=== PATIENT | male | born 1960 | race Caucasian/White ===

== ENCOUNTER 2020-09-22 14:27 | Inpatient (IN) | payer OTHER ==
--- NOTE | 2020-09-22 16:02 | Event Note ---
ED Screening Note ED Screening Note: Patient is a 59-year-old male presents emergency room with complaints of weakness that began 2 days ago He states that his left leg feels weak and he feels weak all over and has tremors and is unable to ambulate on his own Believes he may be dehydrated He denies any cough, fever, shortness of breath, chest pain, abdominal pain He denies any alcohol use or drug use No allergies to medications No past medical history Nonpitting bilateral lower extremity edema, right greater than left Tremors to the upper extremities This initial assessment/diagnostic orders/clinical plan/treatment(s) is/are subject to change based on patients health status, clinical progression and re- assessment by fellow clinical providers in the ED. Further treatment and workup at subsequent clinical providers discretion. Patient/guardian urged not to elope from the ED as their condition may be serious if not clinically assessed and managed. Initial orders include: Labs, CT head, EKG, chest x-ray, UA
[2020-09-22 16:29] LABS: Basophils # (Auto) 0.1 K/mm3 (0.0-0.1); Basophils % (Auto) 0.6 % (0.0-1.8); Eosinophils % (Auto) 0.3 % (0.0-4.3); Hematocrit 32.9 % (35.5-45.6); Hemoglobin 11.2 gm/dl (11.8-15.2); Lymphocytes # (Auto) 0.9 K/mm3 (1.2-5.4); Lymphocytes % (Auto) 8.6 % (13.4-35.0); Mean Corpuscular HGB Conc 34 % (32-34); Mean Corpuscular Volume 91 fl (84-94); Monocytes # (Auto) 1.2 K/mm3 (0.0-0.8); Monocytes % (Auto) 10.8 % (0.0-7.3); Platelet Count 633 K/mm3 (140-440); Red Blood Count 3.62 M/mm3 (3.65-5.03); Red Cell Distribution Width 13.8 % (13.2-15.2)
[2020-09-22] MEDS ORDERED: SODIUM CHLORIDE 0.9% 1000 ML 1,000 ML IV ONE ×3 (16:44→17:11)
[2020-09-22] MEDS ORDERED: CYCLOBENZAPRINE 10 MG TAB PO ONE (16:45)
[2020-09-22] MEDS ORDERED: KETOROLAC 30 MG/1 ML INJ IV ONE (16:45)
--- NOTE | 2020-09-22 16:49 | XRay Report ---
CHEST PA AND LATERAL VIEWS INDICATION: weakness. COMPARISON: None. FINDINGS: Support devices: None. Heart: Within normal limits. Lungs/Pleura: There is mild airspace disease in the lateral left mid to lower lung. Right lung is jamari ar. No pleural abnormality. IMPRESSION: 1. Focal airspace disease in the mid to lower lateral left lung is concerning for pneumonia. Radiogra phic follow-up is recommended after treatment to ensure resolution. Signer Name: Ronan Burgos MD Signed: 09/22/2020 4:45 PM Workstation Name: [id number]
--- NOTE | 2020-09-22 16:49 | Emergency Department Report ---
HPI - General Chief Complaint: Weakness PUI?: Yes Time Seen by Provider: 09/22/20 15:58 - HPI HPI: Room 44 The patient is a 59-year-old male present with a chief complaint of leg cramping. Patient states he believes he contracted COVID-19 approximate 2 weeks ago as his symptoms included fatigue and shortness of breath and he had contact with his boss who was Covid positive. Patient states the fatigue and shortness of breath have resolved however for the past 4 days he has had bilateral lower extremity aching with the left leg greater than the right. Patient denies fever nausea or vomiting. Patient denies chest pain shortness of breath. Patient denies of having any other symptoms besides cramping in his legs. Patient denies paresthesia. Patient currently gets his leg cramping score of 7/10 ED Past Medical Hx - Past Medical History Previous Medical History?: Yes Hx Hypertension: Yes - Surgical History Past Surgical History?: No - Family History Family history: no significant - Social History Smoking Status: Never Smoker Substance Use Type: None (Denies illicit drug) ED Review of Systems ROS: Stated complaint: WEAKNESS Other details as noted in HPI Constitutional: malaise. denies: fever Eyes: denies: eye pain ENT: denies: throat pain Respiratory: shortness of breath (Resolved) Cardiovascular: denies: chest pain Endocrine: no symptoms reported Gastrointestinal: diarrhea (History of diarrhea but it has resolved). denies: nausea, vomiting Genitourinary: denies: dysuria Musculoskeletal: myalgia Neurological: denies: headache Physical Exam - Physical Exam Vital Signs: Vital Signs 09/22/20 15:48 Temperature 99.0 F Pulse Rate 117 H Respiratory 18 Rate Blood Pressure 117/74 O2 Sat by Pulse 96 Oximetry Physical Exam: GENERAL: The patient is well-developed well-nourished male lying on stretcher not appearing to be in acute distress. [] HEENT: Normocephalic. Atraumatic. Extraocular motions are intact. Patient has moist mucous membranes. NECK: Supple. Trachea midline CHEST/LUNGS: Clear to auscultation. There is no respiratory distress noted. HEART/CARDIOVASCULAR: Regular. There is no tachycardia. There is no gallop rub or murmur. ABDOMEN: Abdomen is soft, nontender. Patient has normal bowel sounds. There is no abdominal distention. SKIN: There is no rash. There is no edema. There is no diaphoresis. NEURO: The patient is awake, alert, and oriented. The patient is cooperative. The patient has no focal neurologic deficits. The patient has normal speech MUSCULOSKELETAL: There is no tenderness to palpation of the calves bilaterally. There is no evidence of acute injury. ED Course Vital Signs 09/22/20 15:48 Temperature 99.0 F Pulse Rate 117 H Respiratory 18 Rate Blood Pressure 117/74 O2 Sat by Pulse 96 Oximetry ED Medical Decision Making - Lab Data Result diagrams: 09/22/20 16:10 09/22/20 16:10 Laboratory Tests 09/22/20 09/22/20 09/22/20 16:10 16:10 16:10 WBC 10.8 RBC 3.62 L Hgb 11.2 L Hct 32.9 L MCV 91 MCH 31 MCHC 34 RDW 13.8 Plt Count 633 H Lymph % (Auto) 8.6 L Ogle % (Auto) 10.8 H Eos % (Auto) 0.3 Baso % (Auto) 0.6 Lymph # (Auto) 0.9 L Ogle # (Auto) 1.2 H Eos # (Auto) 0.0 Baso # (Auto) 0.1 Seg Neutrophils % 79.7 H Seg Neutrophils # 8.6 H Sodium 141 Potassium 4.8 Chloride 103.2 Carbon Dioxide 24 Anion Gap 19 BUN 63 H Creatinine 0.9 Estimated GFR > 60 BUN/Creatinine Ratio 70 Glucose 114 H Calcium 9.2 Magnesium 2.80 H Total Bilirubin 1.10 AST 107 H ALT 165 H Alkaline Phosphatase 161 H Total Creatine Kinase 1354 H Troponin T 0.060 H NT-Pro-B Natriuret Pep 822.4 Total Protein 8.4 H Albumin 3.0 L Albumin/Globulin Ratio 0.6 Lipase 37 Free T4 Salicylates Acetaminophen 5.0 L 09/22/20 09/22/20 16:10 16:10 WBC RBC Hgb Hct MCV MCH MCHC RDW Plt Count Lymph % (Auto) Ogle % (Auto) Eos % (Auto) Baso % (Auto) Lymph # (Auto) Ogle # (Auto) Eos # (Auto) Baso # (Auto) Seg Neutrophils % Seg Neutrophils # Sodium Potassium Chloride Carbon Dioxide Anion Gap BUN Creatinine Estimated GFR BUN/Creatinine Ratio Glucose Calcium Magnesium Total Bilirubin AST ALT Alkaline Phosphatase Total Creatine Kinase Troponin T NT-Pro-B Natriuret Pep Total Protein Albumin Albumin/Globulin Ratio Lipase Free T4 1.09 Salicylates < 0.3 L Acetaminophen - EKG Data -: EKG Interpreted by Me EKG shows normal: sinus rhythm Rate: tachycardia (109 bpm) - EKG Data When compared to previous EKG there are: previous EKG unavailable Interpretation: nonspecific ST-T wave nathaly (T wave inversions anterolaterally. ST depressions laterally) - Radiology Data Radiology results: report reviewed (Chest x-ray, bilateral lower extremity Doppler, CT head), image reviewed (Chest x-ray, bilateral lower extremity Doppler, CT head) interpreted by me: Chest [id number] atelectasis. No pneumothorax. No foreign body seen [address] [address] XRay Report Signed Patient: DEVONTE NICOLE MR#: [id number] : 1960 Acct:[id number] Age/Sex: 59 / M ADM Date: 09/22/20 Loc: ED Attending Dr: Ordering Physician: SARAH KARIMI Date of Service: 09/22/20 Procedure(s): XR chest routine 2V Accession Number(s): [id number] cc: SARAH KARIMI Fluoro Time In Minutes: CHEST PA AND LATERAL VIEWS INDICATION: weakness. COMPARISON: None. FINDINGS: Support devices: None. Heart: Within normal limits. Lungs/Pleura: There is mild airspace disease in the lateral left mid to lower lung. Right lung is clear. No pleural abnormality. IMPRESSION: 1. Focal airspace disease in the mid to lower lateral left lung is concerning for pneumonia. Radiographic follow-up is recommended after treatment to ensure resolution. Signer Name: Ronan Burgos MD Signed: 09/22/2020 4:45 PM Workstation Name: [id number] Transcribed By: MATTEO Dictated By: Ronan Burgos MD Electronically Authenticated By: Ronan Burgos MD Signed Date/Time: 09/22/201644 DD/ 43 TD/TT: [address] [address] Vascular Lab Report Signed Patient: DEVONTE NICOLE MR#: [id number] : 1960 Acct:[id number] Age/Sex: 59 / M ADM Date: 09/22/20 Loc: ED Attending Dr: Ordering Physician: SARAH KARIMI Date of Service: 09/22/20 Procedure(s): VL venous duplex LE BILAT Accession Number(s): [id number] cc: SARAH KARIMI DUPLEX DOPPLER LOWER EXTREMITY VEINS, BILATERAL INDICATION / CLINICAL INFORMATION: BLE edema, right >left. TECHNIQUE: Duplex doppler imaging was performed through the veins of both lower extremities using venous compression and other maneuvers. COMPARISON: None available. FINDINGS: RIGHT COMMON FEMORAL VEIN: Negative. RIGHT FEMORAL VEIN: Negative. RIGHT POPLITEAL VEIN: Negative. RIGHT CALF VEINS: Negative. LEFT COMMON FEMORAL VEIN: Negative. LEFT FEMORAL VEIN: Negative. LEFT POPLITEAL VEIN: Negative. LEFT CALF VEINS: Negative. ADDITIONAL FINDINGS: Complex collection in the popliteal fossa with maximum diameter 4.5 cm is most likely a popliteal/Barahona's cyst. IMPRESSION: 1. No sonographic evidence for DVT in either lower extremity. 2. 4.5 cm complex left popliteal collection. This may be a complex popliteal/Barahona's cyst. Signer Name: Ronan Burgos MD Signed: 09/22/2020 5:27 PM Workstation Name: [id number] Transcribed By: SW Dictated By: Ronan Burgos MD Electronically Authenticated By: Ronan Burgos MD Signed Date/Time: 09/22/201726 DD/ 25 TD/TT: [facility] [address] [place] [address] Cat Scan Report Signed Patient: DEVONTE NICOLE MR#: [id number] : 1960 Acct:[id number] Age/Sex: 59 / M ADM Date: 09/22/20 Loc: ED Attending Dr: Ordering Physician: SARAH KARIMI Date of Service: 09/22/20 Procedure(s): CT head/brain wo con Accession Number(s): [id number] cc: SARAH KARIMI CT HEAD WITHOUT CONTRAST INDICATION / CLINICAL INFORMATION: weakness. TECHNIQUE: All CT scans at this location are performed using CT dose reduction for ALARA by means of automated exposure control. COMPARISON: None available. FINDINGS: HEMORRHAGE: No evidence of intracranial hemorrhage or extra-axial fluid collecti on. EXTRA-AXIAL SPACES: Cortical sulci and sylvian fissures are at the upper limit of normal for size for the patient's age of 59 years. Basilar cisterns have an unremarkable appearance. VENTRICULAR SYSTEM: The third and lateral ventricles are normal in size and configuration CEREBRAL PARENCHYMA: Several focal areas of decreased brain parenchymal attenuation are identified. These are present in a bilateral gangliocapsular distribution. These appear to represent small deep infarctions, age indeterminate. Correlation with magnetic resonance imaging be useful to more accurately evaluate the age of these suspected small deep infarctions. Incidental note is made of bilateral basal ganglia calcifi cations. MIDLINE SHIFT OR HERNIATION: There is no mass effect. CEREBELLUM / BRAINSTEM: Brainstem has an unremarkable appearance. Age related cerebellar atrophy is noted. MIDLINE STRUCTURES:Pituitary gland has an unremarkable appearance. No abnormalities are seen in the pineal region. INTRACRANIAL VE SSELS:Calcified atherosclerotic plaque is present along the course of the cavernous segments of both internal carotid arteries. Similar findings are seen at the distal vertebral arteries. ORBITS: visualized portions of the orbits have an unremarkable appearance. SOFT TISSUES of HEAD: No significant abnormality. CALVARIUM: Evaluation of bone windows reveals no abnormalities. PARANASAL SINUSES / MASTOID AIR CELLS: There is opacification of the right maxillary sinus where a retention cyst or mucocele or polyp may be present. Opacification of multiple anterior and mid ethmoid air cells is observed on the right. There is opacification of the frontal sinuses bilaterally. Maxillary sinus, left-sided ethmoid air cells and mastoid air cells are normally pneumatized. ADDITIONAL FINDINGS: None. IMPRESSION: 1. 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 Correlation with magnetic resonance imaging would be useful to more accurately date these susp ected infarctions. 2. No additional intracranial abnormality. 3. Extensive mucosal disease in the right maxillary sinus, anterior and mid ethmoid air cells on the right and in the right and left frontal sinuses. Signer Name: Selwyn Christiansen MD Signed: 09/22/2020 5:36 PM Workstation Name: [id number] Transcribed By: Dictated By: Selwyn Christiansen MD Electronically Authenticated By: Selwyn Christiansen MD Signed Date/Time: 09/22/201735 DD/ 31 TD/TT: - Differential Diagnosis Myalgia, symptomatic anemia, dehydration, hypokalemia, rhabdomyolysis Critical care attestation.: If time is entered above; I have spent that time in minutes in the direct care of this critically ill patient, excluding procedure time. ED Disposition Clinical Impression: Dehydration, Rhabdomyolysis, Pneumonia, Suspected COVID-19 virus infection, Elevated troponin, Transaminitis Disposition: OP ADMIT IP TO THIS HOSP Is pt being admited?: Yes Does the pt Need Aspirin: No Condition: Fair Instructions: Bacterial Pneumonia (ED) Time of Disposition: 17:43 (Hospitalist notified (Dr. Novak))
[2020-09-22 16:57] LABS: Alanine Aminotransferase 165 units/L (7-56); BUN/Creatinine Ratio 70; Blood Urea Nitrogen 63 mg/dL (9-20); Calcium 9.2 mg/dL (8.4-10.2); Hemolysis Index 0
[2020-09-22 17:05] LABS: Free T4 (Free Thyroxine) 1.09 ng/dL (0.76-1.46)
[2020-09-22] MEDS ORDERED: AZITHROMYCIN/NS 500 MG/250 ML 500 MG/250 ML BAG IV ONE (17:20)
[2020-09-22] MEDS ORDERED: cefTRIAXone/NS 1 GM/50 ML 1 GM/50 ML BAG IV ONE (17:20)
--- NOTE | 2020-09-22 17:31 | Vascular Lab Report ---
DUPLEX DOPPLER LOWER EXTREMITY VEINS, BILATERAL INDICATION / CLINICAL INFORMATION: BLE edema, right >left. TECHNIQUE: Duplex doppler imaging was performed through the veins of both lower extremities using venous denny eliana and other maneuvers. COMPARISON: None available. FINDINGS: RIGHT COMMON FEMORAL VEIN: Negative. RIGHT FEMORAL VEIN: Negative. RIGHT POPLITEAL VEIN: Negative. RIGHT CALF VEINS: Negative. LEFT COMMON FEMORAL VEIN: Negative. LEFT FEMORAL VEIN: Negative. LEFT POPLITEAL VEIN: Negative. LEFT CALF VEINS: Negative. ADDITIONAL FINDINGS: Complex collection in the popliteal fossa with maximum diameter 4.5 cm is most l ikely a popliteal/Barahona's cyst. IMPRESSION: 1. No sonographic evidence for DVT in either lower extremity. 2. 4.5 cm complex left popliteal collection. This may be a complex popliteal/Barahona's cyst. Signer Name: Ronan Burgos MD Signed: 09/22/2020 5:27 PM Workstation Name: [id number]
--- NOTE | 2020-09-22 17:41 | Cat Scan Report ---
CT HEAD WITHOUT CONTRAST INDICATION / CLINICAL INFORMATION: weakness. TECHNIQUE: All CT scans at this location are performed using CT dose reduction for ALARA by means of automated e xposure control. COMPARISON: None available. FINDINGS: HEMORRHAGE: No evidence of intracranial hemorrhage or extra-axial fluid collection. EXTRA-AXIAL SPACES: Cortical sulci and sylvian fissures are at the upper limit of normal for size for the patient's age of 59 years. Basilar cisterns have an unremarkable appearance. VENTRICULAR SYSTEM: The third and lateral ventricles are normal in size and configuration CEREBRAL PARENCHYMA: Several focal areas of decreased brain parenchymal attenuation are identified. T hese are present in a bilateral gangliocapsular distribution. These appear to represent small deep in farctions, age indeterminate. Correlation with magnetic resonance imaging be useful to more accuratel y evaluate the age of these suspected small deep infarctions. Incidental note is made of bilateral ba adonay ganglia calcifications. MIDLINE SHIFT OR HERNIATION: There is no mass effect. CEREBELLUM / BRAINSTEM: Brainstem has an unremarkable appearance. Age related cerebellar atrophy is n oted. MIDLINE STRUCTURES:Pituitary gland has an unremarkable appearance. No abnormalities are seen in the p ineal region. INTRACRANIAL VESSELS:Calcified atherosclerotic plaque is present along the course of the cavernous se gments of both internal carotid arteries. Similar findings are seen at the distal vertebral arteries. ORBITS: visualized portions of the orbits have an unremarkable appearance. SOFT TISSUES of HEAD: No significant abnormality. CALVARIUM: Evaluation of bone windows reveals no abnormalities. PARANASAL SINUSES / MASTOID AIR CELLS: There is opacification of the right maxillary sinus where a re tention cyst or mucocele or polyp may be present. Opacification of multiple anterior and mid ethmoid air cells is observed on the right. There is opacification of the frontal sinuses bilaterally. Maxill venecia sinus, left-sided ethmoid air cells and mastoid air cells are normally pneumatized. ADDITIONAL FINDINGS: None. IMPRESSION: 1. 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 Co rrelation with magnetic resonance imaging would be useful to more accurately date these suspected inf arctions. 2. No additional intracranial abnormality. 3. Extensive mucosal disease in the right maxillary sinus, anterior and mid ethmoid air cells on the right and in the right and left frontal sinuses. Signer Name: Selwyn Christiansen MD Signed: 09/22/2020 5:36 PM Workstation Name: [id number]
--- NOTE | 2020-09-22 18:23 | History and Physical Report ---
History of Present Illness Chief complaint: I do not feel well History of present illness: 59 YO Male with HTN, Obesity Hypoventilation Syndrome presents to ED for evaluation. Patient reports "I do not feel good". Patient states that he had experienced generalized weakness, fatigue, muscle aches, shortness of breath, dry cough over the past 2 weeks with worsening symptoms over the past 4 days. Patient acknowledges known coronavirus exposure. EMS was notified and upon arrival the patient was found to be in distress and subsequently transported to [facility] for further care and evaluation of the aforementioned symptoms. The patient was seen and evaluated in the emergency department. All lab and imaging studies reviewed. The patient was found to have pneumonia, suspected coronavirus infection, acute kidney injury, diabetes mellitus, as well as rhabdomyolysis. Patient initiated on pneumonia protocol as well as coronavirus protocol and admitted to medical floor due to increased risk of worsening symptoms. Patient denies fever, chills, chest pain, palpitation, skin rash, recent ill contacts. No medication listed at time of admission for reconciliation. No prior admission for review. Advanced care planning conducted in ED. Past History Past Medical History: hypertension, other (See HPI) Past Surgical History: No surgical history, Other (Reviewed) Social history: single Family history: hypertension Medications and Allergies Allergies Allergy/AdvReac Type Severity Reaction Status Date / Time No Known Allergies Allergy Verified 09/22/20 17:43 Home Medications Medication Instructions Recorded Confirmed Last Taken Type Colchicine [Colcrys] 0.6 mg PO DAILY 09/22/20 09/22/20 Unknown History Losartan/Hydrochlorothiazide 1 each PO DAILY 09/22/20 09/22/20 Unknown History [Losartan-Hctz 50-12.5 mg Tab] Active Meds: Active Medications Sodium Chloride (Nacl 0.9% 1000 Ml) 1,000 mls @ 250 mls/hr IV ONCE ONE Stop: 09/22/20 21:10 Azithromycin (Zithromax/Ns) 500 mg in 250 mls @ 250 mls/hr IV ONCE ONE; Protocol Stop: 09/22/20 18:19 Review of Systems Constitutional: fatigue, weakness, malaise, no weight loss, no weight gain Ears, nose, mouth and throat: no ear pain, no ear discharge, no tinnitis, no decreased hearing, no nasal discharge Cardiovascular: shortness of breath, no chest pain, no orthopnea, no palpitations, no rapid/irregular heart beat, no edema Respiratory: cough, shortness of breath, no cough with sputum, no excessive sp utum Gastrointestinal: no abdominal pain, no nausea, no vomiting, no diarrhea, no constipation Genitourinary Male: no hematuria, no flank pain, no discharge, no urinary frequency, no nocturia Rectal: no pain, no incontinence, no bleeding Musculoskeletal: no neck stiffness, no neck pain, no shooting arm pain, no arm numbness/tingling, no low back pain, no leg numbness/tingling Integumentary: no rash, no pruritis, no redness, no sores, no wounds, no jaundice Neurological: no head injury, no transient paralysis, no paralysis, no weakness, no numbness, no tingling, no seizures Psychiatric: no anxiety, no memory loss, no sleep disturbances, no insomnia, no change in appetite, no change in libido Endocrine: no cold intolerance, no heat intolerance, no excessive thirst, no polydipsia, no nocturia, no excessive sweating Hematologic/Lymphatic: no easy bruising, no easy bleeding Allergic/Immunologic: no urticaria, no wheezing Exam - Constitutional Vitals: Temp Pulse Resp BP Pulse Ox 99.0 F 109 H 18 146/71 94 09/22/20 15:48 09/22/20 18:01 09/22/20 17:44 09/22/20 17:43 09/22/20 17:43 General appearance: Present: mild distress, obese - EENT Eyes: Present: PERRL ENT: hearing intact, clear oral mucosa - Neck Neck: Present: supple, normal ROM - Respiratory Respiratory effort: labored Respiratory: bilateral: diminished - Cardiovascular Heart Sounds: Present: S1 & S2. Absent: rub, click - Extremities Extremities: pulses symmetrical, No edema Peripheral Pulses: within normal limits - Abdominal General gastrointestinal: Present: soft, non-tender, non-distended, normal bowel sounds Male genitourinary: Present: normal - Integumentary Integumentary: Present: clear, warm, dry - Musculoskeletal Musculoskeletal: gait normal, strength equal bilaterally - Psychiatric Psychiatric: appropriate mood/affect, intact judgment & insight - Neurologic Neurologic: CNII-XII intact, moves all extremities HEART Score - HEART Score Troponin: Troponin T 0.060 ng/mL (0.00-0.029) H 09/22/20 16:10 Results - Labs CBC & Chem 7: 09/22/20 16:10 09/22/20 16:10 Labs: Abnormal lab results 09/22/20 09/22/20 09/22/20 Range/Units 16:10 16:10 16:10 RBC 3.62 L (3.65-5.03) M/mm3 Hgb 11.2 L (11.8-15.2) gm/dl Hct 32.9 L (35.5-45.6) % Plt Count 633 H (140-440) K/mm3 Lymph % (Auto) 8.6 L (13.4-35.0) % Russell % (Auto) 10.8 H (0.0-7.3) % Lymph # (Auto) 0.9 L (1.2-5.4) K/mm3 Russell # (Auto) 1.2 H (0.0-0.8) K/mm3 Seg Neutrophils % 79.7 H (40.0-70.0) % Seg Neutrophils # 8.6 H (1.8-7.7) K/mm3 D-Dimer (0-234) ng/mlDDU BUN 63 H (9-20) mg/dL Glucose 114 H (75-100) mg/dL Magnesium 2.80 H (1.7-2.3) mg/dL AST 107 H (5-40) units/L ALT 165 H (7-56) units/L Alkaline Phosphatase 161 H (35-129) units/L Total Creatine Kinase 1354 H (55-170) units/L Troponin T 0.060 H (0.00-0.029) ng/mL Total Protein 8.4 H (6.3-8.2) g/dL Albumin 3.0 L (3.9-5) g/dL Salicylates (2.8-20.0) mg/dL Acetaminophen 5.0 L (10.0-30.0) ug/mL 09/22/20 09/22/20 Range/Units 16:10 17:30 RBC (3.65-5.03) M/mm3 Hgb (11.8-15.2) gm/dl Hct (35.5-45.6) % Plt Count (140-440) K/mm3 Lymph % (Auto) (13.4-35.0) % Russell % (Auto) (0.0-7.3) % Lymph # (Auto) (1.2-5.4) K/mm3 Russell # (Auto) (0.0-0.8) K/mm3 Seg Neutrophils % (40.0-70.0) % Seg Neutrophils # (1.8-7.7) K/mm3 D-Dimer 1568.94 H (0-234) ng/mlDDU BUN (9-20) mg/dL Glucose (75-100) mg/dL Magnesium (1.7-2.3) mg/dL AST (5-40) units/L ALT (7-56) units/L Alkaline Phosphatase (35-129) units/L Total Creatine Kinase (55-170) units/L Troponin T (0.00-0.029) ng/mL Total Protein (6.3-8.2) g/dL Albumin (3.9-5) g/dL Salicylates < 0.3 L (2.8-20.0) mg/dL Acetaminophen (10.0-30.0) ug/mL Assessment and Plan - Patient Problems (1) Pneumonia Current Visit: No Status: Acute Plan to address problem: Pneumonia protocol: Chest x-ray, CBC, CMP, supplemental oxygen, pulse oximetry, nebulizer therapy, prone positioning while in bed, blood culture. (2) JINA (acute kidney injury) Current Visit: Yes Status: Acute Plan to address problem: Monitor urine output every shift, BMP, repeat BMP in a.m., monitor fluid balance. (3) Rhabdomyolysis Current Visit: No Status: Acute Qualifiers: Encounter type: initial encounter Plan to address problem: Supportive care, CK level, repeat CK in a.m., oral free water intake. (4) Suspected COVID-19 virus infection Current Visit: No Status: Acute Plan to address problem: Coronavirus protocol: Contact precaution, isolation precautions, IV antibiotic therapy, IV steroid therapy, prone positioning while in bed, pulmonary toilet. (5) DVT prophylaxis Current Visit: Yes Status: Acute Plan to address problem: SCDs bilateral lower extremities while in bed, prophylactic anticoagulation (6) Advance care planning Current Visit: Yes Status: Acute Plan to address problem: Disease education conducted, patient is full code, care plan discussed, prognosis discussed, patient knowledges understanding and agreement with care plan, +30 minutes.
[2020-09-22] MEDS ORDERED: ONDANSETRON 4 MG/2 ML INJ IV PRN (18:24)
[2020-09-22 18:51] LABS: C-Reactive Protein 19.4 mg/dL (0.00-1.30)
[2020-09-22 19:54] LABS: HDL Cholesterol 26 mg/dL (40-59); LDL Cholesterol,Direct 110 mg/dL (50-130)
[2020-09-22] MEDS: ZINC SULFATE 220 MG CAP PO SCH (23:09)
[2020-09-22] MEDS: methylPREDNISolone Sod Succinate 40 MG/1 ML INJ IV SCH (23:10)
[2020-09-22] MEDS: HEPARIN 5,000 UNIT/1 ML VIAL SUB-Q SCH (23:10)
[2020-09-22] MEDS: ASCORBIC ACID 500 MG TAB PO SCH (23:10)
[2020-09-23 03:14] LABS: Bilirubin,Urine NEG (Negative); Blood,Urine NEG (Negative); Color,Urine Amber (Yellow); Mucus,Urine FEW /HPF; Protein,Urine <15 mg/dL mg/dL (Negative)
[2020-09-23] MEDS: cefTRIAXone/NS 2 GM/100 ML 2 GM/100 ML BAG IV SCH (05:16)
[2020-09-23] MEDS: methylPREDNISolone Sod Succinate 40 MG/1 ML INJ IV SCH (05:16)
[2020-09-23 06:06] LABS: Basophils % (Auto) 0.1 % (0.0-1.8); Hematocrit 28.6 % (35.5-45.6); Hemoglobin 9.6 gm/dl (11.8-15.2); Lymphocytes # (Auto) 0.6 K/mm3 (1.2-5.4); Lymphocytes % (Auto) 7.5 % (13.4-35.0); Mean Corpuscular HGB Conc 34 % (32-34); Mean Corpuscular Volume 93 fl (84-94); Monocytes # (Auto) 0.3 K/mm3 (0.0-0.8); Monocytes % (Auto) 3.8 % (0.0-7.3); Platelet Count 489 K/mm3 (140-440); Red Blood Count 3.08 M/mm3 (3.65-5.03); Red Cell Distribution Width 13.7 % (13.2-15.2)
[2020-09-23 06:34] LABS: BUN/Creatinine Ratio 63; Blood Urea Nitrogen 50 mg/dL (9-20); Calcium 8.1 mg/dL (8.4-10.2); Hemolysis Index 0
[2020-09-23] MEDS: LOSARTAN 50 MG TAB PO SCH (09:39)
[2020-09-23] MEDS: ZINC SULFATE 220 MG CAP PO SCH ×2 (09:45→22:09)
[2020-09-23] MEDS: CHOLECALCIFEROL (VIT D3) 1000 UNIT (25 mcg) TAB PO SCH (09:45)
[2020-09-23] MEDS: ASCORBIC ACID 500 MG TAB PO SCH ×2 (09:45→22:10)
[2020-09-23] MEDS: AZITHROMYCIN 250 MG TAB PO SCH (09:45)
[2020-09-23] MEDS ORDERED: NON-FORMULARY EACH (Losartan/Hydrochlorothiazide [Losartan-Hctz 50-12.5 Mg Tab] 1 EACH Tab PO SCH (10:00)
[2020-09-23] MEDS: COLCHICINE 0.6 MG TAB PO SCH (10:05)
[2020-09-23] MEDS: hydroCHLOROthiazide 12.5 MG CAP PO SCH (10:05)
[2020-09-23] MEDS: HEPARIN 5,000 UNIT/1 ML VIAL SUB-Q SCH (10:06)
[2020-09-23 11:36] LABS: Albumin 2.5 g/dL (3.9-5)
[2020-09-23 11:53] LABS: Bilirubin,Direct 0.4 mg/dL (0-0.2)
--- NOTE | 2020-09-23 14:11 | Progress Note ---
Assessment and Plan Assessment and plan: COVID-19 PUI -Patient has known exposure to COVID-19 prior to symptom onset -09/23 COVID-19 PCR pending -09/22 CXR shows focal airspace disease in the mid to lower lateral left lung which is concerning for pneumonia -Droplet/isolation precautions -Empiric antibiotic therapy -Infectious disease consulted, appreciate recommendations -Steroid therapy for 10 days -Prone to sleep -Pulmonary toilet -OOB 3 times daily -Supplemental oxygen as needed -Vitamin C, zinc, vitamin D -Anticoagulation per protocol -Trend inflammatory markers for risk stratification Pneumonia -Antibiotic therapy -Pulmonary hygiene -Supplement oxygen as needed -SPO2 monitoring Elevated D-dimer -Presented with a D-dimer of 1568 -09/22 bilateral lower extremity Doppler ultrasound shows no evidence of DVT/SVT Rhabdomyolysis -Presented with a creatinine kinase of 1354 -S/p 3 L normal saline in the emergency department -Trend creatinine -PT/OT consulted -Patient states that he has last moved in 4 days prior to presentation Transaminitis -LFTs of presentation: AST 107, ALT 167, alk phos 161 -Trend LFTs -GI consulted, appreciate recommendations -09/23 abdominal ultrasound pending Thrombocytopenia -Presented with a platelet count of 633 -Trend CBC Hypertension -Resume home antihypertensive regimen and titrate as needed -Blood pressure monitoring per protocol -As needed IV hydralazine for SBP greater than 160 DVT prophylaxis -SCDs to bilateral lower extremities while in bed -Heparin subcu History Interval history: This is a 59 YO Male with HTN and presented to the emergency department on 09/22 obesity hypoventilation syndrome with complaints of generalized weakness, fatigue, muscle aches, shortness of breath, dry cough over the past 2 weeks with worsening symptoms over the past 4 days with known COVID-19 exposure. The patient was found to have pneumonia, suspected coronavirus infection, transaminitis and rhabdomyolysis. Patient was admitted to the hospitalist service with consults to infectious disease and GI. 09/23: Today on examination patient is on room air and states that he has not moved in 4 days and complains of generalized weakness and fatigue. Today in fectious disease, GI and PT/OT were consulted. No acute events reported overnight. We will obtain an acute hepatitis panel and abdominal ultrasound to further investigate his transaminitis. COVID-19 PCR pending Hospitalist Physical - Constitutional Vitals: Temp Pulse Resp BP Pulse Ox 98.5 F 95 H 22 117/67 94 09/23/20 11:22 09/23/20 11:22 09/23/20 11:22 09/23/20 11:22 09/23/20 11:22 General appearance: Present: mild distress, obese - EENT Eyes: Present: PERRL, EOM intact ENT: hearing intact, clear oral mucosa, dentition normal - Neck Neck: Present: normal ROM - Respiratory Respiratory effort: normal - Cardiovascular Rhythm: regular - Extremities Extremities: no ischemia, pulses intact, pulses symmetrical, No edema, normal temperature, normal color, Full ROM Peripheral Pulses: within normal limits - Abdominal General gastrointestinal: soft, non-tender, non-distended, normal bowel sounds - Integumentary Integumentary: Present: clear, warm, dry - Psychiatric Psychiatric: cooperative - Neurologic Neurologic: CNII-XII intact, no focal deficits, moves all extremities - Allied Health Allied health notes reviewed: nursing HEART Score - HEART Score Troponin: Troponin T 0.060 ng/mL (0.00-0.029) H 09/22/20 16:10 Results - Labs CBC & Chem 7: 09/23/20 05:28 09/23/20 05:28 Labs: Laboratory Last Values WBC 8.3 K/mm3 (4.5-11.0) 09/23/20 05:28 RBC 3.08 M/mm3 (3.65-5.03) L 09/23/20 05:28 Hgb 9.6 gm/dl (11.8-15.2) L 09/23/20 05:28 Hct 28.6 % (35.5-45.6) L 09/23/20 05:28 MCV 93 fl (84-94) 09/23/20 05:28 MCH 31 pg (28-32) 09/23/20 05:28 MCHC 34 % (32-34) 09/23/20 05:28 RDW 13.7 % (13.2-15.2) 09/23/20 05:28 Plt Count 489 K/mm3 (140-440) H 09/23/20 05:28 Lymph % (Auto) 7.5 % (13.4-35.0) L 09/23/20 05:28 [place] % (Auto) 3.8 % (0.0-7.3) 09/23/20 05:28 Eos % (Auto) 0.0 % (0.0-4.3) 09/23/20 05:28 Baso % (Auto) 0.1 % (0.0-1.8) 09/23/20 05:28 Lymph # (Auto) 0.6 K/mm3 (1.2-5.4) L 09/23/20 05:28 [place] # (Auto) 0.3 K/mm3 (0.0-0.8) 09/23/20 05:28 Eos # (Auto) 0.0 K/mm3 (0.0-0.4) 09/23/20 05:28 Baso # (Auto) 0.0 K/mm3 (0.0-0.1) 09/23/20 05:28 Seg Neutrophils % 88.6 % (40.0-70.0) H 09/23/20 05:28 Seg Neutrophils # 7.4 K/mm3 (1.8-7.7) 09/23/20 05:28 D-Dimer 1568.94 ng/mlDDU (0-234) H 09/22/20 17:30 Sodium 142 mmol/L (137-145) 09/23/20 05:28 Potassium 4.6 mmol/L (3.6-5.0) 09/23/20 05:28 Chloride 109.0 mmol/L (98-107) H 09/23/20 05:28 Carbon Dioxide 22 mmol/L (22-30) 09/23/20 05:28 Anion Gap 16 mmol/L 09/23/20 05:28 BUN 50 mg/dL (9-20) H 09/23/20 05:28 Creatinine 0.8 mg/dL (0.8-1.3) 09/23/20 05:28 Estimated GFR > 60 ml/min 09/23/20 05:28 BUN/Creatinine Ratio 63 % 09/23/20 05:28 Glucose 117 mg/dL (75-100) H 09/23/20 05:28 Calcium 8.1 mg/dL (8.4-10.2) L 09/23/20 05:28 Magnesium 2.80 mg/dL (1.7-2.3) H 09/22/20 16:10 Ferritin > 949.0 ng/mL (30.0-300.0) H 09/22/20 16:10 Total Bilirubin 0.70 mg/dL (0.1-1.2) 09/23/20 10:37 Direct Bilirubin 0.4 mg/dL (0-0.2) H 09/23/20 10:37 Indirect Bilirubin 0.3 mg/dL 09/23/20 10:37 AST 105 units/L (5-40) H 09/23/20 10:37 ALT 140 units/L (7-56) H 09/23/20 10:37 Alkaline Phosphatase 148 units/L (35-129) H 09/23/20 10:37 Lactate Dehydrogenase 331 units/L (91-180) H 09/22/20 16:10 Total Creatine Kinase 685 units/L (55-170) H 09/23/20 10:37 Troponin T 0.060 ng/mL (0.00-0.029) H 09/22/20 16:10 C-Reactive Protein 19.40 mg/dL (0.00-1.30) H 09/22/20 16:10 NT-Pro-B Natriuret Pep 822.4 pg/mL (0-900) 09/22/20 16:10 Total Protein 6.9 g/dL (6.3-8.2) 09/23/20 10:37 Albumin 2.5 g/dL (3.9-5) L 09/23/20 10:37 Albumin/Globulin Ratio 0.6 % 09/23/20 10:37 Triglycerides 179 mg/dL (2-149) H 09/22/20 16:10 Cholesterol 182 mg/dL (50-199) 09/22/20 16:10 LDL Cholesterol Direct 110 mg/dL (50-130) 09/22/20 16:10 HDL Cholesterol 26 mg/dL (40-59) L 09/22/20 16:10 Cholesterol/HDL Ratio 7.00 % 09/22/20 16:10 Lipase 37 units/L (13-60) 09/22/20 16:10 Procalcitonin 0.76 ng/mL (<0.15) 09/22/20 16:10 TSH 1.620 mlU/mL (0.270-4.200) 09/22/20 16:10 Free T4 1.09 ng/dL (0.76-1.46) 09/22/20 16:10 Urine Color Poppy (Yellow) 09/22/20 Unknown Urine Turbidity Clear (Clear) 09/22/20 Unknown Urine pH 5.0 (5.0-7.0) 09/22/20 Unknown Ur Specific [place] 1.023 (1.003-1.030) 09/22/20 Unknown Urine Protein <15 mg/dl mg/dL (Negative) 09/22/20 Unknown Urine Glucose (UA) Neg mg/dL (Negative) 09/22/20 Unknown Urine Ketones Neg mg/dL (Negative) 09/22/20 Unknown Urine Blood Neg (Negative) 09/22/20 Unknown Urine Nitrite Neg (Negative) 09/22/20 Unknown Urine Bilirubin Neg (Negative) 09/22/20 Unknown Urine Urobilinogen 4.0 mg/dL (<2.0) 09/22/20 Unknown Ur Leukocyte Esterase Neg (Negative) 09/22/20 Unknown Urine WBC (Auto) 1.0 /HPF (0.0-6.0) 09/22/20 Unknown Urine RBC (Auto) 2.0 /HPF (0.0-6.0) 09/22/20 Unknown U Epithel Cells (Auto) < 1.0 /HPF (0-13.0) 09/22/20 Unknown Urine Mucus Few /HPF 09/22/20 Unknown Salicylates < 0.3 mg/dL (2.8-20.0) L 09/22/20 16:10 Acetaminophen 5.0 ug/mL (10.0-30.0) L 09/22/20 16:10 Microbiology: Microbiology 09/22/20 17:42 Peripheral/Venous Blood Culture - Preliminary Culture in Progress 09/22/20 17:42 Peripheral/Venous Blood Culture - Preliminary Culture in Progress [place]/IV: Voiding Method Toilet Active Medications - Current Medications Current Medications: Generic Name Dose Route Start Last Admin Trade Name Freq PRN Reason Stop Dose Admin Acetaminophen 650 mg 09/22/20 18:24 Acetaminophen 325 Mg Tab PO Q4H PRN Pain MILD(1-3)/Fever >100.5/PEREYRA Ascorbic Acid 500 mg 09/22/20 22:00 09/23/20 09:45 Ascorbic Acid 500 Mg Tab PO 500 mg BID MILTON Administration Azithromycin 500 mg 09/23/20 10:00 09/23/20 09:45 Azithromycin 250 Mg Tab PO 09/26/20 10:01 500 mg QDAY MILTON Administration Cholecalciferol 1,000 unit 09/23/20 10:00 09/23/20 09:45 Cholecalciferol (Vit D3) 1000 Unit (25 Mcg) Tab PO 1,000 unit QDAY MILTON Administration Colchicine 0.6 mg 09/23/20 10:00 09/23/20 10:05 Colchicine 0.6 Mg Tab PO 0.6 mg DAILY MILTON Administration Dexamethasone 6 mg 09/24/20 10:00 Dexamethasone 4 Mg Tab PO DAILY MILTON Heparin Sodium (Porcine) 5,000 unit 09/22/20 22:00 09/23/20 10:06 Heparin 5,000 Unit/1 Ml Vial SUB-Q 5,000 unit Q12HR MILTON Administration Hydrochlorothiazide 12.5 mg 09/23/20 10:00 09/23/20 10:05 Hydrochlorothiazide 12.5 Mg Cap PO 12.5 mg QDAY MILTON Administration Ceftriaxone Sodium 2 gm in 100 mls @ 200 mls/hr 09/23/20 06:00 09/23/20 05:16 Rocephin/Ns 2 Gm/100 Ml IV 200 mls/hr Q24H MILTON Administration Protocol Losartan Potassium 50 mg 09/23/20 10:00 09/23/20 09:39 Losartan 50 Mg Tab PO 50 mg QDAY MILTON Administration Ondansetron HCl 4 mg 09/22/20 18:24 Ondansetron 4 Mg/2 Ml Inj IV Q8H PRN Nausea And Vomiting Sodium Chloride 10 ml 09/22/20 22:00 09/23/20 10:07 Sodium Chloride 0.9% 10 Ml Flush Syringe IV 10 ml BID MILTON Administration Sodium Chloride 10 ml 09/22/20 18:24 Sodium Chloride 0.9% 10 Ml Flush Syringe IV PRN PRN LINE FLUSH Zinc Sulfate 220 mg 09/22/20 22:00 09/23/20 09:45 Zinc Sulfate 220 Mg Cap PO 220 mg BID MILTON Administration Nutrition/Malnutrition Assess - Dietary Evaluation Nutrition/Malnutrition Findings: Nutrition Notes Start: 09/23/20 11:00 Freq: Status: Active Protocol: Document 09/23/20 11:00 AT (Rec: 09/23/20 11:19 AT [id number]) Co-Sign 09/23/20 11:00 MK Nutrition Notes Need for Assessment generated from: ict business analyst Initial or Follow up Assessment Current Diagnosis Acute Kidney Injury,Diabetes, Hypertension Other Pertinent Diagnosis Obesity Hypoventilation Syndrome, PNA, COVID PUI, Rhabdomyolysis Current Diet Consistent CHO Labs/Tests BUN 50 BG 117 Pertinent Medications Solu-Medrol Vit C Zinc Sulfate Height 5 ft 3 in Weight 86.183 kg [place] Body Weight (kg) 56.36 BMI 33.6 Weight Status Obese Subjective/Other Information Screen for MST of 2 and Adarsh Score. Could not reach pt by phone x2. Per RN, pt has no wounds and consumed 100% of breakfast; the pt does have edema in LE. Will follow for intakes and nutrition hx. Burn Absent Trauma Absent GI Symptoms None Skin Integrity/Comment Adarsh Score: 17 Minimum of two criteria No Fluid Accumulation Mild (non-severe) #1 Nutrition Diagnosis No nutrition diagnosis at this time Is patient on ventilator? No Is Patient Ambulatory and/or Out of Bed No REE-([place]-confined to bed) 1885.068 Kcal/Kg value to use for calculation 18 Approximate Energy Requirements Using 1551 kcal/Kg Calculation Used for Recommendations Kcal/kg Additional Notes PRO needs: 69-103g (0.8-1.2 g/ kg for JINA) Fluid needs: 1 mL/kcal or per MD Nutrition Intervention Change Diet Order: Consistent CHO with Cardiac modifications Goal #1 Meet at least 75% of estimated energy and protein needs. Anticipated Discharge Needs: Cardiac/Consistent CHO Follow-Up By: 09/24/20 Additional Comments F/U for wt hx, intakes
[2020-09-23] MEDS ORDERED: hydrALAZINE 20 MG/1 ML INJ IV PRN (14:23)
--- NOTE | 2020-09-23 15:28 | Consultation ---
History of Present Illness - Reason for Consult Consult date: 09/23/20 - History of Present Illness 59-year-old man past medical history hypertension, obesity presented to hospital complaining of weakness, fatigue, myalgias, shortness of breath. This began approximate 2 weeks prior to admission, and has been progressively worse over the past 4 days. He knows that he was exposed to Covid. Afebrile, normal white count. Currently on ceftriaxone and azithromycin. Normal renal function, procalcitonin elevated at 0.76. Covid testing negative. Blood cultures remain negative so far. Currently on room air. Imaging personally reviewed: Chest x-ray: Left lung pneumonia. Review of Systems: Bold if positive, otherwise negative General: fevers, chills, rigors HEENT: visual disturbance, diplopia, eye pain Respiratory: cough, sputum, hemoptysis, shortness of breath Cardiovascular: chest pain, syncope Gastrointestinal: nausea, vomiting, diarrhea, abdominal pain Genitourinary: dysuria, hematuria, flank pain Musculoskeletal: neck pain, back pain, joint pain, edema Neurologic: headaches, seizures Hematologic: easy bruising or bleeding Endocrine: night sweats, acute weight loss Skin: rash, jaundice, redness Psychiatric: suicidal, homicidal ideation Past History Past Medical History: hypertension, other (See HPI) Past Surgical History: No surgical history, Other (Reviewed) Social history: single Family history: hypertension Medications and Allergies Allergies Allergy/AdvReac Type Severity Reaction Status Date / Time No Known Allergies Allergy Verified 09/22/20 17:43 Home Medications Medication Instructions Recorded Confirmed Last Taken Type Colchicine [Colcrys] 0.6 mg PO DAILY 09/22/20 09/22/20 Unknown History Losartan/Hydrochlorothiazide 1 each PO DAILY 09/22/20 09/22/20 Unknown History [Losartan-Hctz 50-12.5 mg Tab] Active Meds: Active Medications Acetaminophen (Acetaminophen 325 Mg Tab) 650 mg PO Q4H PRN PRN Reason: Pain MILD(1-3)/Fever >100.5/PEREYRA Ascorbic Acid (Ascorbic Acid 500 Mg Tab) 500 mg PO BID [facility] Last Admin: 09/23/20 09:45 Dose: 500 mg Documented by: Azithromycin (Azithromycin 250 Mg Tab) 500 mg PO QDAY MILTON Stop: 09/26/20 10:01 Last Admin: 09/23/20 09:45 Dose: 500 mg Documented by: Cholecalciferol (Cholecalciferol (Vit D3) 1000 Unit (25 Mcg) Tab) 1,000 unit PO QDAY [facility] Last Admin: 09/23/20 09:45 Dose: 1,000 unit Documented by: Colchicine (Colchicine 0.6 Mg Tab) 0.6 mg PO DAILY [facility] Last Admin: 09/23/20 10:05 Dose: 0.6 mg Documented by: Dexamethasone (Dexamethasone 4 Mg Tab) 6 mg PO DAILY [facility] Enoxaparin Sodium (Enoxaparin 40 Mg/0.4 Ml Inj) 40 mg SUB-Q QDAY@2200 [facility]; Protocol Hydralazine HCl (Hydralazine 20 Mg/1 Ml Inj) 10 mg IV Q4HR PRN PRN Reason: Hypertension Hydrochlorothiazide (Hydrochlorothiazide 12.5 Mg Cap) 12.5 mg PO QDAY [facility] Last Admin: 09/23/20 10:05 Dose: 12.5 mg Documented by: Ceftriaxone Sodium (Rocephin/Ns 2 Gm/100 Ml) 2 gm in 100 mls @ 200 mls/hr IV Q24H [facility]; Protocol Last Admin: 09/23/20 05:16 Dose: 200 mls/hr Documented by: Losartan Potassium (Losartan 50 Mg Tab) 50 mg PO QDAY [facility] Last Admin: 09/23/20 09:39 Dose: 50 mg Documented by: Ondansetron HCl (Ondansetron 4 Mg/2 Ml Inj) 4 mg IV Q8H PRN PRN Reason: Nausea And Vomiting Sodium Chloride (Sodium Chloride 0.9% 10 Ml Flush Syringe) 10 ml IV BID [facility] Last Admin: 09/23/20 10:07 Dose: 10 ml Documented by: Sodium Chloride (Sodium Chloride 0.9% 10 Ml Flush Syringe) 10 ml IV PRN PRN PRN Reason: LINE FLUSH Zinc Sulfate (Zinc Sulfate 220 Mg Cap) 220 mg PO BID [facility] Last Admin: 09/23/20 09:45 Dose: 220 mg Documented by: Physical Examination - Physical Exam Narrative exam: Physical exam deferred due to PPE conservation strategy. Please refer to primary team's note. - Constitutional Vitals: Vital Signs Temp Pulse Resp BP Pulse Ox 98.5 F 95 H 22 117/67 94 09/23/20 11:22 09/23/20 11:22 09/23/20 11:22 09/23/20 11:22 09/23/20 11:22 Temperature -Last 24 Hours Temperature 98.5 F Temperature 97.7 F Temperature 98.3 F Temperature 99.0 F Results - Labs CBC & Chem 7: 09/23/20 05:28 09/23/20 05:28 Labs: Abnormal lab results 09/22/20 09/22/20 09/22/20 Range/Units 16:10 16:10 16:10 RBC 3.62 L (3.65-5.03) M/mm3 Hgb 11.2 L (11.8-15.2) gm/dl Hct 32.9 L (35.5-45.6) % Plt Count 633 H (140-440) K/mm3 Lymph % (Auto) 8.6 L (13.4-35.0) % [place] % (Auto) 10.8 H (0.0-7.3) % Lymph # (Auto) 0.9 L (1.2-5.4) K/mm3 [place] # (Auto) 1.2 H (0.0-0.8) K/mm3 Seg Neutrophils % 79.7 H (40.0-70.0) % Seg Neutrophils # 8.6 H (1.8-7.7) K/mm3 D-Dimer (0-234) ng/mlDDU Chloride (98-107) mmol/L BUN 63 H (9-20) mg/dL Glucose 114 H (75-100) mg/dL Calcium (8.4-10.2) mg/dL Magnesium 2.80 H (1.7-2.3) mg/dL Ferritin (30.0-300.0) ng/mL Direct Bilirubin (0-0.2) mg/dL AST 107 H (5-40) units/L ALT 165 H (7-56) units/L Alkaline Phosphatase 161 H (35-129) units/L Lactate Dehydrogenase (91-180) units/L Total Creatine Kinase 1354 H (55-170) units/L Troponin T 0.060 H (0.00-0.029) ng/mL C-Reactive Protein (0.00-1.30) mg/dL Total Protein 8.4 H (6.3-8.2) g/dL Albumin 3.0 L (3.9-5) g/dL Triglycerides 179 H (2-149) mg/dL HDL Cholesterol 26 L (40-59) mg/dL Salicylates (2.8-20.0) mg/dL Acetaminophen 5.0 L (10.0-30.0) ug/mL 09/22/20 09/22/20 09/22/20 Range/Units 16:10 16:10 16:10 RBC (3.65-5.03) M/mm3 Hgb (11.8-15.2) gm/dl Hct (35.5-45.6) % Plt Count (140-440) K/mm3 Lymph % (Auto) (13.4-35.0) % [place] % (Auto) (0.0-7.3) % Lymph # (Auto) (1.2-5.4) K/mm3 [place] # (Auto) (0.0-0.8) K/mm3 Seg Neutrophils % (40.0-70.0) % Seg Neutrophils # (1.8-7.7) K/mm3 D-Dimer (0-234) ng/mlDDU Chloride (98-107) mmol/L BUN (9-20) mg/dL Glucose 114 H (75-100) mg/dL Calcium (8.4-10.2) mg/dL Magnesium (1.7-2.3) mg/dL Ferritin > 949.0 H (30.0-300.0) ng/mL Direct Bilirubin (0-0.2) mg/dL AST (5-40) units/L ALT (7-56) units/L Alkaline Phosphatase (35-129) units/L Lactate Dehydrogenase 331 H (91-180) units/L Total Creatine Kinase (55-170) units/L Troponin T (0.00-0.029) ng/mL C-Reactive Protein 19.40 H (0.00-1.30) mg/dL Total Protein (6.3-8.2) g/dL Albumin (3.9-5) g/dL Triglycerides (2-149) mg/dL HDL Cholesterol (40-59) mg/dL Salicylates < 0.3 L (2.8-20.0) mg/dL Acetaminophen (10.0-30.0) ug/mL 09/22/20 09/23/20 09/23/20 Range/Units 17:30 05:28 05:28 RBC 3.08 L (3.65-5.03) M/mm3 Hgb 9.6 L (11.8-15.2) gm/dl Hct 28.6 L (35.5-45.6) % Plt Count 489 H (140-440) K/mm3 Lymph % (Auto) 7.5 L (13.4-35.0) % [place] % (Auto) (0.0-7.3) % Lymph # (Auto) 0.6 L (1.2-5.4) K/mm3 [place] # (Auto) (0.0-0.8) K/mm3 Seg Neutrophils % 88.6 H (40.0-70.0) % Seg Neutrophils # (1.8-7.7) K/mm3 D-Dimer 1568.94 H (0-234) ng/mlDDU Chloride 109.0 H (98-107) mmol/L BUN 50 H (9-20) mg/dL Glucose 117 H (75-100) mg/dL Calcium 8.1 L (8.4-10.2) mg/dL Magnesium (1.7-2.3) mg/dL Ferritin (30.0-300.0) ng/mL Direct Bilirubin (0-0.2) mg/dL AST (5-40) units/L ALT (7-56) units/L Alkaline Phosphatase (35-129) units/L Lactate Dehydrogenase (91-180) units/L Total Creatine Kinase (55-170) units/L Troponin T (0.00-0.029) ng/mL C-Reactive Protein (0.00-1.30) mg/dL Total Protein (6.3-8.2) g/dL Albumin (3.9-5) g/dL Triglycerides (2-149) mg/dL HDL Cholesterol (40-59) mg/dL Salicylates (2.8-20.0) mg/dL Acetaminophen (10.0-30.0) ug/mL 09/23/20 Range/Units 10:37 RBC (3.65-5.03) M/mm3 Hgb (11.8-15.2) gm/dl Hct (35.5-45.6) % Plt Count (140-440) K/mm3 Lymph % (Auto) (13.4-35.0) % [place] % (Auto) (0.0-7.3) % Lymph # (Auto) (1.2-5.4) K/mm3 [place] # (Auto) (0.0-0.8) K/mm3 Seg Neutrophils % (40.0-70.0) % Seg Neutrophils # (1.8-7.7) K/mm3 D-Dimer (0-234) ng/mlDDU Chloride (98-107) mmol/L BUN (9-20) mg/dL Glucose (75-100) mg/dL Calcium (8.4-10.2) mg/dL Magnesium (1.7-2.3) mg/dL Ferritin (30.0-300.0) ng/mL Direct Bilirubin 0.4 H (0-0.2) mg/dL AST 105 H (5-40) units/L ALT 140 H (7-56) units/L Alkaline Phosphatase 148 H (35-129) units/L Lactate Dehydrogenase (91-180) units/L Total Creatine Kinase 685 H (55-170) units/L Troponin T (0.00-0.029) ng/mL C-Reactive Protein (0.00-1.30) mg/dL Total Protein (6.3-8.2) g/dL Albumin 2.5 L (3.9-5) g/dL Triglycerides (2-149) mg/dL HDL Cholesterol (40-59) mg/dL Salicylates (2.8-20.0) mg/dL Acetaminophen (10.0-30.0) ug/mL Assessment and Plan Cultures: Blood culture no growth so far A/P: 59-year-old man past medical history hypertension, obesity admitted with pneumonia. #Left-sided community-acquired pneumonia: Elevated procalcitonin, negative Covid testing. Continue antibiotics. #Hypertension #Obesity Recs: -Continue ceftriaxone and azithromycin to complete 5 and 3 days effectively -If discharging patient would discharge with cefdinir 300 mg every 12 hours to complete a 5 days. Thank you for the consult, we will continue to follow. Danyelle Martin MD [facility] ([facility] O: [phone] F: [phone]
[2020-09-23 15:37] LABS: Hepatitis B Surface Antigen Non-Reactive (Negative); Hepatitis C Virus Antibody Non-Reactive (NonReactive)
[2020-09-23] MEDS ORDERED: AZITHROMYCIN/NS 500 MG/250 ML 500 MG/250 ML BAG IV SCH (18:00)
--- NOTE | 2020-09-23 18:13 | Gastroenterology Consultation ---
History of Present Illness - Reason for Consult Consult date: 09/23/20 elevated LFTs Requesting physician: CHRISTOPHER JAIMES - History of Present Illness This is a 59 yo male with pmh of HTN admitted for weakness, fatigue, pneumonia, and rhabdo. GI consulted for elevated liver enzymes. Patient reports having 2 weeks of weakness, flu-like symptoms, chills, fatigue, and bodyache. He thought he had COVID and took tylenol every 4-6 hours. Satuday, he began having weakness in his legs and could not stand up. Was lying down for long periods of times. No abdominal pain, nausea/vomiting, or diarrhea. No prior h/o liver disease or family hx of liver disease. No alcohol use. medication list reviewed. Past History Past Medical History: hypertension, other (See HPI) Past Surgical History: No surgical history, Other (Reviewed) Social history: single Family history: hypertension Medications and Allergies Allergies Allergy/AdvReac Type Severity Reaction Status Date / Time No Known Allergies Allergy Verified 09/22/20 17:43 Home Medications Medication Instructions Recorded Confirmed Last Taken Type Colchicine [Colcrys] 0.6 mg PO DAILY 09/22/20 09/22/20 Unknown History Losartan/Hydrochlorothiazide 1 each PO DAILY 09/22/20 09/22/20 Unknown History [Losartan-Hctz 50-12.5 mg Tab] Active Meds: Active Medications Acetaminophen (Acetaminophen 325 Mg Tab) 650 mg PO Q4H PRN PRN Reason: Pain MILD(1-3)/Fever >100.5/PEREYRA Ascorbic Acid (Ascorbic Acid 500 Mg Tab) 500 mg PO BID [facility] Last Admin: 09/23/20 09:45 Dose: 500 mg Documented by: Azithromycin (Azithromycin 250 Mg Tab) 500 mg PO QDAY [facility] Stop: 09/25/20 10:01 Last Admin: 09/23/20 09:45 Dose: 500 mg Documented by: Cholecalciferol (Cholecalciferol (Vit D3) 1000 Unit (25 Mcg) Tab) 1,000 unit PO QDAY [facility] Last Admin: 09/23/20 09:45 Dose: 1,000 unit Documented by: Colchicine (Colchicine 0.6 Mg Tab) 0.6 mg PO DAILY [facility] Last Admin: 09/23/20 10:05 Dose: 0.6 mg Documented by: Dexamethasone (Dexamethasone 4 Mg Tab) 6 mg PO DAILY [facility] Enoxaparin Sodium (Enoxaparin 40 Mg/0.4 Ml Inj) 40 mg SUB-Q QDAY@2200 [facility]; Protocol Hydralazine HCl (Hydralazine 20 Mg/1 Ml Inj) 10 mg IV Q4HR PRN PRN Reason: Hypertension Hydrochlorothiazide (Hydrochlorothiazide 12.5 Mg Cap) 12.5 mg PO QDAY [facility] Last Admin: 09/23/20 10:05 Dose: 12.5 mg Documented by: Ceftriaxone Sodium (Rocephin/Ns 2 Gm/100 Ml) 2 gm in 100 mls @ 200 mls/hr IV Q24H [facility]; Protocol Stop: 09/27/20 06:29 Last Admin: 09/23/20 05:16 Dose: 200 mls/hr Documented by: Losartan Potassium (Losartan 50 Mg Tab) 50 mg PO QDAY [facility] Last Admin: 09/23/20 09:39 Dose: 50 mg Documented by: Ondansetron HCl (Ondansetron 4 Mg/2 Ml Inj) 4 mg IV Q8H PRN PRN Reason: Nausea And Vomiting Sodium Chloride (Sodium Chloride 0.9% 10 Ml Flush Syringe) 10 ml IV BID [facility] Last Admin: 09/23/20 10:07 Dose: 10 ml Documented by: Sodium Chloride (Sodium Chloride 0.9% 10 Ml Flush Syringe) 10 ml IV PRN PRN PRN Reason: LINE FLUSH Zinc Sulfate (Zinc Sulfate 220 Mg Cap) 220 mg PO BID [facility] Last Admin: 09/23/20 09:45 Dose: 220 mg Documented by: Review of Systems - Review of Systems All systems: negative Constitutional: fatigue, weakness Ears, Nose, Throat: no decreased hearing Cardiovascular: no chest pain, no edema Gastrointestinal: no abdominal pain, no nausea, no vomiting, no diarrhea, no coffee ground emesis, no melena, no hematochezia, no loss of appetite Musculoskeletal: muscle pain, muscle weakness Neurological: weakness Psychiatric: no anxiety Endocrine: no cold intolerance Allergic/Immunologic: no wheezing Exam - Constitutional Vital Signs: Temp Pulse Resp BP Pulse Ox 98.5 F 95 H 22 117/67 94 09/23/20 11:22 09/23/20 11:22 09/23/20 11:22 09/23/20 11:22 09/23/20 11:22 General appearance: no acute distress - EENT ENT: hearing intact - Neck Neck: supple - Respiratory Respiratory effort: normal - Cardiovascular Rhythm: regular Heart Sounds: Present: S1 & S2 - Gastrointestinal General gastrointestinal: Present: soft, non-tender, non-distended - Integumentary Integumentary: Present: clear, warm - Neurologic Neurological: alert and oriented x3 - Labs CBC & Chem 7: 09/23/20 05:28 09/23/20 05:28 Lab Results: Laboratory Results - last 24 hr 09/22/20 09/22/20 09/22/20 16:10 16:10 16:10 WBC RBC Hgb Hct MCV MCH MCHC RDW Plt Count Lymph % (Auto) [place] % (Auto) Eos % (Auto) Baso % (Auto) Lymph # (Auto) [place] # (Auto) Eos # (Auto) Baso # (Auto) Seg Neutrophils % Seg Neutrophils # Sodium Potassium Chloride Carbon Dioxide Anion Gap BUN Creatinine Estimated GFR BUN/Creatinine Ratio Glucose 114 H Calcium Ferritin Total Bilirubin Direct Bilirubin Indirect Bilirubin AST ALT Alkaline Phosphatase Lactate Dehydrogenase 331 H Total Creatine Kinase C-Reactive Protein 19.40 H Total Protein Albumin Albumin/Globulin Ratio Triglycerides 179 H Cholesterol 182 LDL Cholesterol Direct 110 HDL Cholesterol 26 L Cholesterol/HDL Ratio 7.00 Procalcitonin 0.76 Urine Color Urine Turbidity Urine pH Ur Specific [place] Urine Protein Urine Glucose (UA) Urine Ketones Urine Blood Urine Nitrite Urine Bilirubin Urine Urobilinogen Ur Leukocyte Esterase Urine WBC (Auto) Urine RBC (Auto) U Epithel Cells (Auto) Urine Mucus Coronavirus (PCR) Hepatitis A IgM Ab Hep Bs Antigen Hep B Core IgM Ab Hepatitis C Antibody 09/22/20 09/22/20 09/23/20 16:10 Unknown 05:28 WBC 8.3 RBC 3.08 L Hgb 9.6 L Hct 28.6 L MCV 93 MCH 31 MCHC 34 RDW 13.7 Plt Count 489 H Lymph % (Auto) 7.5 L [place] % (Auto) 3.8 Eos % (Auto) 0.0 Baso % (Auto) 0.1 Lymph # (Auto) 0.6 L [place] # (Auto) 0.3 Eos # (Auto) 0.0 Baso # (Auto) 0.0 Seg Neutrophils % 88.6 H Seg Neutrophils # 7.4 Sodium Potassium Chloride Carbon Dioxide Anion Gap BUN Creatinine Estimated GFR BUN/Creatinine Ratio Glucose Calcium Ferritin > 949.0 H Total Bilirubin Direct Bilirubin Indirect Bilirubin AST ALT Alkaline Phosphatase Lactate Dehydrogenase Total Creatine Kinase C-Reactive Protein Total Protein Albumin Albumin/Globulin Ratio Triglycerides Cholesterol LDL Cholesterol Direct HDL Cholesterol Cholesterol/HDL Ratio Procalcitonin Urine Color Poppy Urine Turbidity Clear Urine pH 5.0 Ur Specific [place] 1.023 Urine Protein <15 mg/dl Urine Glucose (UA) Neg Urine Ketones Neg Urine Blood Neg Urine Nitrite Neg Urine Bilirubin Neg Urine Urobilinogen 4.0 Ur Leukocyte Esterase Neg Urine WBC (Auto) 1.0 Urine RBC (Auto) 2.0 U Epithel Cells (Auto) < 1.0 Urine Mucus Few Coronavirus (PCR) Hepatitis A IgM Ab Hep Bs Antigen Hep B Core IgM Ab Hepatitis C Antibody 09/23/20 09/23/20 09/23/20 05:28 10:37 14:28 WBC RBC Hgb Hct MCV MCH MCHC RDW Plt Count Lymph % (Auto) [place] % (Auto) Eos % (Auto) Baso % (Auto) Lymph # (Auto) [place] # (Auto) Eos # (Auto) Baso # (Auto) Seg Neutrophils % Seg Neutrophils # Sodium 142 Potassium 4.6 Chloride 109.0 H Carbon Dioxide 22 Anion Gap 16 BUN 50 H Creatinine 0.8 Estimated GFR > 60 BUN/Creatinine Ratio 63 Glucose 117 H Calcium 8.1 L Ferritin Total Bilirubin 0.70 Direct Bilirubin 0.4 H Indirect Bilirubin 0.3 AST 105 H ALT 140 H Alkaline Phosphatase 148 H Lactate Dehydrogenase Total Creatine Kinase 685 H C-Reactive Protein Total Protein 6.9 Albumin 2.5 L Albumin/Globulin Ratio 0.6 Triglycerides Cholesterol LDL Cholesterol Direct HDL Cholesterol Cholesterol/HDL Ratio Procalcitonin Urine Color Urine Turbidity Urine pH Ur Specific [place] Urine Protein Urine Glucose (UA) Urine Ketones Urine Blood Urine Nitrite Urine Bilirubin Urine Urobilinogen Ur Leukocyte Esterase Urine WBC (Auto) Urine RBC (Auto) U Epithel Cells (Auto) Urine Mucus Coronavirus (PCR) Hepatitis A IgM Ab Non-reactive Hep Bs Antigen Non-reactive Hep B Core IgM Ab Non-reactive Hepatitis C Antibody Non-reactive 09/23/20 Unknown WBC RBC Hgb Hct MCV MCH MCHC RDW Plt Count Lymph % (Auto) [place] % (Auto) Eos % (Auto) Baso % (Auto) Lymph # (Auto) [place] # (Auto) Eos # (Auto) Baso # (Auto) Seg Neutrophils % Seg Neutrophils # Sodium Potassium Chloride Carbon Dioxide Anion Gap BUN Creatinine Estimated GFR BUN/Creatinine Ratio Glucose Calcium Ferritin Total Bilirubin Direct Bilirubin Indirect Bilirubin AST ALT Alkaline Phosphatase Lactate Dehydrogenase Total Creatine Kinase C-Reactive Protein Total Protein Albumin Albumin/Globulin Ratio Triglycerides Cholesterol LDL Cholesterol Direct HDL Cholesterol Cholesterol/HDL Ratio Procalcitonin Urine Color Urine Turbidity Urine pH Ur Specific [place] Urine Protein Urine Glucose (UA) Urine Ketones Urine Blood Urine Nitrite Urine Bilirubin Urine Urobilinogen Ur Leukocyte Esterase Urine WBC (Auto) Urine RBC (Auto) U Epithel Cells (Auto) Urine Mucus Coronavirus (PCR) Negative Hepatitis A IgM Ab Hep Bs Antigen Hep B Core IgM Ab Hepatitis C Antibody Assessment and Plan # Elevated liver enzymes - Mild elevation with AST and ALT in 100s. hepatocellular pattern. Trending down today. - ddx including drug induced liver injury, viral illness in the setting of pneumonia, elevated AST due to rhabdo. - acute viral hepatitis panel negative. Rec - RUQ US - monitor LFTs and INR - IVF hydration - supportive care. - avoid hepatotoxins. - will follow.
[2020-09-23] MEDS: ENOXAPARIN 40 MG/0.4 ML INJ SUB-Q SCH (22:10)
[2020-09-24] MEDS: traMADol 50 MG TAB PO PRN (05:36)
[2020-09-24] MEDS: cefTRIAXone/NS 2 GM/100 ML 2 GM/100 ML BAG IV SCH (05:37)
[2020-09-24 06:38] LABS: Hematocrit 30.8 % (35.5-45.6); Hemoglobin 10.3 gm/dl (11.8-15.2); Mean Corpuscular HGB Conc 33 % (32-34); Mean Corpuscular Volume 92 fl (84-94); Platelet Count 537 K/mm3 (140-440); Red Blood Count 3.34 M/mm3 (3.65-5.03); Red Cell Distribution Width 13.6 % (13.2-15.2)
[2020-09-24 06:59] LABS: Alanine Aminotransferase 119 units/L (7-56); Albumin 2.5 g/dL (3.9-5); BUN/Creatinine Ratio 37; Bilirubin,Direct < 0.2 mg/dL (0-0.2); Blood Urea Nitrogen 26 mg/dL (9-20); Calcium 8.3 mg/dL (8.4-10.2); Hemolysis Index 0
[2020-09-24] MEDS: COLCHICINE 0.6 MG TAB PO SCH (10:00)
[2020-09-24] MEDS ORDERED: DEXAMETHASONE 4 MG TAB PO SCH (10:00)
[2020-09-24] MEDS: ASCORBIC ACID 500 MG TAB PO SCH (10:14)
[2020-09-24] MEDS: LOSARTAN 50 MG TAB PO SCH (10:14)
[2020-09-24] MEDS: ZINC SULFATE 220 MG CAP PO SCH (10:14)
[2020-09-24] MEDS: hydroCHLOROthiazide 12.5 MG CAP PO SCH (10:14)
[2020-09-24] MEDS: AZITHROMYCIN 250 MG TAB PO SCH (10:14)
[2020-09-24] MEDS: CHOLECALCIFEROL (VIT D3) 1000 UNIT (25 mcg) TAB PO SCH (10:14)
--- NOTE | 2020-09-24 14:20 | Gastroenterology Progress Note ---
Assessment and Plan # Elevated liver enzymes - Mild elevation with AST and ALT in 100s. hepatocellular pattern. Continues to trend down. - ddx including drug induced liver injury, viral illness in the setting of pneumonia, elevated AST due to rhabdo. - acute viral hepatitis panel negative. - patient with subacute infarcts on MRI brain today. - US showing hepatomegaly with hepatic steatosis and gallbladder stones vs polyps Rec - monitor LFTs and INR - IVF hydration - supportive care. - avoid hepatotoxins. - will follow. Subjective Date of service: 09/24/20 Interval history: Patient reports persistent weakness in left leg. No nausea/vomiting or abdominal pain. Objective - Constitutional Vitals: Temp Pulse Resp BP Pulse Ox 98.6 F 102 H 20 151/86 95 09/24/20 12:47 09/24/20 12:47 09/24/20 12:47 09/24/20 12:47 09/24/20 12:47 General appearance: no acute distress - EENT Eyes: EOM intact ENT: hearing intact - Respiratory Respiratory effort: normal - Cardiovascular Rhythm: regular Heart Sounds: Present: S1 & S2 - Gastrointestinal General gastrointestinal: Present: soft, non-tender, non-distended, normal bowel sounds - Labs CBC & Chem 7: 09/24/20 06:07 09/24/20 06:07 Labs: Laboratory Results - last 24 hr 09/23/20 09/23/20 09/24/20 14:28 Unknown 06:07 WBC RBC Hgb Hct MCV MCH MCHC RDW Plt Count D-Dimer 1258.68 H Sodium Potassium Chloride Carbon Dioxide Anion Gap BUN Creatinine Estimated GFR BUN/Creatinine Ratio Glucose Calcium Ferritin Total Bilirubin Direct Bilirubin Indirect Bilirubin AST ALT Alkaline Phosphatase Lactate Dehydrogenase Total Creatine Kinase C-Reactive Protein Total Protein Albumin Albumin/Globulin Ratio Coronavirus (PCR) Negative Hepatitis A IgM Ab Non-reactive Hep Bs Antigen Non-reactive Hep B Core IgM Ab Non-reactive Hepatitis C Antibody Non-reactive 09/24/20 09/24/20 09/24/20 06:07 06:07 06:07 WBC 10.3 RBC 3.34 L Hgb 10.3 L Hct 30.8 L MCV 92 MCH 31 MCHC 33 RDW 13.6 Plt Count 537 H D-Dimer Sodium 139 Potassium 3.9 Chloride 106.2 Carbon Dioxide 24 Anion Gap 13 BUN 26 H Creatinine 0.7 L Estimated GFR > 60 BUN/Creatinine Ratio 37 Glucose 113 H Calcium 8.3 L Ferritin 1686.0 H Total Bilirubin 0.40 Direct Bilirubin < 0.2 Indirect Bilirubin 0.2 AST 63 H ALT 119 H Alkaline Phosphatase 162 H Lactate Dehydrogenase 303 H Total Creatine Kinase 365 H C-Reactive Protein 7.20 H Total Protein 7.0 Albumin 2.5 L Albumin/Globulin Ratio 0.6 Coronavirus (PCR) Hepatitis A IgM Ab Hep Bs Antigen Hep B Core IgM Ab Hepatitis C Antibody
--- NOTE | 2020-09-24 14:54 | Magnetic Resonance Report ---
MR brain wo con INDICATION / CLINICAL INFORMATION: RUE weakness. TECHNIQUE: Multiplanar, multisequence MR images of the brain were obtained. COMPARISON: September 22, 2020 FINDINGS: INTRACRANIAL: There is DWI hyperintensity in the right meyer radiata with pseudonormalization on the ADC imaging (for example image 12 of series 702 and image 22 of series 401). No hemorrhage. Ventricu lar caliber is normal. No extra-axial collection. No mass. No herniation. Major intracranial vascula r flow voids are preserved. Periventricular and centrum semiovale T2 white matter hyperintensities mo st consistent with sequela of chronic microvascular disease. Lacunar infarctions in the central to ev aluate. No occlusion or significant stenosis seen within the major intracranial arteries. There are a few foci of hemosiderin seen within the basal ganglia. Hemosiderin seen within the left caudate and external capsule likely related to remote hemorrhagic infarction. ORBITS: No significant abnormality of visualized orbits. SINUSES / MASTOIDS: The conus is thickening in the right maxillary sinus, right anterior frontal ethm oid air cells, and bilateral frontal sinuses. The right sinus disease could be seen in a ostiomeatal unit obstruction. ADDITIONAL FINDINGS: None. IMPRESSION: 1. 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 Signer Name: Juan C Carrero MD Signed: 09/24/2020 2:49 PM Workstation Name: [id number]
--- NOTE | 2020-09-24 14:55 | Ultrasound Report ---
Abdominal ultrasound INDICATION: Abdominal pain FINDINGS: Aorta and IVC visualized appear normal. Liver is enlarged measuring 18 cm with fatty infilt ration. Multiple hyperechoic areas are seen along the gallbladder wall without definite shadowing. No significant wall thickening or pericholecystic fluid. Common bile duct measures 5 mm. No hydronephro sis is seen. Anechoic structures are seen within the kidneys bilaterally suggesting renal cyst. Visua lized pancreas appears normal. Spleen is unremarkable. Bladder is not well seen. IMPRESSION: 1. Hepatomegaly with hepatic steatosis. 2. Multiple hyperechoic areas within the gallbladder could represent multiple polyps versus nonmobile gallstones. No pericholecystic fluid. 3. Bilateral renal cysts. Signer Name: Johnie Loja MD Signed: 09/24/2020 2:50 PM Workstation Name: [id number]
--- NOTE | 2020-09-24 15:23 | Progress Note ---
Assessment and Plan Assessment and plan: Subacute infarct -09/22 CT head shows at least 3 small deep infarctions in the greater gangliocapsular distribution, recommend MRI brain, extensive mucosal disease in the right sinus, anterior and mid ethmoid air cells on the right and in the right and left frontal sinuses. -09/23 MRI brain shows subacute infarctions involving the right meyer radiata -Neurology consulted, appreciate recommendations -Aspirin therapy -PT/OT consulted, patient recommendations -Maintain euthermia and euglycemia -Seizure/aspiration/fall precautions Pneumonia -Antibiotic therapy -Pulmonary hygiene -Supplement oxygen as needed -SPO2 monitoring Elevated D-dimer -Presented with a D-dimer of 1568 -09/22 bilateral lower extremity Doppler ultrasound shows no evidence of DVT/SVT Rhabdomyolysis, improving -Presented with a creatinine kinase of 1354 -S/p 3 L normal saline in the emergency department -Trend creatinine -PT/OT consulted -Patient states that he has last moved in 4 days prior to presentation Transaminitis, improving -LFTs of presentation: AST 107, ALT 167, alk phos 161 -Trend LFTs -GI consulted, appreciate recommendations -09/23 abdominal ultrasound shows hepatomegaly with hepatic steatosis, multiple hyper echoic areas within the gallbladder could represent multiple polyps versus nonmobile gallstones, bilateral renal cysts Thrombocytopenia -Presented with a platelet count of 633 -Trend CBC Hypertension -Resume home antihypertensive regimen and titrate as needed -Blood pressure monitoring per protocol -As needed IV hydralazine for SBP greater than 160 DVT prophylaxis -SCDs to bilateral lower extremities while in bed -Heparin subcu COVID-19 PUI, ruled out -Patient has known exposure to COVID-19 prior to symptom onset -09/23 COVID-19 PCR negative -09/22 CXR shows focal airspace disease in the mid to lower lateral left lung which is concerning for pneumonia History Interval history: This is a 59 YO Male with HTN and presented to the emergency department on 09/22 obesity hypoventilation syndrome with complaints of generalized weakness, fatigue, muscle aches, shortness of breath, dry cough over the past 2 weeks with worsening symptoms over the past 4 days with known COVID-19 exposure. The patient was found to have pneumonia, suspected coronavirus infection, transaminitis and rhabdomyolysis. Patient was admitted to the hospitalist service with consults to infectious disease and GI. Neurology and PT/OT consulted. 09/23: Today on examination patient is on room air and states that he has not moved in 4 days and complains of generalized weakness and fatigue. Today infectious disease, GI and PT/OT were consulted. No acute events reported o vernight. We will obtain an acute hepatitis panel and abdominal ultrasound to further investigate his transaminitis. COVID-19 PCR pending 09/24: Patient's COVID-19 PCR was negative and he was transferred to the fourth floor. Patient received abdominal ultrasound and MRI brain was obtained due to left facial droop, right upper extremity and left lower extremity weakness which showed a subacute infarct. Neurology was consulted. PT/OT evaluation pending. No acute events reported overnight. Hospitalist Physical - Constitutional Vitals: Temp Pulse Resp BP Pulse Ox 98.6 F 102 H 20 151/86 95 09/24/20 12:47 09/24/20 12:47 09/24/20 12:47 09/24/20 12:47 09/24/20 12:47 General appearance: Present: mild distress, obese - EENT Eyes: Present: PERRL, EOM intact ENT: clear oral mucosa, dentition normal - Neck Neck: Present: normal ROM - Respiratory Respiratory effort: normal Respiratory: bilateral: CTA - Cardiovascular Rhythm: regular Heart Sounds: Present: S1 & S2. Absent: systolic murmur, diastolic murmur - Extremities Extremities: no ischemia, pulses intact, pulses symmetrical, No edema, normal temperature, normal color, Full ROM Peripheral Pulses: within normal limits - Abdominal General gastrointestinal: soft, non-tender, non-distended, normal bowel sounds - Integumentary Integumentary: Present: clear, warm, dry - Psychiatric Psychiatric: cooperative - Neurologic Neurologic: CNII-XII intact, focal deficits, moves all extremities (Left facial droop, RUE and LLE weakness with LLE drift) - Allied Health Allied health notes reviewed: nursing, PT, ST, social work HEART Score - HEART Score Troponin: Troponin T 0.060 ng/mL (0.00-0.029) H 09/22/20 16:10 Results - Labs CBC & Chem 7: 09/24/20 06:07 09/24/20 06:07 Labs: Laboratory Last Values WBC 10.3 K/mm3 (4.5-11.0) 09/24/20 06:07 RBC 3.34 M/mm3 (3.65-5.03) L 09/24/20 06:07 Hgb 10.3 gm/dl (11.8-15.2) L 09/24/20 06:07 Hct 30.8 % (35.5-45.6) L 09/24/20 06:07 MCV 92 fl (84-94) 09/24/20 06:07 MCH 31 pg (28-32) 09/24/20 06:07 MCHC 33 % (32-34) 09/24/20 06:07 RDW 13.6 % (13.2-15.2) 09/24/20 06:07 Plt Count 537 K/mm3 (140-440) H 09/24/20 06:07 Lymph % (Auto) 7.5 % (13.4-35.0) L 09/23/20 05:28 [place] % (Auto) 3.8 % (0.0-7.3) 09/23/20 05:28 Eos % (Auto) 0.0 % (0.0-4.3) 09/23/20 05:28 Baso % (Auto) 0.1 % (0.0-1.8) 09/23/20 05:28 Lymph # (Auto) 0.6 K/mm3 (1.2-5.4) L 09/23/20 05:28 [place] # (Auto) 0.3 K/mm3 (0.0-0.8) 09/23/20 05:28 Eos # (Auto) 0.0 K/mm3 (0.0-0.4) 09/23/20 05:28 Baso # (Auto) 0.0 K/mm3 (0.0-0.1) 09/23/20 05:28 Seg Neutrophils % 88.6 % (40.0-70.0) H 09/23/20 05:28 Seg Neutrophils # 7.4 K/mm3 (1.8-7.7) 09/23/20 05:28 D-Dimer 1258.68 ng/mlDDU (0-234) H 09/24/20 06:07 Sodium 139 mmol/L (137-145) 09/24/20 06:07 Potassium 3.9 mmol/L (3.6-5.0) 09/24/20 06:07 Chloride 106.2 mmol/L (98-107) 09/24/20 06:07 Carbon Dioxide 24 mmol/L (22-30) 09/24/20 06:07 Anion Gap 13 mmol/L 09/24/20 06:07 BUN 26 mg/dL (9-20) H 09/24/20 06:07 Creatinine 0.7 mg/dL (0.8-1.3) L 09/24/20 06:07 Estimated GFR > 60 ml/min 09/24/20 06:07 BUN/Creatinine Ratio 37 % 09/24/20 06:07 Glucose 113 mg/dL (75-100) H 09/24/20 06:07 Calcium 8.3 mg/dL (8.4-10.2) L 09/24/20 06:07 Magnesium 2.80 mg/dL (1.7-2.3) H 09/22/20 16:10 Ferritin 1686.0 ng/mL (30.0-300.0) H 09/24/20 06:07 Total Bilirubin 0.40 mg/dL (0.1-1.2) 09/24/20 06:07 Direct Bilirubin < 0.2 mg/dL (0-0.2) 09/24/20 06:07 Indirect Bilirubin 0.2 mg/dL 09/24/20 06:07 AST 63 units/L (5-40) H 09/24/20 06:07 ALT 119 units/L (7-56) H 09/24/20 06:07 Alkaline Phosphatase 162 units/L (35-129) H 09/24/20 06:07 Lactate Dehydrogenase 303 units/L (91-180) H 09/24/20 06:07 Total Creatine Kinase 365 units/L (55-170) H 09/24/20 06:07 Troponin T 0.060 ng/mL (0.00-0.029) H 09/22/20 16:10 C-Reactive Protein 7.20 mg/dL (0.00-1.30) H 09/24/20 06:07 NT-Pro-B Natriuret Pep 822.4 pg/mL (0-900) 09/22/20 16:10 Total Protein 7.0 g/dL (6.3-8.2) 09/24/20 06:07 Albumin 2.5 g/dL (3.9-5) L 09/24/20 06:07 Albumin/Globulin Ratio 0.6 % 09/24/20 06:07 Triglycerides 179 mg/dL (2-149) H 09/22/20 16:10 Cholesterol 182 mg/dL (50-199) 09/22/20 16:10 LDL Cholesterol Direct 110 mg/dL (50-130) 09/22/20 16:10 HDL Cholesterol 26 mg/dL (40-59) L 09/22/20 16:10 Cholesterol/HDL Ratio 7.00 % 09/22/20 16:10 Lipase 37 units/L (13-60) 09/22/20 16:10 Procalcitonin 0.76 ng/mL (<0.15) 09/22/20 16:10 TSH 1.620 mlU/mL (0.270-4.200) 09/22/20 16:10 Free T4 1.09 ng/dL (0.76-1.46) 09/22/20 16:10 Urine Color Poppy (Yellow) 09/22/20 Unknown Urine Turbidity Clear (Clear) 09/22/20 Unknown Urine pH 5.0 (5.0-7.0) 09/22/20 Unknown Ur Specific [place] 1.023 (1.003-1.030) 09/22/20 Unknown Urine Protein <15 mg/dl mg/dL (Negative) 09/22/20 Unknown Urine Glucose (UA) Neg mg/dL (Negative) 09/22/20 Unknown Urine Ketones Neg mg/dL (Negative) 09/22/20 Unknown Urine Blood Neg (Negative) 09/22/20 Unknown Urine Nitrite Neg (Negative) 09/22/20 Unknown Urine Bilirubin Neg (Negative) 09/22/20 Unknown Urine Urobilinogen 4.0 mg/dL (<2.0) 09/22/20 Unknown Ur Leukocyte Esterase Neg (Negative) 09/22/20 Unknown Urine WBC (Auto) 1.0 /HPF (0.0-6.0) 09/22/20 Unknown Urine RBC (Auto) 2.0 /HPF (0.0-6.0) 09/22/20 Unknown U Epithel Cells (Auto) < 1.0 /HPF (0-13.0) 09/22/20 Unknown Urine Mucus Few /HPF 09/22/20 Unknown Salicylates < 0.3 mg/dL (2.8-20.0) L 09/22/20 16:10 Acetaminophen 5.0 ug/mL (10.0-30.0) L 09/22/20 16:10 Coronavirus (PCR) Negative (Negative) 09/23/20 Unknown Hepatitis A IgM Ab Non-reactive (NonReactive) 09/23/20 14:28 Hep Bs Antigen Non-reactive (Negative) 09/23/20 14:28 Hep B Core IgM Ab Non-reactive (NonReactive) 09/23/20 14:28 Hepatitis C Antibody Non-reactive (NonReactive) 09/23/20 14:28 Microbiology: Microbiology 09/22/20 17:42 Peripheral/Venous Blood Culture - Preliminary NO GROWTH AFTER 24 HOURS 09/22/20 17:42 Peripheral/Venous Blood Culture - Preliminary NO GROWTH AFTER 24 HOURS [place]/IV: Voiding Method Urinal Active Medications - Current Medications Current Medications: Generic Name Dose Route Start Last Admin Trade Name Freq PRN Reason Stop Dose Admin Acetaminophen 650 mg 09/22/20 18:24 Acetaminophen 325 Mg Tab PO Q4H PRN Pain MILD(1-3)/Fever >100.5/PEREYRA Ascorbic Acid 500 mg 09/22/20 22:00 09/24/20 10:14 Ascorbic Acid 500 Mg Tab PO 500 mg BID MILTON Administration Azithromycin 500 mg 09/23/20 10:00 09/24/20 10:14 Azithromycin 250 Mg Tab PO 09/25/20 10:01 500 mg QDAY MILTON Administration Cholecalciferol 1,000 unit 09/23/20 10:00 09/24/20 10:14 Cholecalciferol (Vit D3) 1000 Unit (25 Mcg) Tab PO 1,000 unit QDAY MILTON Administration Colchicine 0.6 mg 09/23/20 10:00 09/24/20 10:00 Colchicine 0.6 Mg Tab PO 0.6 mg DAILY MILTON Administration Enoxaparin Sodium 40 mg 09/23/20 22:00 09/23/20 22:10 Enoxaparin 40 Mg/0.4 Ml Inj SUB-Q 40 mg QDAY@2200 MILTON Administration Protocol Hydralazine HCl 10 mg 09/23/20 14:23 Hydralazine 20 Mg/1 Ml Inj IV Q4HR PRN Hypertension Hydrochlorothiazide 12.5 mg 09/23/20 10:00 09/24/20 10:14 Hydrochlorothiazide 12.5 Mg Cap PO 12.5 mg QDAY MILTON Administration Ceftriaxone Sodium 2 gm in 100 mls @ 200 mls/hr 09/23/20 06:00 09/24/20 05:37 Rocephin/Ns 2 Gm/100 Ml IV 09/27/20 06:29 200 mls/hr Q24H MILTON Administration Protocol Losartan Potassium 50 mg 09/23/20 10:00 09/24/20 10:14 Losartan 50 Mg Tab PO 50 mg QDAY MILTON Administration Ondansetron HCl 4 mg 09/22/20 18:24 Ondansetron 4 Mg/2 Ml Inj IV Q8H PRN Nausea And Vomiting Sodium Chloride 10 ml 09/22/20 22:00 09/24/20 10:15 Sodium Chloride 0.9% 10 Ml Flush Syringe IV 10 ml BID MILTON Administration Sodium Chloride 10 ml 09/22/20 18:24 Sodium Chloride 0.9% 10 Ml Flush Syringe IV PRN PRN LINE FLUSH Tramadol HCl 50 mg 09/24/20 05:19 09/24/20 05:36 Tramadol 50 Mg Tab PO 50 mg Q6H PRN Administration Pain, Moderate (4-6) Zinc Sulfate 220 mg 09/22/20 22:00 09/24/20 10:14 Zinc Sulfate 220 Mg Cap PO 220 mg BID MILTON Administration Nutrition/Malnutrition Assess - Dietary Evaluation Nutrition/Malnutrition Findings: Nutrition Notes Start: 09/23/20 11:00 Freq: Status: Active Protocol: Document 09/24/20 10:20 CW (Rec: 09/24/20 10:30 CW [id number]) Nutrition Notes Initial or Follow up Brief Note Current Diagnosis Acute Kidney Injury,Diabetes, Hypertension Other Pertinent Diagnosis Obesity Hypoventilation Syndrome, pneu, COVID, Rhabdomyolysis Current Diet Cardiac/Consistent CHO Labs/Tests BUN 26 Cr 0.7 Ca 8.3 Pertinent Medications Vitamin D3 Zinc Sulfate Height 5 ft 3 in Weight 86.183 kg [place] Body Weight (kg) 56.36 BMI 33.6 Weight Status Obese Subjective/Other Information F/U for weight and intakes. Intakes remain adeqaute 50 - 75% of meals which meets at least 75% of kcal and protein needs. Weight has remained stable. Renal related labs are improving. Adarsh score of 21 with intact skin. Pt did not answer phone x2. No reports of N/V/D/C. Diet being well tolerated Percent of energy/protein needs met: 78%/80% Skin Integrity/Comment Beaden Score 21 Minimum of two criteria No Fluid Accumulation Mild (non-severe) Is patient on ventilator? No Is Patient Ambulatory and/or Out of Bed Yes REE-([facility]/OOB) [ 2036.048 [id number]] Kcal/Kg value to use for calculation 18 Approximate Energy Requirements Using 1551 kcal/Kg Calculation Used for Recommendations Kcal/kg Additional Notes PRO needs: 69-103g (0.8-1.2 g/ kg for JINA) Fluid needs: 1 mL/kcal or per MD Nutrition Intervention Change Diet Order: Continue Cardiac Consistent CHO Goal #1 Meet at least 75% of estimated energy and protein needs. Anticipated Discharge Needs: Cardiac/Consistent CHO Revisit per MD consult or patient Sign Off request: Additional Comments S/O Adequate PO intakes, Adarsh Score of 21
[2020-09-24] MEDS ORDERED: DEXTROSE 50% IN WATER (25GM) 50 ML SYRINGE IV PRN (15:31)
--- NOTE | 2020-09-24 16:06 | Progress Note ---
Assessment and Plan Cultures: Blood culture no growth so far A/P: 59-year-old man past medical history hypertension, obesity admitted with pneumonia. #Left-sided community-acquired pneumonia: Elevated procalcitonin, negative Covid testing. Continue antibiotics. #Hypertension #Obesity Recs: -Continue ceftriaxone and azithromycin to complete 5 and 3 days respectively -If discharging patient would discharge with cefdinir 300 mg every 12 hours to complete a 5 days. Thank you for the consult, we will continue to follow. Danyelle Martin MD [facility] O: [phone] F: [phone] Subjective Date of service: 09/24/20 Interval history: Afebrile, normal white count. Imaging personally viewed: Brain MRI: Subacute infarctions Objective - Exam Narrative Exam: Physical exam deferred due to PPE conservation strategy. Please refer to primary team's note. - Constitutional Vitals: Vital Signs Temp Pulse Resp BP Pulse Ox 98.6 F 102 H 20 151/86 95 09/24/20 12:47 09/24/20 12:47 09/24/20 12:47 09/24/20 12:47 09/24/20 12:47 Temperature -Last 24 Hours Temperature 98.6 F Temperature 97.4 F Temperature 97.4 F Temperature 97.9 F Temperature 97.7 F Temperature 98.1 F - Labs CBC & Chem 7: 09/24/20 06:07 09/24/20 06:07 Labs: Abnormal lab results 09/24/20 09/24/20 09/24/20 Range/Units 06:07 06:07 06:07 RBC (3.65-5.03) M/mm3 Hgb (11.8-15.2) gm/dl Hct (35.5-45.6) % Plt Count (140-440) K/mm3 D-Dimer 1258.68 H (0-234) ng/mlDDU BUN 26 H (9-20) mg/dL Creatinine 0.7 L (0.8-1.3) mg/dL Glucose 113 H (75-100) mg/dL Calcium 8.3 L (8.4-10.2) mg/dL Ferritin 1686.0 H (30.0-300.0) ng/mL AST 63 H (5-40) units/L ALT 119 H (7-56) units/L Alkaline Phosphatase 162 H (35-129) units/L Lactate Dehydrogenase 303 H (91-180) units/L Total Creatine Kinase 365 H (55-170) units/L C-Reactive Protein 7.20 H (0.00-1.30) mg/dL Albumin 2.5 L (3.9-5) g/dL 09/24/20 Range/Units 06:07 RBC 3.34 L (3.65-5.03) M/mm3 Hgb 10.3 L (11.8-15.2) gm/dl Hct 30.8 L (35.5-45.6) % Plt Count 537 H (140-440) K/mm3 D-Dimer (0-234) ng/mlDDU BUN (9-20) mg/dL Creatinine (0.8-1.3) mg/dL Glucose (75-100) mg/dL Calcium (8.4-10.2) mg/dL Ferritin (30.0-300.0) ng/mL AST (5-40) units/L ALT (7-56) units/L Alkaline Phosphatase (35-129) units/L Lactate Dehydrogenase (91-180) units/L Total Creatine Kinase (55-170) units/L C-Reactive Protein (0.00-1.30) mg/dL Albumin (3.9-5) g/dL
[2020-09-24] MEDS: INSULIN LISPRO 100 UNIT/ML SUB-Q SCH ×2 (16:30→22:06)
--- NOTE | 2020-09-24 17:52 | Magnetic Resonance Report ---
MR MRA/MRV head wo con INDICATION / CLINICAL INFORMATION: 59 years Male; stroke. TECHNIQUE: 3-D time of flight. NASCET type criteria used to evaluate stenoses. COMPARISON: None available. FINDINGS: INTERNAL CAROTID ARTERIES: The motion significant degrades the image quality. However, there is no si gnificant focal stenosis involving distal internal carotid arteries by NASCET criteria. VERTEBROBASILAR SYSTEM: There is mild developmental hypoplasia the distal right vertebral artery. The re also appears be mild narrowing of the proximalmost basilar artery which is otherwise unremarkable. CEREBRAL ARTERIES: There is developmental fenestration of the A1 segment of the left REGLA. There is ir regularity of the middle and anterior cerebral arteries which appears to be related to the degree of motion artifact. However, the findings particularly involving the left MCA trifurcation of vessels in component of underlying narrowing cannot be a excluded at. It should be noted that on the accompanyi ng MRI, there was note of acute infarcts involving the right meyer radiata ANEURYSM: None identified. IMPRESSION: The study is limited by motion. However, there is some irregularity of the intracranial vessels, quic kly of the left MCA trifurcation as described. There is no significant stenosis involving distal internal carotid arteries. Signer Name: Abdiel Mejia MD Signed: 09/24/2020 5:47 PM Workstation Name: [id number]
--- NOTE | 2020-09-24 17:54 | XRay Report ---
XR femur 1V LT, XR foot 1V LT, XR tibia fibula 1V LT INDICATION / CLINICAL INFORMATION: pain. COMPARISON: None available. FINDINGS: No acute fracture. Normal alignment. Joint spaces are preserved. No destructive osseous lesion or s uspicious periosteal reaction. Prominent dorsal calcaneal spur. Impression: 1. No acute findings. Signer Name: Juan C Carrero MD Signed: 09/24/2020 5:49 PM Workstation Name: [id number]
[2020-09-24] MEDS: ENOXAPARIN 40 MG/0.4 ML INJ SUB-Q SCH (22:05)
[2020-09-25] MEDS: cefTRIAXone/NS 2 GM/100 ML 2 GM/100 ML BAG IV SCH (06:20)
[2020-09-25 06:30] LABS: INR 1.28 (0.87-1.13)
[2020-09-25 06:45] LABS: Albumin 2.5 g/dL (3.9-5); Bilirubin,Direct 0.2 mg/dL (0-0.2)
[2020-09-25] MEDS: INSULIN LISPRO 100 UNIT/ML SUB-Q SCH ×4 (07:30→21:50)
[2020-09-25] MEDS: COLCHICINE 0.6 MG TAB PO SCH (09:31)
[2020-09-25] MEDS: hydroCHLOROthiazide 12.5 MG CAP PO SCH (09:31)
[2020-09-25] MEDS: AZITHROMYCIN 250 MG TAB PO SCH (09:31)
[2020-09-25] MEDS: LOSARTAN 50 MG TAB PO SCH (09:31)
[2020-09-25] MEDS: ASPIRIN 325 MG TAB PO SCH (09:31)
--- NOTE | 2020-09-25 11:13 | Consultation ---
History of Present Illness Consult date: 09/25/20 Reason for Consult: CVA Chief complaint: Weakness History of present illness: 59 yo male with htn, hypoventilation syndrome, gout who presents with generalized weakness, myaglias, arthralgias, known covid-19 exposure and noted acute onset of weakness of bilateral lower extremities with inability to control them when he woke up, on the day of admission. Notes improvement but still notes weakness of his left leg, continued joint pain, and generalized weakness. Past History Past Medical History: hypertension, other (See HPI) Past Surgical History: No surgical history, Other (Reviewed) Social history: single Family history: hypertension Medications and Allergies Allergies Allergy/AdvReac Type Severity Reaction Status Date / Time No Known Allergies Allergy Verified 09/22/20 17:43 Home Medications Medication Instructions Recorded Confirmed Last Taken Type Colchicine [Colcrys] 0.6 mg PO DAILY 09/22/20 09/22/20 Unknown History Losartan/Hydrochlorothiazide 1 each PO DAILY 09/22/20 09/22/20 Unknown History [Losartan-Hctz 50-12.5 mg Tab] Active Meds: Active Medications Acetaminophen (Acetaminophen 325 Mg Tab) 650 mg PO Q4H PRN PRN Reason: Pain MILD(1-3)/Fever >100.5/PEREYRA Aspirin (Aspirin 325 Mg Tab) 325 mg PO QDAY [facility] Last Admin: 09/25/20 09:31 Dose: 325 mg Documented by: Colchicine (Colchicine 0.6 Mg Tab) 0.6 mg PO DAILY [facility] Last Admin: 09/25/20 09:31 Dose: 0.6 mg Documented by: Dextrose (Dextrose 50% In Water (25gm) 50 Ml Syringe) 50 ml IV Q30MIN PRN; Protocol PRN Reason: Hypoglycemia Enoxaparin Sodium (Enoxaparin 40 Mg/0.4 Ml Inj) 40 mg SUB-Q QDAY@2200 [facility]; Protocol Last Admin: 09/24/20 22:05 Dose: 40 mg Documented by: Hydralazine HCl (Hydralazine 20 Mg/1 Ml Inj) 10 mg IV Q4HR PRN PRN Reason: Hypertension Hydrochlorothiazide (Hydrochlorothiazide 12.5 Mg Cap) 12.5 mg PO QDAY [facility] Last Admin: 09/25/20 09:31 Dose: 12.5 mg Documented by: Ceftriaxone Sodium (Rocephin/Ns 2 Gm/100 Ml) 2 gm in 100 mls @ 200 mls/hr IV Q24H [facility]; Protocol Stop: 09/27/20 06:29 Last Admin: 09/25/20 06:20 Dose: 200 mls/hr Documented by: Insulin Human Lispro (Insulin Lispro 100 Unit/Ml) 0 unit SUB-Q ACHS [facility]; Protocol Last Admin: 09/25/20 07:30 Dose: Not Given Documented by: Losartan Potassium (Losartan 50 Mg Tab) 50 mg PO QDAY [facility] Last Admin: 09/25/20 09:31 Dose: 50 mg Documented by: Ondansetron HCl (Ondansetron 4 Mg/2 Ml Inj) 4 mg IV Q8H PRN PRN Reason: Nausea And Vomiting Sodium Chloride (Sodium Chloride 0.9% 10 Ml Flush Syringe) 10 ml IV BID [facility] Last Admin: 09/25/20 09:30 Dose: 10 ml Documented by: Sodium Chloride (Sodium Chloride 0.9% 10 Ml Flush Syringe) 10 ml IV PRN PRN PRN Reason: LINE FLUSH Tramadol HCl (Tramadol 50 Mg Tab) 50 mg PO Q6H PRN PRN Reason: Pain, Moderate (4-6) Last Admin: 09/24/20 05:36 Dose: 50 mg Documented by: Review of Systems All systems: negative (as per HPI;) Physical Examination - Vital Signs Vital Signs: Vital Signs Temp Pulse Resp BP Pulse Ox 99.0 F 117 H 18 117/74 96 09/22/20 15:48 09/22/20 15:48 09/22/20 15:48 09/22/20 15:48 09/22/20 15:48 - Physical Exam Narrative exam: Gen: nad, well-nourished; Head: normocephalic; Eyes: no gaze deviation; no ptosis; ENT: normal vocalization; CVS: warm and well-perfused; Pulm: no respiratory distress; GI: non-distended; Ext: no cyanosis at distal extremities; Skin: no acute rash at distal extremities; Heme: no pathologic ecchymosis at distal extremities; Neuro: alert, oriented to name, age, month, year, surroundings, slight dysarthria, no aphasia, CN 2 - PERRL, visual gamez intact, CN 3, 4, 6 - EOMI, CN 5 - facial sensation symmetric to light touch, CN 7 - facial movement decreased at left orolabial fold, CN 8 - hearing grossly intact, CN 9, 10 - uvu la midline, CN 11 - shrug symmetric except slight decreased at right shoulder, CN 12 - tongue midline; Motor - at least 4/5 at proximal BUEs w/ pain w/ movement of R shoulder and 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; at least 2/5 at proximal BLEs and at least 4/5 at distal BLEs w/ pain with attempt to lift legs off the bed; Sensory - light touch symmetric, Cerebellar - fnf intact but difficulty w/ hts secondary to weakness, Gait - deferred secondary to high fall risk; NIHSS (1a.) Level of Consciousness:0 (1b.) LOC Questions:0 (1c.) LOC Commands:0 (2.) Best Gaze:0 (3.) Visual:0 (4.) Facial Palsy:1 (5a.) Motor Arm, Left:0 (5b.) Motor Arm, Right:0 (6a.) Motor Leg, Left:3 (6b.) Motor Leg, Right:3 (7.) Limb Ataxia:0 (8.) Sensory:0 (9.) Best Language:0 (10.) Dysarthria:1 (11.) Extinction and Inattention:0 NIHSS Total Score: 8 Results - Laboratory Findings CBC and BMP: 09/24/20 06:07 09/24/20 06:07 Abnormal Lab Findings: Abnormal Labs 09/22/20 09/22/20 09/22/20 16:10 16:10 16:10 RBC 3.62 L Hgb 11.2 L Hct 32.9 L Plt Count 633 H Lymph % (Auto) 8.6 L Ector % (Auto) 10.8 H Lymph # (Auto) 0.9 L Ector # (Auto) 1.2 H Seg Neutrophils % 79.7 H Seg Neutrophils # 8.6 H PT INR D-Dimer Chloride BUN 63 H Creatinine Glucose 114 H POC Glucose Hemoglobin A1c Calcium Magnesium 2.80 H Ferritin Direct Bilirubin AST 107 H ALT 165 H Alkaline Phosphatase 161 H Lactate Dehydrogenase Total Creatine Kinase 1354 H Troponin T 0.060 H C-Reactive Protein Total Protein 8.4 H Albumin 3.0 L Triglycerides 179 H HDL Cholesterol 26 L Salicylates Acetaminophen 5.0 L 09/22/20 09/22/20 09/22/20 16:10 16:10 16:10 RBC Hgb Hct Plt Count Lymph % (Auto) Ector % (Auto) Lymph # (Auto) Ector # (Auto) Seg Neutrophils % Seg Neutrophils # PT INR D-Dimer Chloride BUN Creatinine Glucose 114 H POC Glucose Hemoglobin A1c Calcium Magnesium Ferritin > 949.0 H Direct Bilirubin AST ALT Alkaline Phosphatase Lactate Dehydrogenase 331 H Total Creatine Kinase Troponin T C-Reactive Protein 19.40 H Total Protein Albumin Triglycerides HDL Cholesterol Salicylates < 0.3 L Acetaminophen 09/22/20 09/23/20 09/23/20 17:30 05:28 05:28 RBC 3.08 L Hgb 9.6 L Hct 28.6 L Plt Count 489 H Lymph % (Auto) 7.5 L Ector % (Auto) Lymph # (Auto) 0.6 L Ector # (Auto) Seg Neutrophils % 88.6 H Seg Neutrophils # PT INR D-Dimer 1568.94 H Chloride 109.0 H BUN 50 H Creatinine Glucose 117 H POC Glucose Hemoglobin A1c Calcium 8.1 L Magnesium Ferritin Direct Bilirubin AST ALT Alkaline Phosphatase Lactate Dehydrogenase Total Creatine Kinase Troponin T C-Reactive Protein Total Protein Albumin Triglycerides HDL Cholesterol Salicylates Acetaminophen 09/23/20 09/24/20 09/24/20 10:37 06:07 06:07 RBC Hgb Hct Plt Count Lymph % (Auto) Ector % (Auto) Lymph # (Auto) Ector # (Auto) Seg Neutrophils % Seg Neutrophils # PT INR D-Dimer 1258.68 H Chloride BUN 26 H Creatinine 0.7 L Glucose 113 H POC Glucose Hemoglobin A1c Calcium 8.3 L Magnesium Ferritin Direct Bilirubin 0.4 H AST 105 H 63 H ALT 140 H 119 H Alkaline Phosphatase 148 H 162 H Lactate Dehydrogenase 303 H Total Creatine Kinase 685 H 365 H Troponin T C-Reactive Protein 7.20 H Total Protein Albumin 2.5 L 2.5 L Triglycerides HDL Cholesterol Salicylates Acetaminophen 09/24/20 09/24/20 09/24/20 06:07 06:07 16:42 RBC 3.34 L Hgb 10.3 L Hct 30.8 L Plt Count 537 H Lymph % (Auto) Ector % (Auto) Lymph # (Auto) Ector # (Auto) Seg Neutrophils % Seg Neutrophils # PT INR D-Dimer Chloride BUN Creatinine Glucose POC Glucose 155 H Hemoglobin A1c Calcium Magnesium Ferritin 1686.0 H Direct Bilirubin AST ALT Alkaline Phosphatase Lactate Dehydrogenase Total Creatine Kinase Troponin T C-Reactive Protein Total Protein Albumin Triglycerides HDL Cholesterol Salicylates Acetaminophen 09/24/20 09/24/20 09/25/20 16:47 19:46 04:58 RBC Hgb Hct Plt Count Lymph % (Auto) Ector % (Auto) Lymph # (Auto) Ector # (Auto) Seg Neutrophils % Seg Neutrophils # PT 15.8 H INR 1.28 H D-Dimer Chloride BUN Creatinine Glucose POC Glucose 126 H Hemoglobin A1c 6.6 H Calcium Magnesium Ferritin Direct Bilirubin AST ALT Alkaline Phosphatase Lactate Dehydrogenase Total Creatine Kinase Troponin T C-Reactive Protein Total Protein Albumin Triglycerides HDL Cholesterol Salicylates Acetaminophen 09/25/20 09/25/20 04:58 09:27 RBC Hgb Hct Plt Count Lymph % (Auto) Ector % (Auto) Lymph # (Auto) Ector # (Auto) Seg Neutrophils % Seg Neutrophils # PT INR D-Dimer Chloride BUN Creatinine Glucose POC Glucose 107 H Hemoglobin A1c Calcium Magnesium Ferritin Direct Bilirubin AST 48 H ALT 108 H Alkaline Phosphatase 147 H Lactate Dehydrogenase Total Creatine Kinase Troponin T C-Reactive Protein Total Protein Albumin 2.5 L Triglycerides HDL Cholesterol Salicylates Acetaminophen Assessment and Plan 59 yo male with htn who presented initially w/ generalized weakness, myalgias, fatigue, noted with possible pneumonia w/ transminitis, rhabdomyolysis, and acute kidney injury. 1. Acute/Subacute Ischemic Stroke (lacunar vs. embolic) - aspirin 81 mg po qday, statin therapy for a goal ldl of 70; tsh, telemetry, recommend VALDEZ & long- term cardiac monitoring; telemetry, ordered cta head/neck w/ wo contrast; pt/ot/st/swallow evaluation/monitoring; ?covid-19 related hypercoaguable state (per ID). 2. Paraparesis (w/ pain) - pain at bilateral knees w/ attempted movement w/ proximal muscle weakness - ?rhabdomyolysis w/ arthralgias; reconfirm w/ MR T/L Spine w/ wo contrast (ordered); pt/ot evaluation/monitoring. 3. HTN - sbp <180 mmHg until cta head/neck results reveals no evidence of cr itical stenosis or vasculitis. 4. Arthralgias - per primary team; pt notes possible hx of gout. Cesar Iniguez MD Neurology
--- NOTE | 2020-09-25 14:52 | Magnetic Resonance Report ---
MRI LUMBAR SPINE WITHOUT AND WITH CONTRAST INDICATION / CLINICAL INFORMATION: bilateral leg weakness w/ pain. TECHNIQUE: Multisequence, multiplanar images of the lumbar spine were obtained before and after 18 mL of Clarisc an; Motion related artifacts, despite multiple attempts, limiting this MRI scan COMPARISON: None available. FINDINGS: Lumbosacral junction L5-S1 ALIGNMENT: Normal lumbar lordosis without significant scoliosis. VERTEBRAE:Normal marrow signal and vertebral body height for age. VISUALIZED SPINAL CORD: No significant abnormality. Conus ends at L1 vertebral body level ENSAM-PN-MECHB ANALYSIS: T12-L1: Normal L1-2: No significant abnormality. L2-3: Shallow disc protrusion laterally bilaterally more towards the left side; left lateral recess a nd left neuroforamina narrowed; type II endplate degenerative changes L3-4: Bulging disc disc; neuroforamina are normal L4-5: Bulging disc; neuroforamina are normal; mild facet joint hypertrophic changes L5-S1: No significant abnormality. PARASPINAL SOFT TISSUES: No significant abnormality. ADDITIONAL FINDINGS: None. IMPRESSION: Limited MRI scan due to motion related artifacts Normal distal spinal cord; no enhancing intradural lesion Shallow disc protrusion at L2-L3 disc level laterally bilaterally more towards the left side; left ne ural foramina narrowed Signer Name: Viral Santos MD Signed: 09/25/2020 2:47 PM Workstation Name: [id number]
--- NOTE | 2020-09-25 14:55 | Magnetic Resonance Report ---
MRI THORACIC SPINE WITHOUT AND WITH CONTRAST INDICATION / CLINICAL INFORMATION: bilateral leg weakness w/ pain. TECHNIQUE: Multisequence, multiplanar images of the thoracic spine were obtained before and after 18 mL of Zeinab scan: Motion related artifacts obscuring the details COMPARISON: None available. FINDINGS: ALIGNMENT: Normal thoracic kyphosis without significant scoliosis. VERTEBRAE:Normal marrow signal and vertebral body height for age. VISUALIZED SPINAL CORD: No significant abnormality. No enhancing intradural lesion INTERVERTEBRAL DISCS: No significant abnormality. DEGENERATIVE FINDINGS: No significant degenerative findings. PARASPINAL SOFT TISSUES: No significant abnormality. ADDITIONAL FINDINGS: None. IMPRESSION: Motion related artifacts obscuring the details No focal disc herniation, spinal canal stenosis or nerve root compression. Normal thoracic spinal cord Signer Name: Viral Santos MD Signed: 09/25/2020 2:51 PM Workstation Name: [id number]
--- NOTE | 2020-09-25 15:08 | Gastroenterology Progress Note ---
Assessment and Plan # Elevated liver enzymes - Mild elevation with AST and ALT in 100s. hepatocellular pattern. Continues to trend down. - ddx including drug induced liver injury, viral illness in the setting of pneumonia, elevated AST due to rhabdo. - acute viral hepatitis panel negative. - patient with subacute infarcts on MRI brain - US showing hepatomegaly with hepatic steatosis and gallbladder stones vs polyps Rec - supportive care. - avoid hepatotoxins. - will sign off. patient to follow up with GI outpatient for hepatic steatosis. Subjective Date of service: 09/25/20 Interval history: Patient undergoing work up for subacute CVA. Denies abdominal pain or nausea/vomiting. Objective - Constitutional Vitals: Temp Pulse Resp BP Pulse Ox 98.7 F 101 H 18 135/72 97 09/25/20 09:28 09/25/20 09:28 09/25/20 09:28 09/25/20 09:28 09/25/20 09:28 General appearance: no acute distress - EENT Eyes: EOM intact ENT: hearing intact - Respiratory Respiratory effort: normal - Cardiovascular Rhythm: regular Heart Sounds: Present: S1 & S2 - Gastrointestinal General gastrointestinal: Present: soft, non-tender, non-distended - Labs CBC & Chem 7: 09/24/20 06:07 09/24/20 06:07 Labs: Laboratory Results - last 24 hr 09/24/20 09/24/20 09/24/20 16:42 16:47 19:46 PT INR POC Glucose 155 H 126 H Hemoglobin A1c 6.6 H Total Bilirubin Direct Bilirubin Indirect Bilirubin AST ALT Alkaline Phosphatase Total Protein Albumin Albumin/Globulin Ratio 09/25/20 09/25/20 09/25/20 04:58 04:58 09:27 PT 15.8 H INR 1.28 H POC Glucose 107 H Hemoglobin A1c Total Bilirubin 0.50 Direct Bilirubin 0.2 Indirect Bilirubin 0.3 AST 48 H ALT 108 H Alkaline Phosphatase 147 H Total Protein 7.0 Albumin 2.5 L Albumin/Globulin Ratio 0.6 09/25/20 11:38 PT INR POC Glucose 116 H Hemoglobin A1c Total Bilirubin Direct Bilirubin Indirect Bilirubin AST ALT Alkaline Phosphatase Total Protein Albumin Albumin/Globulin Ratio
--- NOTE | 2020-09-25 15:46 | Progress Note ---
Assessment and Plan Cultures: Blood culture no growth so far Covid negative A/P: 59-year-old man past medical history hypertension, obesity admitted with pneumonia. #Left-sided community-acquired pneumonia: Elevated procalcitonin, negative Covid testing. Continue antibiotics. #Hypertension #Obesity Recs: -Continue ceftriaxone and azithromycin to complete 5 and 3 days respectively -If discharging patient would discharge with cefdinir 300 mg every 12 hours to complete the 5 days. Thank you for the consult, we will sign off. Please call with any questions. Danyelle Martin MD [facility] ([facility]) O: [phone] F: [phone] Subjective Date of service: 09/25/20 Interval history: Afebrile, normal white count. Imaging personally reviewed: T/L spine MRI; no infectious etiologies Brain MRA: no infectious abnormality. Objective - Exam Narrative Exam: Physical Exam: Constitutional: Alert, cooperative. No acute distress Head, Ears, Nose: Normocephalic, atraumatic. External ears, nose normal Eyes: Conjunctivae/corneas clear. No icterus. No ptosis. Neck: Supple, no meningeal signs Oral: dentition fair, no thrush Cardiovascular: S1, S2 normal. Respiratory: Good air entry, clear to auscultation bilaterally GI: Soft, non-tender; bowel sounds normal. No peritoneal signs. Musculoskeletal: No pedal edema, no cyanosis. Skin: No rash or abscess Hem/Lymphatic: No palpable cervical or supraclavicular nodes. No lymphangitis Psych: Mood ok. Affect normal Neurological: Left leg weakness - Constitutional Vitals: Vital Signs Temp Pulse Resp BP Pulse Ox 98.7 F 101 H 18 135/72 97 09/25/20 09:28 09/25/20 09:28 09/25/20 09:28 09/25/20 09:28 09/25/20 09:28 Temperature -Last 24 Hours Temperature 98.7 F Temperature 98.9 F Temperature 99.2 F Temperature 98.5 F - Labs CBC & Chem 7: 09/24/20 06:07 09/24/20 06:07 Labs: Abnormal lab results 09/24/20 09/24/20 09/24/20 Range/Units 16:42 16:47 19:46 PT (12.2-14.9) Sec. INR (0.87-1.13) POC Glucose 155 H 126 H (70-105) mg/dL Hemoglobin A1c 6.6 H (4-6) % AST (5-40) units/L ALT (7-56) units/L Alkaline Phosphatase (35-129) units/L Albumin (3.9-5) g/dL 09/25/20 09/25/20 09/25/20 Range/Units 04:58 04:58 09:27 PT 15.8 H (12.2-14.9) Sec. INR 1.28 H (0.87-1.13) POC Glucose 107 H (70-105) mg/dL Hemoglobin A1c (4-6) % AST 48 H (5-40) units/L ALT 108 H (7-56) units/L Alkaline Phosphatase 147 H (35-129) units/L Albumin 2.5 L (3.9-5) g/dL 09/25/20 Range/Units 11:38 PT (12.2-14.9) Sec. INR (0.87-1.13) POC Glucose 116 H (70-105) mg/dL Hemoglobin A1c (4-6) % AST (5-40) units/L ALT (7-56) units/L Alkaline Phosphatase (35-129) units/L Albumin (3.9-5) g/dL
--- NOTE | 2020-09-25 16:02 | Progress Note ---
Assessment and Plan Assessment and plan: Acute/subacute infarct -09/22 CT head shows at least 3 small deep infarctions in the greater gangliocapsular distribution, recommend MRI brain, extensive mucosal disease in the right sinus, anterior and mid ethmoid air cells on the right and in the right and left frontal sinuses. -09/23 MRI brain shows subacute infarctions involving the right meyer radiata -09/24 MRA head without contrast shows irregularity of the intracranial vessels at the left MCA trifurcation with no significant stenosis involving the distal internal carotid arteries -09/25 CTA h/n w/wo contrast pending -09/24 TTE shows global left ventricular systolic function at the lower limits of normal, estimate ejection fraction 55%, mild concentric LVH, mild AR, mild MR, trace TR and no patent foramen ovale demonstrated by agitated saline contrast -Neurology consulted, appreciate recommendations -Aspirin an statin therapy -PT/OT consulted, appreciate recommendations -Maintain euthermia and euglycemia -Seizure/aspiration/fall precautions -Neurology recommends long-term cardiac monitoring -Per neurology SBP goal less than 180 goal SBP less than 180 until CTA head/neck results reveals no evidence of central stenosis or vasculitis Paraparesis with pain -Presented with rhabdomyolysis and a 3 to 4-day history of decreased movement p er patient due to pain -Patient has a history of gout -09/24 x-ray of left lower extremity reports no acute fracture process -09/25 MRI T-spine shows no focal disc herniation, spinal canal stenosis or nerve root compression with normal thoracic spinal cord -09/25 L spine shows normal distal spinal cord, no enhancing intradural lesion, shallow disc protrusion at L2/L3 disc level like bilaterally more towards the left side, left neural foramina narrowed -PT/OT consulted, patient recommendations Pneumonia -Antibiotic therapy -Pulmonary hygiene -Supplement oxygen as needed -SPO2 monitoring Extensive sinusitis -Noted on CT head -Antibiotic therapy Elevated D-dimer -Presented with a D-dimer of 1568 -09/22 bilateral lower extremity Doppler ultrasound shows no evidence of DVT/SVT Rhabdomyolysis, improving -Presented with a creatinine kinase of 1354 -S/p 3 L normal saline in the emergency department -Trend creatinine -PT/OT consulted -Patient states that he has last moved in 4 days prior to presentation Transaminitis, improving -LFTs of presentation: AST 107, ALT 167, alk phos 161 -Trend LFTs -GI consulted, appreciate recommendations -09/23 abdominal ultrasound shows hepatomegaly with hepatic steatosis, multiple hyper echoic areas within the gallbladder could represent multiple polyps versus nonmobile gallstones, bilateral renal cysts - Per GI: -supportive care. -avoid hepatotoxins. -will sign off. patient to follow up with GI outpatient for hepatic steatosis. Thrombocytosis -Presented with a platelet count of 633 -Trend CBC Hypertension -Resume home antihypertensive regimen and titrate as needed -Blood pressure monitoring per protocol -As needed IV hydralazine for SBP greater than 160 DVT prophylaxis -SCDs to bilateral lower extremities while in bed -Heparin subcu COVID-19 PUI, ruled out -Patient has known exposure to COVID-19 prior to symptom onset -09/23 COVID-19 PCR negative -09/22 CXR shows focal airspace disease in the mid to lower lateral left lung which is concerning for pneumonia History Interval history: This is a 59 YO Male with HTN and presented to the emergency department on 09/22 obesity hypoventilation syndrome with complaints of generalized weakness, fatigue, muscle aches, shortness of breath, dry cough over the past 2 weeks with worsening symptoms over the past 4 days with known COVID-19 exposure. The patient was found to have pneumonia, suspected coronavirus infection, transaminitis and rhabdomyolysis. Patient was admitted to the hospitalist service with consults to infectious disease and GI. Neurology and PT/OT consulted. 09/23: Today on examination patient is on room air and states that he has not moved in 4 days and complains of generalized weakness and fatigue. Today infectious disease, GI and PT/OT were consulted. No acute events reported overnight. We will obtain an acute hepatitis panel and abdominal ultrasound to further investigate his transaminitis. COVID-19 PCR pending 09/24: Patient's COVID-19 PCR was negative and he was transferred to the fourth floor. Patient received abdominal ultrasound and MRI brain was obtained due to left facial droop, right upper extremity and left lower extremity weakness which showed a subacute infarct. Neurology was consulted. PT/OT evaluation pending. No acute events reported overnight. 09/25: The time of my examination patient has drift to bilateral lower extremities with slight left-sided facial droop. No acute events reported overnight. Neurology has ordered for additional testing. Hospitalist Physical - Constitutional Vitals: Temp Pulse Resp BP Pulse Ox 98.7 F 101 H 18 135/72 97 09/25/20 09:28 09/25/20 09:28 09/25/20 09:28 09/25/20 09:28 09/25/20 09:28 General appearance: Present: no acute distress, obese - EENT Eyes: Present: PERRL, EOM intact ENT: hearing intact, clear oral mucosa, dentition normal - Neck Neck: Present: normal ROM - Respiratory Respiratory effort: normal Respiratory: bilateral: CTA - Cardiovascular Rhythm: regular Heart Sounds: Present: S1 & S2. Absent: systolic murmur, diastolic murmur - Extremities Extremities: no ischemia, pulses intact, pulses symmetrical, No edema, normal temperature, normal color Extremity abnormal: tenderness Peripheral Pulses: within normal limits - Abdominal General gastrointestinal: soft, non-tender, non-distended, normal bowel sounds - Integumentary Integumentary: Present: clear, warm, dry - Psychiatric Psychiatric: cooperative - Neurologic Neurologic: CNII-XII intact, focal deficits (BLE drift), other (weakness and pain with movment to BLE) HEART Score - HEART Score Troponin: Troponin T 0.060 ng/mL (0.00-0.029) H 09/22/20 16:10 Results - Labs CBC & Chem 7: 09/24/20 06:07 09/24/20 06:07 Labs: Laboratory Last Values WBC 10.3 K/mm3 (4.5-11.0) 09/24/20 06:07 RBC 3.34 M/mm3 (3.65-5.03) L 09/24/20 06:07 Hgb 10.3 gm/dl (11.8-15.2) L 09/24/20 06:07 Hct 30.8 % (35.5-45.6) L 09/24/20 06:07 MCV 92 fl (84-94) 09/24/20 06:07 MCH 31 pg (28-32) 09/24/20 06:07 MCHC 33 % (32-34) 09/24/20 06:07 RDW 13.6 % (13.2-15.2) 09/24/20 06:07 Plt Count 537 K/mm3 (140-440) H 09/24/20 06:07 Lymph % (Auto) 7.5 % (13.4-35.0) L 09/23/20 05:28 [place] % (Auto) 3.8 % (0.0-7.3) 09/23/20 05:28 Eos % (Auto) 0.0 % (0.0-4.3) 09/23/20 05:28 Baso % (Auto) 0.1 % (0.0-1.8) 09/23/20 05:28 Lymph # (Auto) 0.6 K/mm3 (1.2-5.4) L 09/23/20 05:28 [place] # (Auto) 0.3 K/mm3 (0.0-0.8) 09/23/20 05:28 Eos # (Auto) 0.0 K/mm3 (0.0-0.4) 09/23/20 05:28 Baso # (Auto) 0.0 K/mm3 (0.0-0.1) 09/23/20 05:28 Seg Neutrophils % 88.6 % (40.0-70.0) H 09/23/20 05:28 Seg Neutrophils # 7.4 K/mm3 (1.8-7.7) 09/23/20 05:28 PT 15.8 Sec. (12.2-14.9) H 09/25/20 04:58 INR 1.28 (0.87-1.13) H 09/25/20 04:58 D-Dimer 1258.68 ng/mlDDU (0-234) H 09/24/20 06:07 Sodium 139 mmol/L (137-145) 09/24/20 06:07 Potassium 3.9 mmol/L (3.6-5.0) 09/24/20 06:07 Chloride 106.2 mmol/L (98-107) 09/24/20 06:07 Carbon Dioxide 24 mmol/L (22-30) 09/24/20 06:07 Anion Gap 13 mmol/L 09/24/20 06:07 BUN 26 mg/dL (9-20) H 09/24/20 06:07 Creatinine 0.7 mg/dL (0.8-1.3) L 09/24/20 06:07 Estimated GFR > 60 ml/min 09/24/20 06:07 BUN/Creatinine Ratio 37 % 09/24/20 06:07 Glucose 113 mg/dL (75-100) H 09/24/20 06:07 POC Glucose 116 mg/dL (70-105) H 09/25/20 11:38 Hemoglobin A1c 6.6 % (4-6) H 09/24/20 16:47 Calcium 8.3 mg/dL (8.4-10.2) L 09/24/20 06:07 Magnesium 2.80 mg/dL (1.7-2.3) H 09/22/20 16:10 Ferritin 1686.0 ng/mL (30.0-300.0) H 09/24/20 06:07 Total Bilirubin 0.50 mg/dL (0.1-1.2) 09/25/20 04:58 Direct Bilirubin 0.2 mg/dL (0-0.2) 09/25/20 04:58 Indirect Bilirubin 0.3 mg/dL 09/25/20 04:58 AST 48 units/L (5-40) H 09/25/20 04:58 ALT 108 units/L (7-56) H 09/25/20 04:58 Alkaline Phosphatase 147 units/L (35-129) H 09/25/20 04:58 Lactate Dehydrogenase 303 units/L (91-180) H 09/24/20 06:07 Total Creatine Kinase 365 units/L (55-170) H 09/24/20 06:07 Troponin T 0.060 ng/mL (0.00-0.029) H 09/22/20 16:10 C-Reactive Protein 7.20 mg/dL (0.00-1.30) H 09/24/20 06:07 NT-Pro-B Natriuret Pep 822.4 pg/mL (0-900) 09/22/20 16:10 Total Protein 7.0 g/dL (6.3-8.2) 09/25/20 04:58 Albumin 2.5 g/dL (3.9-5) L 09/25/20 04:58 Albumin/Globulin Ratio 0.6 % 09/25/20 04:58 Triglycerides 179 mg/dL (2-149) H 09/22/20 16:10 Cholesterol 182 mg/dL (50-199) 09/22/20 16:10 LDL Cholesterol Direct 110 mg/dL (50-130) 09/22/20 16:10 HDL Cholesterol 26 mg/dL (40-59) L 09/22/20 16:10 Cholesterol/HDL Ratio 7.00 % 09/22/20 16:10 Lipase 37 units/L (13-60) 09/22/20 16:10 Procalcitonin 0.76 ng/mL (<0.15) 09/22/20 16:10 TSH 1.620 mlU/mL (0.270-4.200) 09/22/20 16:10 Free T4 1.09 ng/dL (0.76-1.46) 09/22/20 16:10 Urine Color Poppy (Yellow) 09/22/20 Unknown Urine Turbidity Clear (Clear) 09/22/20 Unknown Urine pH 5.0 (5.0-7.0) 09/22/20 Unknown Ur Specific [place] 1.023 (1.003-1.030) 09/22/20 Unknown Urine Protein <15 mg/dl mg/dL (Negative) 09/22/20 Unknown Urine Glucose (UA) Neg mg/dL (Negative) 09/22/20 Unknown Urine Ketones Neg mg/dL (Negative) 09/22/20 Unknown Urine Blood Neg (Negative) 09/22/20 Unknown Urine Nitrite Neg (Negative) 09/22/20 Unknown Urine Bilirubin Neg (Negative) 09/22/20 Unknown Urine Urobilinogen 4.0 mg/dL (<2.0) 09/22/20 Unknown Ur Leukocyte Esterase Neg (Negative) 09/22/20 Unknown Urine WBC (Auto) 1.0 /HPF (0.0-6.0) 09/22/20 Unknown Urine RBC (Auto) 2.0 /HPF (0.0-6.0) 09/22/20 Unknown U Epithel Cells (Auto) < 1.0 /HPF (0-13.0) 09/22/20 Unknown Urine Mucus Few /HPF 09/22/20 Unknown Salicylates < 0.3 mg/dL (2.8-20.0) L 09/22/20 16:10 Acetaminophen 5.0 ug/mL (10.0-30.0) L 09/22/20 16:10 Coronavirus (PCR) Negative (Negative) 09/23/20 Unknown Hepatitis A IgM Ab Non-reactive (NonReactive) 09/23/20 14:28 Hep Bs Antigen Non-reactive (Negative) 09/23/20 14:28 Hep B Core IgM Ab Non-reactive (NonReactive) 09/23/20 14:28 Hepatitis C Antibody Non-reactive (NonReactive) 09/23/20 14:28 Microbiology: Microbiology 09/22/20 17:42 Peripheral/Venous Blood Culture - Preliminary NO GROWTH AFTER 48 HOURS 09/22/20 17:42 Peripheral/Venous Blood Culture - Preliminary NO GROWTH AFTER 48 HOURS - Diagnostic Impressions Diagnostic Impressions: Echocardiogram 09/24/20 15:33 Transthoracic Echocardiogram Indication: Stroke BP: 132/77 HR: 106 Conclusions *Global left ventricular systolic function is at the lower limits of normal. *The estimated ejection fraction is 50-55%. *Mild concentric left ventricular hypertrophy is observed. *There is mild aortic regurgitation. *There is mild mitral regurgitation. *There is trace tricuspid regurgitation. *A patent foramen ovale is not demonstrated by agitated saline contrast. Findings Left Ventricle: The left ventricular chamber size is normal. Mild concentric left ventricular hypertrophy is observed. Global left ventricular systolic function is at the lower limits of normal. The estimated ejection fraction is 50-55%. Left Atrium: The left atrial chamber size is normal. Right Ventricle: The right ventricular cavity size is normal. The right ventricular global systolic function is normal. Right Atrium: The right atrial cavity size is normal. A patent foramen ovale is not demonstrated by agitated saline contrast. Aortic Valve: The aortic valve leaflets are moderately thickened. There is mild aortic regurgitation. There is no evidence of aortic stenosis. Mitral Valve: The mitral valve leaflets are mildly thickened. There is mild mitral regurgitation. There is no evidence of mitral stenosis. Tricuspid Valve: There is trace tricuspid regurgitation. The right ventricular systolic pressure is calculated at 24 mmHg. There is evidence of borderline pulmonary hypertension. Pulmonic Valve: There is trace pulmonic regurgitation. Pericardium: There is no pericardial effusion. Aorta: There is no dilatation of the aortic root. Venous: The inferior vena cava appears normal in size. Contrast: Intravenous agitated saline contrast was used to assess intracardiac shunting. Measurements Chambers 2D Name Value Normal Range IVSd (2D) 1.35 cm (0.6 - 1.1) LVPWd (2D) 1.33 cm (0.6 - 1.1) LVIDd (2D) 5.38 cm (3.7 - 5.6) LVIDs (2D) 4.08 cm (2 - 3.8) LV FS (2D) 24.19 % - EF Teichholz (2D) 47.68 % - Ao root diameter (2D) 2.81 cm (2 - 3.7) Volumes/Mass Name Value Normal Range LA ESV SP 4CH (A/L) 28.01 ml - LA ESV SP 2CH (A/L) 51.62 ml - LA ESV BP (A/L) 44.11 ml - LA ESV BP (A/L) index 23.34 ml/m2 - LA ESV SP 4CH (MOD) 25.44 ml - LA ESV SP 2CH (MOD) 47.4 ml - LA ESV BP (MOD) 40.15 ml - LA ESV BP (MOD) index 21.24 ml/m2 - Aortic Valve Name Value Normal Range AV Vmax 1.31 m/sec - AV VTI 19.39 cm - AV peak gradient 6.88 mmHg - AV mean gradient 3.76 mmHg - LVOT diameter 2.05 cm - LVOT Vmax 0.92 m/sec - LVOT VTI 13.64 cm - LVOT peak gradient 3.42 mmHg - LVOT mean gradient 1.67 mmHg - SV LVOT 44.85 ml - JAG (continuity Vmax) 2.32 cm2 - JAG (continuity VTI) 2.31 cm2 - AR PHT 525.35 msec - AR peak gradient 58.81 mmHg - Mitral Valve Name Value Normal Range MV PHT 32.23 msec - MVA (PHT) 6.83 cm2 - Tricuspid Valve Name Value Normal Range TR Vmax 2.27 m/sec - TR peak gradient 21 mmHg - RAP 3 mmHg - RVSP 24 mmHg - IVC diameter 1.67 cm (1.2 - 2.3) Pulmonic Valve/Qp:Qs Name Value Normal Range PV Vmax 0.89 m/sec - PV peak gradient 3.15 mmHg - AK end-diastolic Vmax 1.28 m/sec - PV acceleration time 72.31 msec - [place]/IV: Voiding Method Urinal Active Medications - Current Medications Current Medications: Generic Name Dose Route Start Last Admin Trade Name Freq PRN Reason Stop Dose Admin Acetaminophen 650 mg 09/22/20 18:24 Acetaminophen 325 Mg Tab PO Q4H PRN Pain MILD(1-3)/Fever >100.5/PEREYRA Aspirin 325 mg 09/25/20 10:00 09/25/20 09:31 Aspirin 325 Mg Tab PO 325 mg QDAY MILTON Administration Colchicine 0.6 mg 09/23/20 10:00 09/25/20 09:31 Colchicine 0.6 Mg Tab PO 0.6 mg DAILY MILTON Administration Dextrose 50 ml 09/24/20 15:31 Dextrose 50% In Water (25gm) 50 Ml Syringe IV Q30MIN PRN Hypoglycemia Protocol Enoxaparin Sodium 40 mg 09/23/20 22:00 09/24/20 22:05 Enoxaparin 40 Mg/0.4 Ml Inj SUB-Q 40 mg QDAY@2200 MILTON Administration Protocol Hydralazine HCl 10 mg 09/23/20 14:23 Hydralazine 20 Mg/1 Ml Inj IV Q4HR PRN Hypertension Hydrochlorothiazide 12.5 mg 09/23/20 10:00 09/25/20 09:31 Hydrochlorothiazide 12.5 Mg Cap PO 12.5 mg QDAY MILTON Administration Ceftriaxone Sodium 2 gm in 100 mls @ 200 mls/hr 09/23/20 06:00 09/25/20 06:20 Rocephin/Ns 2 Gm/100 Ml IV 09/27/20 06:29 200 mls/hr Q24H MILTON Administration Protocol Insulin Human Lispro 0 unit 09/24/20 16:30 09/25/20 11:43 Insulin Lispro 100 Unit/Ml SUB-Q Not Given ACHS [facility] Protocol Losartan Potassium 50 mg 09/23/20 10:00 09/25/20 09:31 Losartan 50 Mg Tab PO 50 mg QDAY MILTON Administration Ondansetron HCl 4 mg 09/22/20 18:24 Ondansetron 4 Mg/2 Ml Inj IV Q8H PRN Nausea And Vomiting Sodium Chloride 10 ml 09/22/20 22:00 09/25/20 09:30 Sodium Chloride 0.9% 10 Ml Flush Syringe IV 10 ml BID MILTON Administration Sodium Chloride 10 ml 09/22/20 18:24 Sodium Chloride 0.9% 10 Ml Flush Syringe IV PRN PRN LINE FLUSH Tramadol HCl 50 mg 09/24/20 05:19 09/24/20 05:36 Tramadol 50 Mg Tab PO 50 mg Q6H PRN Administration Pain, Moderate (4-6) Nutrition/Malnutrition Assess - Dietary Evaluation Nutrition/Malnutrition Findings: Nutrition Notes Start: 09/23/20 11:00 Freq: Status: Active Protocol: Document 09/24/20 10:20 CW (Rec: 09/24/20 10:30 CW [id number]) Nutrition Notes Initial or Follow up Brief Note Current Diagnosis Acute Kidney Injury,Diabetes, Hypertension Other Pertinent Diagnosis Obesity Hypoventilation Syndrome, pneu, COVID, Rhabdomyolysis Current Diet Cardiac/Consistent CHO Labs/Tests BUN 26 Cr 0.7 Ca 8.3 Pertinent Medications Vitamin D3 Zinc Sulfate Height 5 ft 3 in Weight 86.183 kg [place] Body Weight (kg) 56.36 BMI 33.6 Weight Status Obese Subjective/Other Information F/U for weight and intakes. Intakes remain adeqaute 50 - 75% of meals which meets at least 75% of kcal and protein needs. Weight has remained stable. Renal related labs are improving. Adarsh score of 21 with intact skin. Pt did not answer phone x2. No reports of N/V/D/C. Diet being well tolerated Percent of energy/protein needs met: 78%/80% Skin Integrity/Comment Beaden Score 21 Minimum of two criteria No Fluid Accumulation Mild (non-severe) Is patient on ventilator? No Is Patient Ambulatory and/or Out of Bed Yes REE-([place]-ambulatory/OOB) [ 7.048 NUTR.[id number]] Kcal/Kg value to use for calculation 18 Approximate Energy Requirements Using 1551 kcal/Kg Calculation Used for Recommendations Kcal/kg Additional Notes PRO needs: 69-103g (0.8-1.2 g/ kg for JINA) Fluid needs: 1 mL/kcal or per MD Nutrition Intervention Change Diet Order: Continue Cardiac Consistent CHO Goal #1 Meet at least 75% of estimated energy and protein needs. Anticipated Discharge Needs: Cardiac/Consistent CHO Revisit per MD consult or patient Sign Off request: Additional Comments S/O Adequate PO intakes, Adarsh Score of 21
--- NOTE | 2020-09-25 16:36 | Cat Scan Report ---
CT angio neck, CT angio head HISTORY: Infarctions in the right meyer radiata. COMPARISON: Brain MRI 09/24/2020. TECHNIQUE: CTA of the neck and head is performed after IV contrast. 3-D/MIP reformats were postproces sed. Percentage stenosis is determined by direct quantitative measurements of diseased internal [place] artery diameter compared with normal distal internal carotid artery reference segments or by crit eria similar to NASCET where applicable. All CT scans at this location are performed using CT dose re duction for ALARA by means of automated exposure control. FINDINGS: CTA NECK: Aortic arch: No significant abnormality. Cervical vertebral arteries: No occlusion or hemodynamically significant stenosis. Common Carotid arteries: Mild atherosclerosis of the carotid bulbs. No occlusion or hemodynamically s ignificant stenosis. Internal carotid arteries: Mild atherosclerosis of the internal carotid arteries. No occlusion or hem odynamically significant stenosis. Additional findings: Groundglass opacities with a peripheral subpleural predilection. CTA HEAD: Intracranial vertebral arteries: No occlusion or significant stenosis. Outpouching of the right inter nal carotid artery in area of the origin of the posterior communicating artery is likely an infundibu lum. Left P-comm infundibulum is present. Basilar artery: No occlusion or significant stenosis. Posterior cerebral arteries: No occlusion or significant stenosis. Intracranial internal carotid arteries: No occlusion or significant stenosis. Anterior cerebral arteries: No occlusion or significant stenosis. Middle cerebral arteries: No occlusion or significant stenosis. Additional findings: Unchanged paranasal sinus disease. Evolving right meyer radiata infarctions wit hout hemorrhagic conversion. IMPRESSION: 1. Airspace disease in the lung demonstrating classic imaging features of Covid pneumonia. 1. CTA NECK: No occlusion or significant stenosis of the carotid or vertebral arteries. 2. CTA HEAD: No occlusion or significant stenosis of the major intracranial vasculature. Commonly reported imaging features of Covid pneumonia are present. Reference: https://pubs.rsna.org/d oi/full/[email or web address]/[email or web address] Signer Name: Juan C Carrero MD Signed: 09/25/2020 4:32 PM Workstation Name: [id number]
[2020-09-25] MEDS: ENOXAPARIN 40 MG/0.4 ML INJ SUB-Q SCH (21:40)
[2020-09-25] MEDS: traMADol 50 MG TAB PO PRN (21:53)
[2020-09-26] MEDS: cefTRIAXone/NS 2 GM/100 ML 2 GM/100 ML BAG IV SCH (05:24)
[2020-09-26 07:08] LABS: Hematocrit 31.4 % (35.5-45.6); Hemoglobin 10.7 gm/dl (11.8-15.2); Mean Corpuscular HGB Conc 34 % (32-34); Mean Corpuscular Volume 91 fl (84-94); Platelet Count 609 K/mm3 (140-440); Red Blood Count 3.45 M/mm3 (3.65-5.03); Red Cell Distribution Width 13.8 % (13.2-15.2)
[2020-09-26 08:15] LABS: Blood Urea Nitrogen 18 mg/dL (9-20); Calcium 8.3 mg/dL (8.4-10.2); Hemolysis Index 0
[2020-09-26 08:21] LABS: BUN/Creatinine Ratio 26
--- NOTE | 2020-09-26 09:46 | Progress Note ---
Assessment and Plan Assessment and plan: This is a 59 YO Male with HTN and presented to the emergency department on 09/22 obesity hypoventilation syndrome with complaints of generalized weakness, fatigue, muscle aches, shortness of breath, dry cough over the past 2 weeks with worsening symptoms over the past 4 days with known COVID-19 exposure. The patient was found to have pneumonia, suspected coronavirus infection, transaminitis and rhabdomyolysis. Patient was admitted to the hospitalist service with consults to infectious disease and GI. Neurology and PT/OT consulted. Acute/subacute infarct -09/22 CT head shows at least 3 small deep infarctions in the greater gangliocapsular distribution, recommend MRI brain, extensive mucosal disease in the right sinus, anterior and mid ethmoid air cells on the right and in the right and left frontal sinuses. -09/23 MRI brain shows subacute infarctions involving the right meyer radiata -09/24 MRA head without contrast shows irregularity of the intracranial vessels at the left MCA trifurcation with no significant stenosis involving the distal internal carotid arteries -09/25 CTA h/n w/wo contrast pending -09/24 TTE shows global left ventricular systolic function at the lower limits of normal, estimate ejection fraction 55%, mild concentric LVH, mild AR, mild MR, trace TR and no patent foramen ovale demonstrated by agitated saline contrast -Neurology consulted, appreciate recommendations -Aspirin an statin therapy -PT/OT consulted, appreciate recommendations -Maintain euthermia and euglycemia -Seizure/aspiration/fall precautions -Neurology recommends long-term cardiac monitoring -Per neurology SBP goal less than 180 goal SBP less than 180 until CTA head/neck results reveals no evidence of central stenosis or vasculitis Paraparesis with pain -Presented with rhabdomyolysis and a 3 to 4-day history of decreased movement per patient due to pain -Patient has a history of gout -09/24 x-ray of left lower extremity reports no acute fracture process -09/25 MRI T-spine shows no focal disc herniation, spinal canal stenosis or nerve root compression with normal thoracic spinal cord -09/25 L spine shows normal distal spinal cord, no enhancing intradural lesion, shallow disc protrusion at L2/L3 disc level like bilaterally more towards the left side, left neural foramina narrowed -PT/OT consulted, patient recommendations Pneumonia -Antibiotic therapy -Pulmonary hygiene -Supplement oxygen as needed -SPO2 monitoring Extensive sinusitis -Noted on CT head -Antibiotic therapy Elevated D-dimer -Presented with a D-dimer of 1568 -09/22 bilateral lower extremity Doppler ultrasound shows no evidence of DVT/SVT Rhabdomyolysis, improving -Presented with a creatinine kinase of 1354 -S/p 3 L normal saline in the emergency department -Trend creatinine -PT/OT consulted -Patient states that he has last moved in 4 days prior to presentation Transaminitis, improving -LFTs of presentation: AST 107, ALT 167, alk phos 161 -Trend LFTs -GI consulted, appreciate recommendations -09/23 abdominal ultrasound shows hepatomegaly with hepatic steatosis, multiple hyper echoic areas within the gallbladder could represent multiple polyps versus nonmobile gallstones, bilateral renal cysts - Per GI: -supportive care. -avoid hepatotoxins. -will sign off. patient to follow up with GI outpatient for hepatic steatosis. Thrombocytosis -Presented with a platelet count of 633 -Trend CBC Hypertension -Resume home antihypertensive regimen and titrate as needed -Blood pressure monitoring per protocol -As needed IV hydralazine for SBP greater than 160 DVT prophylaxis -SCDs to bilateral lower extremities while in bed -Heparin subcu COVID-19 PUI, ruled out -Patient has known exposure to COVID-19 prior to symptom onset -09/23 COVID-19 PCR negative -09/22 CXR shows focal airspace disease in the mid to lower lateral left lung which is concerning for pneumonia Hospital course: 09/23: Today on examination patient is on room air and states that he has not moved in 4 days and complains of generalized weakness and fatigue. Today infectious disease, GI and PT/OT were consulted. No acute events reported overnight. We will obtain an acute hepatitis panel and abdominal ultrasound to further investigate his transaminitis. COVID-19 PCR pending 09/24: Patient's COVID-19 PCR was negative and he was transferred to the fourth floor. Patient received abdominal ultrasound and MRI brain was obtained due to left facial droop, right upper extremity and left lower extremity weakness which showed a subacute infarct. Neurology was consulted. PT/OT evaluation pending. No acute events reported overnight. 09/25: The time of my examination patient has drift to bilateral lower extremities with slight left-sided facial droop. No acute events reported overnight. Neurology has ordered for additional testing. 09/26: CTA of the head and neck showed no occlusion or significant stenosis. MRI of the spine revealed shallow disc protrusion at L2-L3 disc level laterally bilaterally but no other acute findings. Thoracic MRI negative. Continue PT/OT/ST. Neurology recommends VALDEZ. Cardiology consulted. ID recommends continuing ceftriaxone and azithromycin to complete 5 days. History Interval history: No new issues overnight Hospitalist Physical - Constitutional Vitals: Temp Pulse Resp BP Pulse Ox 98.6 F 104 H 28 H 115/68 95 09/26/20 07:51 09/26/20 07:51 09/26/20 07:51 09/26/20 07:51 09/26/20 07:51 General appearance: Present: no acute distress, obese - EENT Eyes: Present: PERRL, EOM intact ENT: hearing intact, clear oral mucosa, dentition normal - Neck Neck: Present: supple, normal ROM - Respiratory Respiratory effort: normal Respiratory: bilateral: CTA - Cardiovascular Rhythm: regular Heart Sounds: Present: S1 & S2. Absent: gallop, rub - Extremities Extremities: no ischemia, No edema, Full ROM - Abdominal General gastrointestinal: soft, non-tender, non-distended, normal bowel sounds - Integumentary Integumentary: Present: clear, warm, dry - Neurologic Neurologic: CNII-XII intact, moves all extremities HEART Score - HEART Score Troponin: Troponin T 0.060 ng/mL (0.00-0.029) H 09/22/20 16:10 Results - Labs CBC & Chem 7: 09/26/20 06:09 09/26/20 06:09 Labs: Laboratory Last Values WBC 10.7 K/mm3 (4.5-11.0) 09/26/20 06:09 RBC 3.45 M/mm3 (3.65-5.03) L 09/26/20 06:09 Hgb 10.7 gm/dl (11.8-15.2) L 09/26/20 06:09 Hct 31.4 % (35.5-45.6) L 09/26/20 06:09 MCV 91 fl (84-94) 09/26/20 06:09 MCH 31 pg (28-32) 09/26/20 06:09 MCHC 34 % (32-34) 09/26/20 06:09 RDW 13.8 % (13.2-15.2) 09/26/20 06:09 Plt Count 609 K/mm3 (140-440) H 09/26/20 06:09 Lymph % (Auto) 7.5 % (13.4-35.0) L 09/23/20 05:28 [place] % (Auto) 3.8 % (0.0-7.3) 09/23/20 05:28 Eos % (Auto) 0.0 % (0.0-4.3) 09/23/20 05:28 Baso % (Auto) 0.1 % (0.0-1.8) 09/23/20 05:28 Lymph # (Auto) 0.6 K/mm3 (1.2-5.4) L 09/23/20 05:28 [place] # (Auto) 0.3 K/mm3 (0.0-0.8) 09/23/20 05:28 Eos # (Auto) 0.0 K/mm3 (0.0-0.4) 09/23/20 05:28 Baso # (Auto) 0.0 K/mm3 (0.0-0.1) 09/23/20 05:28 Seg Neutrophils % 88.6 % (40.0-70.0) H 09/23/20 05:28 Seg Neutrophils # 7.4 K/mm3 (1.8-7.7) 09/23/20 05:28 PT 15.8 Sec. (12.2-14.9) H 09/25/20 04:58 INR 1.28 (0.87-1.13) H 09/25/20 04:58 D-Dimer 1258.68 ng/mlDDU (0-234) H 09/24/20 06:07 Sodium 136 mmol/L (137-145) L 09/26/20 06:09 Potassium 3.7 mmol/L (3.6-5.0) 09/26/20 06:09 Chloride 101.0 mmol/L (98-107) 09/26/20 06:09 Carbon Dioxide 25 mmol/L (22-30) 09/26/20 06:09 Anion Gap 14 mmol/L 09/26/20 06:09 BUN 18 mg/dL (9-20) 09/26/20 06:09 Creatinine 0.7 mg/dL (0.8-1.3) L 09/26/20 06:09 Estimated GFR > 60 ml/min 09/26/20 06:09 BUN/Creatinine Ratio 26 % 09/26/20 06:09 Glucose 127 mg/dL (75-100) H 09/26/20 06:09 POC Glucose 158 mg/dL (70-105) H 09/25/20 20:29 Hemoglobin A1c 6.6 % (4-6) H 09/24/20 16:47 Calcium 8.3 mg/dL (8.4-10.2) L 09/26/20 06:09 Magnesium 2.80 mg/dL (1.7-2.3) H 09/22/20 16:10 Ferritin 1686.0 ng/mL (30.0-300.0) H 09/24/20 06:07 Total Bilirubin 0.50 mg/dL (0.1-1.2) 09/25/20 04:58 Direct Bilirubin 0.2 mg/dL (0-0.2) 09/25/20 04:58 Indirect Bilirubin 0.3 mg/dL 09/25/20 04:58 AST 48 units/L (5-40) H 09/25/20 04:58 ALT 108 units/L (7-56) H 09/25/20 04:58 Alkaline Phosphatase 147 units/L (35-129) H 09/25/20 04:58 Lactate Dehydrogenase 303 units/L (91-180) H 09/24/20 06:07 Total Creatine Kinase 365 units/L (55-170) H 09/24/20 06:07 Troponin T 0.060 ng/mL (0.00-0.029) H 09/22/20 16:10 C-Reactive Protein 7.20 mg/dL (0.00-1.30) H 09/24/20 06:07 NT-Pro-B Natriuret Pep 822.4 pg/mL (0-900) 09/22/20 16:10 Total Protein 7.0 g/dL (6.3-8.2) 09/25/20 04:58 Albumin 2.5 g/dL (3.9-5) L 09/25/20 04:58 Albumin/Globulin Ratio 0.6 % 09/25/20 04:58 Triglycerides 179 mg/dL (2-149) H 09/22/20 16:10 Cholesterol 182 mg/dL (50-199) 09/22/20 16:10 LDL Cholesterol Direct 110 mg/dL (50-130) 09/22/20 16:10 HDL Cholesterol 26 mg/dL (40-59) L 09/22/20 16:10 Cholesterol/HDL Ratio 7.00 % 09/22/20 16:10 Lipase 37 units/L (13-60) 09/22/20 16:10 Procalcitonin 0.76 ng/mL (<0.15) 09/22/20 16:10 TSH 1.620 mlU/mL (0.270-4.200) 09/22/20 16:10 Free T4 1.09 ng/dL (0.76-1.46) 09/22/20 16:10 Urine Color Poppy (Yellow) 09/22/20 Unknown Urine Turbidity Clear (Clear) 09/22/20 Unknown Urine pH 5.0 (5.0-7.0) 09/22/20 Unknown Ur Specific Chambers 1.023 (1.003-1.030) 09/22/20 Unknown Urine Protein <15 mg/dl mg/dL (Negative) 09/22/20 Unknown Urine Glucose (UA) Neg mg/dL (Negative) 09/22/20 Unknown Urine Ketones Neg mg/dL (Negative) 09/22/20 Unknown Urine Blood Neg (Negative) 09/22/20 Unknown Urine Nitrite Neg (Negative) 09/22/20 Unknown Urine Bilirubin Neg (Negative) 09/22/20 Unknown Urine Urobilinogen 4.0 mg/dL (<2.0) 09/22/20 Unknown Ur Leukocyte Esterase Neg (Negative) 09/22/20 Unknown Urine WBC (Auto) 1.0 /HPF (0.0-6.0) 09/22/20 Unknown Urine RBC (Auto) 2.0 /HPF (0.0-6.0) 09/22/20 Unknown U Epithel Cells (Auto) < 1.0 /HPF (0-13.0) 09/22/20 Unknown Urine Mucus Few /HPF 09/22/20 Unknown Salicylates < 0.3 mg/dL (2.8-20.0) L 09/22/20 16:10 Acetaminophen 5.0 ug/mL (10.0-30.0) L 09/22/20 16:10 Coronavirus (PCR) Negative (Negative) 09/23/20 Unknown Hepatitis A IgM Ab Non-reactive (NonReactive) 09/23/20 14:28 Hep Bs Antigen Non-reactive (Negative) 09/23/20 14:28 Hep B Core IgM Ab Non-reactive (NonReactive) 09/23/20 14:28 Hepatitis C Antibody Non-reactive (NonReactive) 09/23/20 14:28 Microbiology: Microbiology 09/22/20 17:42 Peripheral/Venous Blood Culture - Preliminary NO GROWTH AFTER 72 HOURS 09/22/20 17:42 Peripheral/Venous Blood Culture - Preliminary NO GROWTH AFTER 72 HOURS - Diagnostic Impressions Diagnostic Impressions: Echocardiogram 09/24/20 15:33 Transthoracic Echocardiogram Indication: Stroke BP: 132/77 HR: 106 Conclusions *Global left ventricular systolic function is at the lower limits of normal. *The estimated ejection fraction is 50-55%. *Mild concentric left ventricular hypertrophy is observed. *There is mild aortic regurgitation. *There is mild mitral regurgitation. *There is trace tricuspid regurgitation. *A patent foramen ovale is not demonstrated by agitated saline contrast. Findings Left Ventricle: The left ventricular chamber size is normal. Mild concentric left ventricular hypertrophy is observed. Global left ventricular systolic function is at the lower limits of normal. The estimated ejection fraction is 50-55%. Left Atrium: The left atrial chamber size is normal. Right Ventricle: The right ventricular cavity size is normal. The right ventricular global systolic function is normal. Right Atrium: The right atrial cavity size is normal. A patent foramen ovale is not demonstrated by agitated saline contrast. Aortic Valve: The aortic valve leaflets are moderately thickened. There is mild aortic regurgitation. There is no evidence of aortic stenosis. Mitral Valve: The mitral valve leaflets are mildly thickened. There is mild mitral regurgitation. There is no evidence of mitral stenosis. Tricuspid Valve: There is trace tricuspid regurgitation. The right ventricular systolic pressure is calculated at 24 mmHg. There is evidence of borderline pulmonary hypertension. Pulmonic Valve: There is trace pulmonic regurgitation. Pericardium: There is no pericardial effusion. Aorta: There is no dilatation of the aortic root. Venous: The inferior vena cava appears normal in size. Contrast: Intravenous agitated saline contrast was used to assess intracardiac shunting. Measurements Chambers 2D Name Value Normal Range IVSd (2D) 1.35 cm (0.6 - 1.1) LVPWd (2D) 1.33 cm (0.6 - 1.1) LVIDd (2D) 5.38 cm (3.7 - 5.6) LVIDs (2D) 4.08 cm (2 - 3.8) LV FS (2D) 24.19 % - EF Teichholz (2D) 47.68 % - Ao root diameter (2D) 2.81 cm (2 - 3.7) Volumes/Mass Name Value Normal Range LA ESV SP 4CH (A/L) 28.01 ml - LA ESV SP 2CH (A/L) 51.62 ml - LA ESV BP (A/L) 44.11 ml - LA ESV BP (A/L) index 23.34 ml/m2 - LA ESV SP 4CH (MOD) 25.44 ml - LA ESV SP 2CH (MOD) 47.4 ml - LA ESV BP (MOD) 40.15 ml - LA ESV BP (MOD) index 21.24 ml/m2 - Aortic Valve Name Value Normal Range AV Vmax 1.31 m/sec - AV VTI 19.39 cm - AV peak gradient 6.88 mmHg - AV mean gradient 3.76 mmHg - LVOT diameter 2.05 cm - LVOT Vmax 0.92 m/sec - LVOT VTI 13.64 cm - LVOT peak gradient 3.42 mmHg - LVOT mean gradient 1.67 mmHg - SV LVOT 44.85 ml - JAG (continuity Vmax) 2.32 cm2 - JAG (continuity VTI) 2.31 cm2 - AR PHT 525.35 msec - AR peak gradient 58.81 mmHg - Mitral Valve Name Value Normal Range MV PHT 32.23 msec - MVA (PHT) 6.83 cm2 - Tricuspid Valve Name Value Normal Range TR Vmax 2.27 m/sec - TR peak gradient 21 mmHg - RAP 3 mmHg - RVSP 24 mmHg - IVC diameter 1.67 cm (1.2 - 2.3) Pulmonic Valve/Qp:Qs Name Value Normal Range PV Vmax 0.89 m/sec - PV peak gradient 3.15 mmHg - NM end-diastolic Vmax 1.28 m/sec - PV acceleration time 72.31 msec - Escalante/IV: Voiding Method Urinal Active Medications - Current Medications Current Medications: Generic Name Dose Route Start Last Admin Trade Name Freq PRN Reason Stop Dose Admin Acetaminophen 650 mg 09/22/20 18:24 Acetaminophen 325 Mg Tab PO Q4H PRN Pain MILD(1-3)/Fever >100.5/PEREYRA Aspirin 325 mg 09/25/20 10:00 09/25/20 09:31 Aspirin 325 Mg Tab PO 325 mg QDAY [facility] Administration Colchicine 0.6 mg 09/23/20 10:00 09/25/20 09:31 Colchicine 0.6 Mg Tab PO 0.6 mg DAILY [facility] Administration Dextrose 50 ml 09/24/20 15:31 Dextrose 50% In Water (25gm) 50 Ml Syringe IV Q30MIN PRN Hypoglycemia Protocol Enoxaparin Sodium 40 mg 09/23/20 22:00 09/25/20 21:40 Enoxaparin 40 Mg/0.4 Ml Inj SUB-Q 40 mg QDAY@2200 [facility] Administration Protocol Hydralazine HCl 10 mg 09/23/20 14:23 Hydralazine 20 Mg/1 Ml Inj IV Q4HR PRN Hypertension Hydrochlorothiazide 12.5 mg 09/23/20 10:00 09/25/20 09:31 Hydrochlorothiazide 12.5 Mg Cap PO 12.5 mg QDAY [facility] Administration Ceftriaxone Sodium 2 gm in 100 mls @ 200 mls/hr 09/23/20 06:00 09/26/20 05:24 Rocephin/Ns 2 Gm/100 Ml IV 09/27/20 06:29 200 mls/hr Q24H [facility] Administration Protocol Insulin Human Lispro 0 unit 09/24/20 16:30 09/25/20 21:50 Insulin Lispro 100 Unit/Ml SUB-Q 2 unit ACHS [facility] Administration Protocol Losartan Potassium 50 mg 09/23/20 10:00 09/25/20 09:31 Losartan 50 Mg Tab PO 50 mg QDAY [facility] Administration Ondansetron HCl 4 mg 09/22/20 18:24 Ondansetron 4 Mg/2 Ml Inj IV Q8H PRN Nausea And Vomiting Sodium Chloride 10 ml 09/22/20 22:00 09/25/20 21:40 Sodium Chloride 0.9% 10 Ml Flush Syringe IV 10 ml BID [facility] Administration Sodium Chloride 10 ml 09/22/20 18:24 Sodium Chloride 0.9% 10 Ml Flush Syringe IV PRN PRN LINE FLUSH Tramadol HCl 50 mg 09/24/20 05:19 09/25/20 21:53 Tramadol 50 Mg Tab PO 50 mg Q6H PRN Administration Pain, Moderate (4-6) Nutrition/Malnutrition Assess - Dietary Evaluation Nutrition/Malnutrition Findings: Nutrition Notes Start: 09/23/20 11:00 Freq: Status: Active Protocol: Document 09/24/20 10:20 CW (Rec: 09/24/20 10:30 CW [id number]) Nutrition Notes Initial or Follow up Brief Note Current Diagnosis Acute Kidney Injury,Diabetes, Hypertension Other Pertinent Diagnosis Obesity Hypoventilation Syndrome, pneu, COVID, Rhabdomyolysis Current Diet Cardiac/Consistent CHO Labs/Tests BUN 26 Cr 0.7 Ca 8.3 Pertinent Medications Vitamin D3 Zinc Sulfate Height 5 ft 3 in Weight 86.183 kg [place] Body Weight (kg) 56.36 BMI 33.6 Weight Status Obese Subjective/Other Information F/U for weight and intakes. Intakes remain adeqaute 50 - 75% of meals which meets at least 75% of kcal and protein needs. Weight has remained stable. Renal related labs are improving. Adarsh score of 21 with intact skin. Pt did not answer phone x2. No reports of N/V/D/C. Diet being well tolerated Percent of energy/protein needs met: 78%/80% Skin Integrity/Comment Beaden Score 21 Minimum of two criteria No Fluid Accumulation Mild (non-severe) Is patient on ventilator? No Is Patient Ambulatory and/or Out of Bed Yes REE-([facility]-ambulatory/OOB) [ 2037.048 [id number]] Kcal/Kg value to use for calculation 18 Approximate Energy Requirements Using 1551 kcal/Kg Calculation Used for Recommendations Kcal/kg Additional Notes PRO needs: 69-103g (0.8-1.2 g/ kg for JINA) Fluid needs: 1 mL/kcal or per MD Nutrition Intervention Change Diet Order: Continue Cardiac Consistent CHO Goal #1 Meet at least 75% of estimated energy and protein needs. Anticipated Discharge Needs: Cardiac/Consistent CHO Revisit per MD consult or patient Sign Off request: Additional Comments S/O Adequate PO intakes, Adarsh Score of 21
--- NOTE | 2020-09-26 10:37 | Consultation ---
History of Present Illness Consult date: 09/26/20 Requesting physician: ONELIA OLSON Consult reason: other History of present illness: 59-year-old Nigerian male with hypertension presents with bilateral leg weakness found to have acute and subacute CVA neuro is recommending transesophageal echocardiogram. Regular echo shows normal LV function with no PFO or ASD. Patient denies smoking denies any shortness of breath fever chills Past History Past Medical History: hypertension, other (See HPI) Past Surgical History: No surgical history, Other (Reviewed) Social history: single Family history: hypertension Medications and Allergies Allergies Allergy/AdvReac Type Severity Reaction Status Date / Time No Known Allergies Allergy Verified 09/22/20 17:43 Home Medications Medication Instructions Recorded Confirmed Last Taken Type Colchicine [Colcrys] 0.6 mg PO DAILY 09/22/20 09/22/20 Unknown History Losartan/Hydrochlorothiazide 1 each PO DAILY 09/22/20 09/22/20 Unknown History [Losartan-Hctz 50-12.5 mg Tab] Active Meds: Active Medications Acetaminophen (Acetaminophen 325 Mg Tab) 650 mg PO Q4H PRN PRN Reason: Pain MILD(1-3)/Fever >100.5/PEREYRA Aspirin (Aspirin 325 Mg Tab) 325 mg PO QDAY [facility] Last Admin: 09/25/20 09:31 Dose: 325 mg Documented by: Colchicine (Colchicine 0.6 Mg Tab) 0.6 mg PO DAILY [facility] Last Admin: 09/25/20 09:31 Dose: 0.6 mg Documented by: Dextrose (Dextrose 50% In Water (25gm) 50 Ml Syringe) 50 ml IV Q30MIN PRN; Protocol PRN Reason: Hypoglycemia Enoxaparin Sodium (Enoxaparin 40 Mg/0.4 Ml Inj) 40 mg SUB-Q QDAY@2200 [place]; Protocol Last Admin: 09/25/20 21:40 Dose: 40 mg Documented by: Hydralazine HCl (Hydralazine 20 Mg/1 Ml Inj) 10 mg IV Q4HR PRN PRN Reason: Hypertension Ceftriaxone Sodium (Rocephin/Ns 2 Gm/100 Ml) 2 gm in 100 mls @ 200 mls/hr IV Q24H [facility]; Protocol Stop: 09/27/20 06:29 Last Admin: 09/26/20 05:24 Dose: 200 mls/hr Documented by: Insulin Human Lispro (Insulin Lispro 100 Unit/Ml) 0 unit SUB-Q ACHS [facility]; Protocol Last Admin: 09/25/20 21:50 Dose: 2 unit Documented by: Losartan Potassium (Losartan 50 Mg Tab) 50 mg PO QDAY [facility] Last Admin: 09/25/20 09:31 Dose: 50 mg Documented by: Metoprolol Tartrate (Metoprolol Tartrate 25 Mg Tab) 25 mg PO BID [facility] Ondansetron HCl (Ondansetron 4 Mg/2 Ml Inj) 4 mg IV Q8H PRN PRN Reason: Nausea And Vomiting Sodium Chloride (Sodium Chloride 0.9% 10 Ml Flush Syringe) 10 ml IV BID [facility] Last Admin: 09/25/20 21:40 Dose: 10 ml Documented by: Sodium Chloride (Sodium Chloride 0.9% 10 Ml Flush Syringe) 10 ml IV PRN PRN PRN Reason: LINE FLUSH Tramadol HCl (Tramadol 50 Mg Tab) 50 mg PO Q6H PRN PRN Reason: Pain, Moderate (4-6) Last Admin: 09/25/20 21:53 Dose: 50 mg Documented by: Review of Systems All systems: negative (As per the HPI) Physical Examination Vital Signs Temp Pulse Resp BP Pulse Ox 99.0 F 117 H 18 117/74 96 09/22/20 15:48 09/22/20 15:48 09/22/20 15:48 09/22/20 15:48 09/22/20 15:48 General appearance: no acute distress, well-nourished HEENT: Positive: PERRL, Mucus Membranes Moist Neck: Positive: neck supple, trachea midline Cardiac: Positive: Reg Rate and Rhythm, S1/S2. Negative: Audible Murmur Lungs: Positive: clear to auscultation, Normal Breath Sounds Neuro: Positive: Cranial Nerve 2-12 Intact, Other (Bilateral leg weakness) Abdomen: Positive: Soft, Active Bowel Sounds. Negative: Tender, Distended Male genitourinary: Positive: normal Skin: Positive: Clear Incision: Cardiac Cath Site Musculoskeletal: No Pain, Normal Range of Motion Extremities: Present: normal. Absent: edema Results 09/26/20 06:09 09/26/20 06:09 CBC 09/26/20 Range/Units 06:09 WBC 10.7 (4.5-11.0) K/mm3 RBC 3.45 L (3.65-5.03) M/mm3 Hgb 10.7 L (11.8-15.2) gm/dl Hct 31.4 L (35.5-45.6) % Plt Count 609 H (140-440) K/mm3 Comprehensive Metabolic Panel 09/26/20 Range/Units 06:09 Sodium 136 L (137-145) mmol/L Potassium 3.7 (3.6-5.0) mmol/L Chloride 101.0 (98-107) mmol/L Carbon Dioxide 25 (22-30) mmol/L BUN 18 (9-20) mg/dL Creatinine 0.7 L (0.8-1.3) mg/dL Glucose 127 H (75-100) mg/dL Calcium 8.3 L (8.4-10.2) mg/dL - Imaging and Cardiology Echo: report reviewed (Normal LV function no significant regurgitation negative bubble study) EKG interpretations - Telemetry EKG Rhythm: Sinus Rhythm (Sinus rhythm LVH T wave inversion lateral leads) Assessment and Plan 59-year-old male hypertension with CVA normal LV function echocardiogram no atrial fibrillation noted explained risk and benefits of transesophageal echocardiogram to the patient understands will schedule for Monday for cardiac source of emboli - Patient Problems (1) CVA (cerebral vascular accident) Current Visit: Yes Status: Acute Qualifiers: CVA mechanism: embolism Laterality of affected vessel: bilateral (2) Hypertension Current Visit: Yes Status: Chronic Qualifiers: Hypertension type: essential hypertension Qualified Code(s): I10 - Essential (primary) hypertension (3) PNA (pneumonia) Current Visit: Yes Status: Acute (4) JINA (acute kidney injury) Current Visit: Yes Status: Acute
[2020-09-26] MEDS: LOSARTAN 50 MG TAB PO SCH (10:54)
[2020-09-26] MEDS: ASPIRIN 325 MG TAB PO SCH (10:54)
[2020-09-26] MEDS: COLCHICINE 0.6 MG TAB PO SCH (10:54)
[2020-09-26] MEDS: INSULIN LISPRO 100 UNIT/ML SUB-Q SCH ×4 (10:56→21:53)
[2020-09-26] MEDS: hydroCHLOROthiazide 12.5 MG CAP PO SCH (11:34)
[2020-09-26] MEDS: ENOXAPARIN 40 MG/0.4 ML INJ SUB-Q SCH (21:55)
[2020-09-26] MEDS: METOPROLOL TARTRATE 25 MG TAB PO SCH (21:56)
[2020-09-27] MEDS: cefTRIAXone/NS 2 GM/100 ML 2 GM/100 ML BAG IV SCH (06:02)
[2020-09-27] MEDS: INSULIN LISPRO 100 UNIT/ML SUB-Q SCH ×4 (08:30→21:51)
--- NOTE | 2020-09-27 08:52 | Progress Note ---
Assessment and Plan Assessment and plan: This is a 59 YO Male with HTN and presented to the emergency department on 09/22 obesity hypoventilation syndrome with complaints of generalized weakness, fatigue, muscle aches, shortness of breath, dry cough over the past 2 weeks with worsening symptoms over the past 4 days with known COVID-19 exposure. The patient was found to have pneumonia, suspected coronavirus infection, transaminitis and rhabdomyolysis. Patient was admitted to the hospitalist service with consults to infectious disease and GI. Neurology and PT/OT consulted. Acute/subacute infarct -09/22 CT head shows at least 3 small deep infarctions in the greater gangliocapsular distribution, recommend MRI brain, extensive mucosal disease in the right sinus, anterior and mid ethmoid air cells on the right and in the right and left frontal sinuses. -09/23 MRI brain shows subacute infarctions involving the right meyer radiata -09/24 MRA head without contrast shows irregularity of the intracranial vessels at the left MCA trifurcation with no significant stenosis involving the distal internal carotid arteries -09/25 CTA h/n w/wo contrast pending -09/24 TTE shows global left ventricular systolic function at the lower limits of normal, estimate ejection fraction 55%, mild concentric LVH, mild AR, mild MR, trace TR and no patent foramen ovale demonstrated by agitated saline contrast -Neurology consulted, appreciate recommendations -Aspirin an statin therapy -PT/OT consulted, appreciate recommendations -Maintain euthermia and euglycemia -Seizure/aspiration/fall precautions -Neurology recommends long-term cardiac monitoring -Per neurology SBP goal less than 180 goal SBP less than 180 until CTA head/neck results reveals no evidence of central stenosis or vasculitis Paraparesis with pain -Presented with rhabdomyolysis and a 3 to 4-day history of decreased movement per patient due to pain -Patient has a history of gout -09/24 x-ray of left lower extremity reports no acute fracture process -09/25 MRI T-spine shows no focal disc herniation, spinal canal stenosis or nerve root compression with normal thoracic spinal cord -09/25 L spine shows normal distal spinal cord, no enhancing intradural lesion, shallow disc protrusion at L2/L3 disc level like bilaterally more towards the left side, left neural foramina narrowed -PT/OT consulted, patient recommendations Pneumonia -Antibiotic therapy -Pulmonary hygiene -Supplement oxygen as needed -SPO2 monitoring Extensive sinusitis -Noted on CT head -Antibiotic therapy Elevated D-dimer -Presented with a D-dimer of 1568 -09/22 bilateral lower extremity Doppler ultrasound shows no evidence of DVT/SVT Rhabdomyolysis, improving -Presented with a creatinine kinase of 1354 -S/p 3 L normal saline in the emergency department -Trend creatinine -PT/OT consulted -Patient states that he has last moved in 4 days prior to presentation Transaminitis, improving -LFTs of presentation: AST 107, ALT 167, alk phos 161 -Trend LFTs -GI consulted, appreciate recommendations -09/23 abdominal ultrasound shows hepatomegaly with hepatic steatosis, multiple hyper echoic areas within the gallbladder could represent multiple polyps versus nonmobile gallstones, bilateral renal cysts - Per GI: -supportive care. -avoid hepatotoxins. -will sign off. patient to follow up with GI outpatient for hepatic steatosis. Thrombocytosis -Presented with a platelet count of 633 -Trend CBC Hypertension -Resume home antihypertensive regimen and titrate as needed -Blood pressure monitoring per protocol -As needed IV hydralazine for SBP greater than 160 DVT prophylaxis -SCDs to bilateral lower extremities while in bed -Heparin subcu COVID-19 PUI, ruled out -Patient has known exposure to COVID-19 prior to symptom onset -09/23 COVID-19 PCR negative -09/22 CXR shows focal airspace disease in the mid to lower lateral left lung which is concerning for pneumonia Hospital course: 09/23: Today on examination patient is on room air and states that he has not moved in 4 days and complains of generalized weakness and fatigue. Today infectious disease, GI and PT/OT were consulted. No acute events reported overnight. We will obtain an acute hepatitis panel and abdominal ultrasound to further investigate his transaminitis. COVID-19 PCR pending 09/24: Patient's COVID-19 PCR was negative and he was transferred to the fourth floor. Patient received abdominal ultrasound and MRI brain was obtained due to left facial droop, right upper extremity and left lower extremity weakness which showed a subacute infarct. Neurology was consulted. PT/OT evaluation pending. No acute events reported overnight. 09/25: The time of my examination patient has drift to bilateral lower extremities with slight left-sided facial droop. No acute events reported overnight. Neurology has ordered for additional testing. 09/26: CTA of the head and neck showed no occlusion or significant stenosis. MRI of the spine revealed shallow disc protrusion at L2-L3 disc level laterally bilaterally but no other acute findings. Thoracic MRI negative. Continue PT/OT/ST. Neurology recommends VALDEZ. Cardiology consulted. ID recommends continuing ceftriaxone and azithromycin to complete 5 days. 09/27: Await VALDEZ by cardiology Monday to assess for cardioembolic source. Continue PT/OT/ST. Neurology following. Complete antibiotics for sinusitis/pneumonia. Physical therapy recommends rolling walker. Await final PT assessment for discharge planning/placement. History Interval history: No new issues overnight Hospitalist Physical - Constitutional Vitals: Temp Pulse Resp BP Pulse Ox 98.6 F 91 H 16 128/73 98 09/27/20 08:20 09/27/20 07:47 09/27/20 07:47 09/27/20 07:47 09/27/20 07:47 General appearance: Present: no acute distress, well-nourished - EENT Eyes: Present: PERRL, EOM intact ENT: hearing intact, clear oral mucosa, dentition normal - Neck Neck: Present: supple, normal ROM - Respiratory Respiratory effort: normal Respiratory: bilateral: CTA - Cardiovascular Rhythm: regular Heart Sounds: Present: S1 & S2. Absent: gallop, rub - Extremities Extremities: no ischemia, No edema, Full ROM - Abdominal General gastrointestinal: soft, non-tender, non-distended, normal bowel sounds - Integumentary Integumentary: Present: clear, warm, dry - Neurologic Neurologic: CNII-XII intact, moves all extremities HEART Score - HEART Score Troponin: Troponin T 0.060 ng/mL (0.00-0.029) H 09/22/20 16:10 Results - Labs CBC & Chem 7: 09/26/20 06:09 09/26/20 06:09 Labs: Laboratory Last Values WBC 10.7 K/mm3 (4.5-11.0) 09/26/20 06:09 RBC 3.45 M/mm3 (3.65-5.03) L 09/26/20 06:09 Hgb 10.7 gm/dl (11.8-15.2) L 09/26/20 06:09 Hct 31.4 % (35.5-45.6) L 09/26/20 06:09 MCV 91 fl (84-94) 09/26/20 06:09 MCH 31 pg (28-32) 09/26/20 06:09 MCHC 34 % (32-34) 09/26/20 06:09 RDW 13.8 % (13.2-15.2) 09/26/20 06:09 Plt Count 609 K/mm3 (140-440) H 09/26/20 06:09 Lymph % (Auto) 7.5 % (13.4-35.0) L 09/23/20 05:28 [place] % (Auto) 3.8 % (0.0-7.3) 09/23/20 05:28 Eos % (Auto) 0.0 % (0.0-4.3) 09/23/20 05:28 Baso % (Auto) 0.1 % (0.0-1.8) 09/23/20 05:28 Lymph # (Auto) 0.6 K/mm3 (1.2-5.4) L 09/23/20 05:28 [place] # (Auto) 0.3 K/mm3 (0.0-0.8) 09/23/20 05:28 Eos # (Auto) 0.0 K/mm3 (0.0-0.4) 09/23/20 05:28 Baso # (Auto) 0.0 K/mm3 (0.0-0.1) 09/23/20 05:28 Seg Neutrophils % 88.6 % (40.0-70.0) H 09/23/20 05:28 Seg Neutrophils # 7.4 K/mm3 (1.8-7.7) 09/23/20 05:28 PT 15.8 Sec. (12.2-14.9) H 09/25/20 04:58 INR 1.28 (0.87-1.13) H 09/25/20 04:58 D-Dimer 1258.68 ng/mlDDU (0-234) H 09/24/20 06:07 Sodium 136 mmol/L (137-145) L 09/26/20 06:09 Potassium 3.7 mmol/L (3.6-5.0) 09/26/20 06:09 Chloride 101.0 mmol/L (98-107) 09/26/20 06:09 Carbon Dioxide 25 mmol/L (22-30) 09/26/20 06:09 Anion Gap 14 mmol/L 09/26/20 06:09 BUN 18 mg/dL (9-20) 09/26/20 06:09 Creatinine 0.7 mg/dL (0.8-1.3) L 09/26/20 06:09 Estimated GFR > 60 ml/min 09/26/20 06:09 BUN/Creatinine Ratio 26 % 09/26/20 06:09 Glucose 127 mg/dL (75-100) H 09/26/20 06:09 POC Glucose 159 mg/dL (70-105) H 09/26/20 19:57 Hemoglobin A1c 6.6 % (4-6) H 09/24/20 16:47 Calcium 8.3 mg/dL (8.4-10.2) L 09/26/20 06:09 Magnesium 2.80 mg/dL (1.7-2.3) H 09/22/20 16:10 Ferritin 1686.0 ng/mL (30.0-300.0) H 09/24/20 06:07 Total Bilirubin 0.50 mg/dL (0.1-1.2) 09/25/20 04:58 Direct Bilirubin 0.2 mg/dL (0-0.2) 09/25/20 04:58 Indirect Bilirubin 0.3 mg/dL 09/25/20 04:58 AST 48 units/L (5-40) H 09/25/20 04:58 ALT 108 units/L (7-56) H 09/25/20 04:58 Alkaline Phosphatase 147 units/L (35-129) H 09/25/20 04:58 Lactate Dehydrogenase 303 units/L (91-180) H 09/24/20 06:07 Total Creatine Kinase 365 units/L (55-170) H 09/24/20 06:07 Troponin T 0.060 ng/mL (0.00-0.029) H 09/22/20 16:10 C-Reactive Protein 7.20 mg/dL (0.00-1.30) H 09/24/20 06:07 NT-Pro-B Natriuret Pep 822.4 pg/mL (0-900) 09/22/20 16:10 Total Protein 7.0 g/dL (6.3-8.2) 09/25/20 04:58 Albumin 2.5 g/dL (3.9-5) L 09/25/20 04:58 Albumin/Globulin Ratio 0.6 % 09/25/20 04:58 Triglycerides 179 mg/dL (2-149) H 09/22/20 16:10 Cholesterol 182 mg/dL (50-199) 09/22/20 16:10 LDL Cholesterol Direct 110 mg/dL (50-130) 09/22/20 16:10 HDL Cholesterol 26 mg/dL (40-59) L 09/22/20 16:10 Cholesterol/HDL Ratio 7.00 % 09/22/20 16:10 Lipase 37 units/L (13-60) 09/22/20 16:10 Procalcitonin 0.76 ng/mL (<0.15) 09/22/20 16:10 TSH 1.620 mlU/mL (0.270-4.200) 09/22/20 16:10 Free T4 1.09 ng/dL (0.76-1.46) 09/22/20 16:10 Urine Color Poppy (Yellow) 09/22/20 Unknown Urine Turbidity Clear (Clear) 09/22/20 Unknown Urine pH 5.0 (5.0-7.0) 09/22/20 Unknown Ur Specific [place] 1.023 (1.003-1.030) 09/22/20 Unknown Urine Protein <15 mg/dl mg/dL (Negative) 09/22/20 Unknown Urine Glucose (UA) Neg mg/dL (Negative) 09/22/20 Unknown Urine Ketones Neg mg/dL (Negative) 09/22/20 Unknown Urine Blood Neg (Negative) 09/22/20 Unknown Urine Nitrite Neg (Negative) 09/22/20 Unknown Urine Bilirubin Neg (Negative) 09/22/20 Unknown Urine Urobilinogen 4.0 mg/dL (<2.0) 09/22/20 Unknown Ur Leukocyte Esterase Neg (Negative) 09/22/20 Unknown Urine WBC (Auto) 1.0 /HPF (0.0-6.0) 09/22/20 Unknown Urine RBC (Auto) 2.0 /HPF (0.0-6.0) 09/22/20 Unknown U Epithel Cells (Auto) < 1.0 /HPF (0-13.0) 09/22/20 Unknown Urine Mucus Few /HPF 09/22/20 Unknown Salicylates < 0.3 mg/dL (2.8-20.0) L 09/22/20 16:10 Acetaminophen 5.0 ug/mL (10.0-30.0) L 09/22/20 16:10 Coronavirus (PCR) Negative (Negative) 09/23/20 Unknown Hepatitis A IgM Ab Non-reactive (NonReactive) 09/23/20 14:28 Hep Bs Antigen Non-reactive (Negative) 09/23/20 14:28 Hep B Core IgM Ab Non-reactive (NonReactive) 09/23/20 14:28 Hepatitis C Antibody Non-reactive (NonReactive) 09/23/20 14:28 Microbiology: Microbiology 09/22/20 17:42 Peripheral/Venous Blood Culture - Preliminary NO GROWTH AFTER 4 DAYS 09/22/20 17:42 Peripheral/Venous Blood Culture - Preliminary NO GROWTH AFTER 4 DAYS - Diagnostic Impressions Diagnostic Impressions: Echocardiogram 09/24/20 15:33 Transthoracic Echocardiogram Indication: Stroke BP: 132/77 HR: 106 Conclusions *Global left ventricular systolic function is at the lower limits of normal. *The estimated ejection fraction is 50-55%. *Mild concentric left ventricular hypertrophy is observed. *There is mild aortic regurgitation. *There is mild mitral regurgitation. *There is trace tricuspid regurgitation. *A patent foramen ovale is not demonstrated by agitated saline contrast. Findings Left Ventricle: The left ventricular chamber size is normal. Mild concentric left ventricular hypertrophy is observed. Global left ventricular systolic function is at the lower limits of normal. The estimated ejection fraction is 50-55%. Left Atrium: The left atrial chamber size is normal. Right Ventricle: The right ventricular cavity size is normal. The right ventricular global systolic function is normal. Right Atrium: The right atrial cavity size is normal. A patent foramen ovale is not demonstrated by agitated saline contrast. Aortic Valve: The aortic valve leaflets are moderately thickened. There is mild aortic regurgitation. There is no evidence of aortic stenosis. Mitral Valve: The mitral valve leaflets are mildly thickened. There is mild mitral regurgitation. There is no evidence of mitral stenosis. Tricuspid Valve: There is trace tricuspid regurgitation. The right ventricular systolic pressure is calculated at 24 mmHg. There is evidence of borderline pulmonary hypertension. Pulmonic Valve: There is trace pulmonic regurgitation. Pericardium: There is no pericardial effusion. Aorta: There is no dilatation of the aortic root. Venous: The inferior vena cava appears normal in size. Contrast: Intravenous agitated saline contrast was used to assess intracardiac shunting. Measurements Chambers 2D Name Value Normal Range IVSd (2D) 1.35 cm (0.6 - 1.1) LVPWd (2D) 1.33 cm (0.6 - 1.1) LVIDd (2D) 5.38 cm (3.7 - 5.6) LVIDs (2D) 4.08 cm (2 - 3.8) LV FS (2D) 24.19 % - EF Teichholz (2D) 47.68 % - Ao root diameter (2D) 2.81 cm (2 - 3.7) Volumes/Mass Name Value Normal Range LA ESV SP 4CH (A/L) 28.01 ml - LA ESV SP 2CH (A/L) 51.62 ml - LA ESV BP (A/L) 44.11 ml - LA ESV BP (A/L) index 23.34 ml/m2 - LA ESV SP 4CH (MOD) 25.44 ml - LA ESV SP 2CH (MOD) 47.4 ml - LA ESV BP (MOD) 40.15 ml - LA ESV BP (MOD) index 21.24 ml/m2 - Aortic Valve Name Value Normal Range AV Vmax 1.31 m/sec - AV VTI 19.39 cm - AV peak gradient 6.88 mmHg - AV mean gradient 3.76 mmHg - LVOT diameter 2.05 cm - LVOT Vmax 0.92 m/sec - LVOT VTI 13.64 cm - LVOT peak gradient 3.42 mmHg - LVOT mean gradient 1.67 mmHg - SV LVOT 44.85 ml - JAG (continuity Vmax) 2.32 cm2 - JAG (continuity VTI) 2.31 cm2 - AR PHT 525.35 msec - AR peak gradient 58.81 mmHg - Mitral Valve Name Value Normal Range MV PHT 32.23 msec - MVA (PHT) 6.83 cm2 - Tricuspid Valve Name Value Normal Range TR Vmax 2.27 m/sec - TR peak gradient 21 mmHg - RAP 3 mmHg - RVSP 24 mmHg - IVC diameter 1.67 cm (1.2 - 2.3) Pulmonic Valve/Qp:Qs Name Value Normal Range PV Vmax 0.89 m/sec - PV peak gradient 3.15 mmHg - DE end-diastolic Vmax 1.28 m/sec - PV acceleration time 72.31 msec - Escalante/IV: Voiding Method Toilet Active Medications - Current Medications Current Medications: Generic Name Dose Route Start Last Admin Trade Name Freq PRN Reason Stop Dose Admin Acetaminophen 650 mg 09/22/20 18:24 Acetaminophen 325 Mg Tab PO Q4H PRN Pain MILD(1-3)/Fever >100.5/PEREYRA Aspirin 325 mg 09/25/20 10:00 09/26/20 10:54 Aspirin 325 Mg Tab PO 325 mg QDAY MILTON Administration Colchicine 0.6 mg 09/23/20 10:00 09/26/20 10:54 Colchicine 0.6 Mg Tab PO 0.6 mg DAILY MILTON Administration Dextrose 50 ml 09/24/20 15:31 Dextrose 50% In Water (25gm) 50 Ml Syringe IV Q30MIN PRN Hypoglycemia Protocol Enoxaparin Sodium 40 mg 09/23/20 22:00 09/26/20 21:55 Enoxaparin 40 Mg/0.4 Ml Inj SUB-Q 40 mg QDAY@2200 MILTON Administration Protocol Hydralazine HCl 10 mg 09/23/20 14:23 Hydralazine 20 Mg/1 Ml Inj IV Q4HR PRN Hypertension Insulin Human Lispro 0 unit 09/24/20 16:30 09/26/20 21:53 Insulin Lispro 100 Unit/Ml SUB-Q 2 unit ACHS MILTON Administration Protocol Losartan Potassium 50 mg 09/23/20 10:00 09/26/20 10:54 Losartan 50 Mg Tab PO 50 mg QDAY MILTON Administration Metoprolol Tartrate 25 mg 09/26/20 22:00 09/26/20 21:56 Metoprolol Tartrate 25 Mg Tab PO 25 mg BID MILTON Administration Ondansetron HCl 4 mg 09/22/20 18:24 Ondansetron 4 Mg/2 Ml Inj IV Q8H PRN Nausea And Vomiting Sodium Chloride 10 ml 09/22/20 22:00 09/26/20 21:56 Sodium Chloride 0.9% 10 Ml Flush Syringe IV 10 ml BID MILTON Administration Sodium Chloride 10 ml 09/22/20 18:24 Sodium Chloride 0.9% 10 Ml Flush Syringe IV PRN PRN LINE FLUSH Tramadol HCl 50 mg 09/24/20 05:19 09/25/20 21:53 Tramadol 50 Mg Tab PO 50 mg Q6H PRN Administration Pain, Moderate (4-6) Nutrition/Malnutrition Assess - Dietary Evaluation Nutrition/Malnutrition Findings: Nutrition Notes Start: 09/23/20 11:00 Freq: Status: Active Protocol: Document 09/24/20 10:20 CW (Rec: 09/24/20 10:30 CW [id number]) Nutrition Notes Initial or Follow up Brief Note Current Diagnosis Acute Kidney Injury,Diabetes, Hypertension Other Pertinent Diagnosis Obesity Hypoventilation Syndrome, pneu, COVID, Rhabdomyolysis Current Diet Cardiac/Consistent CHO Labs/Tests BUN 26 Cr 0.7 Ca 8.3 Pertinent Medications Vitamin D3 Zinc Sulfate Height 5 ft 3 in Weight 86.183 kg [place] Gap Body Weight (kg) 56.36 BMI 33.6 Weight Status Obese Subjective/Other Information F/U for weight and intakes. Intakes remain adeqaute 50 - 75% of meals which meets at least 75% of kcal and protein needs. Weight has remained stable. Renal related labs are improving. Adarsh score of 21 with intact skin. Pt did not answer phone x2. No reports of N/V/D/C. Diet being well tolerated Percent of energy/protein needs met: 78%/80% Skin Integrity/Comment Beaden Score 21 Minimum of two criteria No Fluid Accumulation Mild (non-severe) Is patient on ventilator? No Is Patient Ambulatory and/or Out of Bed Yes REE-([facility]-ambulatory/OOB) [ 7.048 [id number]] Kcal/Kg value to use for calculation 18 Approximate Energy Requirements Using 1551 kcal/Kg Calculation Used for Recommendations Kcal/kg Additional Notes PRO needs: 69-103g (0.8-1.2 g/ kg for JINA) Fluid needs: 1 mL/kcal or per MD Nutrition Intervention Change Diet Order: Continue Cardiac Consistent CHO Goal #1 Meet at least 75% of estimated energy and protein needs. Anticipated Discharge Needs: Cardiac/Consistent CHO Revisit per MD consult or patient Sign Off request: Additional Comments S/O Adequate PO intakes, Adarsh Score of 21
[2020-09-27] MEDS: METOPROLOL TARTRATE 25 MG TAB PO SCH ×2 (09:02→21:51)
[2020-09-27] MEDS: ASPIRIN 325 MG TAB PO SCH (09:02)
[2020-09-27] MEDS: LOSARTAN 50 MG TAB PO SCH (09:02)
[2020-09-27] MEDS: COLCHICINE 0.6 MG TAB PO SCH (09:03)
--- NOTE | 2020-09-27 09:50 | Progress Note ---
Assessment and Plan 59-year-old male hypertension with CVA normal LV function echocardiogram no atrial fibrillation noted explained risk and benefits of transesophageal echocardiogram to the patient understands will schedule for Monday for cardiac source of emboli - Patient Problems (1) CVA (cerebral vascular accident) Current Visit: Yes Status: Acute Qualifiers: CVA mechanism: embolism Laterality of affected vessel: bilateral (2) Hypertension Current Visit: Yes Status: Chronic Qualifiers: Hypertension type: essential hypertension Qualified Code(s): I10 - Essential (primary) hypertension (3) PNA (pneumonia) Current Visit: Yes Status: Acute (4) JINA (acute kidney injury) Current Visit: Yes Status: Acute Subjective Date of service: 09/27/20 Principal diagnosis: cva Interval history: pt difficulty in walking Objective Vital Signs Temp Pulse Resp BP Pulse Ox 09/27/20 09:20 98 09/27/20 08:20 98.6 F 09/27/20 07:47 91 H 16 128/73 98 09/27/20 05:41 98.2 F 94 H 18 136/74 96 09/26/20 23:23 98.6 F 89 18 118/68 96 09/26/20 21:56 108 H 149/85 09/26/20 19:32 98.1 F 108 H 18 149/85 98 09/26/20 16:11 107 H 16 143/79 97 09/26/20 10:47 126/72 09/26/20 10:00 96 - Physical Examination General: No Apparent Distress HEENT: Positive: PERRL, Mucus Membranes Moist Neck: Positive: neck supple, trachea midline Cardiac: Positive: Reg Rate and Rhythm Lungs: Positive: clear to auscultation Neuro: Positive: Cranial Nerve 2-12 Intact, Other (Bilateral leg weakness) Abdomen: Positive: Soft, Active Bowel Sounds. Negative: Tender, Distended Skin: Positive: Clear Incision: Cardiac Cath Site Musculoskeletal: No Pain, Normal Range of Motion Extremities: Present: normal. Absent: edema - Imaging and Cardiology Echo: report reviewed (Normal LV function no significant regurgitation negative bubble study) - Telemetry EKG Rhythm: Sinus Rhythm
[2020-09-27] MEDS: ENOXAPARIN 40 MG/0.4 ML INJ SUB-Q SCH (21:51)
[2020-09-27] MEDS: traMADol 50 MG TAB PO PRN (21:57)
[2020-09-28] MEDS: INSULIN LISPRO 100 UNIT/ML SUB-Q SCH ×4 (07:30→21:45)
[2020-09-28] MEDS ORDERED: SODIUM CHLORIDE 0.9% 500 ML 500 ML ONE (08:19)
[2020-09-28] MEDS ORDERED: propofoL 200 MG/20 ML VIAL IV ONE ×2 (08:36)
--- NOTE | 2020-09-28 08:37 | Anesthesia Day of Surgery ---
Anesthesia Day of Surgery - Day of Surgery Patient Examined: Yes Patient H&P Reviewed: Yes Patient is NPO: Yes
--- NOTE | 2020-09-28 08:40 | Anesthesia Consultation ---
Anesthesia Consult and Med Hx Date of service: 09/28/20 - Airway Anesthetic Teeth Evaluation: Poor, Chipped ROM Head & Neck: Adequate Mental/Hyoid Distance: Inadequate Mallampati Class: Class II Intubation Access Assessment: Probably Good - Pre-Operative Health Status ASA Pre-Surgery Classification: ASA4 Proposed Anesthetic Plan: MAC - Pulmonary Hx Asthma: No COPD: No Hx Pneumonia: Yes (And sinusitis) - Cardiovascular System Hx Hypertension: Yes Hx Cardia Arrhythmia: Yes (AFIB) - Central Nervous System CVA: Yes (Acute) - Gastrointestinal Hx Gastroesophageal Reflux Disease: No - Endocrine Hx Renal Disease: Yes (JINA) Hx End Stage Renal Disease: No Hx Liver Disease: Yes (Transaminitis) Hx Non-Insulin Dependent Diabetes: Yes - Other Systems Hx Alcohol Use: No Hx Substance Use: No Hx Obesity: Yes
[2020-09-28] MEDS ORDERED: BENZOCAINE 20% TOP SPRAY 0.5 ML UNIT DOSE MM NR (09:00)
--- NOTE | 2020-09-28 10:01 | Post Anesthesia Evaluation ---
- Post Anesthesia Evaluation Patient Participated: Yes Airway Patent: Yes Stable Respiratory Function: Yes Nausea/Vomiting: No Temp > 96.8F: Yes Pain Manageable: Yes Adequeate Hydration: Yes Anesthesia Complications: No Block Receding Appropriately: Not Applicable Patient on Ventilator: No
--- NOTE | 2020-09-28 10:31 | Progress Note ---
Assessment and Plan S/p VALDEZ today which showed normal LV size and function, no thrombus or vegetation, negative bubble study, mild MR. telemetry reviewed - pt remains in NSR. No apparent cardiac source of emboli noted. Currently stable cardiac status. Nothing further to add from cardiac perspective at this time. Will sign off. Recommend pt follow up in our office with Dr. Gramajo within 2-3 weeks of discharge ([phone]). The patient has been seen in conjunction with Dr. Gramajo who agrees with the assessment and plan of care. - Patient Problems (1) CVA (cerebral vascular accident) Current Visit: Yes Status: Acute Qualifiers: CVA mechanism: embolism Laterality of affected vessel: bilateral (2) Hypertension Current Visit: Yes Status: Chronic Qualifiers: Hypertension type: essential hypertension Qualified Code(s): I10 - Essential (primary) hypertension (3) PNA (pneumonia) Current Visit: Yes Status: Acute (4) JINA (acute kidney injury) Current Visit: Yes Status: Acute Subjective Date of service: 09/28/20 Principal diagnosis: cva Interval history: pt resting comfortably in bed, no current cardiac complaints. for VALDEZ today. tele reviewed - in SR HR 90s. Objective Last Vital Signs Temp 97.7 F 09/28/20 09:00 Pulse 87 09/28/20 09:32 Resp 25 H 09/28/20 09:32 BP 114/66 09/28/20 09:32 Pulse Ox 97 09/28/20 09:32 - Physical Examination General: No Apparent Distress HEENT: Positive: PERRL, Mucus Membranes Moist Neck: Positive: neck supple, trachea midline Cardiac: Positive: Reg Rate and Rhythm, S1/S2 Lungs: Positive: Decreased Breath Sounds Neuro: Positive: Cranial Nerve 2-12 Intact, Other (Bilateral leg weakness) Abdomen: Positive: Soft, Active Bowel Sounds. Negative: Tender, Distended Skin: Positive: Clear Incision: Cardiac Cath Site Musculoskeletal: No Pain, Normal Range of Motion Extremities: Present: normal. Absent: edema - Imaging and Cardiology Echo: report reviewed (Normal LV function no significant regurgitation negative bubble study) - Telemetry EKG Rhythm: Sinus Rhythm
[2020-09-28] MEDS: ASPIRIN 325 MG TAB PO SCH (13:23)
[2020-09-28] MEDS: COLCHICINE 0.6 MG TAB PO SCH (13:23)
[2020-09-28] MEDS: METOPROLOL TARTRATE 25 MG TAB PO SCH ×2 (13:24→21:46)
[2020-09-28] MEDS: LOSARTAN 50 MG TAB PO SCH (13:25)
--- NOTE | 2020-09-28 13:26 | Progress Note ---
Assessment and Plan Assessment and plan: Acute/subacute infarct -POA -09/22 CT head shows at least 3 small deep infarctions in the greater ganglioc apsular distribution, recommend MRI brain, extensive mucosal disease in the right sinus, anterior and mid ethmoid air cells on the right and in the right and left frontal sinuses. -09/23 MRI brain shows subacute infarctions involving the right meyer radiata -09/24 MRA head without contrast shows irregularity of the intracranial vessels at the left MCA trifurcation with no significant stenosis involving the distal internal carotid arteries -09/25 CTA h/n w/wo contrast shows groundglass opacities with peripheral subpleural predilection, no occlusion or significant stenosis of the carotid or vertebral arteries, no occlusion or significant stenosis of the major intracranial vasculature -09/24 TTE shows global left ventricular systolic function at the lower limits of normal, estimate ejection fraction 55%, mild concentric LVH, mild AR, mild MR, trace TR and no patent foramen ovale demonstrated by agitated saline contrast -09/28 VALDEZ shows normal LV size and function, no thrombus or vegetation, negative bubble study, mild MR. No apparent cardiac source of emboli noted. -Neurology consulted, appreciate recommendations -Aspirin and statin therapy -PT/OT consulted, appreciate recommendations -Maintain euthermia and euglycemia -Seizure/aspiration/fall precautions -Neurology recommends long-term cardiac monitoring -f/u with neurologist and acute care clinical nurse specialist (Dr. Gramajo within 2-3 weeks of dischar Pressi ([phone])) Paraparesis with pain -Presented with rhabdomyolysis and a 3 to 4-day history of decreased movement per patient due to pain -Patient has a history of gout -09/24 x-ray of left lower extremity reports no acute fracture process -09/25 MRI T-spine shows no focal disc herniation, spinal canal stenosis or nerve root compression with normal thoracic spinal cord -09/25 L spine shows normal distal spinal cord, no enhancing intradural lesion, shallow disc protrusion at L2/L3 disc level like bilaterally more towards the left side, left neural foramina narrowed -PT/OT consulted, appreciate recommendations Pneumonia -Antibiotic therapy -Pulmonary hygiene -Supplement oxygen as needed -SPO2 monitoring Extensive sinusitis -Noted on CT head -Antibiotic therapy Elevated D-dimer -Presented with a D-dimer of 1568 -09/22 bilateral lower extremity Doppler ultrasound shows no evidence of DVT/SVT Rhabdomyolysis, improving -Presented with a creatinine kinase of 1354 -S/p 3 L normal saline in the emergency department -Trend creatinine -PT/OT consulted -Patient states that he has last moved for 4 days prior to presentation Transaminitis, improving -LFTs of presentation: AST 107, ALT 167, alk phos 161 -Trend LFTs -GI consulted, appreciate recommendations -09/23 abdominal ultrasound shows hepatomegaly with hepatic steatosis, multiple hyper echoic areas within the gallbladder could represent multiple polyps versus nonmobile gallstones, bilateral renal cysts - Per GI: -supportive care. -avoid hepatotoxins. -will sign off. patient to follow up with GI outpatient for hepatic steat osis. Thrombocytosis -Presented with a platelet count of 633 -Trend CBC Hypertension -Resume home antihypertensive regimen and titrate as needed -Blood pressure monitoring per protocol -As needed IV hydralazine for SBP greater than 160 DVT prophylaxis -SCDs to bilateral lower extremities while in bed -Heparin subcu COVID-19 PUI, ruled out -Patient has known exposure to COVID-19 prior to symptom onset -09/23 COVID-19 PCR negative -09/22 CXR shows focal airspace disease in the mid to lower lateral left lung which is concerning for pneumonia History Interval history: This is a 59 YO Male with HTN and presented to the emergency department on 09/22 obesity hypoventilation syndrome with complaints of generalized weakness, fatigue, muscle aches, shortness of breath, dry cough over the past 2 weeks with worsening symptoms over the past 4 days with known COVID-19 exposure. The patient was found to have pneumonia, suspected coronavirus infection, tra nsaminitis and rhabdomyolysis. Patient was admitted to the hospitalist service with consults to infectious disease and GI. Neurology and PT/OT consulted. 09/23: Today on examination patient is on room air and states that he has not moved in 4 days and complains of generalized weakness and fatigue. Today infectious disease, GI and PT/OT were consulted. No acute events reported overnight. We will obtain an acute hepatitis panel and abdominal ultrasound to further investigate his transaminitis. COVID-19 PCR pending 09/24: Patient's COVID-19 PCR was negative and he was transferred to the fourth floor. Patient received abdominal ultrasound and MRI brain was obtained due to left facial droop, right upper extremity and left lower extremity weakness which showed a subacute infarct. Neurology was consulted. PT/OT evaluation pending. No acute events reported overnight. 09/25: The time of my examination patient has drift to bilateral lower extremities with slight left-sided facial droop. No acute events reported overnight. Neurology has ordered for additional testing. 09/26: CTA of the head and neck showed no occlusion or significant stenosis. MRI of the spine revealed shallow disc protrusion at L2-L3 disc level laterally bilaterally but no other acute findings. Thoracic MRI negative. Continue PT/OT/ST. Neurology recommends VALDEZ. Cardiology consulted. ID recommends continuing ceftriaxone and azithromycin to complete 5 days. 09/27: Await VALDEZ by cardiology Monday to assess for cardioembolic source. Continue PT/OT/ST. Neurology following. Complete antibiotics for sinusiti s/pneumonia. Physical therapy recommends rolling walker. Await final PT assessment for discharge planning/placement. 09/28: Awaiting PT/OT final recommendations, patient had his VALDEZ today which showed no cardioembolic source. Patient still has bilateral lower extremity weakness. Recommended DME ordered. Hospitalist Physical - Constitutional Vitals: Temp Pulse Resp BP Pulse Ox 98.2 F 91 H 18 103/63 98 09/28/20 09:58 09/28/20 09:58 09/28/20 11:00 09/28/20 09:58 09/28/20 11:00 General appearance: Present: no acute distress, well-nourished - EENT Eyes: Present: PERRL, EOM intact ENT: hearing intact, clear oral mucosa, poor dentition - Neck Neck: Present: normal ROM - Respiratory Respiratory effort: normal Respiratory: bilateral: CTA - Cardiovascular Rhythm: regular Heart Sounds: Present: S1 & S2. Absent: systolic murmur, diastolic murmur - Extremities Extremities: no ischemia, pulses intact, pulses symmetrical, No edema, normal temperature, normal color, Full ROM Peripheral Pulses: within normal limits - Abdominal General gastrointestinal: soft, non-tender, non-distended, normal bowel sounds - Integumentary Integumentary: Present: clear, warm, dry - Psychiatric Psychiatric: cooperative - Neurologic Neurologic: CNII-XII intact, moves all extremities (Moves bilateral lower extremities with pain) - Allied Health Allied health notes reviewed: nursing HEART Score - HEART Score Troponin: Troponin T 0.060 ng/mL (0.00-0.029) H 09/22/20 16:10 Results - Labs CBC & Chem 7: 09/26/20 06:09 09/26/20 06:09 Labs: Laboratory Last Values WBC 10.7 K/mm3 (4.5-11.0) 09/26/20 06:09 RBC 3.45 M/mm3 (3.65-5.03) L 09/26/20 06:09 Hgb 10.7 gm/dl (11.8-15.2) L 09/26/20 06:09 Hct 31.4 % (35.5-45.6) L 09/26/20 06:09 MCV 91 fl (84-94) 09/26/20 06:09 MCH 31 pg (28-32) 09/26/20 06:09 MCHC 34 % (32-34) 09/26/20 06:09 RDW 13.8 % (13.2-15.2) 09/26/20 06:09 Plt Count 609 K/mm3 (140-440) H 09/26/20 06:09 Lymph % (Auto) 7.5 % (13.4-35.0) L 09/23/20 05:28 [place] % (Auto) 3.8 % (0.0-7.3) 09/23/20 05:28 Eos % (Auto) 0.0 % (0.0-4.3) 09/23/20 05:28 Baso % (Auto) 0.1 % (0.0-1.8) 09/23/20 05:28 Lymph # (Auto) 0.6 K/mm3 (1.2-5.4) L 09/23/20 05:28 [place] # (Auto) 0.3 K/mm3 (0.0-0.8) 09/23/20 05:28 Eos # (Auto) 0.0 K/mm3 (0.0-0.4) 09/23/20 05:28 Baso # (Auto) 0.0 K/mm3 (0.0-0.1) 09/23/20 05:28 Seg Neutrophils % 88.6 % (40.0-70.0) H 09/23/20 05:28 Seg Neutrophils # 7.4 K/mm3 (1.8-7.7) 09/23/20 05:28 PT 15.8 Sec. (12.2-14.9) H 09/25/20 04:58 INR 1.28 (0.87-1.13) H 09/25/20 04:58 D-Dimer 1258.68 ng/mlDDU (0-234) H 09/24/20 06:07 Sodium 136 mmol/L (137-145) L 09/26/20 06:09 Potassium 3.7 mmol/L (3.6-5.0) 09/26/20 06:09 Chloride 101.0 mmol/L (98-107) 09/26/20 06:09 Carbon Dioxide 25 mmol/L (22-30) 09/26/20 06:09 Anion Gap 14 mmol/L 09/26/20 06:09 BUN 18 mg/dL (9-20) 09/26/20 06:09 Creatinine 0.7 mg/dL (0.8-1.3) L 09/26/20 06:09 Estimated GFR > 60 ml/min 09/26/20 06:09 BUN/Creatinine Ratio 26 % 09/26/20 06:09 Glucose 127 mg/dL (75-100) H 09/26/20 06:09 POC Glucose 127 mg/dL (70-105) H 09/28/20 12:37 Hemoglobin A1c 6.6 % (4-6) H 09/24/20 16:47 Calcium 8.3 mg/dL (8.4-10.2) L 09/26/20 06:09 Magnesium 2.80 mg/dL (1.7-2.3) H 09/22/20 16:10 Ferritin 1686.0 ng/mL (30.0-300.0) H 09/24/20 06:07 Total Bilirubin 0.50 mg/dL (0.1-1.2) 09/25/20 04:58 Direct Bilirubin 0.2 mg/dL (0-0.2) 09/25/20 04:58 Indirect Bilirubin 0.3 mg/dL 09/25/20 04:58 AST 48 units/L (5-40) H 09/25/20 04:58 ALT 108 units/L (7-56) H 09/25/20 04:58 Alkaline Phosphatase 147 units/L (35-129) H 09/25/20 04:58 Lactate Dehydrogenase 303 units/L (91-180) H 09/24/20 06:07 Total Creatine Kinase 365 units/L (55-170) H 09/24/20 06:07 Troponin T 0.060 ng/mL (0.00-0.029) H 09/22/20 16:10 C-Reactive Protein 7.20 mg/dL (0.00-1.30) H 09/24/20 06:07 NT-Pro-B Natriuret Pep 822.4 pg/mL (0-900) 09/22/20 16:10 Total Protein 7.0 g/dL (6.3-8.2) 09/25/20 04:58 Albumin 2.5 g/dL (3.9-5) L 09/25/20 04:58 Albumin/Globulin Ratio 0.6 % 09/25/20 04:58 Triglycerides 179 mg/dL (2-149) H 09/22/20 16:10 Cholesterol 182 mg/dL (50-199) 09/22/20 16:10 LDL Cholesterol Direct 110 mg/dL (50-130) 09/22/20 16:10 HDL Cholesterol 26 mg/dL (40-59) L 09/22/20 16:10 Cholesterol/HDL Ratio 7.00 % 09/22/20 16:10 Lipase 37 units/L (13-60) 09/22/20 16:10 Procalcitonin 0.76 ng/mL (<0.15) 09/22/20 16:10 TSH 1.620 mlU/mL (0.270-4.200) 09/22/20 16:10 Free T4 1.09 ng/dL (0.76-1.46) 09/22/20 16:10 Urine Color Poppy (Yellow) 09/22/20 Unknown Urine Turbidity Clear (Clear) 09/22/20 Unknown Urine pH 5.0 (5.0-7.0) 09/22/20 Unknown Ur Specific [place] 1.023 (1.003-1.030) 09/22/20 Unknown Urine Protein <15 mg/dl mg/dL (Negative) 09/22/20 Unknown Urine Glucose (UA) Neg mg/dL (Negative) 09/22/20 Unknown Urine Ketones Neg mg/dL (Negative) 09/22/20 Unknown Urine Blood Neg (Negative) 09/22/20 Unknown Urine Nitrite Neg (Negative) 09/22/20 Unknown Urine Bilirubin Neg (Negative) 09/22/20 Unknown Urine Urobilinogen 4.0 mg/dL (<2.0) 09/22/20 Unknown Ur Leukocyte Esterase Neg (Negative) 09/22/20 Unknown Urine WBC (Auto) 1.0 /HPF (0.0-6.0) 09/22/20 Unknown Urine RBC (Auto) 2.0 /HPF (0.0-6.0) 09/22/20 Unknown U Epithel Cells (Auto) < 1.0 /HPF (0-13.0) 09/22/20 Unknown Urine Mucus Few /HPF 09/22/20 Unknown Salicylates < 0.3 mg/dL (2.8-20.0) L 09/22/20 16:10 Acetaminophen 5.0 ug/mL (10.0-30.0) L 09/22/20 16:10 Coronavirus (PCR) Negative (Negative) 09/23/20 Unknown Hepatitis A IgM Ab Non-reactive (NonReactive) 09/23/20 14:28 Hep Bs Antigen Non-reactive (Negative) 09/23/20 14:28 Hep B Core IgM Ab Non-reactive (NonReactive) 09/23/20 14:28 Hepatitis C Antibody Non-reactive (NonReactive) 09/23/20 14:28 Microbiology: Microbiology 09/22/20 17:42 Peripheral/Venous Blood Culture - Final NO GROWTH AFTER 5 DAYS 09/22/20 17:42 Peripheral/Venous Blood Culture - Final NO GROWTH AFTER 5 DAYS [place]/IV: Voiding Method Urinal Active Medications - Current Medications Current Medications: Generic Name Dose Route Start Last Admin Trade Name Freq PRN Reason Stop Dose Admin Acetaminophen 650 mg 09/22/20 18:24 Acetaminophen 325 Mg Tab PO Q4H PRN Pain MILD(1-3)/Fever >100.5/PEREYRA Aspirin 325 mg 09/25/20 10:00 09/27/20 09:02 Aspirin 325 Mg Tab PO 325 mg QDAY MILTON Administration Benzocaine 3 spray 09/28/20 09:00 09/28/20 08:45 Benzocaine 20% [place] 0.5 Ml Unit Dose MM 09/28/20 16:00 3 spray PREOP NR Administration Colchicine 0.6 mg 09/23/20 10:00 09/27/20 09:03 Colchicine 0.6 Mg Tab PO 0.6 mg DAILY MILTON Administration Dextrose 50 ml 09/24/20 15:31 Dextrose 50% In Water (25gm) 50 Ml Syringe IV Q30MIN PRN Hypoglycemia Protocol Enoxaparin Sodium 40 mg 09/23/20 22:00 09/27/20 21:51 Enoxaparin 40 Mg/0.4 Ml Inj SUB-Q 40 mg QDAY@2200 MILTON Administration Protocol Hydralazine HCl 10 mg 09/23/20 14:23 Hydralazine 20 Mg/1 Ml Inj IV Q4HR PRN Hypertension Insulin Human Lispro 0 unit 09/24/20 16:30 09/28/20 13:10 Insulin Lispro 100 Unit/Ml SUB-Q Not Given ACHS MILTON Protocol Losartan Potassium 50 mg 09/23/20 10:00 09/27/20 09:02 Losartan 50 Mg Tab PO 50 mg QDAY MILTON Administration Metoprolol Tartrate 25 mg 09/26/20 22:00 09/27/20 21:51 Metoprolol Tartrate 25 Mg Tab PO 25 mg BID MILTON Administration Ondansetron HCl 4 mg 09/22/20 18:24 Ondansetron 4 Mg/2 Ml Inj IV Q8H PRN Nausea And Vomiting Sodium Chloride 10 ml 09/22/20 22:00 09/27/20 21:52 Sodium Chloride 0.9% 10 Ml Flush Syringe IV 10 ml BID MILTON Administration Sodium Chloride 10 ml 09/22/20 18:24 Sodium Chloride 0.9% 10 Ml Flush Syringe IV PRN PRN LINE FLUSH Tramadol HCl 50 mg 09/24/20 05:19 09/27/20 21:57 Tramadol 50 Mg Tab PO 50 mg Q6H PRN Administration Pain, Moderate (4-6) Nutrition/Malnutrition Assess - Dietary Evaluation Nutrition/Malnutrition Findings: Nutrition Notes Start: 09/23/20 11:00 Freq: Status: Active Protocol: Document 09/24/20 10:20 CW (Rec: 09/24/20 10:30 CW [id number]) Nutrition Notes Initial or Follow up Brief Note Current Diagnosis Acute Kidney Injury,Diabetes, Hypertension Other Pertinent Diagnosis Obesity Hypoventilation Syndrome, pneu, COVID, Rhabdomyolysis Current Diet Cardiac/Consistent CHO Labs/Tests BUN 26 Cr 0.7 Ca 8.3 Pertinent Medications Vitamin D3 Zinc Sulfate Height 5 ft 3 in Weight 86.183 kg [place] Body Weight (kg) 56.36 BMI 33.6 Weight Status Obese Subjective/Other Information F/U for weight and intakes. Intakes remain adeqaute 50 - 75% of meals which meets at least 75% of kcal and protein needs. Weight has remained stable. Renal related labs are improving. Adarsh score of 21 with intact skin. Pt did not answer phone x2. No reports of N/V/D/C. Diet being well tolerated Percent of energy/protein needs met: 78%/80% Skin Integrity/Comment [place] Score 21 Minimum of two criteria No Fluid Accumulation Mild (non-severe) Is patient on ventilator? No Is Patient Ambulatory and/or Out of Bed Yes REE-(White-St. Jeor-ambulatory/OOB) [ 2036.048 [id number]] Kcal/Kg value to use for calculation 18 Approximate Energy Requirements Using 1551 kcal/Kg Calculation Used for Recommendations Kcal/kg Additional Notes PRO needs: 69-103g (0.8-1.2 g/ kg for JINA) Fluid needs: 1 mL/kcal or per MD Nutrition Intervention Change Diet Order: Continue Cardiac Consistent CHO Goal #1 Meet at least 75% of estimated energy and protein needs. Anticipated Discharge Needs: Cardiac/Consistent CHO Revisit per MD consult or patient Sign Off request: Additional Comments S/O Adequate PO intakes, Adarsh Score of 21
[2020-09-28] MEDS ORDERED: LOSARTAN 50 MG TAB PO SCH (13:40)
[2020-09-28] MEDS: LOSARTAN 25 MG TAB PO SCH (16:53)
[2020-09-28] MEDS: traMADol 50 MG TAB PO PRN (21:45)
[2020-09-28] MEDS: ENOXAPARIN 40 MG/0.4 ML INJ SUB-Q SCH (21:46)
[2020-09-29] MEDS: traMADol 50 MG TAB PO PRN ×3 (04:17→21:22)
[2020-09-29] MEDS: INSULIN LISPRO 100 UNIT/ML SUB-Q SCH ×4 (08:15→21:32)
[2020-09-29] MEDS: METOPROLOL TARTRATE 25 MG TAB PO SCH ×2 (09:10→21:22)
[2020-09-29] MEDS: COLCHICINE 0.6 MG TAB PO SCH (09:10)
[2020-09-29] MEDS: LOSARTAN 25 MG TAB PO SCH (09:10)
[2020-09-29] MEDS: ASPIRIN 325 MG TAB PO SCH (09:10)
--- NOTE | 2020-09-29 15:43 | Progress Note ---
<MARYPRICILA SusanKevin - Last Filed: 09/29/20 15:44> Assessment and Plan Assessment and plan: Acute/subacute infarct -POA -09/22 CT head shows at least 3 small deep infarctions in the greater gangliocapsular distribution, recommend MRI brain, extensive mucosal disease in the right sinus, anterior and mid ethmoid air cells on the right and in the right and left frontal sinuses. -09/23 MRI brain shows subacute infarctions involving the right meyer radiata -09/24 MRA head without contrast shows irregularity of the intracranial vessels at the left MCA trifurcation with no significant stenosis involving the distal internal carotid arteries -09/25 CTA h/n w/wo contrast shows groundglass opacities with peripheral subpleural predilection, no occlusion or significant stenosis of the carotid or vertebral arteries, no occlusion or significant stenosis of the major intracranial vasculature -09/24 TTE shows global left ventricular systolic function at the lower limits of normal, estimate ejection fraction 55%, mild concentric LVH, mild AR, mild MR, trace TR and no patent foramen ovale demonstrated by agitated saline contrast -09/28 VALDEZ shows normal LV size and function, no thrombus or vegetation, negative bubble study, mild MR. No apparent cardiac source of emboli noted. -Neurology consulted, appreciate recommendations -Aspirin and statin therapy -PT/OT consulted, appreciate recommendations -Maintain euthermia and euglycemia -Seizure/aspiration/fall precautions -Neurology recommends long-term cardiac monitoring -f/u with neurologist and yarn worker (Dr. Gramajo within 2-3 weeks of discharge ([phone])) Paraparesis with pain -Presented with rhabdomyolysis and a 3 to 4-day history of decreased movement per patient due to pain -Patient has a history of gout -09/24 x-ray of left lower extremity reports no acute fracture process -09/25 MRI T-spine shows no focal disc herniation, spinal canal stenosis or nerve root compression with normal thoracic spinal cord -09/25 L spine shows normal distal spinal cord, no enhancing intradural lesion, shallow disc protrusion at L2/L3 disc level like bilaterally more towards the left side, left neural foramina narrowed -PT/OT consulted, appreciate recommendations Pneumonia -Antibiotic therapy -Pulmonary hygiene -Supplement oxygen as needed -SPO2 monitoring Extensive sinusitis -Noted on CT head -Antibiotic therapy Elevated D-dimer -Presented with a D-dimer of 1568 -09/22 bilateral lower extremity Doppler ultrasound shows no evidence of DVT/SVT Rhabdomyolysis, improving -Presented with a creatinine kinase of 1354 -S/p 3 L normal saline in the emergency department -Trend creatinine -PT/OT consulted -Patient states that he has last moved for 4 days prior to presentation Transaminitis, improving -LFTs of presentation: AST 107, ALT 167, alk phos 161 -Trend LFTs -GI consulted, appreciate recommendations -09/23 abdominal ultrasound shows hepatomegaly with hepatic steatosis, multiple hyper echoic areas within the gallbladder could represent multiple polyps versus nonmobile gallstones, bilateral renal cysts - Per GI: -supportive care. -avoid hepatotoxins. -will sign off. patient to follow up with GI outpatient for hepatic steatosis. Thrombocytosis -Presented with a platelet count of 633 -Trend CBC Hypertension -Resume home antihypertensive regimen and titrate as needed -Blood pressure monitoring per protocol -As needed IV hydralazine for SBP greater than 160 DVT prophylaxis -SCDs to bilateral lower extremities while in bed -Heparin subcu Discharge planning issues -Case management is attempting SNF placement History Interval history: This is a 59 YO Male with HTN and presented to the emergency department on 09/22 obesity hypoventilation syndrome with complaints of generalized weakness, fatigue, muscle aches, shortness of breath, dry cough over the past 2 weeks with worsening symptoms over the past 4 days with known COVID-19 exposure. The patient was found to have pneumonia, suspected coronavirus infection, transaminitis and rhabdomyolysis. Patient was admitted to the hospitalist service with consults to infectious disease and GI. Neurology and PT/OT consulted. 09/23: Today on examination patient is on room air and states that he has not moved in 4 days and complains of generalized weakness and fatigue. Today infectious disease, GI and PT/OT were consulted. No acute events reported overnight. We will obtain an acute hepatitis panel and abdominal ultrasound to further investigate his transaminitis. COVID-19 PCR pending 09/24: Patient's COVID-19 PCR was negative and he was transferred to the fourth floor. Patient received abdominal ultrasound and MRI brain was obtained due to left facial droop, right upper extremity and left lower extremity weakness which showed a subacute infarct. Neurology was consulted. PT/OT evaluation pending. No acute events reported overnight. 09/25: The time of my examination patient has drift to bilateral lower extremities with slight left-sided facial droop. No acute events reported overnight. Neurology has ordered for additional testing. 09/26: CTA of the head and neck showed no occlusion or significant stenosis. MRI of the spine revealed shallow disc protrusion at L2-L3 disc level laterally bilaterally but no other acute findings. Thoracic MRI negative. Continue PT/OT/ST. Neurology recommends VALDEZ. Cardiology consulted. ID recommends continuing ceftriaxone and azithromycin to complete 5 days. 09/27: Await VALDEZ by cardiology Monday to assess for cardioembolic source. Continue PT/OT/ST. Neurology following. Complete antibiotics for sinusitis/pneumonia. Physical therapy recommends rolling walker. Await final PT assessment for discharge planning/placement. 09/28: Awaiting PT/OT final recommendations, patient had his VALDEZ today which showed no cardioembolic source. Patient still has right upper extremity and left lower extremity weakness and pain with movement. Recommended DME ordered. 09/29: Patient still has right upper extremity and left lower extremity weakness and pain with movement. CM notes noted for awaiting SNF placement. No acute events reported overnight. Hospitalist Physical - Physical exam Narrative exam: General appearance: Present: no acute distress, well-nourished - EENT Eyes: Present: PERRL, EOM intact ENT: hearing intact, clear oral mucosa - Neck Neck: Present: normal ROM - Respiratory Respiratory effort: normal Respiratory: bilateral: CTA - Cardiovascular Rhythm: regular Heart Sounds: Present: S1 & S2. Absent: systolic murmur, diastolic murmur - Extremities Extremities: no ischemia, pulses intact, pulses symmetrical, No edema, normal temperature, normal color, Full ROM Peripheral Pulses: within normal limits - Abdominal General gastrointestinal: soft, non-tender, non-distended, normal bowel sounds - Integumentary Integumentary: Present: clear, warm, dry - Psychiatric Psychiatric: cooperative - Neurologic Neurologic: CNII-XII intact, moves all extremities (moves left lower extremity with pain and has weakness to left lower extremity and right upper extremity) - Allied Health Allied health notes reviewed: nursing - Constitutional Vitals: Temp Pulse Resp BP Pulse Ox 97.8 F 90 20 117/60 98 09/29/20 07:30 09/29/20 09:10 09/29/20 09:13 09/29/20 09:10 09/29/20 07:30 HEART Score - HEART Score Troponin: Troponin T 0.060 ng/mL (0.00-0.029) H 09/22/20 16:10 Results - Labs CBC & Chem 7: 09/26/20 06:09 09/26/20 06:09 Labs: Laboratory Last Values WBC 10.7 K/mm3 (4.5-11.0) 09/26/20 06:09 RBC 3.45 M/mm3 (3.65-5.03) L 09/26/20 06:09 Hgb 10.7 gm/dl (11.8-15.2) L 09/26/20 06:09 Hct 31.4 % (35.5-45.6) L 09/26/20 06:09 MCV 91 fl (84-94) 09/26/20 06:09 MCH 31 pg (28-32) 09/26/20 06:09 MCHC 34 % (32-34) 09/26/20 06:09 RDW 13.8 % (13.2-15.2) 09/26/20 06:09 Plt Count 609 K/mm3 (140-440) H 09/26/20 06:09 Lymph % (Auto) 7.5 % (13.4-35.0) L 09/23/20 05:28 [place] % (Auto) 3.8 % (0.0-7.3) 09/23/20 05:28 Eos % (Auto) 0.0 % (0.0-4.3) 09/23/20 05:28 Baso % (Auto) 0.1 % (0.0-1.8) 09/23/20 05:28 Lymph # (Auto) 0.6 K/mm3 (1.2-5.4) L 09/23/20 05:28 [place] # (Auto) 0.3 K/mm3 (0.0-0.8) 09/23/20 05:28 Eos # (Auto) 0.0 K/mm3 (0.0-0.4) 09/23/20 05:28 Baso # (Auto) 0.0 K/mm3 (0.0-0.1) 09/23/20 05:28 Seg Neutrophils % 88.6 % (40.0-70.0) H 09/23/20 05:28 Seg Neutrophils # 7.4 K/mm3 (1.8-7.7) 09/23/20 05:28 PT 15.8 Sec. (12.2-14.9) H 09/25/20 04:58 INR 1.28 (0.87-1.13) H 09/25/20 04:58 D-Dimer 1258.68 ng/mlDDU (0-234) H 09/24/20 06:07 Sodium 136 mmol/L (137-145) L 09/26/20 06:09 Potassium 3.7 mmol/L (3.6-5.0) 09/26/20 06:09 Chloride 101.0 mmol/L (98-107) 09/26/20 06:09 Carbon Dioxide 25 mmol/L (22-30) 09/26/20 06:09 Anion Gap 14 mmol/L 09/26/20 06:09 BUN 18 mg/dL (9-20) 09/26/20 06:09 Creatinine 0.7 mg/dL (0.8-1.3) L 09/26/20 06:09 Estimated GFR > 60 ml/min 09/26/20 06:09 BUN/Creatinine Ratio 26 % 09/26/20 06:09 Glucose 127 mg/dL (75-100) H 09/26/20 06:09 POC Glucose 93 mg/dL (70-105) 09/29/20 12:01 Hemoglobin A1c 6.6 % (4-6) H 09/24/20 16:47 Calcium 8.3 mg/dL (8.4-10.2) L 09/26/20 06:09 Magnesium 2.80 mg/dL (1.7-2.3) H 09/22/20 16:10 Ferritin 1686.0 ng/mL (30.0-300.0) H 09/24/20 06:07 Total Bilirubin 0.50 mg/dL (0.1-1.2) 09/25/20 04:58 Direct Bilirubin 0.2 mg/dL (0-0.2) 09/25/20 04:58 Indirect Bilirubin 0.3 mg/dL 09/25/20 04:58 AST 48 units/L (5-40) H 09/25/20 04:58 ALT 108 units/L (7-56) H 09/25/20 04:58 Alkaline Phosphatase 147 units/L (35-129) H 09/25/20 04:58 Lactate Dehydrogenase 303 units/L (91-180) H 09/24/20 06:07 Total Creatine Kinase 365 units/L (55-170) H 09/24/20 06:07 Troponin T 0.060 ng/mL (0.00-0.029) H 09/22/20 16:10 C-Reactive Protein 7.20 mg/dL (0.00-1.30) H 09/24/20 06:07 NT-Pro-B Natriuret Pep 822.4 pg/mL (0-900) 09/22/20 16:10 Total Protein 7.0 g/dL (6.3-8.2) 09/25/20 04:58 Albumin 2.5 g/dL (3.9-5) L 09/25/20 04:58 Albumin/Globulin Ratio 0.6 % 09/25/20 04:58 Triglycerides 179 mg/dL (2-149) H 09/22/20 16:10 Cholesterol 182 mg/dL (50-199) 09/22/20 16:10 LDL Cholesterol Direct 110 mg/dL (50-130) 09/22/20 16:10 HDL Cholesterol 26 mg/dL (40-59) L 09/22/20 16:10 Cholesterol/HDL Ratio 7.00 % 09/22/20 16:10 Lipase 37 units/L (13-60) 09/22/20 16:10 Procalcitonin 0.76 ng/mL (<0.15) 09/22/20 16:10 TSH 1.620 mlU/mL (0.270-4.200) 09/22/20 16:10 Free T4 1.09 ng/dL (0.76-1.46) 09/22/20 16:10 Urine Color Poppy (Yellow) 09/22/20 Unknown Urine Turbidity Clear (Clear) 09/22/20 Unknown Urine pH 5.0 (5.0-7.0) 09/22/20 Unknown Ur Specific [place] 1.023 (1.003-1.030) 09/22/20 Unknown Urine Protein <15 mg/dl mg/dL (Negative) 09/22/20 Unknown Urine Glucose (UA) Neg mg/dL (Negative) 09/22/20 Unknown Urine Ketones Neg mg/dL (Negative) 09/22/20 Unknown Urine Blood Neg (Negative) 09/22/20 Unknown Urine Nitrite Neg (Negative) 09/22/20 Unknown Urine Bilirubin Neg (Negative) 09/22/20 Unknown Urine Urobilinogen 4.0 mg/dL (<2.0) 09/22/20 Unknown Ur Leukocyte Esterase Neg (Negative) 09/22/20 Unknown Urine WBC (Auto) 1.0 /HPF (0.0-6.0) 09/22/20 Unknown Urine RBC (Auto) 2.0 /HPF (0.0-6.0) 09/22/20 Unknown U Epithel Cells (Auto) < 1.0 /HPF (0-13.0) 09/22/20 Unknown Urine Mucus Few /HPF 09/22/20 Unknown Salicylates < 0.3 mg/dL (2.8-20.0) L 09/22/20 16:10 Acetaminophen 5.0 ug/mL (10.0-30.0) L 09/22/20 16:10 Coronavirus (PCR) Negative (Negative) 09/23/20 Unknown Hepatitis A IgM Ab Non-reactive (NonReactive) 09/23/20 14:28 Hep Bs Antigen Non-reactive (Negative) 09/23/20 14:28 Hep B Core IgM Ab Non-reactive (NonReactive) 09/23/20 14:28 Hepatitis C Antibody Non-reactive (NonReactive) 09/23/20 14:28 [place]/IV: Voiding Method Urinal Active Medications - Current Medications Current Medications: Generic Name Dose Route Start Last Admin Trade Name Freq PRN Reason Stop Dose Admin Acetaminophen 650 mg 09/22/20 18:24 Acetaminophen 325 Mg Tab PO Q4H PRN Pain MILD(1-3)/Fever >100.5/PEREYRA Aspirin 325 mg 09/25/20 10:00 09/29/20 09:10 Aspirin 325 Mg Tab PO 325 mg QDAY MILTON Administration Colchicine 0.6 mg 09/23/20 10:00 09/29/20 09:10 Colchicine 0.6 Mg Tab PO 0.6 mg DAILY MILTON Administration Dextrose 50 ml 09/24/20 15:31 Dextrose 50% In Water (25gm) 50 Ml Syringe IV Q30MIN PRN Hypoglycemia Protocol Enoxaparin Sodium 40 mg 09/23/20 22:00 09/28/20 21:46 Enoxaparin 40 Mg/0.4 Ml Inj SUB-Q 40 mg QDAY@2200 MILTON Administration Protocol Hydralazine HCl 10 mg 09/23/20 14:23 Hydralazine 20 Mg/1 Ml Inj IV Q4HR PRN Hypertension Insulin Human Lispro 0 unit 09/24/20 16:30 09/29/20 08:15 Insulin Lispro 100 Unit/Ml SUB-Q Not Given ACHS MILTON Protocol Losartan Potassium 25 mg 09/28/20 14:00 09/29/20 09:10 Losartan 25 Mg Tab PO 25 mg QDAY MILTON Administration Metoprolol Tartrate 25 mg 09/26/20 22:00 09/29/20 09:10 Metoprolol Tartrate 25 Mg Tab PO 25 mg BID MILTON Administration Ondansetron HCl 4 mg 09/22/20 18:24 Ondansetron 4 Mg/2 Ml Inj IV Q8H PRN Nausea And Vomiting Sodium Chloride 10 ml 09/22/20 22:00 09/28/20 21:47 Sodium Chloride 0.9% 10 Ml Flush Syringe IV 10 ml BID MILTON Administration Sodium Chloride 10 ml 09/22/20 18:24 Sodium Chloride 0.9% 10 Ml Flush Syringe IV PRN PRN LINE FLUSH Tramadol HCl 50 mg 09/24/20 05:19 09/29/20 09:13 Tramadol 50 Mg Tab PO 50 mg Q6H PRN Administration Pain, Moderate (4-6) Nutrition/Malnutrition Assess - Dietary Evaluation Nutrition/Malnutrition Findings: Nutrition Notes Start: 09/23/20 11:00 Freq: Status: Active Protocol: Document 09/24/20 10:20 CW (Rec: 09/24/20 10:30 [id number]) Nutrition Notes Initial or Follow up Brief Note Current Diagnosis Acute Kidney Injury,Diabetes, Hypertension Other Pertinent Diagnosis Obesity Hypoventilation Syndrome, pneu, COVID, Rhabdomyolysis Current Diet Cardiac/Consistent CHO Labs/Tests BUN 26 Cr 0.7 Ca 8.3 Pertinent Medications Vitamin D3 Zinc Sulfate Height 5 ft 3 in Weight 86.183 kg [place] Body Weight (kg) 56.36 BMI 33.6 Weight Status Obese Subjective/Other Information F/U for weight and intakes. Intakes remain adeqaute 50 - 75% of meals which meets at least 75% of kcal and protein needs. Weight has remained stable. Renal related labs are improving. Adarsh score of 21 with intact skin. Pt did not answer phone x2. No reports of N/V/D/C. Diet being well tolerated Percent of energy/protein needs met: 78%/80% Skin Integrity/Comment Beaden Score 21 Minimum of two criteria No Fluid Accumulation Mild (non-severe) Is patient on ventilator? No Is Patient Ambulatory and/or Out of Bed Yes REE-([place]-St. Jeor-ambulatory/OOB) [ 2036.048 NUTR.MSJOOB] Kcal/Kg value to use for calculation 18 Approximate Energy Requirements Using 1551 kcal/Kg Calculation Used for Recommendations Kcal/kg Additional Notes PRO needs: 69-103g (0.8-1.2 g/ kg for JINA) Fluid needs: 1 mL/kcal or per MD Nutrition Intervention Change Diet Order: Continue Cardiac Consistent CHO Goal #1 Meet at least 75% of estimated energy and protein needs. Anticipated Discharge Needs: Cardiac/Consistent CHO Revisit per MD consult or patient Sign Off request: Additional Comments S/O Adequate PO intakes, Adarsh Score of 21 <PRABHAKAR SELBY - Last Filed: 09/29/20 17:05> Assessment and Plan Assessment and plan: I agree with history, examination and assessment and plan as written by Pricila Isidro NP. Hospitalist Physical - Constitutional Vitals: Temp Pulse Resp BP Pulse Ox 97.8 F 90 20 117/60 98 09/29/20 07:30 09/29/20 09:10 09/29/20 09:13 09/29/20 09:10 09/29/20 07:30 HEART Score - HEART Score Troponin: Troponin T 0.060 ng/mL (0.00-0.029) H 09/22/20 16:10 Results - Labs CBC & Chem 7: 09/26/20 06:09 09/26/20 06:09 Labs: Laboratory Last Values WBC 10.7 K/mm3 (4.5-11.0) 09/26/20 06:09 RBC 3.45 M/mm3 (3.65-5.03) L 09/26/20 06:09 Hgb 10.7 gm/dl (11.8-15.2) L 09/26/20 06:09 Hct 31.4 % (35.5-45.6) L 09/26/20 06:09 MCV 91 fl (84-94) 09/26/20 06:09 MCH 31 pg (28-32) 09/26/20 06:09 MCHC 34 % (32-34) 09/26/20 06:09 RDW 13.8 % (13.2-15.2) 09/26/20 06:09 Plt Count 609 K/mm3 (140-440) H 09/26/20 06:09 Lymph % (Auto) 7.5 % (13.4-35.0) L 09/23/20 05:28 [place] % (Auto) 3.8 % (0.0-7.3) 09/23/20 05:28 Eos % (Auto) 0.0 % (0.0-4.3) 09/23/20 05:28 Baso % (Auto) 0.1 % (0.0-1.8) 09/23/20 05:28 Lymph # (Auto) 0.6 K/mm3 (1.2-5.4) L 09/23/20 05:28 [place] # (Auto) 0.3 K/mm3 (0.0-0.8) 09/23/20 05:28 Eos # (Auto) 0.0 K/mm3 (0.0-0.4) 09/23/20 05:28 Baso # (Auto) 0.0 K/mm3 (0.0-0.1) 09/23/20 05:28 Seg Neutrophils % 88.6 % (40.0-70.0) H 09/23/20 05:28 Seg Neutrophils # 7.4 K/mm3 (1.8-7.7) 09/23/20 05:28 PT 15.8 Sec. (12.2-14.9) H 09/25/20 04:58 INR 1.28 (0.87-1.13) H 09/25/20 04:58 D-Dimer 1258.68 ng/mlDDU (0-234) H 09/24/20 06:07 Sodium 136 mmol/L (137-145) L 09/26/20 06:09 Potassium 3.7 mmol/L (3.6-5.0) 09/26/20 06:09 Chloride 101.0 mmol/L (98-107) 09/26/20 06:09 Carbon Dioxide 25 mmol/L (22-30) 09/26/20 06:09 Anion Gap 14 mmol/L 09/26/20 06:09 BUN 18 mg/dL (9-20) 09/26/20 06:09 Creatinine 0.7 mg/dL (0.8-1.3) L 09/26/20 06:09 Estimated GFR > 60 ml/min 09/26/20 06:09 BUN/Creatinine Ratio 26 % 09/26/20 06:09 Glucose 127 mg/dL (75-100) H 09/26/20 06:09 POC Glucose 93 mg/dL (70-105) 09/29/20 12:01 Hemoglobin A1c 6.6 % (4-6) H 09/24/20 16:47 Calcium 8.3 mg/dL (8.4-10.2) L 09/26/20 06:09 Magnesium 2.80 mg/dL (1.7-2.3) H 09/22/20 16:10 Ferritin 1686.0 ng/mL (30.0-300.0) H 09/24/20 06:07 Total Bilirubin 0.50 mg/dL (0.1-1.2) 09/25/20 04:58 Direct Bilirubin 0.2 mg/dL (0-0.2) 09/25/20 04:58 Indirect Bilirubin 0.3 mg/dL 09/25/20 04:58 AST 48 units/L (5-40) H 09/25/20 04:58 ALT 108 units/L (7-56) H 09/25/20 04:58 Alkaline Phosphatase 147 units/L (35-129) H 09/25/20 04:58 Lactate Dehydrogenase 303 units/L (91-180) H 09/24/20 06:07 Total Creatine Kinase 365 units/L (55-170) H 09/24/20 06:07 Troponin T 0.060 ng/mL (0.00-0.029) H 09/22/20 16:10 C-Reactive Protein 7.20 mg/dL (0.00-1.30) H 09/24/20 06:07 NT-Pro-B Natriuret Pep 822.4 pg/mL (0-900) 09/22/20 16:10 Total Protein 7.0 g/dL (6.3-8.2) 09/25/20 04:58 Albumin 2.5 g/dL (3.9-5) L 09/25/20 04:58 Albumin/Globulin Ratio 0.6 % 09/25/20 04:58 Triglycerides 179 mg/dL (2-149) H 09/22/20 16:10 Cholesterol 182 mg/dL (50-199) 09/22/20 16:10 LDL Cholesterol Direct 110 mg/dL (50-130) 09/22/20 16:10 HDL Cholesterol 26 mg/dL (40-59) L 09/22/20 16:10 Cholesterol/HDL Ratio 7.00 % 09/22/20 16:10 Lipase 37 units/L (13-60) 09/22/20 16:10 Procalcitonin 0.76 ng/mL (<0.15) 09/22/20 16:10 TSH 1.620 mlU/mL (0.270-4.200) 09/22/20 16:10 Free T4 1.09 ng/dL (0.76-1.46) 09/22/20 16:10 Urine Color [place] (Yellow) 09/22/20 Unknown Urine Turbidity Clear (Clear) 09/22/20 Unknown Urine pH 5.0 (5.0-7.0) 09/22/20 Unknown Ur Specific [place] 1.023 (1.003-1.030) 09/22/20 Unknown Urine Protein <15 mg/dl mg/dL (Negative) 09/22/20 Unknown Urine Glucose (UA) Neg mg/dL (Negative) 09/22/20 Unknown Urine Ketones Neg mg/dL (Negative) 09/22/20 Unknown Urine Blood Neg (Negative) 09/22/20 Unknown Urine Nitrite Neg (Negative) 09/22/20 Unknown Urine Bilirubin Neg (Negative) 09/22/20 Unknown Urine Urobilinogen 4.0 mg/dL (<2.0) 09/22/20 Unknown Ur Leukocyte Esterase Neg (Negative) 09/22/20 Unknown Urine WBC (Auto) 1.0 /HPF (0.0-6.0) 09/22/20 Unknown Urine RBC (Auto) 2.0 /HPF (0.0-6.0) 09/22/20 Unknown U Epithel Cells (Auto) < 1.0 /HPF (0-13.0) 09/22/20 Unknown Urine Mucus Few /HPF 09/22/20 Unknown Salicylates < 0.3 mg/dL (2.8-20.0) L 09/22/20 16:10 Acetaminophen 5.0 ug/mL (10.0-30.0) L 09/22/20 16:10 Coronavirus (PCR) Negative (Negative) 09/23/20 Unknown Hepatitis A IgM Ab Non-reactive (NonReactive) 09/23/20 14:28 Hep Bs Antigen Non-reactive (Negative) 09/23/20 14:28 Hep B Core IgM Ab Non-reactive (NonReactive) 09/23/20 14:28 Hepatitis C Antibody Non-reactive (NonReactive) 09/23/20 14:28 [place]/IV: Voiding Method Urinal Active Medications - Current Medications Current Medications: Generic Name Dose Route Start Last Admin Trade Name Freq PRN Reason Stop Dose Admin Acetaminophen 650 mg 09/22/20 18:24 Acetaminophen 325 Mg Tab PO Q4H PRN Pain MILD(1-3)/Fever >100.5/PEREYRA Aspirin 325 mg 09/25/20 10:00 09/29/20 09:10 Aspirin 325 Mg Tab PO 325 mg QDAY MILTON Administration Colchicine 0.6 mg 09/23/20 10:00 09/29/20 09:10 Colchicine 0.6 Mg Tab PO 0.6 mg DAILY MILTON Administration Dextrose 50 ml 09/24/20 15:31 Dextrose 50% In Water (25gm) 50 Ml Syringe IV Q30MIN PRN Hypoglycemia Protocol Enoxaparin Sodium 40 mg 09/23/20 22:00 09/28/20 21:46 Enoxaparin 40 Mg/0.4 Ml Inj SUB-Q 40 mg QDAY@2200 MILTON Administration Protocol Hydralazine HCl 10 mg 09/23/20 14:23 Hydralazine 20 Mg/1 Ml Inj IV Q4HR PRN Hypertension Insulin Human Lispro 0 unit 09/24/20 16:30 09/29/20 08:15 Insulin Lispro 100 Unit/Ml SUB-Q Not Given ACHS MILTON Protocol Losartan Potassium 25 mg 09/28/20 14:00 09/29/20 09:10 Losartan 25 Mg Tab PO 25 mg QDAY MILTON Administration Metoprolol Tartrate 25 mg 09/26/20 22:00 09/29/20 09:10 Metoprolol Tartrate 25 Mg Tab PO 25 mg BID MILTON Administration Ondansetron HCl 4 mg 09/22/20 18:24 Ondansetron 4 Mg/2 Ml Inj IV Q8H PRN Nausea And Vomiting Sodium Chloride 10 ml 09/22/20 22:00 09/28/20 21:47 Sodium Chloride 0.9% 10 Ml Flush Syringe IV 10 ml BID MILTON Administration Sodium Chloride 10 ml 09/22/20 18:24 Sodium Chloride 0.9% 10 Ml Flush Syringe IV PRN PRN LINE FLUSH Tramadol HCl 50 mg 09/24/20 05:19 09/29/20 09:13 Tramadol 50 Mg Tab PO 50 mg Q6H PRN Administration Pain, Moderate (4-6) Nutrition/Malnutrition Assess - Dietary Evaluation Nutrition/Malnutrition Findings: Nutrition Notes Start: 09/23/20 11:00 Freq: Status: Active Protocol: Document 09/24/20 10:20 CW (Rec: 09/24/20 10:30 CW [id number]) Nutrition Notes Initial or Follow up Brief Note Current Diagnosis Acute Kidney Injury,Diabetes, Hypertension Other Pertinent Diagnosis Obesity Hypoventilation Syndrome, pneu, COVID, Rhabdomyolysis Current Diet Cardiac/Consistent CHO Labs/Tests BUN 26 Cr 0.7 Ca 8.3 Pertinent Medications Vitamin D3 Zinc Sulfate Height 5 ft 3 in Weight 86.183 kg [place] Body Weight (kg) 56.36 BMI 33.6 Weight Status Obese Subjective/Other Information F/U for weight and intakes. Intakes remain adeqaute 50 - 75% of meals which meets at least 75% of kcal and protein needs. Weight has remained stable. Renal related labs are improving. Adarsh score of 21 with intact skin. Pt did not answer phone x2. No reports of N/V/D/C. Diet being well tolerated Percent of energy/protein needs met: 78%/80% Skin Integrity/Comment Beaden Score 21 Minimum of two criteria No Fluid Accumulation Mild (non-severe) Is patient on ventilator? No Is Patient Ambulatory and/or Out of Bed Yes REE-([place]-St. Jeor-ambulatory/OOB) [ 2036. NUTR.MSJOOB] Kcal/Kg value to use for calculation 18 Approximate Energy Requirements Using 1551 kcal/Kg Calculation Used for Recommendations Kcal/kg Additional Notes PRO needs: 69-103g (0.8-1.2 g/ kg for JINA) Fluid needs: 1 mL/kcal or per MD Nutrition Intervention Change Diet Order: Continue Cardiac Consistent CHO Goal #1 Meet at least 75% of estimated energy and protein needs. Anticipated Discharge Needs: Cardiac/Consistent CHO Revisit per MD consult or patient Sign Off request: Additional Comments S/O Adequate PO intakes, Adarsh Score of 21
[2020-09-29] MEDS: ENOXAPARIN 40 MG/0.4 ML INJ SUB-Q SCH (21:22)
[2020-09-30] MEDS: traMADol 50 MG TAB PO PRN (06:04)
[2020-09-30 06:37] LABS: Hematocrit 32.9 % (35.5-45.6); Hemoglobin 11.1 gm/dl (11.8-15.2); Mean Corpuscular HGB Conc 34 % (32-34); Mean Corpuscular Volume 91 fl (84-94); Platelet Count 627 K/mm3 (140-440); Red Cell Distribution Width 13.5 % (13.2-15.2)
[2020-09-30 07:00] LABS: Blood Urea Nitrogen 15 mg/dL (9-20); Calcium 8.5 mg/dL (8.4-10.2); Hemolysis Index 1
[2020-09-30 07:02] LABS: BUN/Creatinine Ratio 21
[2020-09-30] MEDS: INSULIN LISPRO 100 UNIT/ML SUB-Q SCH ×4 (08:42→21:32)
[2020-09-30] MEDS: LOSARTAN 25 MG TAB PO SCH ×2 (09:12→10:39)
[2020-09-30] MEDS: ASPIRIN 325 MG TAB PO SCH (09:12)
[2020-09-30] MEDS: COLCHICINE 0.6 MG TAB PO SCH (09:12)
[2020-09-30] MEDS: METOPROLOL TARTRATE 25 MG TAB PO SCH ×2 (09:12→21:32)
--- NOTE | 2020-09-30 12:26 | XRay Report ---
XR knee 1-2V LT INDICATION / CLINICAL INFORMATION: knee pain. COMPARISON: None available. FINDINGS: No acute fracture. Normal alignment. Mild osteoarthritis . No destructive osseous lesion or suspici ous periosteal reaction. Impression: 1.No significant osseous abnormality. Signer Name: Juan C Carrero MD Signed: 09/30/2020 12:18 PM Workstation Name: [id number]
--- NOTE | 2020-09-30 13:40 | Progress Note ---
<MARYPRICILA SusanKevin - Last Filed: 09/30/20 13:36> Assessment and Plan Assessment and plan: Acute/subacute infarct -POA -09/22 CT head shows at least 3 small deep infarctions in the greater gangliocapsular distribution, recommend MRI brain, extensive mucosal disease in the right sinus, anterior and mid ethmoid air cells on the right and in the right and left frontal sinuses. -09/23 MRI brain shows subacute infarctions involving the right meyer radiata -09/24 MRA head without contrast shows irregularity of the intracranial vessels at the left MCA trifurcation with no significant stenosis involving the distal internal carotid arteries -09/25 CTA h/n w/wo contrast shows groundglass opacities with peripheral subpleural predilection, no occlusion or significant stenosis of the carotid or vertebral arteries, no occlusion or significant stenosis of the major intracranial vasculature -09/24 TTE shows global left ventricular systolic function at the lower limits of normal, estimate ejection fraction 55%, mild concentric LVH, mild AR, mild MR, trace TR and no patent foramen ovale demonstrated by agitated saline contrast -09/28 VALDEZ shows normal LV size and function, no thrombus or vegetation, negative bubble study, mild MR. No apparent cardiac source of emboli noted. -Neurology consulted, appreciate recommendations -Aspirin and statin therapy -PT/OT consulted, appreciate recommendations -Maintain euthermia and euglycemia -Seizure/aspiration/fall precautions -Neurology recommends long-term cardiac monitoring -f/u with neurologist and personnel manager (Dr. Gramajo within 2-3 weeks of discharge ([phone])) Paraparesis with pain -Presented with rhabdomyolysis and a 3 to 4-day history of decreased movement per patient due to pain -Patient has a history of gout -09/24 x-ray of left lower extremity reports no acute fracture process -09/25 MRI T-spine shows no focal disc herniation, spinal canal stenosis or nerve root compression with normal thoracic spinal cord -09/25 L spine shows normal distal spinal cord, no enhancing intradural lesion, shallow disc protrusion at L2/L3 disc level like bilaterally more towards the left side, left neural foramina narrowed -09/30 L knee xray shows no acute process, osteoarthritis -PT/OT consulted, appreciate recommendations Pneumonia -Antibiotic therapy -Pulmonary hygiene -Supplement oxygen as needed -SPO2 monitoring Extensive sinusitis -Noted on CT head -Antibiotic therapy Elevated D-dimer -Presented with a D-dimer of 1568 -09/22 bilateral lower extremity Doppler ultrasound shows no evidence of DVT/SVT Rhabdomyolysis, improving -Presented with a creatinine kinase of 1354 -S/p 3 L normal saline in the emergency department -Trend creatinine -PT/OT consulted -Patient states that he has last moved for 4 days prior to presentation Transaminitis, improving -LFTs of presentation: AST 107, ALT 167, alk phos 161 -Trend LFTs -GI consulted, appreciate recommendations -09/23 abdominal ultrasound shows hepatomegaly with hepatic steatosis, multiple hyper echoic areas within the gallbladder could represent multiple polyps versus nonmobile gallstones, bilateral renal cysts - Per GI: -supportive care. -avoid hepatotoxins. -will sign off. patient to follow up with GI outpatient for hepatic steatosis. Thrombocytosis -Presented with a platelet count of 633 -Trend CBC Hypertension -Resume home antihypertensive regimen and titrate as needed -Blood pressure monitoring per protocol -As needed IV hydralazine for SBP greater than 160 DVT prophylaxis -SCDs to bilateral lower extremities while in bed -Heparin subcu Discharge planning issues -Case management is attempting SNF placement -09/30 COVID 19 PCR pending History Interval history: This is a 59 YO Male with HTN and presented to the emergency department on 09/22 obesity hypoventilation syndrome with complaints of generalized weakness, fatigue, muscle aches, shortness of breath, dry cough over the past 2 weeks with worsening symptoms over the past 4 days with known COVID-19 exposure. The patient was found to have pneumonia, suspected coronavirus infection, t ransaminitis and rhabdomyolysis. Patient was admitted to the hospitalist service with consults to infectious disease and GI. Neurology and PT/OT consulted. 09/23: Today on examination patient is on room air and states that he has not moved in 4 days and complains of generalized weakness and fatigue. Today infectious disease, GI and PT/OT were consulted. No acute events reported overnight. We will obtain an acute hepatitis panel and abdominal ultrasound to further investigate his transaminitis. COVID-19 PCR pending 09/24: Patient's COVID-19 PCR was negative and he was transferred to the fourth floor. Patient received abdominal ultrasound and MRI brain was obtained due to left facial droop, right upper extremity and left lower extremity weakness which showed a subacute infarct. Neurology was consulted. PT/OT evaluation pending. No acute events reported overnight. 09/25: The time of my examination patient has drift to bilateral lower extremities with slight left-sided facial droop. No acute events reported overnight. Neurology has ordered for additional testing. 09/26: CTA of the head and neck showed no occlusion or significant stenosis. MRI of the spine revealed shallow disc protrusion at L2-L3 disc level laterally bilaterally but no other acute findings. Thoracic MRI negative. Continue PT/OT/ST. Neurology recommends VALDEZ. Cardiology consulted. ID recommends continuing ceftriaxone and azithromycin to complete 5 days. 09/27: Await VALDEZ by cardiology Monday to assess for cardioembolic source. Continue PT/OT/ST. Neurology following. Complete antibiotics for sinusi tis/pneumonia. Physical therapy recommends rolling walker. Await final PT assessment for discharge planning/placement. 09/28: Awaiting PT/OT final recommendations, patient had his VALDEZ today which joanne wed no cardioembolic source. Patient still has right upper extremity and left lower extremity weakness and pain with movement. Recommended DME ordered. 09/29: Patient still has right upper extremity and left lower extremity weakness and pain with movement. CM notes noted for awaiting SNF placement. No acute events reported overnight. 09/30: Patient complained of left knee pain and a CXR was obtained which showed no acute abnormality. Repeat COVID-19 test was ordered this morning for possible placement. No acute events reported overnight. Patient has increased strength 3/5 to affected upper and lower extremity. Hospitalist Physical - Constitutional Vitals: Temp Pulse Resp BP Pulse Ox 99.0 F 69 18 119/63 77 L 09/30/20 08:07 09/30/20 11:01 09/30/20 11:00 09/30/20 11:01 09/30/20 11:01 General appearance: Present: no acute distress, well-nourished - EENT Eyes: Present: PERRL, EOM intact ENT: hearing intact, clear oral mucosa, dentition normal - Neck Neck: Present: normal ROM - Respiratory Respiratory effort: normal Respiratory: bilateral: CTA - Cardiovascular Rhythm: regular Heart Sounds: Present: S1 & S2. Absent: systolic murmur, diastolic murmur - Extremities Extremities: no ischemia, pulses intact, pulses symmetrical, No edema, normal temperature, normal color, Full ROM Peripheral Pulses: within normal limits - Abdominal General gastrointestinal: soft, non-tender, non-distended, normal bowel sounds - Integumentary Integumentary: Present: warm, dry - Psychiatric Psychiatric: appropriate mood/affect, cooperative - Neurologic Neurologic: CNII-XII intact, no focal deficits, other (RUE/LLE 4/5 strengh) - Allied Health Allied health notes reviewed: nursing, social work, case management HEART Score - HEART Score Troponin: Troponin T 0.060 ng/mL (0.00-0.029) H 09/22/20 16:10 Results - Labs CBC & Chem 7: 09/30/20 05:02 09/30/20 05:02 Labs: Laboratory Last Values WBC 9.3 K/mm3 (4.5-11.0) 09/30/20 05:02 RBC 3.60 M/mm3 (3.65-5.03) L 09/30/20 05:02 Hgb 11.1 gm/dl (11.8-15.2) L 09/30/20 05:02 Hct 32.9 % (35.5-45.6) L 09/30/20 05:02 MCV 91 fl (84-94) 09/30/20 05:02 MCH 31 pg (28-32) 09/30/20 05:02 MCHC 34 % (32-34) 09/30/20 05:02 RDW 13.5 % (13.2-15.2) 09/30/20 05:02 Plt Count 627 K/mm3 (140-440) H 09/30/20 05:02 Lymph % (Auto) 7.5 % (13.4-35.0) L 09/23/20 05:28 Tucker % (Auto) 3.8 % (0.0-7.3) 09/23/20 05:28 Eos % (Auto) 0.0 % (0.0-4.3) 09/23/20 05:28 Baso % (Auto) 0.1 % (0.0-1.8) 09/23/20 05:28 Lymph # (Auto) 0.6 K/mm3 (1.2-5.4) L 09/23/20 05:28 Tucker # (Auto) 0.3 K/mm3 (0.0-0.8) 09/23/20 05:28 Eos # (Auto) 0.0 K/mm3 (0.0-0.4) 09/23/20 05:28 Baso # (Auto) 0.0 K/mm3 (0.0-0.1) 09/23/20 05:28 Seg Neutrophils % 88.6 % (40.0-70.0) H 09/23/20 05:28 Seg Neutrophils # 7.4 K/mm3 (1.8-7.7) 09/23/20 05:28 PT 15.8 Sec. (12.2-14.9) H 09/25/20 04:58 INR 1.28 (0.87-1.13) H 09/25/20 04:58 D-Dimer 1258.68 ng/mlDDU (0-234) H 09/24/20 06:07 Sodium 138 mmol/L (137-145) 09/30/20 05:02 Potassium 3.7 mmol/L (3.6-5.0) 09/30/20 05:02 Chloride 103.6 mmol/L (98-107) 09/30/20 05:02 Carbon Dioxide 25 mmol/L (22-30) 09/30/20 05:02 Anion Gap 13 mmol/L 09/30/20 05:02 BUN 15 mg/dL (9-20) 09/30/20 05:02 Creatinine 0.7 mg/dL (0.8-1.3) L 09/30/20 05:02 Estimated GFR > 60 ml/min 09/30/20 05:02 BUN/Creatinine Ratio 21 % 09/30/20 05:02 Glucose 97 mg/dL (75-100) 09/30/20 05:02 POC Glucose 93 mg/dL (70-105) 09/30/20 08:36 Hemoglobin A1c 6.6 % (4-6) H 09/24/20 16:47 Calcium 8.5 mg/dL (8.4-10.2) 09/30/20 05:02 Magnesium 2.80 mg/dL (1.7-2.3) H 09/22/20 16:10 Ferritin 1686.0 ng/mL (30.0-300.0) H 09/24/20 06:07 Total Bilirubin 0.50 mg/dL (0.1-1.2) 09/25/20 04:58 Direct Bilirubin 0.2 mg/dL (0-0.2) 09/25/20 04:58 Indirect Bilirubin 0.3 mg/dL 09/25/20 04:58 AST 48 units/L (5-40) H 09/25/20 04:58 ALT 108 units/L (7-56) H 09/25/20 04:58 Alkaline Phosphatase 147 units/L (35-129) H 09/25/20 04:58 Lactate Dehydrogenase 303 units/L (91-180) H 09/24/20 06:07 Total Creatine Kinase 365 units/L (55-170) H 09/24/20 06:07 Troponin T 0.060 ng/mL (0.00-0.029) H 09/22/20 16:10 C-Reactive Protein 7.20 mg/dL (0.00-1.30) H 09/24/20 06:07 NT-Pro-B Natriuret Pep 822.4 pg/mL (0-900) 09/22/20 16:10 Total Protein 7.0 g/dL (6.3-8.2) 09/25/20 04:58 Albumin 2.5 g/dL (3.9-5) L 09/25/20 04:58 Albumin/Globulin Ratio 0.6 % 09/25/20 04:58 Triglycerides 179 mg/dL (2-149) H 09/22/20 16:10 Cholesterol 182 mg/dL (50-199) 09/22/20 16:10 LDL Cholesterol Direct 110 mg/dL (50-130) 09/22/20 16:10 HDL Cholesterol 26 mg/dL (40-59) L 09/22/20 16:10 Cholesterol/HDL Ratio 7.00 % 09/22/20 16:10 Lipase 37 units/L (13-60) 09/22/20 16:10 Procalcitonin 0.76 ng/mL (<0.15) 09/22/20 16:10 TSH 1.620 mlU/mL (0.270-4.200) 09/22/20 16:10 Free T4 1.09 ng/dL (0.76-1.46) 09/22/20 16:10 Urine Color Poppy (Yellow) 09/22/20 Unknown Urine Turbidity Clear (Clear) 09/22/20 Unknown Urine pH 5.0 (5.0-7.0) 09/22/20 Unknown Ur Specific [place] 1.023 (1.003-1.030) 09/22/20 Unknown Urine Protein <15 mg/dl mg/dL (Negative) 09/22/20 Unknown Urine Glucose (UA) Neg mg/dL (Negative) 09/22/20 Unknown Urine Ketones Neg mg/dL (Negative) 09/22/20 Unknown Urine Blood Neg (Negative) 09/22/20 Unknown Urine Nitrite Neg (Negative) 09/22/20 Unknown Urine Bilirubin Neg (Negative) 09/22/20 Unknown Urine Urobilinogen 4.0 mg/dL (<2.0) 09/22/20 Unknown Ur Leukocyte Esterase Neg (Negative) 09/22/20 Unknown Urine WBC (Auto) 1.0 /HPF (0.0-6.0) 09/22/20 Unknown Urine RBC (Auto) 2.0 /HPF (0.0-6.0) 09/22/20 Unknown U Epithel Cells (Auto) < 1.0 /HPF (0-13.0) 09/22/20 Unknown Urine Mucus Few /HPF 09/22/20 Unknown Salicylates < 0.3 mg/dL (2.8-20.0) L 09/22/20 16:10 Acetaminophen 5.0 ug/mL (10.0-30.0) L 09/22/20 16:10 Coronavirus (PCR) Negative (Negative) 09/23/20 Unknown Hepatitis A IgM Ab Non-reactive (NonReactive) 09/23/20 14:28 Hep Bs Antigen Non-reactive (Negative) 09/23/20 14:28 Hep B Core IgM Ab Non-reactive (NonReactive) 09/23/20 14:28 Hepatitis C Antibody Non-reactive (NonReactive) 09/23/20 14:28 [place]alante/IV: Voiding Method Urinal Active Medications - Current Medications Current Medications: Generic Name Dose Route Start Last Admin Trade Name Freq PRN Reason Stop Dose Admin Acetaminophen 650 mg 09/22/20 18:24 Acetaminophen 325 Mg Tab PO Q4H PRN Pain MILD(1-3)/Fever >100.5/PEREYRA Aspirin 325 mg 09/25/20 10:00 09/30/20 09:12 Aspirin 325 Mg Tab PO 325 mg QDAY MILTON Administration Colchicine 0.6 mg 09/23/20 10:00 09/30/20 09:12 Colchicine 0.6 Mg Tab PO 0.6 mg DAILY MILTON Administration Dextrose 50 ml 09/24/20 15:31 Dextrose 50% In Water (25gm) 50 Ml Syringe IV Q30MIN PRN Hypoglycemia Protocol Enoxaparin Sodium 40 mg 09/23/20 22:00 09/29/20 21:22 Enoxaparin 40 Mg/0.4 Ml Inj SUB-Q 40 mg QDAY@2200 MILTON Administration Protocol Hydralazine HCl 10 mg 09/23/20 14:23 Hydralazine 20 Mg/1 Ml Inj IV Q4HR PRN Hypertension Insulin Human Lispro 0 unit 09/24/20 16:30 09/30/20 13:28 Insulin Lispro 100 Unit/Ml SUB-Q Not Given ACHS [facility] [place] Protocol Losartan Potassium 25 mg 09/28/20 14:00 09/30/20 09:12 Losartan 25 Mg Tab PO 25 mg QDAY MILTON Administration Metoprolol Tartrate 25 mg 09/26/20 22:00 09/30/20 09:12 Metoprolol Tartrate 25 Mg Tab PO 25 mg BID MILTON Administration Ondansetron HCl 4 mg 09/22/20 18:24 Ondansetron 4 Mg/2 Ml Inj IV Q8H PRN Nausea And Vomiting Oxycodone HCl 5 mg 09/30/20 12:00 Oxycodone 5 Mg Tab PO Q8H PRN Pain, Moderate (4-6) Sodium Chloride 10 ml 09/22/20 22:00 09/29/20 21:28 Sodium Chloride 0.9% 10 Ml Flush Syringe IV 10 ml BID MILTON Administration Sodium Chloride 10 ml 09/22/20 18:24 Sodium Chloride 0.9% 10 Ml Flush Syringe IV PRN PRN LINE FLUSH Tramadol HCl 50 mg 09/24/20 05:19 09/30/20 06:04 Tramadol 50 Mg Tab PO 50 mg Q6H PRN Administration Pain, Moderate (4-6) Nutrition/Malnutrition Assess - Dietary Evaluation Nutrition/Malnutrition Findings: Nutrition Notes Start: 09/23/20 11:00 Freq: Status: Active Protocol: Document 09/24/20 10:20 CW (Rec: 09/24/20 10:30 CW [email or web address]) Nutrition Notes Initial or Follow up Brief Note Current Diagnosis Acute Kidney Injury,Diabetes, Hypertension Other Pertinent Diagnosis Obesity Hypoventilation Syndrome, pneu, COVID, Rhabdomyolysis Current Diet Cardiac/Consistent CHO Labs/Tests BUN 26 Cr 0.7 Ca 8.3 Pertinent Medications Vitamin D3 Zinc Sulfate Height 5 ft 3 in Weight 86.183 kg [place] Body Weight (kg) 56.36 BMI 33.6 Weight Status Obese Subjective/Other Information F/U for weight and intakes. Intakes remain adeqaute 50 - 75% of meals which meets at least 75% of kcal and protein needs. Weight has remained stable. Renal related labs are improving. Adarsh score of 21 with intact skin. Pt did not answer phone x2. No reports of N/V/D/C. Diet being well tolerated Percent of energy/protein needs met: 78%/80% Skin Integrity/Comment Beaden Score 21 Minimum of two criteria No Fluid Accumulation Mild (non-severe) Is patient on ventilator? No Is Patient Ambulatory and/or Out of Bed Yes REE-(Bruni-[facility]-ambulatory/OOB) [ 2036.048 NUTR.MSJOOB] Kcal/Kg value to use for calculation 18 Approximate Energy Requirements Using 1551 kcal/Kg Calculation Used for Recommendations Kcal/kg Additional Notes PRO needs: 69-103g (0.8-1.2 g/ kg for JINA) Fluid needs: 1 mL/kcal or per MD Nutrition Intervention Change Diet Order: Continue Cardiac Consistent CHO Goal #1 Meet at least 75% of estimated energy and protein needs. Anticipated Discharge Needs: Cardiac/Consistent CHO Revisit per MD consult or patient Sign Off request: Additional Comments S/O Adequate PO intakes, Adarsh Score of 21 <PRABHAKAR SELBY - Last Filed: 09/30/20 17:14> Assessment and Plan Assessment and plan: I agree with history, examination and assessment and plan as written by Pricila Isidro NP. Awaiting placement associate brand manager on board Hospitalist Physical - Constitutional Vitals: Temp Pulse Resp BP Pulse Ox 99.7 F H 97 H 18 115/62 100 09/30/20 15:32 09/30/20 15:32 09/30/20 11:00 09/30/20 15:32 09/30/20 15:32 HEART Score - HEART Score Troponin: Troponin T 0.060 ng/mL (0.00-0.029) H 09/22/20 16:10 Results - Labs CBC & Chem 7: 09/30/20 05:02 09/30/20 05:02 Labs: Laboratory Last Values WBC 9.3 K/mm3 (4.5-11.0) 09/30/20 05:02 RBC 3.60 M/mm3 (3.65-5.03) L 09/30/20 05:02 Hgb 11.1 gm/dl (11.8-15.2) L 09/30/20 05:02 Hct 32.9 % (35.5-45.6) L 09/30/20 05:02 MCV 91 fl (84-94) 09/30/20 05:02 MCH 31 pg (28-32) 09/30/20 05:02 MCHC 34 % (32-34) 09/30/20 05:02 RDW 13.5 % (13.2-15.2) 09/30/20 05:02 Plt Count 627 K/mm3 (140-440) H 09/30/20 05:02 Lymph % (Auto) 7.5 % (13.4-35.0) L 09/23/20 05:28 Tucker % (Auto) 3.8 % (0.0-7.3) 09/23/20 05:28 Eos % (Auto) 0.0 % (0.0-4.3) 09/23/20 05:28 Baso % (Auto) 0.1 % (0.0-1.8) 09/23/20 05:28 Lymph # (Auto) 0.6 K/mm3 (1.2-5.4) L 09/23/20 05:28 Tucker # (Auto) 0.3 K/mm3 (0.0-0.8) 09/23/20 05:28 Eos # (Auto) 0.0 K/mm3 (0.0-0.4) 09/23/20 05:28 Baso # (Auto) 0.0 K/mm3 (0.0-0.1) 09/23/20 05:28 Seg Neutrophils % 88.6 % (40.0-70.0) H 09/23/20 05:28 Seg Neutrophils # 7.4 K/mm3 (1.8-7.7) 09/23/20 05:28 PT 15.8 Sec. (12.2-14.9) H 09/25/20 04:58 INR 1.28 (0.87-1.13) H 09/25/20 04:58 D-Dimer 1258.68 ng/mlDDU (0-234) H 09/24/20 06:07 Sodium 138 mmol/L (137-145) 09/30/20 05:02 Potassium 3.7 mmol/L (3.6-5.0) 09/30/20 05:02 Chloride 103.6 mmol/L (98-107) 09/30/20 05:02 Carbon Dioxide 25 mmol/L (22-30) 09/30/20 05:02 Anion Gap 13 mmol/L 09/30/20 05:02 BUN 15 mg/dL (9-20) 09/30/20 05:02 Creatinine 0.7 mg/dL (0.8-1.3) L 09/30/20 05:02 Estimated GFR > 60 ml/min 09/30/20 05:02 BUN/Creatinine Ratio 21 % 09/30/20 05:02 Glucose 97 mg/dL (75-100) 09/30/20 05:02 POC Glucose 116 mg/dL (70-105) H 09/30/20 16:59 Hemoglobin A1c 6.6 % (4-6) H 09/24/20 16:47 Calcium 8.5 mg/dL (8.4-10.2) 09/30/20 05:02 Magnesium 2.80 mg/dL (1.7-2.3) H 09/22/20 16:10 Ferritin 1686.0 ng/mL (30.0-300.0) H 09/24/20 06:07 Total Bilirubin 0.50 mg/dL (0.1-1.2) 09/25/20 04:58 Direct Bilirubin 0.2 mg/dL (0-0.2) 09/25/20 04:58 Indirect Bilirubin 0.3 mg/dL 09/25/20 04:58 AST 48 units/L (5-40) H 09/25/20 04:58 ALT 108 units/L (7-56) H 09/25/20 04:58 Alkaline Phosphatase 147 units/L (35-129) H 09/25/20 04:58 Lactate Dehydrogenase 303 units/L (91-180) H 09/24/20 06:07 Total Creatine Kinase 365 units/L (55-170) H 09/24/20 06:07 Troponin T 0.060 ng/mL (0.00-0.029) H 09/22/20 16:10 C-Reactive Protein 7.20 mg/dL (0.00-1.30) H 09/24/20 06:07 NT-Pro-B Natriuret Pep 822.4 pg/mL (0-900) 09/22/20 16:10 Total Protein 7.0 g/dL (6.3-8.2) 09/25/20 04:58 Albumin 2.5 g/dL (3.9-5) L 09/25/20 04:58 Albumin/Globulin Ratio 0.6 % 09/25/20 04:58 Triglycerides 179 mg/dL (2-149) H 09/22/20 16:10 Cholesterol 182 mg/dL (50-199) 09/22/20 16:10 LDL Cholesterol Direct 110 mg/dL (50-130) 09/22/20 16:10 HDL Cholesterol 26 mg/dL (40-59) L 09/22/20 16:10 Cholesterol/HDL Ratio 7.00 % 09/22/20 16:10 Lipase 37 units/L (13-60) 09/22/20 16:10 Procalcitonin 0.76 ng/mL (<0.15) 09/22/20 16:10 TSH 1.620 mlU/mL (0.270-4.200) 09/22/20 16:10 Free T4 1.09 ng/dL (0.76-1.46) 09/22/20 16:10 Urine Color Poppy (Yellow) 09/22/20 Unknown Urine Turbidity Clear (Clear) 09/22/20 Unknown Urine pH 5.0 (5.0-7.0) 09/22/20 Unknown Ur Specific [place] 1.023 (1.003-1.030) 09/22/20 Unknown Urine Protein <15 mg/dl mg/dL (Negative) 09/22/20 Unknown Urine Glucose (UA) Neg mg/dL (Negative) 09/22/20 Unknown Urine Ketones Neg mg/dL (Negative) 09/22/20 Unknown Urine Blood Neg (Negative) 09/22/20 Unknown Urine Nitrite Neg (Negative) 09/22/20 Unknown Urine Bilirubin Neg (Negative) 09/22/20 Unknown Urine Urobilinogen 4.0 mg/dL (<2.0) 09/22/20 Unknown Ur Leukocyte Esterase Neg (Negative) 09/22/20 Unknown Urine WBC (Auto) 1.0 /HPF (0.0-6.0) 09/22/20 Unknown Urine RBC (Auto) 2.0 /HPF (0.0-6.0) 09/22/20 Unknown U Epithel Cells (Auto) < 1.0 /HPF (0-13.0) 09/22/20 Unknown Urine Mucus Few /HPF 09/22/20 Unknown Salicylates < 0.3 mg/dL (2.8-20.0) L 09/22/20 16:10 Acetaminophen 5.0 ug/mL (10.0-30.0) L 09/22/20 16:10 Coronavirus (PCR) Negative (Negative) 09/23/20 Unknown Hepatitis A IgM Ab Non-reactive (NonReactive) 09/23/20 14:28 Hep Bs Antigen Non-reactive (Negative) 09/23/20 14:28 Hep B Core IgM Ab Non-reactive (NonReactive) 09/23/20 14:28 Hepatitis C Antibody Non-reactive (NonReactive) 09/23/20 14:28 [place]al[place]/IV: Voiding Method Urinal Active Medications - Current Medications Current Medications: Generic Name Dose Route Start Last Admin Trade Name Freq PRN Reason Stop Dose Admin Acetaminophen 650 mg 09/22/20 18:24 Acetaminophen 325 Mg Tab PO Q4H PRN Pain MILD(1-3)/Fever >100.5/PEREYRA Aspirin 325 mg 09/25/20 10:00 09/30/20 09:12 Aspirin 325 Mg Tab PO 325 mg QDAY MILTON Administration Colchicine 0.6 mg 09/23/20 10:00 09/30/20 09:12 Colchicine 0.6 Mg Tab PO 0.6 mg DAILY MILTON Administration Dextrose 50 ml 09/24/20 15:31 Dextrose 50% In Water (25gm) 50 Ml Syringe IV Q30MIN PRN Hypoglycemia Protocol Enoxaparin Sodium 40 mg 09/23/20 22:00 09/29/20 21:22 Enoxaparin 40 Mg/0.4 Ml Inj SUB-Q 40 mg QDAY@2200 MILTON Administration Protocol Hydralazine HCl 10 mg 09/23/20 14:23 Hydralazine 20 Mg/1 Ml Inj IV Q4HR PRN Hypertension Insulin Human Lispro 0 unit 09/24/20 16:30 09/30/20 13:28 Insulin Lispro 100 Unit/Ml SUB-Q Not Given ACHS [facility] Protocol Losartan Potassium 25 mg 09/28/20 14:00 09/30/20 09:12 Losartan 25 Mg Tab PO 25 mg QDAY MILTON Administration Metoprolol Tartrate 25 mg 09/26/20 22:00 09/30/20 09:12 Metoprolol Tartrate 25 Mg Tab PO 25 mg BID MILTON Administration Ondansetron HCl 4 mg 09/22/20 18:24 Ondansetron 4 Mg/2 Ml Inj IV Q8H PRN Nausea And Vomiting Oxycodone HCl 5 mg 09/30/20 12:00 09/30/20 14:46 Oxycodone 5 Mg Tab PO 5 mg Q8H PRN Administration Pain, Moderate (4-6) Sodium Chloride 10 ml 09/22/20 22:00 09/30/20 16:10 Sodium Chloride 0.9% 10 Ml Flush Syringe IV 10 ml BID MILTON Administration Sodium Chloride 10 ml 09/22/20 18:24 Sodium Chloride 0.9% 10 Ml Flush Syringe IV PRN PRN LINE FLUSH Tramadol HCl 50 mg 09/24/20 05:19 09/30/20 06:04 Tramadol 50 Mg Tab PO 50 mg Q6H PRN Administration Pain, Moderate (4-6) Nutrition/Malnutrition Assess - Dietary Evaluation Nutrition/Malnutrition Findings: Nutrition Notes Start: 09/23/20 11:00 Freq: Status: Active Protocol: Document 09/24/20 10:20 CW (Rec: 09/24/20 10:30 CW [email or web address]) Nutrition Notes Initial or Follow up Brief Note Current Diagnosis Acute Kidney Injury,Diabetes, Hypertension Other Pertinent Diagnosis Obesity Hypoventilation Syndrome, pneu, COVID, Rhabdomyolysis Current Diet Cardiac/Consistent CHO Labs/Tests BUN 26 Cr 0.7 Ca 8.3 Pertinent Medications Vitamin D3 Zinc Sulfate Height 5 ft 3 in Weight 86.183 kg [place] Body Weight (kg) 56.36 BMI 33.6 Weight Status Obese Subjective/Other Information F/U for weight and intakes. Intakes remain adeqaute 50 - 75% of meals which meets at least 75% of kcal and protein needs. Weight has remained stable. Renal related labs are improving. Adarsh score of 21 with intact skin. Pt did not answer phone x2. No reports of N/V/D/C. Diet being well tolerated Percent of energy/protein needs met: 78%/80% Skin Integrity/Comment Beaden Score 21 Minimum of two criteria No Fluid Accumulation Mild (non-severe) Is patient on ventilator? No Is Patient Ambulatory and/or Out of Bed Yes REE-(Bruni-[facility]-ambulatory/OOB) [ 2036.048 NUTR.MSJOOB] Kcal/Kg value to use for calculation 18 Approximate Energy Requirements Using 1551 kcal/Kg Calculation Used for Recommendations Kcal/kg Additional Notes PRO needs: 69-103g (0.8-1.2 g/ kg for JINA) Fluid needs: 1 mL/kcal or per MD Nutrition Intervention Change Diet Order: Continue Cardiac Consistent CHO Goal #1 Meet at least 75% of estimated energy and protein needs. Anticipated Discharge Needs: Cardiac/Consistent CHO Revisit per MD consult or patient Sign Off request: Additional Comments S/O Adequate PO intakes, Adarsh Score of 21
[2020-09-30] MEDS: oxyCODONE 5 MG TAB PO PRN ×2 (14:46→21:31)
[2020-09-30] MEDS: ENOXAPARIN 40 MG/0.4 ML INJ SUB-Q SCH (21:30)
[2020-10-01] MEDS: INSULIN LISPRO 100 UNIT/ML SUB-Q SCH ×4 (08:59→22:18)
[2020-10-01] MEDS: METOPROLOL TARTRATE 25 MG TAB PO SCH ×2 (09:39→21:11)
[2020-10-01] MEDS: LOSARTAN 25 MG TAB PO SCH (09:39)
[2020-10-01] MEDS: ASPIRIN 325 MG TAB PO SCH (09:39)
[2020-10-01] MEDS: COLCHICINE 0.6 MG TAB PO SCH (09:40)
--- NOTE | 2020-10-01 13:41 | Progress Note ---
Assessment and Plan Assessment and plan: Acute/subacute infarct -POA -09/22 CT head shows at least 3 small deep infarctions in the greater ganglioc apsular distribution, recommend MRI brain, extensive mucosal disease in the right sinus, anterior and mid ethmoid air cells on the right and in the right and left frontal sinuses. -09/23 MRI brain shows subacute infarctions involving the right meyer radiata -09/24 MRA head without contrast shows irregularity of the intracranial vessels at the left MCA trifurcation with no significant stenosis involving the distal internal carotid arteries -09/25 CTA h/n w/wo contrast shows groundglass opacities with peripheral subpleural predilection, no occlusion or significant stenosis of the carotid or vertebral arteries, no occlusion or significant stenosis of the major intracranial vasculature -09/24 TTE shows global left ventricular systolic function at the lower limits of normal, estimate ejection fraction 55%, mild concentric LVH, mild AR, mild MR, trace TR and no patent foramen ovale demonstrated by agitated saline contrast -09/28 VALDEZ shows normal LV size and function, no thrombus or vegetation, negative bubble study, mild MR. No apparent cardiac source of emboli noted. -Neurology consulted, appreciate recommendations -Aspirin and statin therapy -PT/OT consulted, appreciate recommendations -Maintain euthermia and euglycemia -Seizure/aspiration/fall precautions -Neurology recommends long-term cardiac monitoring -f/u with neurologist and dentist private practice (Dr. Gramajo within 2-3 weeks of [email or web address] ([phone])) Paraparesis with pain -Presented with rhabdomyolysis and a 3 to 4-day history of decreased movement per patient due to pain -Patient has a history of gout -09/24 x-ray of left lower extremity reports no acute fracture process -09/25 MRI T-spine shows no focal disc herniation, spinal canal stenosis or nerve root compression with normal thoracic spinal cord -09/25 L spine shows normal distal spinal cord, no enhancing intradural lesion, shallow disc protrusion at L2/L3 disc level like bilaterally more towards the left side, left neural foramina narrowed -09/30 L knee xray shows no acute process, osteoarthritis -PT/OT consulted, appreciate recommendations Elevated D-dimer -Presented with a D-dimer of 1568 -09/22 bilateral lower extremity Doppler ultrasound shows no evidence of DVT/SVT Rhabdomyolysis, improving -Presented with a creatinine kinase of 1354 -S/p 3 L normal saline in the emergency department -Trend creatinine -PT/OT consulted -Patient states that he has last moved for 4 days prior to presentation Transaminitis, improving -LFTs of presentation: AST 107, ALT 167, alk phos 161 -Trend LFTs -GI consulted, appreciate recommendations -09/23 abdominal ultrasound shows hepatomegaly with hepatic steatosis, multiple hyper echoic areas within the gallbladder could represent multiple polyps versus nonmobile gallstones, bilateral renal cysts - Per GI: -supportive care. -avoid hepatotoxins. -will sign off. patient to follow up with GI outpatient for hepatic st eatosis. Thrombocytosis -Presented with a platelet count of 633 -Trend CBC Hypertension -Resume home antihypertensive regimen and titrate as needed -Blood pressure monitoring per protocol -As needed IV hydralazine for SBP greater than 160 DVT prophylaxis -SCDs to bilateral lower extremities while in bed -Heparin subcu Discharge planning issues -Case management is attempting SNF placement -09/30 COVID 19 PCR pending -PT/OT recommend acute rehab and CM is looking for acute rehab placement Pneumonia -s/p Antibiotic therapy -Pulmonary hygiene -Supplement oxygen as needed -SPO2 monitoring Extensive sinusitis -Noted on CT head -s/p Antibiotic therapy History Interval history: This is a 59 YO Male with HTN and presented to the emergency department on 09/22 obesity hypoventilation syndrome with complaints of generalized weakness, fatigue, muscle aches, shortness of breath, dry cough over the past 2 weeks with worsening symptoms over the past 4 days with known COVID-19 exposure. The patient was found to have pneumonia, suspected coronavirus infection, transaminitis and rhabdomyolysis. Patient was admitted to the hospitalist service with consults to infectious disease and GI. Neurology and PT/OT consulted. 09/23: Today on examination patient is on room air and states that he has not moved in 4 days and complains of generalized weakness and fatigue. Today infectious disease, GI and PT/OT were consulted. No acute events reported overnight. We will obtain an acute hepatitis panel and abdominal ultrasound to further investigate his transaminitis. COVID-19 PCR pending 09/24: Patient's COVID-19 PCR was negative and he was transferred to the fourth floor. Patient received abdominal ultrasound and MRI brain was obtained due to left facial droop, right upper extremity and left lower extremity weakness which showed a subacute infarct. Neurology was consulted. PT/OT evaluation pending. No acute events reported overnight. 09/25: The time of my examination patient has drift to bilateral lower extremities with slight left-sided facial droop. No acute events reported overnight. Neurology has ordered for additional testing. 09/26: CTA of the head and neck showed no occlusion or significant stenosis. MRI of the spine revealed shallow disc protrusion at L2-L3 disc level laterally bilaterally but no other acute findings. Thoracic MRI negative. Continue PT/OT/ST. Neurology recommends VALDEZ. Cardiology consulted. ID recommends continuing ceftriaxone and azithromycin to complete 5 days. 09/27: Await VLADEZ by cardiology Monday to assess for cardioembolic source. Continue PT/OT/ST. Neurology following. Complete antibiotics for sinusitis/pneumonia. Physical therapy recommends rolling walker. Await final PT assessment for discharge planning/placement. 09/28: Awaiting PT/OT final recommendations, patient had his VALDEZ today which showed no cardioembolic source. Patient still has right upper extremity and left lower extremity weakness and pain with movement. Recommended DME ordered. 09/29: Patient still has right upper extremity and left lower extremity weakness and pain with movement. CM notes noted for awaiting SNF placement. No acute events reported overnight. 09/30: Patient complained of left knee pain and a CXR was obtained which showed no acute abnormality. Repeat COVID-19 test was ordered this morning for p ossible placement. No acute events reported overnight. Patient has increased strength 3/5 to affected upper and lower extremity. 10/01: His weakness is improving and per PT/OT recommendations CM is looking for acute rehab placement. Patient is medically clear for discharge. Hospitalist Physical - Physical exam Narrative exam: General appearance: Present: no acute distress, well-nourished - EENT Eyes: Present: PERRL, EOM intact ENT: hearing intact, clear oral mucosa - Neck Neck: Present: normal ROM - Respiratory Respiratory effort: normal Respiratory: bilateral: CTA - Cardiovascular Rhythm: regular Heart Sounds: Present: S1 & S2. Absent: systolic murmur, diastolic murmur - Extremities Extremities: no ischemia, pulses intact, pulses symmetrical, No edema, normal temperature, normal color, Full ROM Peripheral Pulses: within normal limits - Abdominal General gastrointestinal: soft, non-tender, non-distended, normal bowel sounds - Integumentary Integumentary: Present: clear, warm, dry - Psychiatric Psychiatric: cooperative - Neurologic Neurologic: CNII-XII intact, moves all extremities (moves left lower extremity with pain and has weakness to left lower extremity and right upper extremity 3- 4/5) - Allied Health Allied health notes reviewed: nursing - Constitutional Vitals: Temp Pulse Resp BP Pulse Ox 98.6 F 84 16 118/61 98 10/01/20 12:36 10/01/20 12:36 10/01/20 12:36 10/01/20 12:36 10/01/20 12:36 General appearance: Present: no acute distress, well-nourished HEART Score - HEART Score Troponin: Troponin T 0.060 ng/mL (0.00-0.029) H 09/22/20 16:10 Results - Labs CBC & Chem 7: 09/30/20 05:02 09/30/20 05:02 Labs: Laboratory Last Values WBC 9.3 K/mm3 (4.5-11.0) 09/30/20 05:02 RBC 3.60 M/mm3 (3.65-5.03) L 09/30/20 05:02 Hgb 11.1 gm/dl (11.8-15.2) L 09/30/20 05:02 Hct 32.9 % (35.5-45.6) L 09/30/20 05:02 MCV 91 fl (84-94) 09/30/20 05:02 MCH 31 pg (28-32) 09/30/20 05:02 MCHC 34 % (32-34) 09/30/20 05:02 RDW 13.5 % (13.2-15.2) 09/30/20 05:02 Plt Count 627 K/mm3 (140-440) H 09/30/20 05:02 Lymph % (Auto) 7.5 % (13.4-35.0) L 09/23/20 05:28 Dolores % (Auto) 3.8 % (0.0-7.3) 09/23/20 05:28 Eos % (Auto) 0.0 % (0.0-4.3) 09/23/20 05:28 Baso % (Auto) 0.1 % (0.0-1.8) 09/23/20 05:28 Lymph # (Auto) 0.6 K/mm3 (1.2-5.4) L 09/23/20 05:28 Dolores # (Auto) 0.3 K/mm3 (0.0-0.8) 09/23/20 05:28 Eos # (Auto) 0.0 K/mm3 (0.0-0.4) 09/23/20 05:28 Baso # (Auto) 0.0 K/mm3 (0.0-0.1) 09/23/20 05:28 Seg Neutrophils % 88.6 % (40.0-70.0) H 09/23/20 05:28 Seg Neutrophils # 7.4 K/mm3 (1.8-7.7) 09/23/20 05:28 PT 15.8 Sec. (12.2-14.9) H 09/25/20 04:58 INR 1.28 (0.87-1.13) H 09/25/20 04:58 D-Dimer 1258.68 ng/mlDDU (0-234) H 09/24/20 06:07 Sodium 138 mmol/L (137-145) 09/30/20 05:02 Potassium 3.7 mmol/L (3.6-5.0) 09/30/20 05:02 Chloride 103.6 mmol/L (98-107) 09/30/20 05:02 Carbon Dioxide 25 mmol/L (22-30) 09/30/20 05:02 Anion Gap 13 mmol/L 09/30/20 05:02 BUN 15 mg/dL (9-20) 09/30/20 05:02 Creatinine 0.7 mg/dL (0.8-1.3) L 09/30/20 05:02 Estimated GFR > 60 ml/min 09/30/20 05:02 BUN/Creatinine Ratio 21 % 09/30/20 05:02 Glucose 97 mg/dL (75-100) 09/30/20 05:02 POC Glucose 130 mg/dL (70-105) H 09/30/20 21:13 Hemoglobin A1c 6.6 % (4-6) H 09/24/20 16:47 Calcium 8.5 mg/dL (8.4-10.2) 09/30/20 05:02 Magnesium 2.80 mg/dL (1.7-2.3) H 09/22/20 16:10 Ferritin 1686.0 ng/mL (30.0-300.0) H 09/24/20 06:07 Total Bilirubin 0.50 mg/dL (0.1-1.2) 09/25/20 04:58 Direct Bilirubin 0.2 mg/dL (0-0.2) 09/25/20 04:58 Indirect Bilirubin 0.3 mg/dL 09/25/20 04:58 AST 48 units/L (5-40) H 09/25/20 04:58 ALT 108 units/L (7-56) H 09/25/20 04:58 Alkaline Phosphatase 147 units/L (35-129) H 09/25/20 04:58 Lactate Dehydrogenase 303 units/L (91-180) H 09/24/20 06:07 Total Creatine Kinase 365 units/L (55-170) H 09/24/20 06:07 Troponin T 0.060 ng/mL (0.00-0.029) H 09/22/20 16:10 C-Reactive Protein 7.20 mg/dL (0.00-1.30) H 09/24/20 06:07 NT-Pro-B Natriuret Pep 822.4 pg/mL (0-900) 09/22/20 16:10 Total Protein 7.0 g/dL (6.3-8.2) 09/25/20 04:58 Albumin 2.5 g/dL (3.9-5) L 09/25/20 04:58 Albumin/Globulin Ratio 0.6 % 09/25/20 04:58 Triglycerides 179 mg/dL (2-149) H 09/22/20 16:10 Cholesterol 182 mg/dL (50-199) 09/22/20 16:10 LDL Cholesterol Direct 110 mg/dL (50-130) 09/22/20 16:10 HDL Cholesterol 26 mg/dL (40-59) L 09/22/20 16:10 Cholesterol/HDL Ratio 7.00 % 09/22/20 16:10 Lipase 37 units/L (13-60) 09/22/20 16:10 Procalcitonin 0.76 ng/mL (<0.15) 09/22/20 16:10 TSH 1.620 mlU/mL (0.270-4.200) 09/22/20 16:10 Free T4 1.09 ng/dL (0.76-1.46) 09/22/20 16:10 Urine Color Poppy (Yellow) 09/22/20 Unknown Urine Turbidity Clear (Clear) 09/22/20 Unknown Urine pH 5.0 (5.0-7.0) 09/22/20 Unknown Ur Specific Strawn 1.023 (1.003-1.030) 09/22/20 Unknown Urine Protein <15 mg/dl mg/dL (Negative) 09/22/20 Unknown Urine Glucose (UA) Neg mg/dL (Negative) 09/22/20 Unknown Urine Ketones Neg mg/dL (Negative) 09/22/20 Unknown Urine Blood Neg (Negative) 09/22/20 Unknown Urine Nitrite Neg (Negative) 09/22/20 Unknown Urine Bilirubin Neg (Negative) 09/22/20 Unknown Urine Urobilinogen 4.0 mg/dL (<2.0) 09/22/20 Unknown Ur Leukocyte Esterase Neg (Negative) 09/22/20 Unknown Urine WBC (Auto) 1.0 /HPF (0.0-6.0) 09/22/20 Unknown Urine RBC (Auto) 2.0 /HPF (0.0-6.0) 09/22/20 Unknown U Epithel Cells (Auto) < 1.0 /HPF (0-13.0) 09/22/20 Unknown Urine Mucus Few /HPF 09/22/20 Unknown Salicylates < 0.3 mg/dL (2.8-20.0) L 09/22/20 16:10 Acetaminophen 5.0 ug/mL (10.0-30.0) L 09/22/20 16:10 Coronavirus (PCR) Negative (Negative) 09/23/20 Unknown Hepatitis A IgM Ab Non-reactive (NonReactive) 09/23/20 14:28 Hep Bs Antigen Non-reactive (Negative) 09/23/20 14:28 Hep B Core IgM Ab Non-reactive (NonReactive) 09/23/20 14:28 Hepatitis C Antibody Non-reactive (NonReactive) 09/23/20 14:28 [place]alante/IV: Voiding Method Urinal Active Medications - Current Medications Current Medications: Generic Name Dose Route Start Last Admin Trade Name Freq PRN Reason Stop Dose Admin Acetaminophen 650 mg 09/22/20 18:24 Acetaminophen 325 Mg Tab PO Q4H PRN Pain MILD(1-3)/Fever >100.5/PEREYRA Aspirin 325 mg 09/25/20 10:00 10/01/20 09:39 Aspirin 325 Mg Tab PO 325 mg QDAY MILTON Administration Colchicine 0.6 mg 09/23/20 10:00 10/01/20 09:40 Colchicine 0.6 Mg Tab PO 0.6 mg DAILY MILTON Administration Dextrose 50 ml 09/24/20 15:31 Dextrose 50% In Water (25gm) 50 Ml Syringe IV Q30MIN PRN Hypoglycemia Protocol Enoxaparin Sodium 40 mg 09/23/20 22:00 09/30/20 21:30 Enoxaparin 40 Mg/0.4 Ml Inj SUB-Q 40 mg QDAY@2200 MILTON Administration Protocol Hydralazine HCl 10 mg 09/23/20 14:23 Hydralazine 20 Mg/1 Ml Inj IV Q4HR PRN Hypertension Insulin Human Lispro 0 unit 09/24/20 16:30 10/01/20 12:40 Insulin Lispro 100 Unit/Ml SUB-Q Not Given ACHS [facility] Protocol Losartan Potassium 25 mg 09/28/20 14:00 10/01/20 09:39 Losartan 25 Mg Tab PO 25 mg QDAY MILTON Administration Metoprolol Tartrate 25 mg 09/26/20 22:00 10/01/20 09:39 Metoprolol Tartrate 25 Mg Tab PO 25 mg BID MILTON Administration Ondansetron HCl 4 mg 09/22/20 18:24 Ondansetron 4 Mg/2 Ml Inj IV Q8H PRN Nausea And Vomiting Oxycodone HCl 5 mg 09/30/20 12:00 09/30/20 21:31 Oxycodone 5 Mg Tab PO 5 mg Q8H PRN Administration Pain, Moderate (4-6) Sodium Chloride 10 ml 09/22/20 22:00 10/01/20 09:41 Sodium Chloride 0.9% 10 Ml Flush Syringe IV 10 ml BID MILTON Administration Sodium Chloride 10 ml 09/22/20 18:24 Sodium Chloride 0.9% 10 Ml Flush Syringe IV PRN PRN LINE FLUSH Tramadol HCl 50 mg 09/24/20 05:19 09/30/20 06:04 Tramadol 50 Mg Tab PO 50 mg Q6H PRN Administration Pain, Moderate (4-6) Nutrition/Malnutrition Assess - Dietary Evaluation Nutrition/Malnutrition Findings: Nutrition Notes Start: 09/23/20 11:00 Freq: Status: Active Protocol: Document 09/24/20 10:20 CW (Rec: 09/24/20 10:30 CW [id number]) Nutrition Notes Initial or Follow up Brief Note Current Diagnosis Acute Kidney Injury,Diabetes, Hypertension Other Pertinent Diagnosis Obesity Hypoventilation Syndrome, pneu, COVID, Rhabdomyolysis Current Diet Cardiac/Consistent CHO Labs/Tests BUN 26 Cr 0.7 Ca 8.3 Pertinent Medications Vitamin D3 Zinc Sulfate Height 5 ft 3 in Weight 86.183 kg [place] Body Weight (kg) 56.36 BMI 33.6 Weight Status Obese Subjective/Other Information F/U for weight and intakes. Intakes remain adeqaute 50 - 75% of meals which meets at least 75% of kcal and protein needs. Weight has remained stable. Renal related labs are improving. Adarsh score of 21 with intact skin. Pt did not answer phone x2. No reports of N/V/D/C. Diet being well tolerated Percent of energy/protein needs met: 78%/80% Skin Integrity/Comment Beaden Score 21 Minimum of two criteria No Fluid Accumulation Mild (non-severe) Is patient on ventilator? No Is Patient Ambulatory and/or Out of Bed Yes REE-([facility]-ambulatory/OOB) [ 7.048 [id number]] Kcal/Kg value to use for calculation 18 Approximate Energy Requirements Using 1551 kcal/Kg Calculation Used for Recommendations Kcal/kg Additional Notes PRO needs: 69-103g (0.8-1.2 g/ kg for JINA) Fluid needs: 1 mL/kcal or per MD Nutrition Intervention Change Diet Order: Continue Cardiac Consistent CHO Goal #1 Meet at least 75% of estimated energy and protein needs. Anticipated Discharge Needs: Cardiac/Consistent CHO Revisit per MD consult or patient Sign Off request: Additional Comments S/O Adequate PO intakes, Adarsh Score of 21
[2020-10-01] MEDS: oxyCODONE 5 MG TAB PO PRN (21:11)
[2020-10-01] MEDS: ENOXAPARIN 40 MG/0.4 ML INJ SUB-Q SCH (21:12)
[2020-10-02] MEDS: traMADol 50 MG TAB PO PRN (02:08)
[2020-10-02] MEDS: INSULIN LISPRO 100 UNIT/ML SUB-Q SCH ×4 (08:14→22:33)
[2020-10-02] MEDS: COLCHICINE 0.6 MG TAB PO SCH (09:20)
[2020-10-02] MEDS: METOPROLOL TARTRATE 25 MG TAB PO SCH ×2 (09:21→22:33)
[2020-10-02] MEDS: LOSARTAN 25 MG TAB PO SCH (09:21)
[2020-10-02] MEDS: ASPIRIN 325 MG TAB PO SCH (09:24)
[2020-10-02] MEDS: CYCLOBENZAPRINE 10 MG TAB PO PRN ×2 (12:29→22:33)
--- NOTE | 2020-10-02 15:10 | Progress Note ---
Assessment and Plan Assessment and plan: Acute/subacute infarct -POA -09/22 CT head shows at least 3 small deep infarctions in the greater ganglioc apsular distribution, recommend MRI brain, extensive mucosal disease in the right sinus, anterior and mid ethmoid air cells on the right and in the right and left frontal sinuses. -09/23 MRI brain shows subacute infarctions involving the right meyer radiata -09/24 MRA head without contrast shows irregularity of the intracranial vessels at the left MCA trifurcation with no significant stenosis involving the distal internal carotid arteries -09/25 CTA h/n w/wo contrast shows groundglass opacities with peripheral subpleural predilection, no occlusion or significant stenosis of the carotid or vertebral arteries, no occlusion or significant stenosis of the major intracranial vasculature -09/24 TTE shows global left ventricular systolic function at the lower limits of normal, estimate ejection fraction 55%, mild concentric LVH, mild AR, mild MR, trace TR and no patent foramen ovale demonstrated by agitated saline contrast -09/28 VALDEZ shows normal LV size and function, no thrombus or vegetation, negative bubble study, mild MR. No apparent cardiac source of emboli noted. -Neurology consulted, appreciate recommendations -Aspirin and statin therapy -PT/OT consulted, appreciate recommendations -Maintain euthermia and euglycemia -Seizure/aspiration/fall precautions -Neurology recommends long-term cardiac monitoring -f/u with neurologist and pecan picker (Dr. Gramajo within 2-3 weeks of dischar [employer] [facility] ([phone])) Paraparesis with pain -Presented with rhabdomyolysis and a 3 to 4-day history of decreased movement per patient due to pain -Patient has a history of gout -09/24 x-ray of left lower extremity reports no acute fracture process -09/25 MRI T-spine shows no focal disc herniation, spinal canal stenosis or nerve root compression with normal thoracic spinal cord -09/25 L spine shows normal distal spinal cord, no enhancing intradural lesion, shallow disc protrusion at L2/L3 disc level like bilaterally more towards the left side, left neural foramina narrowed -09/30 L knee xray shows no acute process, osteoarthritis -PT/OT consulted, appreciate recommendations Elevated D-dimer -Presented with a D-dimer of 1568 -09/22 bilateral lower extremity Doppler ultrasound shows no evidence of DVT/SVT Rhabdomyolysis, improving -Presented with a creatinine kinase of 1354 -S/p 3 L normal saline in the emergency department -Trend creatinine -PT/OT consulted -Patient states that he has not moved for 4 days prior to presentation Transaminitis, improving -LFTs of presentation: AST 107, ALT 167, alk phos 161 -Trend LFTs -GI consulted, appreciate recommendations -09/23 abdominal ultrasound shows hepatomegaly with hepatic steatosis, multiple hyper echoic areas within the gallbladder could represent multiple polyps versus nonmobile gallstones, bilateral renal cysts - Per GI: -supportive care. -avoid hepatotoxins. -will sign off. patient to follow up with GI outpatient for hepatic kimberly atosis. Thrombocytosis -Presented with a platelet count of 633 -Trend CBC Hypertension -Resume home antihypertensive regimen and titrate as needed -Blood pressure monitoring per protocol -As needed IV hydralazine for SBP greater than 160 DVT prophylaxis -SCDs to bilateral lower extremities while in bed -Heparin subcu Discharge planning issues -Case management is attempting SNF placement -09/30 COVID 19 PCR pending -PT/OT recommend acute rehab and CM is looking for acute rehab placement Pneumonia -s/p Antibiotic therapy -Pulmonary hygiene -Supplement oxygen as needed -SPO2 monitoring Extensive sinusitis -Noted on CT head -s/p Antibiotic therapy History Interval history: This is a 59 YO Male with HTN and presented to the emergency department on 09/22 obesity hypoventilation syndrome with complaints of generalized weakness, fatigue, muscle aches, shortness of breath, dry cough over the past 2 weeks with worsening symptoms over the past 4 days with known COVID-19 exposure. The patient was found to have pneumonia, suspected coronavirus infection, transaminitis and rhabdomyolysis. Patient was admitted to the hospitalist service with consults to infectious disease and GI. Neurology and PT/OT consulted. 09/23: Today on examination patient is on room air and states that he has not moved in 4 days and complains of generalized weakness and fatigue. Today infectious disease, GI and PT/OT were consulted. No acute events reported overnight. We will obtain an acute hepatitis panel and abdominal ultrasound to further investigate his transaminitis. COVID-19 PCR pending 09/24: Patient's COVID-19 PCR was negative and he was transferred to the fourth floor. Patient received abdominal ultrasound and MRI brain was obtained due to left facial droop, right upper extremity and left lower extremity weakness which showed a subacute infarct. Neurology was consulted. PT/OT evaluation pending. No acute events reported overnight. 09/25: The time of my examination patient has drift to bilateral lower extremities with slight left-sided facial droop. No acute events reported overnight. Neurology has ordered for additional testing. 09/26: CTA of the head and neck showed no occlusion or significant stenosis. MRI of the spine revealed shallow disc protrusion at L2-L3 disc level laterally bilaterally but no other acute findings. Thoracic MRI negative. Continue PT/OT/ST. Neurology recommends VALDEZ. Cardiology consulted. ID recommends continuing ceftriaxone and azithromycin to complete 5 days. 09/27: Await VALDEZ by cardiology Monday to assess for cardioembolic source. Continue PT/OT/ST. Neurology following. Complete antibiotics for sinusitis/pneumonia. Physical therapy recommends rolling walker. Await final PT assessment for discharge planning/placement. 09/28: Awaiting PT/OT final recommendations, patient had his VALDEZ today which showed no cardioembolic source. Patient still has right upper extremity and left lower extremity weakness and pain with movement. Recommended DME ordered. 09/29: Patient still has right upper extremity and left lower extremity weakness and pain with movement. CM notes noted for awaiting SNF placement. No acute events reported overnight. 09/30: Patient complained of left knee pain and a CXR was obtained which showed no acute abnormality. Repeat COVID-19 test was ordered this morning for po ssible placement. No acute events reported overnight. Patient has increased strength 3/5 to affected upper and lower extremity. 10/01: His weakness is improving and per PT/OT recommendations CM is looking for acute rehab placement. Patient is medically clear for discharge. 10/02: Seen in conjunction with physical therapy this morning. Patient has remarkably improved in terms of weakness. Patient states that his muscles are cramping and is requesting for muscle relaxant. No acute events reported overnight. Hospitalist Physical - Physical exam Narrative exam: General appearance: Present: no acute distress, well-nourished - EENT Eyes: Present: PERRL, EOM intact ENT: hearing intact, clear oral mucosa - Neck Neck: Present: normal ROM - Respiratory Respiratory effort: normal Respiratory: bilateral: CTA - Cardiovascular Rhythm: regular Heart Sounds: Present: S1 & S2. Absent: systolic murmur, diastolic murmur - Extremities Extremities: no ischemia, pulses intact, pulses symmetrical, No edema, normal temperature, normal color, Full ROM Peripheral Pulses: within normal limits - Abdominal General gastrointestinal: soft, non-tender, non-distended, normal bowel sounds - Integumentary Integumentary: Present: clear, warm, dry - Psychiatric Psychiatric: cooperative - Neurologic Neurologic: CNII-XII intact, moves all extremities (weakness to left lower extremity and right upper extremity 3-4/5) - Allied Health Allied health notes reviewed: nursing - Constitutional Vitals: Temp Pulse Resp BP Pulse Ox 98.3 F 99 H 20 117/70 98 10/02/20 07:41 10/02/20 09:21 10/02/20 07:58 10/02/20 09:21 10/02/20 07:58 General appearance: Present: no acute distress, well-nourished HEART Score - HEART Score Troponin: Troponin T 0.060 ng/mL (0.00-0.029) H 09/22/20 16:10 Results - Labs CBC & Chem 7: 09/30/20 05:02 09/30/20 05:02 Labs: Laboratory Last Values WBC 9.3 K/mm3 (4.5-11.0) 09/30/20 05:02 RBC 3.60 M/mm3 (3.65-5.03) L 09/30/20 05:02 Hgb 11.1 gm/dl (11.8-15.2) L 09/30/20 05:02 Hct 32.9 % (35.5-45.6) L 09/30/20 05:02 MCV 91 fl (84-94) 09/30/20 05:02 MCH 31 pg (28-32) 09/30/20 05:02 MCHC 34 % (32-34) 09/30/20 05:02 RDW 13.5 % (13.2-15.2) 09/30/20 05:02 Plt Count 627 K/mm3 (140-440) H 09/30/20 05:02 Lymph % (Auto) 7.5 % (13.4-35.0) L 09/23/20 05:28 Brantley % (Auto) 3.8 % (0.0-7.3) 09/23/20 05:28 Eos % (Auto) 0.0 % (0.0-4.3) 09/23/20 05:28 Baso % (Auto) 0.1 % (0.0-1.8) 09/23/20 05:28 Lymph # (Auto) 0.6 K/mm3 (1.2-5.4) L 09/23/20 05:28 Brantley # (Auto) 0.3 K/mm3 (0.0-0.8) 09/23/20 05:28 Eos # (Auto) 0.0 K/mm3 (0.0-0.4) 09/23/20 05:28 Baso # (Auto) 0.0 K/mm3 (0.0-0.1) 09/23/20 05:28 Seg Neutrophils % 88.6 % (40.0-70.0) H 09/23/20 05:28 Seg Neutrophils # 7.4 K/mm3 (1.8-7.7) 09/23/20 05:28 PT 15.8 Sec. (12.2-14.9) H 09/25/20 04:58 INR 1.28 (0.87-1.13) H 09/25/20 04:58 D-Dimer 1258.68 ng/mlDDU (0-234) H 09/24/20 06:07 Sodium 138 mmol/L (137-145) 09/30/20 05:02 Potassium 3.7 mmol/L (3.6-5.0) 09/30/20 05:02 Chloride 103.6 mmol/L (98-107) 09/30/20 05:02 Carbon Dioxide 25 mmol/L (22-30) 09/30/20 05:02 Anion Gap 13 mmol/L 09/30/20 05:02 BUN 15 mg/dL (9-20) 09/30/20 05:02 Creatinine 0.7 mg/dL (0.8-1.3) L 09/30/20 05:02 Estimated GFR > 60 ml/min 09/30/20 05:02 BUN/Creatinine Ratio 21 % 09/30/20 05:02 Glucose 97 mg/dL (75-100) 09/30/20 05:02 POC Glucose 89 mg/dL (70-105) 10/02/20 07:40 Hemoglobin A1c 6.6 % (4-6) H 09/24/20 16:47 Calcium 8.5 mg/dL (8.4-10.2) 09/30/20 05:02 Magnesium 2.80 mg/dL (1.7-2.3) H 09/22/20 16:10 Ferritin 1686.0 ng/mL (30.0-300.0) H 09/24/20 06:07 Total Bilirubin 0.50 mg/dL (0.1-1.2) 09/25/20 04:58 Direct Bilirubin 0.2 mg/dL (0-0.2) 09/25/20 04:58 Indirect Bilirubin 0.3 mg/dL 09/25/20 04:58 AST 48 units/L (5-40) H 09/25/20 04:58 ALT 108 units/L (7-56) H 09/25/20 04:58 Alkaline Phosphatase 147 units/L (35-129) H 09/25/20 04:58 Lactate Dehydrogenase 303 units/L (91-180) H 09/24/20 06:07 Total Creatine Kinase 365 units/L (55-170) H 09/24/20 06:07 Troponin T 0.060 ng/mL (0.00-0.029) H 09/22/20 16:10 C-Reactive Protein 7.20 mg/dL (0.00-1.30) H 09/24/20 06:07 NT-Pro-B Natriuret Pep 822.4 pg/mL (0-900) 09/22/20 16:10 Total Protein 7.0 g/dL (6.3-8.2) 09/25/20 04:58 Albumin 2.5 g/dL (3.9-5) L 09/25/20 04:58 Albumin/Globulin Ratio 0.6 % 09/25/20 04:58 Triglycerides 179 mg/dL (2-149) H 09/22/20 16:10 Cholesterol 182 mg/dL (50-199) 09/22/20 16:10 LDL Cholesterol Direct 110 mg/dL (50-130) 09/22/20 16:10 HDL Cholesterol 26 mg/dL (40-59) L 09/22/20 16:10 Cholesterol/HDL Ratio 7.00 % 09/22/20 16:10 Lipase 37 units/L (13-60) 09/22/20 16:10 Procalcitonin 0.76 ng/mL (<0.15) 09/22/20 16:10 TSH 1.620 mlU/mL (0.270-4.200) 09/22/20 16:10 Free T4 1.09 ng/dL (0.76-1.46) 09/22/20 16:10 Urine Color Poppy (Yellow) 09/22/20 Unknown Urine Turbidity Clear (Clear) 09/22/20 Unknown Urine pH 5.0 (5.0-7.0) 09/22/20 Unknown Ur Specific Orange 1.023 (1.003-1.030) 09/22/20 Unknown Urine Protein <15 mg/dl mg/dL (Negative) 09/22/20 Unknown Urine Glucose (UA) Neg mg/dL (Negative) 09/22/20 Unknown Urine Ketones Neg mg/dL (Negative) 09/22/20 Unknown Urine Blood Neg (Negative) 09/22/20 Unknown Urine Nitrite Neg (Negative) 09/22/20 Unknown Urine Bilirubin Neg (Negative) 09/22/20 Unknown Urine Urobilinogen 4.0 mg/dL (<2.0) 09/22/20 Unknown Ur Leukocyte Esterase Neg (Negative) 09/22/20 Unknown Urine WBC (Auto) 1.0 /HPF (0.0-6.0) 09/22/20 Unknown Urine RBC (Auto) 2.0 /HPF (0.0-6.0) 09/22/20 Unknown U Epithel Cells (Auto) < 1.0 /HPF (0-13.0) 09/22/20 Unknown Urine Mucus Few /HPF 09/22/20 Unknown Salicylates < 0.3 mg/dL (2.8-20.0) L 09/22/20 16:10 Acetaminophen 5.0 ug/mL (10.0-30.0) L 09/22/20 16:10 Coronavirus (PCR) Negative (Negative) 10/01/20 07:21 Hepatitis A IgM Ab Non-reactive (NonReactive) 09/23/20 14:28 Hep Bs Antigen Non-reactive (Negative) 09/23/20 14:28 Hep B Core IgM Ab Non-reactive (NonReactive) 09/23/20 14:28 Hepatitis C Antibody Non-reactive (NonReactive) 09/23/20 14:28 [place]/IV: Voiding Method Bedside Commode Active Medications - Current Medications Current Medications: Generic Name Dose Route Start Last Admin Trade Name Freq PRN Reason Stop Dose Admin Acetaminophen 650 mg 09/22/20 18:24 Acetaminophen 325 Mg Tab PO Q4H PRN Pain MILD(1-3)/Fever >100.5/PEREYRA Aspirin 325 mg 09/25/20 10:00 10/02/20 09:24 Aspirin 325 Mg Tab PO 325 mg QDAY MILTON Administration Colchicine 0.6 mg 09/23/20 10:00 10/02/20 09:20 Colchicine 0.6 Mg Tab PO 0.6 mg DAILY MILTON Administration Cyclobenzaprine HCl 5 mg 10/02/20 12:30 10/02/20 12:29 Cyclobenzaprine 10 Mg Tab PO 5 mg Q8H PRN Administration Muscle Spasm Dextrose 50 ml 09/24/20 15:31 Dextrose 50% In Water (25gm) 50 Ml Syringe IV Q30MIN PRN Hypoglycemia Protocol Enoxaparin Sodium 40 mg 09/23/20 22:00 10/01/20 21:12 Enoxaparin 40 Mg/0.4 Ml Inj SUB-Q 40 mg QDAY@2200 MILTON Administration Protocol Hydralazine HCl 10 mg 09/23/20 14:23 Hydralazine 20 Mg/1 Ml Inj IV Q4HR PRN Hypertension Insulin Human Lispro 0 unit 09/24/20 16:30 10/02/20 12:26 Insulin Lispro 100 Unit/Ml SUB-Q Not Given ACHS [facility] Protocol Losartan Potassium 25 mg 09/28/20 14:00 10/02/20 09:21 Losartan 25 Mg Tab PO 25 mg QDAY MILTON Administration Metoprolol Tartrate 25 mg 09/26/20 22:00 10/02/20 09:21 Metoprolol Tartrate 25 Mg Tab PO 25 mg BID MILTON Administration Ondansetron HCl 4 mg 09/22/20 18:24 Ondansetron 4 Mg/2 Ml Inj IV Q8H PRN Nausea And Vomiting Oxycodone HCl 5 mg 09/30/20 12:00 10/01/20 21:11 Oxycodone 5 Mg Tab PO 5 mg Q8H PRN Administration Pain, Moderate (4-6) Sodium Chloride 10 ml 09/22/20 22:00 10/02/20 09:22 Sodium Chloride 0.9% 10 Ml Flush Syringe IV 10 ml BID MILTON Administration Sodium Chloride 10 ml 09/22/20 18:24 Sodium Chloride 0.9% 10 Ml Flush Syringe IV PRN PRN LINE FLUSH Tramadol HCl 50 mg 09/24/20 05:19 10/02/20 02:08 Tramadol 50 Mg Tab PO 50 mg Q6H PRN Administration Pain, Moderate (4-6) Nutrition/Malnutrition Assess - Dietary Evaluation Nutrition/Malnutrition Findings: Nutrition Notes Start: 09/23/20 11:00 Freq: Status: Active Protocol: Document 09/24/20 10:20 CW (Rec: 09/24/20 10:30 CW [id number]) Nutrition Notes Initial or Follow up Brief Note Current Diagnosis Acute Kidney Injury,Diabetes, Hypertension Other Pertinent Diagnosis Obesity Hypoventilation Syndrome, pneu, COVID, Rhabdomyolysis Current Diet Cardiac/Consistent CHO Labs/Tests BUN 26 Cr 0.7 Ca 8.3 Pertinent Medications Vitamin D3 Zinc Sulfate Height 5 ft 3 in Weight 86.183 kg [place] Body Weight (kg) 56.36 BMI 33.6 Weight Status Obese Subjective/Other Information F/U for weight and intakes. Intakes remain adeqaute 50 - 75% of meals which meets at least 75% of kcal and protein needs. Weight has remained stable. Renal related labs are improving. Adarsh score of 21 with intact skin. Pt did not answer phone x2. No reports of N/V/D/C. Diet being well tolerated Percent of energy/protein needs met: 78%/80% Skin Integrity/Comment Beaden Score 21 Minimum of two criteria No Fluid Accumulation Mild (non-severe) Is patient on ventilator? No Is Patient Ambulatory and/or Out of Bed Yes REE-([facility]-ambulatory/OOB) [ 2036.048 [id number]] Kcal/Kg value to use for calculation 18 Approximate Energy Requirements Using 1551 kcal/Kg Calculation Used for Recommendations Kcal/kg Additional Notes PRO needs: 69-103g (0.8-1.2 g/ kg for JINA) Fluid needs: 1 mL/kcal or per MD Nutrition Intervention Change Diet Order: Continue Cardiac Consistent CHO Goal #1 Meet at least 75% of estimated energy and protein needs. Anticipated Discharge Needs: Cardiac/Consistent CHO Revisit per MD consult or patient Sign Off request: Additional Comments S/O Adequate PO intakes, Adarsh Score of 21
[2020-10-02] MEDS: ENOXAPARIN 40 MG/0.4 ML INJ SUB-Q SCH (22:34)
[2020-10-03] MEDS: ACETAMINOPHEN 325 MG TAB PO PRN (00:01)
[2020-10-03] MEDS: CYCLOBENZAPRINE 10 MG TAB PO PRN ×2 (05:33→22:21)
[2020-10-03] MEDS: INSULIN LISPRO 100 UNIT/ML SUB-Q SCH ×4 (09:09→22:23)
[2020-10-03] MEDS: COLCHICINE 0.6 MG TAB PO SCH (09:12)
[2020-10-03] MEDS: METOPROLOL TARTRATE 25 MG TAB PO SCH ×2 (09:13→22:22)
[2020-10-03] MEDS: ASPIRIN 325 MG TAB PO SCH (09:13)
[2020-10-03] MEDS: LOSARTAN 25 MG TAB PO SCH (09:13)
[2020-10-03 09:33] LABS: Basophils # (Auto) 0.1 K/mm3 (0.0-0.1); Basophils % (Auto) 1.2 % (0.0-1.8); Eosinophils # (Auto) 0.1 K/mm3 (0.0-0.4); Eosinophils % (Auto) 0.6 % (0.0-4.3); Hematocrit 33.5 % (35.5-45.6); Lymphocytes # (Auto) 1.8 K/mm3 (1.2-5.4); Lymphocytes % (Auto) 14.5 % (13.4-35.0); Mean Corpuscular HGB Conc 33 % (32-34); Mean Corpuscular Volume 91 fl (84-94); Monocytes # (Auto) 0.9 K/mm3 (0.0-0.8); Monocytes % (Auto) 7.7 % (0.0-7.3); Platelet Count 498 K/mm3 (140-440); Red Blood Count 3.69 M/mm3 (3.65-5.03); Red Cell Distribution Width 13.8 % (13.2-15.2)
--- NOTE | 2020-10-03 09:35 | XRay Report ---
CHEST 1 VIEW INDICATION: Pneumonia. COMPARISON: None. FINDINGS: Support devices: None. Heart: Normal. Lungs/Pleura: Streaky bibasilar opacities are likely atelectatic. No pleural abnormality. IMPRESSION: 1. No acute findings. Signer Name: Ronan Burgos MD Signed: 10/03/2020 9:31 AM Workstation Name: [id number]
[2020-10-03 09:39] LABS: Alanine Aminotransferase 65 units/L (7-56); Albumin 2.4 g/dL (3.9-5); BUN/Creatinine Ratio 22; Blood Urea Nitrogen 13 mg/dL (9-20); Calcium 8.3 mg/dL (8.4-10.2); Hemolysis Index 26
--- NOTE | 2020-10-03 10:44 | Progress Note ---
Assessment and Plan Assessment and plan: Acute/subacute infarct -POA -09/22 CT head shows at least 3 small deep infarctions in the greater ganglioc apsular distribution, recommend MRI brain, extensive mucosal disease in the right sinus, anterior and mid ethmoid air cells on the right and in the right and left frontal sinuses. -09/23 MRI brain shows subacute infarctions involving the right meyer radiata -09/24 MRA head without contrast shows irregularity of the intracranial vessels at the left MCA trifurcation with no significant stenosis involving the distal internal carotid arteries -09/25 CTA h/n w/wo contrast shows groundglass opacities with peripheral subpleural predilection, no occlusion or significant stenosis of the carotid or vertebral arteries, no occlusion or significant stenosis of the major intracranial vasculature -09/24 TTE shows global left ventricular systolic function at the lower limits of normal, estimate ejection fraction 55%, mild concentric LVH, mild AR, mild MR, trace TR and no patent foramen ovale demonstrated by agitated saline contrast -09/28 VALDEZ shows normal LV size and function, no thrombus or vegetation, negative bubble study, mild MR. No apparent cardiac source of emboli noted. -Neurology consulted, appreciate recommendations -Aspirin and statin therapy -PT/OT consulted, appreciate recommendations -Maintain euthermia and euglycemia -Seizure/aspiration/fall precautions -Neurology recommends long-term cardiac monitoring -f/u with neurologist and milk vendor (Dr. Gramajo within 2-3 weeks of dischar [employer] ([phone])) Paraparesis with pain -Presented with rhabdomyolysis and a 3 to 4-day history of decreased movement per patient due to pain -Patient has a history of gout -09/24 x-ray of left lower extremity reports no acute fracture process -09/25 MRI T-spine shows no focal disc herniation, spinal canal stenosis or nerve root compression with normal thoracic spinal cord -09/25 L spine shows normal distal spinal cord, no enhancing intradural lesion, shallow disc protrusion at L2/L3 disc level like bilaterally more towards the left side, left neural foramina narrowed -09/30 L knee xray shows no acute process, osteoarthritis -PT/OT consulted, appreciate recommendations Elevated D-dimer -Presented with a D-dimer of 1568 -09/22 bilateral lower extremity Doppler ultrasound shows no evidence of DVT/SVT Rhabdomyolysis, improving -Presented with a creatinine kinase of 1354 -S/p 3 L normal saline in the emergency department -Trend creatinine -PT/OT consulted -Patient states that he has not moved for 4 days prior to presentation Transaminitis, improving -LFTs of presentation: AST 107, ALT 167, alk phos 161 -Trend LFTs -GI consulted, appreciate recommendations -09/23 abdominal ultrasound shows hepatomegaly with hepatic steatosis, multiple hyper echoic areas within the gallbladder could represent multiple polyps versus nonmobile gallstones, bilateral renal cysts - Per GI: -supportive care. -avoid hepatotoxins. -will sign off. patient to follow up with GI outpatient for hepatic kimberly atosis. Thrombocytosis -Presented with a platelet count of 633 -Trend CBC Hypertension -Resume home antihypertensive regimen and titrate as needed -Blood pressure monitoring per protocol -As needed IV hydralazine for SBP greater than 160 DVT prophylaxis -SCDs to bilateral lower extremities while in bed -Heparin subcu Discharge planning issues -Case management is attempting SNF placement -09/30 COVID 19 PCR pending -PT/OT recommend acute rehab and CM is looking for acute rehab placement Pneumonia -s/p Antibiotic therapy -Pulmonary hygiene -Supplement oxygen as needed -SPO2 monitoring Extensive sinusitis -Noted on CT head -s/p Antibiotic therapy DVT ppx - heparin History Interval history: This is a 59 YO Male with HTN and presented to the emergency department on 09/22 obesity hypoventilation syndrome with complaints of generalized weakness, f atigue, muscle aches, shortness of breath, dry cough over the past 2 weeks with worsening symptoms over the past 4 days with known COVID-19 exposure. The patient was found to have pneumonia, suspected coronavirus infection, transaminitis and rhabdomyolysis. Patient was admitted to the hospitalist service with consults to infectious disease and GI. Neurology and PT/OT consulted. 09/23: Today on examination patient is on room air and states that he has not moved in 4 days and complains of generalized weakness and fatigue. Today infectious disease, GI and PT/OT were consulted. No acute events reported overnight. We will obtain an acute hepatitis panel and abdominal ultrasound to further investigate his transaminitis. COVID-19 PCR pending 09/24: Patient's COVID-19 PCR was negative and he was transferred to the fourth floor. Patient received abdominal ultrasound and MRI brain was obtained due to left facial droop, right upper extremity and left lower extremity weakness which showed a subacute infarct. Neurology was consulted. PT/OT evaluation pending. No acute events reported overnight. 09/25: The time of my examination patient has drift to bilateral lower extremities with slight left-sided facial droop. No acute events reported overnight. Neurology has ordered for additional testing. 09/26: CTA of the head and neck showed no occlusion or significant stenosis. MRI of the spine revealed shallow disc protrusion at L2-L3 disc level laterally bilaterally but no other acute findings. Thoracic MRI negative. Continue PT/OT/ST. Neurology recommends VALDEZ. Cardiology consulted. ID recommends continuing ceftriaxone and azithromycin to complete 5 days. 09/27: Await VALDEZ by cardiology Monday to assess for cardioembolic source. Continue PT/OT/ST. Neurology following. Complete antibiotics for sinusitis/pneumonia. Physical therapy recommends rolling walker. Await final P T assessment for discharge planning/placement. 09/28: Awaiting PT/OT final recommendations, patient had his VALDEZ today which showed no cardioembolic source. Patient still has right upper extremity and left lower extremity weakness and pain with movement. Recommended DME ordered. 09/29: Patient still has right upper extremity and left lower extremity weakness and pain with movement. CM notes noted for awaiting SNF placement. No acute events reported overnight. 09/30: Patient complained of left knee pain and a CXR was obtained which showed no acute abnormality. Repeat COVID-19 test was ordered this morning for possible placement. No acute events reported overnight. Patient has increased strength 3/5 to affected upper and lower extremity. 10/01: His weakness is improving and per PT/OT recommendations CM is looking for acute rehab placement. Patient is medically clear for discharge. 10/02: Seen in conjunction with physical therapy this morning. Patient has remarkably improved in terms of weakness. Patient states that his muscles are cramping and is requesting for muscle relaxant. No acute events reported overnight. 10/03: Had Temp >101F. Ordered blood cultures, UA, chest xray. Monitor vital signs. Labs ordered. Hospitalist Physical - Physical exam Narrative exam: VITAL SIGNS: Reviewed. GENERAL: Awake HEAD: No signs of head trauma. EYES: Pupils are equal. Extraocular motions intact. MOUTH: Oropharynx is normal. NECK: No adenopathy, no JVD. CHEST: Chest with diminished breath sounds bilaterally. No wheezes, rales, or rhonchi. CARDIAC: normal S1 and S2, without murmurs, gallops, or rubs. ABDOMEN: Soft, non tender and non distended. No rebound or guarding, and no masses palpated. Bowel Sounds normal. MUSCULOSKELETAL: No edema NEUROLOGIC EXAM: Alert and oriented x3. No focal neurologic deficits SKIN: No obvious lesions - Constitutional Vitals: Temp Pulse Resp BP Pulse Ox 97.9 F 102 H 20 110/70 98 10/03/20 08:33 10/03/20 08:33 10/03/20 05:02 10/03/20 09:13 10/03/20 08:33 General appearance: Present: well-nourished HEART Score - HEART Score Troponin: Troponin T 0.060 ng/mL (0.00-0.029) H 09/22/20 16:10 Results - Labs CBC & Chem 7: 10/03/20 08:16 10/03/20 08:16 Labs: Laboratory Last Values WBC 12.2 K/mm3 (4.5-11.0) H 10/03/20 08:16 RBC 3.69 M/mm3 (3.65-5.03) 10/03/20 08:16 Hgb 11.0 gm/dl (11.8-15.2) L 10/03/20 08:16 Hct 33.5 % (35.5-45.6) L 10/03/20 08:16 MCV 91 fl (84-94) 10/03/20 08:16 MCH 30 pg (28-32) 10/03/20 08:16 MCHC 33 % (32-34) 10/03/20 08:16 RDW 13.8 % (13.2-15.2) 10/03/20 08:16 Plt Count 498 K/mm3 (140-440) H 10/03/20 08:16 Lymph % (Auto) 14.5 % (13.4-35.0) 10/03/20 08:16 Hood % (Auto) 7.7 % (0.0-7.3) H 10/03/20 08:16 Eos % (Auto) 0.6 % (0.0-4.3) 10/03/20 08:16 Baso % (Auto) 1.2 % (0.0-1.8) 10/03/20 08:16 Lymph # (Auto) 1.8 K/mm3 (1.2-5.4) 10/03/20 08:16 Hood # (Auto) 0.9 K/mm3 (0.0-0.8) H 10/03/20 08:16 Eos # (Auto) 0.1 K/mm3 (0.0-0.4) 10/03/20 08:16 Baso # (Auto) 0.1 K/mm3 (0.0-0.1) 10/03/20 08:16 Seg Neutrophils % 76.0 % (40.0-70.0) H 10/03/20 08:16 Seg Neutrophils # 9.2 K/mm3 (1.8-7.7) H 10/03/20 08:16 PT 15.8 Sec. (12.2-14.9) H 09/25/20 04:58 INR 1.28 (0.87-1.13) H 09/25/20 04:58 D-Dimer 1258.68 ng/mlDDU (0-234) H 09/24/20 06:07 Sodium 136 mmol/L (137-145) L 10/03/20 08:16 Potassium 4.0 mmol/L (3.6-5.0) 10/03/20 08:16 Chloride 102.7 mmol/L (98-107) 10/03/20 08:16 Carbon Dioxide 26 mmol/L (22-30) 10/03/20 08:16 Anion Gap 11 mmol/L 10/03/20 08:16 BUN 13 mg/dL (9-20) 10/03/20 08:16 Creatinine 0.6 mg/dL (0.8-1.3) L 10/03/20 08:16 Estimated GFR > 60 ml/min 10/03/20 08:16 BUN/Creatinine Ratio 22 % 10/03/20 08:16 Glucose 95 mg/dL (75-100) 10/03/20 08:16 POC Glucose 97 mg/dL (70-105) 10/03/20 08:30 Hemoglobin A1c 6.6 % (4-6) H 09/24/20 16:47 Calcium 8.3 mg/dL (8.4-10.2) L 10/03/20 08:16 Magnesium 2.80 mg/dL (1.7-2.3) H 09/22/20 16:10 Ferritin 1686.0 ng/mL (30.0-300.0) H 09/24/20 06:07 Total Bilirubin 0.40 mg/dL (0.1-1.2) 10/03/20 08:16 Direct Bilirubin 0.2 mg/dL (0-0.2) 09/25/20 04:58 Indirect Bilirubin 0.3 mg/dL 09/25/20 04:58 AST 26 units/L (5-40) 10/03/20 08:16 ALT 65 units/L (7-56) H 10/03/20 08:16 Alkaline Phosphatase 118 units/L (35-129) 10/03/20 08:16 Lactate Dehydrogenase 303 units/L (91-180) H 09/24/20 06:07 Total Creatine Kinase 365 units/L (55-170) H 09/24/20 06:07 Troponin T 0.060 ng/mL (0.00-0.029) H 09/22/20 16:10 C-Reactive Protein 7.20 mg/dL (0.00-1.30) H 09/24/20 06:07 NT-Pro-B Natriuret Pep 822.4 pg/mL (0-900) 09/22/20 16:10 Total Protein 7.0 g/dL (6.3-8.2) 10/03/20 08:16 Albumin 2.4 g/dL (3.9-5) L 10/03/20 08:16 Albumin/Globulin Ratio 0.5 % 10/03/20 08:16 Triglycerides 179 mg/dL (2-149) H 09/22/20 16:10 Cholesterol 182 mg/dL (50-199) 09/22/20 16:10 LDL Cholesterol Direct 110 mg/dL (50-130) 09/22/20 16:10 HDL Cholesterol 26 mg/dL (40-59) L 09/22/20 16:10 Cholesterol/HDL Ratio 7.00 % 09/22/20 16:10 Lipase 37 units/L (13-60) 09/22/20 16:10 Procalcitonin 0.76 ng/mL (<0.15) 09/22/20 16:10 TSH 1.620 mlU/mL (0.270-4.200) 09/22/20 16:10 Free T4 1.09 ng/dL (0.76-1.46) 09/22/20 16:10 Urine Color Poppy (Yellow) 09/22/20 Unknown Urine Turbidity Clear (Clear) 09/22/20 Unknown Urine pH 5.0 (5.0-7.0) 09/22/20 Unknown Ur Specific [place] 1.023 (1.003-1.030) 09/22/20 Unknown Urine Protein <15 mg/dl mg/dL (Negative) 09/22/20 Unknown Urine Glucose (UA) Neg mg/dL (Negative) 09/22/20 Unknown Urine Ketones Neg mg/dL (Negative) 09/22/20 Unknown Urine Blood Neg (Negative) 09/22/20 Unknown Urine Nitrite Neg (Negative) 09/22/20 Unknown Urine Bilirubin Neg (Negative) 09/22/20 Unknown Urine Urobilinogen 4.0 mg/dL (<2.0) 09/22/20 Unknown Ur Leukocyte Esterase Neg (Negative) 09/22/20 Unknown Urine WBC (Auto) 1.0 /HPF (0.0-6.0) 09/22/20 Unknown Urine RBC (Auto) 2.0 /HPF (0.0-6.0) 09/22/20 Unknown U Epithel Cells (Auto) < 1.0 /HPF (0-13.0) 09/22/20 Unknown Urine Mucus Few /HPF 09/22/20 Unknown Salicylates < 0.3 mg/dL (2.8-20.0) L 09/22/20 16:10 Acetaminophen 5.0 ug/mL (10.0-30.0) L 09/22/20 16:10 Coronavirus (PCR) Negative (Negative) 10/01/20 07:21 Hepatitis A IgM Ab Non-reactive (NonReactive) 09/23/20 14:28 Hep Bs Antigen Non-reactive (Negative) 09/23/20 14:28 Hep B Core IgM Ab Non-reactive (NonReactive) 09/23/20 14:28 Hepatitis C Antibody Non-reactive (NonReactive) 09/23/20 14:28 [place]/IV: Voiding Method Bedside Commode Active Medications - Current Medications Current Medications: Generic Name Dose Route Start Last Admin Trade Name Freq PRN Reason Stop Dose Admin Acetaminophen 650 mg 09/22/20 18:24 10/03/20 00:01 Acetaminophen 325 Mg Tab PO 650 mg Q4H PRN Administration Pain MILD(1-3)/Fever >100.5/PEREYRA Aspirin 325 mg 09/25/20 10:00 10/03/20 09:13 Aspirin 325 Mg Tab PO 325 mg QDAY MILTON Administration Colchicine 0.6 mg 09/23/20 10:00 10/03/20 09:12 Colchicine 0.6 Mg Tab PO 0.6 mg DAILY MILTON Administration Cyclobenzaprine HCl 5 mg 10/02/20 12:30 10/03/20 05:33 Cyclobenzaprine 10 Mg Tab PO 5 mg Q8H PRN Administration Muscle Spasm Dextrose 50 ml 09/24/20 15:31 Dextrose 50% In Water (25gm) 50 Ml Syringe IV Q30MIN PRN Hypoglycemia Protocol Enoxaparin Sodium 40 mg 09/23/20 22:00 10/02/20 22:34 Enoxaparin 40 Mg/0.4 Ml Inj SUB-Q 40 mg QDAY@2200 [facility] Administration Protocol Hydralazine HCl 10 mg 09/23/20 14:23 Hydralazine 20 Mg/1 Ml Inj IV Q4HR PRN Hypertension Insulin Human Lispro 0 unit 09/24/20 16:30 10/03/20 09:09 Insulin Lispro 100 Unit/Ml SUB-Q Not Given ACHS [facility] Protocol Losartan Potassium 25 mg 09/28/20 14:00 10/03/20 09:13 Losartan 25 Mg Tab PO 25 mg QDAY MILTON Administration Metoprolol Tartrate 25 mg 09/26/20 22:00 10/03/20 09:13 Metoprolol Tartrate 25 Mg Tab PO 25 mg BID MILTON Administration Ondansetron HCl 4 mg 09/22/20 18:24 Ondansetron 4 Mg/2 Ml Inj IV Q8H PRN Nausea And Vomiting Oxycodone HCl 5 mg 09/30/20 12:00 10/01/20 21:11 Oxycodone 5 Mg Tab PO 5 mg Q8H PRN Administration Pain, Moderate (4-6) Sodium Chloride 10 ml 09/22/20 22:00 10/03/20 09:13 Sodium Chloride 0.9% 10 Ml Flush Syringe IV 10 ml BID MILTON Administration Sodium Chloride 10 ml 09/22/20 18:24 Sodium Chloride 0.9% 10 Ml Flush Syringe IV PRN PRN LINE FLUSH Tramadol HCl 50 mg 09/24/20 05:19 10/02/20 02:08 Tramadol 50 Mg Tab PO 50 mg Q6H PRN Administration Pain, Moderate (4-6) Nutrition/Malnutrition Assess - Dietary Evaluation Nutrition/Malnutrition Findings: Nutrition Notes Start: 09/23/20 11:00 Freq: Status: Active Protocol: Document 09/24/20 10:20 CW (Rec: 09/24/20 10:30 CW [id number]) Nutrition Notes Initial or Follow up Brief Note Current Diagnosis Acute Kidney Injury,Diabetes, Hypertension Other Pertinent Diagnosis Obesity Hypoventilation Syndrome, pneu, COVID, Rhabdomyolysis Current Diet Cardiac/Consistent CHO Labs/Tests BUN 26 Cr 0.7 Ca 8.3 Pertinent Medications Vitamin D3 Zinc Sulfate Height 5 ft 3 in Weight 86.183 kg [place] Body Weight (kg) 56.36 BMI 33.6 Weight Status Obese Subjective/Other Information F/U for weight and intakes. Intakes remain adeqaute 50 - 75% of meals which meets at least 75% of kcal and protein needs. Weight has remained stable. Renal related labs are improving. Adarsh score of 21 with intact skin. Pt did not answer phone x2. No reports of N/V/D/C. Diet being well tolerated Percent of energy/protein needs met: 78%/80% Skin Integrity/Comment Beaden Score 21 Minimum of two criteria No Fluid Accumulation Mild (non-severe) Is patient on ventilator? No Is Patient Ambulatory and/or Out of Bed Yes REE-([facility]-ambulatory/OOB) [ 2036.048 [id number]] Kcal/Kg value to use for calculation 18 Approximate Energy Requirements Using 1551 kcal/Kg Calculation Used for Recommendations Kcal/kg Additional Notes PRO needs: 69-103g (0.8-1.2 g/ kg for JINA) Fluid needs: 1 mL/kcal or per MD Nutrition Intervention Change Diet Order: Continue Cardiac Consistent CHO Goal #1 Meet at least 75% of estimated energy and protein needs. Anticipated Discharge Needs: Cardiac/Consistent CHO Revisit per MD consult or patient Sign Off request: Additional Comments S/O Adequate PO intakes, Adarsh Score of 21
[2020-10-03 12:20] LABS: Bilirubin,Urine NEG (Negative); Blood,Urine SM (Negative); Color,Urine Yellow (Yellow); Mucus,Urine FEW /HPF; Protein,Urine <15 mg/dL mg/dL (Negative); Urobilinogen,Urine < 2.0 mg/dL (<2.0); WBC,Urine < 1.0 /HPF (0.0-6.0)
[2020-10-03] MEDS: ENOXAPARIN 40 MG/0.4 ML INJ SUB-Q SCH (22:21)
[2020-10-03] MEDS: traMADol 50 MG TAB PO PRN (22:22)
[2020-10-04] MEDS ORDERED: METOPROLOL TARTRATE 25 MG TAB PO SCH (07:33)
[2020-10-04] MEDS: INSULIN LISPRO 100 UNIT/ML SUB-Q SCH ×4 (09:05→21:47)
[2020-10-04] MEDS: ASPIRIN 325 MG TAB PO SCH (09:06)
[2020-10-04] MEDS: COLCHICINE 0.6 MG TAB PO SCH (09:06)
[2020-10-04] MEDS: METOPROLOL TARTRATE 50 MG TAB PO SCH ×2 (09:06→21:46)
[2020-10-04] MEDS: ACETAMINOPHEN 325 MG TAB PO PRN ×2 (09:59→21:46)
--- NOTE | 2020-10-04 11:01 | Progress Note ---
Assessment and Plan Assessment and plan: Acute/subacute infarct -POA -09/22 CT head shows at least 3 small deep infarctions in the greater ganglioc apsular distribution, recommend MRI brain, extensive mucosal disease in the right sinus, anterior and mid ethmoid air cells on the right and in the right and left frontal sinuses. -09/23 MRI brain shows subacute infarctions involving the right meyer radiata -09/24 MRA head without contrast shows irregularity of the intracranial vessels at the left MCA trifurcation with no significant stenosis involving the distal internal carotid arteries -09/25 CTA h/n w/wo contrast shows groundglass opacities with peripheral subpleural predilection, no occlusion or significant stenosis of the carotid or vertebral arteries, no occlusion or significant stenosis of the major intracranial vasculature -09/24 TTE shows global left ventricular systolic function at the lower limits of normal, estimate ejection fraction 55%, mild concentric LVH, mild AR, mild MR, trace TR and no patent foramen ovale demonstrated by agitated saline contrast -09/28 VALDEZ shows normal LV size and function, no thrombus or vegetation, negative bubble study, mild MR. No apparent cardiac source of emboli noted. -Neurology consulted, appreciate recommendations -Aspirin and statin therapy -PT/OT consulted, appreciate recommendations -Maintain euthermia and euglycemia -Seizure/aspiration/fall precautions -Neurology recommends long-term cardiac monitoring -f/u with neurologist and automotive metalsmith (Dr. Gramajo within 2-3 weeks of dischar [facility] ([phone])) Paraparesis with pain -Presented with rhabdomyolysis and a 3 to 4-day history of decreased movement per patient due to pain -Patient has a history of gout -09/24 x-ray of left lower extremity reports no acute fracture process -09/25 MRI T-spine shows no focal disc herniation, spinal canal stenosis or nerve root compression with normal thoracic spinal cord -09/25 L spine shows normal distal spinal cord, no enhancing intradural lesion, shallow disc protrusion at L2/L3 disc level like bilaterally more towards the left side, left neural foramina narrowed -09/30 L knee xray shows no acute process, osteoarthritis -PT/OT consulted, appreciate recommendations Elevated D-dimer -Presented with a D-dimer of 1568 -09/22 bilateral lower extremity Doppler ultrasound shows no evidence of DVT/SVT Rhabdomyolysis, improving -Presented with a creatinine kinase of 1354 -S/p 3 L normal saline in the emergency department -Trend creatinine -PT/OT consulted -Patient states that he has not moved for 4 days prior to presentation Transaminitis, improving -LFTs of presentation: AST 107, ALT 167, alk phos 161 -Trend LFTs -GI consulted, appreciate recommendations -09/23 abdominal ultrasound shows hepatomegaly with hepatic steatosis, multiple hyper echoic areas within the gallbladder could represent multiple polyps versus nonmobile gallstones, bilateral renal cysts - Per GI: -supportive care. -avoid hepatotoxins. -will sign off. patient to follow up with GI outpatient for hepatic kimberly atosis. Thrombocytosis -Presented with a platelet count of 633 -Trend CBC Hypertension -Resume home antihypertensive regimen and titrate as needed -Blood pressure monitoring per protocol -As needed IV hydralazine for SBP greater than 160 DVT prophylaxis -SCDs to bilateral lower extremities while in bed -Heparin subcu Discharge planning issues -Case management is attempting SNF placement -09/30 COVID 19 PCR pending -PT/OT recommend acute rehab and CM is looking for acute rehab placement Pneumonia -s/p Antibiotic therapy -Pulmonary hygiene -Supplement oxygen as needed -SPO2 monitoring Extensive sinusitis -Noted on CT head -s/p Antibiotic therapy DVT ppx - heparin History Interval history: This is a 59 YO Male with HTN and presented to the emergency department on 09/22 obesity hypoventilation syndrome with complaints of generalized weakness, f atigue, muscle aches, shortness of breath, dry cough over the past 2 weeks with worsening symptoms over the past 4 days with known COVID-19 exposure. The patient was found to have pneumonia, suspected coronavirus infection, transaminitis and rhabdomyolysis. Patient was admitted to the hospitalist service with consults to infectious disease and GI. Neurology and PT/OT consulted. 09/23: Today on examination patient is on room air and states that he has not moved in 4 days and complains of generalized weakness and fatigue. Today infectious disease, GI and PT/OT were consulted. No acute events reported overnight. We will obtain an acute hepatitis panel and abdominal ultrasound to further investigate his transaminitis. COVID-19 PCR pending 09/24: Patient's COVID-19 PCR was negative and he was transferred to the fourth floor. Patient received abdominal ultrasound and MRI brain was obtained due to left facial droop, right upper extremity and left lower extremity weakness which showed a subacute infarct. Neurology was consulted. PT/OT evaluation pending. No acute events reported overnight. 09/25: The time of my examination patient has drift to bilateral lower extremities with slight left-sided facial droop. No acute events reported overnight. Neurology has ordered for additional testing. 09/26: CTA of the head and neck showed no occlusion or significant stenosis. MRI of the spine revealed shallow disc protrusion at L2-L3 disc level laterally bilaterally but no other acute findings. Thoracic MRI negative. Continue PT/OT/ST. Neurology recommends VALDEZ. Cardiology consulted. ID recommends continuing ceftriaxone and azithromycin to complete 5 days. 09/27: Await VALDEZ by cardiology Monday to assess for cardioembolic source. Continue PT/OT/ST. Neurology following. Complete antibiotics for sinusitis/pneumonia. Physical therapy recommends rolling walker. Await final P T assessment for discharge planning/placement. 09/28: Awaiting PT/OT final recommendations, patient had his VALDEZ today which showed no cardioembolic source. Patient still has right upper extremity and left lower extremity weakness and pain with movement. Recommended DME ordered. 09/29: Patient still has right upper extremity and left lower extremity weakness and pain with movement. CM notes noted for awaiting SNF placement. No acute events reported overnight. 09/30: Patient complained of left knee pain and a CXR was obtained which showed no acute abnormality. Repeat COVID-19 test was ordered this morning for possible placement. No acute events reported overnight. Patient has increased strength 3/5 to affected upper and lower extremity. 10/01: His weakness is improving and per PT/OT recommendations CM is looking for acute rehab placement. Patient is medically clear for discharge. 10/02: Seen in conjunction with physical therapy this morning. Patient has remarkably improved in terms of weakness. Patient states that his muscles are cramping and is requesting for muscle relaxant. No acute events reported overnight. 10/03: Had Temp >101F. Ordered blood cultures, UA, chest xray. Monitor vital signs. Labs ordered. 10/04. Studies [UA, chest x-ray, blood cultures] negative so far. Continue to monitor. AM labs pending. Awaiting insurance authorization prior to placement Hospitalist Physical - Physical exam Narrative exam: VITAL SIGNS: Reviewed. GENERAL: Awake HEAD: No signs of head trauma. EYES: Pupils are equal. Extraocular motions intact. MOUTH: Oropharynx is normal. NECK: No adenopathy, no JVD. CHEST: Chest with diminished breath sounds bilaterally. No wheezes, rales, or rhonchi. CARDIAC: normal S1 and S2, without murmurs, gallops, or rubs. ABDOMEN: Soft, non tender and non distended. No rebound or guarding, and no masses palpated. Bowel Sounds normal. MUSCULOSKELETAL: No edema NEUROLOGIC EXAM: Alert and oriented x3. No focal neurologic deficits SKIN: No obvious lesions - Constitutional Vitals: Temp Pulse Resp BP Pulse Ox 99.8 F H 101 H 18 130/76 98 10/04/20 09:04 10/04/20 09:04 10/04/20 09:04 10/04/20 09:06 10/04/20 09:04 HEART Score - HEART Score Troponin: Troponin T 0.060 ng/mL (0.00-0.029) H 09/22/20 16:10 Results - Labs CBC & Chem 7: 10/03/20 08:16 10/03/20 08:16 Labs: Laboratory Last Values WBC 12.2 K/mm3 (4.5-11.0) H 10/03/20 08:16 RBC 3.69 M/mm3 (3.65-5.03) 10/03/20 08:16 Hgb 11.0 gm/dl (11.8-15.2) L 10/03/20 08:16 Hct 33.5 % (35.5-45.6) L 10/03/20 08:16 MCV 91 fl (84-94) 10/03/20 08:16 MCH 30 pg (28-32) 10/03/20 08:16 MCHC 33 % (32-34) 10/03/20 08:16 RDW 13.8 % (13.2-15.2) 10/03/20 08:16 Plt Count 498 K/mm3 (140-440) H 10/03/20 08:16 Lymph % (Auto) 14.5 % (13.4-35.0) 10/03/20 08:16 [place] % (Auto) 7.7 % (0.0-7.3) H 10/03/20 08:16 Eos % (Auto) 0.6 % (0.0-4.3) 10/03/20 08:16 Baso % (Auto) 1.2 % (0.0-1.8) 10/03/20 08:16 Lymph # (Auto) 1.8 K/mm3 (1.2-5.4) 10/03/20 08:16 [place] # (Auto) 0.9 K/mm3 (0.0-0.8) H 10/03/20 08:16 Eos # (Auto) 0.1 K/mm3 (0.0-0.4) 10/03/20 08:16 Baso # (Auto) 0.1 K/mm3 (0.0-0.1) 10/03/20 08:16 Seg Neutrophils % 76.0 % (40.0-70.0) H 10/03/20 08:16 Seg Neutrophils # 9.2 K/mm3 (1.8-7.7) H 10/03/20 08:16 PT 15.8 Sec. (12.2-14.9) H 09/25/20 04:58 INR 1.28 (0.87-1.13) H 09/25/20 04:58 D-Dimer 1258.68 ng/mlDDU (0-234) H 09/24/20 06:07 Sodium 136 mmol/L (137-145) L 10/03/20 08:16 Potassium 4.0 mmol/L (3.6-5.0) 10/03/20 08:16 Chloride 102.7 mmol/L (98-107) 10/03/20 08:16 Carbon Dioxide 26 mmol/L (22-30) 10/03/20 08:16 Anion Gap 11 mmol/L 10/03/20 08:16 BUN 13 mg/dL (9-20) 10/03/20 08:16 Creatinine 0.6 mg/dL (0.8-1.3) L 10/03/20 08:16 Estimated GFR > 60 ml/min 10/03/20 08:16 BUN/Creatinine Ratio 22 % 10/03/20 08:16 Glucose 95 mg/dL (75-100) 10/03/20 08:16 POC Glucose 79 mg/dL (70-105) 10/04/20 07:57 Hemoglobin A1c 6.6 % (4-6) H 09/24/20 16:47 Calcium 8.3 mg/dL (8.4-10.2) L 10/03/20 08:16 Magnesium 2.80 mg/dL (1.7-2.3) H 09/22/20 16:10 Ferritin 1686.0 ng/mL (30.0-300.0) H 09/24/20 06:07 Total Bilirubin 0.40 mg/dL (0.1-1.2) 10/03/20 08:16 Direct Bilirubin 0.2 mg/dL (0-0.2) 09/25/20 04:58 Indirect Bilirubin 0.3 mg/dL 09/25/20 04:58 AST 26 units/L (5-40) 10/03/20 08:16 ALT 65 units/L (7-56) H 10/03/20 08:16 Alkaline Phosphatase 118 units/L (35-129) 10/03/20 08:16 Lactate Dehydrogenase 303 units/L (91-180) H 09/24/20 06:07 Total Creatine Kinase 365 units/L (55-170) H 09/24/20 06:07 Troponin T 0.060 ng/mL (0.00-0.029) H 09/22/20 16:10 C-Reactive Protein 7.20 mg/dL (0.00-1.30) H 09/24/20 06:07 NT-Pro-B Natriuret Pep 822.4 pg/mL (0-900) 09/22/20 16:10 Total Protein 7.0 g/dL (6.3-8.2) 10/03/20 08:16 Albumin 2.4 g/dL (3.9-5) L 10/03/20 08:16 Albumin/Globulin Ratio 0.5 % 10/03/20 08:16 Triglycerides 179 mg/dL (2-149) H 09/22/20 16:10 Cholesterol 182 mg/dL (50-199) 09/22/20 16:10 LDL Cholesterol Direct 110 mg/dL (50-130) 09/22/20 16:10 HDL Cholesterol 26 mg/dL (40-59) L 09/22/20 16:10 Cholesterol/HDL Ratio 7.00 % 09/22/20 16:10 Lipase 37 units/L (13-60) 09/22/20 16:10 Procalcitonin < 0.05 ng/mL (<0.15) 10/03/20 08:16 TSH 1.620 mlU/mL (0.270-4.200) 09/22/20 16:10 Free T4 1.09 ng/dL (0.76-1.46) 09/22/20 16:10 Urine Color Yellow (Yellow) 10/03/20 11:45 Urine Turbidity Clear (Clear) 10/03/20 11:45 Urine pH 6.0 (5.0-7.0) 10/03/20 11:45 Ur Specific [place] 1.017 (1.003-1.030) 10/03/20 11:45 Urine Protein <15 mg/dl mg/dL (Negative) 10/03/20 11:45 Urine Glucose (UA) Neg mg/dL (Negative) 10/03/20 11:45 Urine Ketones Neg mg/dL (Negative) 10/03/20 11:45 Urine Blood Sm (Negative) 10/03/20 11:45 Urine Nitrite Neg (Negative) 10/03/20 11:45 Urine Bilirubin Neg (Negative) 10/03/20 11:45 Urine Urobilinogen < 2.0 mg/dL (<2.0) 10/03/20 11:45 Ur Leukocyte Esterase Neg (Negative) 10/03/20 11:45 Urine WBC (Auto) < 1.0 /HPF (0.0-6.0) 10/03/20 11:45 Urine RBC (Auto) 7.0 /HPF (0.0-6.0) 10/03/20 11:45 U Epithel Cells (Auto) < 1.0 /HPF (0-13.0) 09/22/20 Unknown Urine Mucus Few /HPF 10/03/20 11:45 Salicylates < 0.3 mg/dL (2.8-20.0) L 09/22/20 16:10 Acetaminophen 5.0 ug/mL (10.0-30.0) L 09/22/20 16:10 Coronavirus (PCR) Negative (Negative) 10/01/20 07:21 Hepatitis A IgM Ab Non-reactive (NonReactive) 09/23/20 14:28 Hep Bs Antigen Non-reactive (Negative) 09/23/20 14:28 Hep B Core IgM Ab Non-reactive (NonReactive) 09/23/20 14:28 Hepatitis C Antibody Non-reactive (NonReactive) 09/23/20 14:28 Microbiology: Microbiology 10/03/20 08:16 Peripheral/Venous Blood Culture - Preliminary Culture in Progress 10/03/20 08:16 Peripheral/Venous Blood Culture - Preliminary Culture in Progress [place]/IV: Voiding Method Urinal Active Medications - Current Medications Current Medications: Generic Name Dose Route Start Last Admin Trade Name Freq PRN Reason Stop Dose Admin Acetaminophen 650 mg 09/22/20 18:24 10/04/20 09:59 Acetaminophen 325 Mg Tab PO 650 mg Q4H PRN Administration Pain MILD(1-3)/Fever >100.5/PEREYRA Aspirin 325 mg 09/25/20 10:00 10/04/20 09:06 Aspirin 325 Mg Tab PO 325 mg QDAY MILTON Administration Colchicine 0.6 mg 09/23/20 10:00 10/04/20 09:06 Colchicine 0.6 Mg Tab PO 0.6 mg DAILY MILTON Administration Cyclobenzaprine HCl 5 mg 10/02/20 12:30 10/03/20 22:21 Cyclobenzaprine 10 Mg Tab PO 5 mg Q8H PRN Administration Muscle Spasm Dextrose 50 ml 09/24/20 15:31 Dextrose 50% In Water (25gm) 50 Ml Syringe IV Q30MIN PRN Hypoglycemia Protocol Enoxaparin Sodium 40 mg 09/23/20 22:00 10/03/20 22:21 Enoxaparin 40 Mg/0.4 Ml Inj SUB-Q 40 mg QDAY@2200 MILTON Administration Protocol Hydralazine HCl 10 mg 09/23/20 14:23 Hydralazine 20 Mg/1 Ml Inj IV Q4HR PRN Hypertension Insulin Human Lispro 0 unit 09/24/20 16:30 10/04/20 09:05 Insulin Lispro 100 Unit/Ml SUB-Q Not Given ACHS [facility] Protocol Metoprolol Tartrate 50 mg 10/04/20 10:00 10/04/20 09:06 Metoprolol Tartrate 50 Mg Tab PO 50 mg BID MILTON Administration Ondansetron HCl 4 mg 09/22/20 18:24 Ondansetron 4 Mg/2 Ml Inj IV Q8H PRN Nausea And Vomiting Oxycodone HCl 5 mg 09/30/20 12:00 10/01/20 21:11 Oxycodone 5 Mg Tab PO 5 mg Q8H PRN Administration Pain, Moderate (4-6) Sodium Chloride 10 ml 09/22/20 22:00 10/04/20 09:07 Sodium Chloride 0.9% 10 Ml Flush Syringe IV 10 ml BID MILTON Administration Sodium Chloride 10 ml 09/22/20 18:24 Sodium Chloride 0.9% 10 Ml Flush Syringe IV PRN PRN LINE FLUSH Tramadol HCl 50 mg 09/24/20 05:19 10/03/20 22:22 Tramadol 50 Mg Tab PO 50 mg Q6H PRN Administration Pain, Moderate (4-6) Nutrition/Malnutrition Assess - Dietary Evaluation Nutrition/Malnutrition Findings: Nutrition Notes Start: 09/23/20 11:00 Freq: Status: Active Protocol: Document 09/24/20 10:20 CW (Rec: 09/24/20 10:30 CW [email or web address]) Nutrition Notes Initial or Follow up Brief Note Current Diagnosis Acute Kidney Injury,Diabetes, Hypertension Other Pertinent Diagnosis Obesity Hypoventilation Syndrome, pneu, COVID, Rhabdomyolysis Current Diet Cardiac/Consistent CHO Labs/Tests BUN 26 Cr 0.7 Ca 8.3 Pertinent Medications Vitamin D3 Zinc Sulfate Height 5 ft 3 in Weight 86.183 kg [place] Body Weight (kg) 56.36 BMI 33.6 Weight Status Obese Subjective/Other Information F/U for weight and intakes. Intakes remain adeqaute 50 - 75% of meals which meets at least 75% of kcal and protein needs. Weight has remained stable. Renal related labs are improving. Adarsh score of 21 with intact skin. Pt did not answer phone x2. No reports of N/V/D/C. Diet being well tolerated Percent of energy/protein needs met: 78%/80% Skin Integrity/Comment Beaden Score 21 Minimum of two criteria No Fluid Accumulation Mild (non-severe) Is patient on ventilator? No Is Patient Ambulatory and/or Out of Bed Yes REE-([place]-St. Jeor-ambulatory/OOB) [ 2036.048 [id number]] Kcal/Kg value to use for calculation 18 Approximate Energy Requirements Using 1551 kcal/Kg Calculation Used for Recommendations Kcal/kg Additional Notes PRO needs: 69-103g (0.8-1.2 g/ kg for JINA) Fluid needs: 1 mL/kcal or per MD Nutrition Intervention Change Diet Order: Continue Cardiac Consistent CHO Goal #1 Meet at least 75% of estimated energy and protein needs. Anticipated Discharge Needs: Cardiac/Consistent CHO Revisit per MD consult or patient Sign Off request: Additional Comments S/O Adequate PO intakes, Adarsh Score of 21
[2020-10-04 11:36] LABS: Basophils # (Auto) 0.1 K/mm3 (0.0-0.1); Basophils % (Auto) 0.7 % (0.0-1.8); Eosinophils # (Auto) 0.1 K/mm3 (0.0-0.4); Eosinophils % (Auto) 0.8 % (0.0-4.3); Hematocrit 28.4 % (35.5-45.6); Lymphocytes # (Auto) 1.2 K/mm3 (1.2-5.4); Lymphocytes % (Auto) 9.7 % (13.4-35.0); Mean Corpuscular HGB Conc 35 % (32-34); Mean Corpuscular Volume 89 fl (84-94); Monocytes # (Auto) 1.4 K/mm3 (0.0-0.8); Platelet Count 493 K/mm3 (140-440); Red Blood Count 3.19 M/mm3 (3.65-5.03); Red Cell Distribution Width 13.9 % (13.2-15.2)
[2020-10-04 12:02] LABS: Alanine Aminotransferase 86 units/L (7-56); Albumin 2.7 g/dL (3.9-5); Blood Urea Nitrogen 14 mg/dL (9-20); Calcium 8.3 mg/dL (8.4-10.2); Hemolysis Index 0
[2020-10-04 12:04] LABS: BUN/Creatinine Ratio 20
[2020-10-04] MEDS: CYCLOBENZAPRINE 10 MG TAB PO PRN (21:45)
[2020-10-04] MEDS: ENOXAPARIN 40 MG/0.4 ML INJ SUB-Q SCH (21:45)
[2020-10-05] MEDS: INSULIN LISPRO 100 UNIT/ML SUB-Q SCH ×4 (09:20→21:53)
[2020-10-05] MEDS: ASPIRIN 325 MG TAB PO SCH (10:04)
[2020-10-05] MEDS: COLCHICINE 0.6 MG TAB PO SCH (10:04)
[2020-10-05] MEDS: METOPROLOL TARTRATE 50 MG TAB PO SCH ×2 (10:04→21:53)
[2020-10-05] MEDS: traMADol 50 MG TAB PO PRN ×2 (10:10→20:40)
--- NOTE | 2020-10-05 10:51 | Discharge Summary ---
Providers - Providers Date of Admission: 09/22/20 18:24 Date of discharge: 10/05/20 Attending physician: PRABHAKAR SELBY 09/23/20 10:38 Consult to Physician [CONS] Routine Comment: Consulting Provider: NESTOR FLOWERS Physician Instructions: Reason For Exam: covid pui 09/23/20 11:13 Physical Therapy Evaluation and Treat [CONS] Stat Comment: Reason For Exam: Eval and treat 09/23/20 12:17 Occupational Therapy Evaluate and Treat [CONS] Routine Comment: Reason For Exam: generalized weakness 09/23/20 13:05 Consult to Physician [CONS] Routine Comment: Consulting Provider: CHELSEY SHAH Physician Instructions: Reason For Exam: elevated LFTs 09/24/20 15:10 Consult to Physician [CONS] Routine Comment: Consulting Provider: LYNN HALL Physician Instructions: Reason For Exam: subacute infarct 09/29/20 07:54 Physical Therapy Evaluation and Treat [CONS] Routine Comment: Reason For Exam: Re-eval and treat Primary care physician: PUBLIC RELATIONS ANALYST Hospitalization Condition: Fair Hospital course: cute/subacute infarct -POA -09/22 CT head shows at least 3 small deep infarctions in the greater gang liocapsular distribution, recommend MRI brain, extensive mucosal disease in the right sinus, anterior and mid ethmoid air cells on the right and in the right and left frontal sinuses. -09/23 MRI brain shows subacute infarctions involving the right meyer radiata -09/24 MRA head without contrast shows irregularity of the intracranial vessels at the left MCA trifurcation with no significant stenosis involving the distal internal carotid arteries -09/25 CTA h/n w/wo contrast shows groundglass opacities with peripheral subpleural predilection, no occlusion or significant stenosis of the carotid or vertebral arteries, no occlusion or significant stenosis of the major intracranial vasculature -09/24 TTE shows global left ventricular systolic function at the lower limits of normal, estimate ejection fraction 55%, mild concentric LVH, mild AR, mild MR, trace TR and no patent foramen ovale demonstrated by agitated saline contrast -09/28 VALDEZ shows normal LV size and function, no thrombus or vegetation, negative bubble study, mild MR. No apparent cardiac source of emboli noted. -Neurology consulted, appreciate recommendations -Aspirin and statin therapy -PT/OT consulted, appreciate recommendations -Maintain euthermia and euglycemia -Seizure/aspiration/fall precautions -Neurology recommends long-term cardiac monitoring -f/u with neurologist and mine analyst (Dr. Gramajo within 2-3 weeks of dis charge ([phone])) Paraparesis with pain -Presented with rhabdomyolysis and a 3 to 4-day history of decreased movement per patient due to pain -Patient has a history of gout -09/24 x-ray of left lower extremity reports no acute fracture process -09/25 MRI T-spine shows no focal disc herniation, spinal canal stenosis or nerve root compression with normal thoracic spinal cord -09/25 L spine shows normal distal spinal cord, no enhancing intradural lesion, shallow disc protrusion at L2/L3 disc level like bilaterally more towards the left side, left neural foramina narrowed -09/30 L knee xray shows no acute process, osteoarthritis -PT/OT consulted, appreciate recommendations Elevated D-dimer -Presented with a D-dimer of 1568 -09/22 bilateral lower extremity Doppler ultrasound shows no evidence of DVT/SVT Rhabdomyolysis, improving -Presented with a creatinine kinase of 1354 -S/p 3 L normal saline in the emergency department -Trend creatinine -PT/OT consulted -Patient states that he has not moved for 4 days prior to presentation Transaminitis, improving -LFTs of presentation: AST 107, ALT 167, alk phos 161 -Trend LFTs -GI consulted, appreciate recommendations -09/23 abdominal ultrasound shows hepatomegaly with hepatic steatosis, multiple hyper echoic areas within the gallbladder could represent multiple polyps versus nonmobile gallstones, bilateral renal cysts - Per GI: -supportive care. -avoid hepatotoxins. -will sign off. patient to follow up with GI outpatient for hepatic steatosis. Thrombocytosis -Presented with a platelet count of 633 -Trend CBC Hypertension -Resume home antihypertensive regimen and titrate as needed -Blood pressure monitoring per protocol -As needed IV hydralazine for SBP greater than 160 DVT prophylaxis -SCDs to bilateral lower extremities while in bed -Heparin subcu Discharge planning issues -Case management is attempting SNF placement -09/30 COVID 19 PCR pending -PT/OT recommend acute rehab and CM is looking for acute rehab placement Pneumonia -s/p Antibiotic therapy -Pulmonary hygiene -Supplement oxygen as needed -SPO2 monitoring Extensive sinusitis -Noted on CT head -s/p Antibiotic therapy DVT ppx - heparin This is a 59 YO Male with HTN and presented to the emergency department on 09/22 obesity hypoventilation syndrome with complaints of generalized weakness, fatigue, muscle aches, shortness of breath, dry cough over the past 2 weeks with worsening symptoms over the past 4 days with known COVID-19 exposure. The patient was found to have pneumonia, suspected coronavirus infection, transaminitis and rhabdomyolysis. Patient was admitted to the hospitalist service with consults to infectious disease and GI. Neurology and PT/OT consulted. 09/23: Today on examination patient is on room air and states that he has not moved in 4 days and complains of generalized weakness and fatigue. Today infectious disease, GI and PT/OT were consulted. No acute events reported overnight. We will obtain an acute hepatitis panel and abdominal ultrasound to further investigate his transaminitis. COVID-19 PCR pending 09/24: Patient's COVID-19 PCR was negative and he was transferred to the fourth floor. Patient received abdominal ultrasound and MRI brain was obtained due to left facial droop, right upper extremity and left lower extremity weakness which showed a subacute infarct. Neurology was consulted. PT/OT evaluation pending. No acute events reported overnight. 09/25: The time of my examination patient has drift to bilateral lower extremities with slight left-sided facial droop. No acute events reported overnight. Neurology has ordered for additional testing. 09/26: CTA of the head and neck showed no occlusion or significant stenosis. MRI of the spine revealed shallow disc protrusion at L2-L3 disc level laterally bilaterally but no other acute findings. Thoracic MRI negative. Continue PT/OT/ST. Neurology recommends VALDEZ. Cardiology consulted. ID recommends continuing ceftriaxone and azithromycin to complete 5 days. 09/27: Await VALDEZ by cardiology Monday to assess for cardioembolic source. Continue PT/OT/ST. Neurology following. Complete antibiotics for sinusitis/pneumonia. Physical therapy recommends rolling walker. Await final PT assessment for discharge planning/placement. 09/28: Awaiting PT/OT final recommendations, patient had his VALDEZ today which showed no cardioembolic source. Patient still has right upper extremity and left lower extremity weakness and pain with movement. Recommended DME ordered. 09/29: Patient still has right upper extremity and left lower extremity weakness and pain with movement. CM notes noted for awaiting SNF placement. No acute events reported overnight. 09/30: Patient complained of left knee pain and a CXR was obtained which showed no acute abnormality. Repeat COVID-19 test was ordered this morning for possible placement. No acute events reported overnight. Patient has increased strength 3/5 to affected upper and lower extremity. 10/01: His weakness is improving and per PT/OT recommendations CM is looking for acute rehab placement. Patient is medically clear for discharge. 10/02: Seen in conjunction with physical therapy this morning. Patient has remarkably improved in terms of weakness. Patient states that his muscles are cramping and is requesting for muscle relaxant. No acute events reported overnight. 10/03: Had Temp >101F. Ordered blood cultures, UA, chest xray. Monitor vital signs. Labs ordered. 10/04. Studies [UA, chest x-ray, blood cultures] negative so far. Continue to monitor. AM labs pending. Awaiting insurance authorization prior to placement. 10/05. Still waiting placement-insurance authorization. Has no complaints today. Vitals remained stable. Started on prednisone for gout of the left knee. Needs a follow-up with PCP for management. 10/06. Still awaiting insurance authorization. Had a burst of SVT even on metoprolol 50 mg twice daily. Medication switched to metoprolol XL 50 mg. Added Cardizem. Patient to follow-up with mine analyst in the office in 1 to 2 weeks. 10/07. Heart rate currently controlled with above medications. Telemetry-sinus rhythm in the 70s. Patient will follow up with mine analyst in the office. Discharge to rehab today Disposition: [id number] Time spent for discharge: 40 mins - Discharge Diagnoses (1) CVA (cerebral vascular accident) Status: Acute Qualifiers: CVA mechanism: embolism Laterality of affected vessel: bilateral (2) Hypertension Status: Chronic Qualifiers: Hypertension type: essential hypertension Qualified Code(s): I10 - Essential (primary) hypertension (3) Rhabdomyolysis Status: Acute Core Measure Documentation - Palliative Care Palliative Care/ Comfort Measures: Not Applicable - Core Measures Any of the following diagnoses?: stroke - Stroke Discharge Requirements Statin for LDL = or >70 mg/dl on DC: Yes Anticoag for atrial fib/atrial flutter: Not Applicable Antithrombotic for ischemic stroke: No Reason for no antithrombotic on DC: Not Indicated Exam - Physical Exam Narrative exam: VITAL SIGNS: Reviewed. GENERAL: Awake HEAD: No signs of head trauma. EYES: Pupils are equal. Extraocular motions intact. MOUTH: Oropharynx is normal. NECK: No adenopathy, no JVD. CHEST: Chest with diminished breath sounds bilaterally. No wheezes, rales, or rhonchi. CARDIAC: normal S1 and S2, without murmurs, gallops, or rubs. ABDOMEN: Soft, non tender and non distended. No rebound or guarding, and no masses palpated. Bowel Sounds normal. MUSCULOSKELETAL: No edema NEUROLOGIC EXAM: Alert and oriented x3. No focal neurologic deficits SKIN: No obvious lesions - Constitutional Vitals: Temp Pulse Resp BP Pulse Ox 98.6 F 104 H 18 110/62 98 10/05/20 07:38 10/05/20 07:38 10/05/20 07:38 10/05/20 07:38 10/05/20 07:38 Plan Activity: no restrictions, advance as tolerated Diet: low cholesterol, low salt, diabetic Additional Instructions: Continue aspirin as ordered. Follow up with neurology team in 1-2 weeks. Follow up with mine analyst (Dr Gramajo) in 2-3 weeks of discharge ([phone]). Follow up with: PRIMARY CAREMD [Primary Care Provider] - 7 Days SUZAN GRAMAJO MD [Staff Physician] - 7 Days ALESSIA ALBERT MD [Referring] - 7 Days Prescriptions: AtorvaSTATin [Lipitor] 80 mg PO QHS #30 tab dilTIAZem [Cardizem] 30 mg PO Q6HR #120 tablet predniSONE [Deltasone] 20 mg PO QDAY #4 tablet Aspirin EC [Halfprin EC] 81 mg PO QDAY #30 tablet. Metoprolol Xl [Metoprolol SUCCINATE ER TAB] 50 mg PO QDAY #30 tablet traMADoL [Ultram 50 MG tab] 50 mg PO Q6H PRN 2 Days #8 tablet PRN Reason: Pain, Moderate (4-6)
[2020-10-05] MEDS: ENOXAPARIN 40 MG/0.4 ML INJ SUB-Q SCH (21:53)
[2020-10-05] MEDS: CYCLOBENZAPRINE 10 MG TAB PO PRN (21:54)
[2020-10-06] MEDS: INSULIN LISPRO 100 UNIT/ML SUB-Q SCH ×4 (08:13→23:22)
--- NOTE | 2020-10-06 09:16 | Progress Note ---
Assessment and Plan Assessment and plan: Acute/subacute infarct -POA -09/22 CT head shows at least 3 small deep infarctions in the greater ganglioc apsular distribution, recommend MRI brain, extensive mucosal disease in the right sinus, anterior and mid ethmoid air cells on the right and in the right and left frontal sinuses. -09/23 MRI brain shows subacute infarctions involving the right meyer radiata -09/24 MRA head without contrast shows irregularity of the intracranial vessels at the left MCA trifurcation with no significant stenosis involving the distal internal carotid arteries -09/25 CTA h/n w/wo contrast shows groundglass opacities with peripheral subpleural predilection, no occlusion or significant stenosis of the carotid or vertebral arteries, no occlusion or significant stenosis of the major intracranial vasculature -09/24 TTE shows global left ventricular systolic function at the lower limits of normal, estimate ejection fraction 55%, mild concentric LVH, mild AR, mild MR, trace TR and no patent foramen ovale demonstrated by agitated saline contrast -09/28 VALDEZ shows normal LV size and function, no thrombus or vegetation, negative bubble study, mild MR. No apparent cardiac source of emboli noted. -Neurology consulted, appreciate recommendations -Aspirin and statin therapy -PT/OT consulted, appreciate recommendations -Maintain euthermia and euglycemia -Seizure/aspiration/fall precautions -Neurology recommends long-term cardiac monitoring -f/u with neurologist and asp developer (Dr. Gramajo within 2-3 weeks of dischar [place] ([phone])) Paraparesis with pain -Presented with rhabdomyolysis and a 3 to 4-day history of decreased movement per patient due to pain -Patient has a history of gout -09/24 x-ray of left lower extremity reports no acute fracture process -09/25 MRI T-spine shows no focal disc herniation, spinal canal stenosis or nerve root compression with normal thoracic spinal cord -09/25 L spine shows normal distal spinal cord, no enhancing intradural lesion, shallow disc protrusion at L2/L3 disc level like bilaterally more towards the left side, left neural foramina narrowed -09/30 L knee xray shows no acute process, osteoarthritis -PT/OT consulted, appreciate recommendations Elevated D-dimer -Presented with a D-dimer of 1568 -09/22 bilateral lower extremity Doppler ultrasound shows no evidence of DVT/SVT Rhabdomyolysis, improving -Presented with a creatinine kinase of 1354 -S/p 3 L normal saline in the emergency department -Trend creatinine -PT/OT consulted -Patient states that he has not moved for 4 days prior to presentation Transaminitis, improving -LFTs of presentation: AST 107, ALT 167, alk phos 161 -Trend LFTs -GI consulted, appreciate recommendations -09/23 abdominal ultrasound shows hepatomegaly with hepatic steatosis, multiple hyper echoic areas within the gallbladder could represent multiple polyps versus nonmobile gallstones, bilateral renal cysts - Per GI: -supportive care. -avoid hepatotoxins. -will sign off. patient to follow up with GI outpatient for hepatic kimberly atosis. Thrombocytosis -Presented with a platelet count of 633 -Trend CBC Hypertension -Resume home antihypertensive regimen and titrate as needed -Blood pressure monitoring per protocol -As needed IV hydralazine for SBP greater than 160 DVT prophylaxis -SCDs to bilateral lower extremities while in bed -Heparin subcu Discharge planning issues -Case management is attempting SNF placement -09/30 COVID 19 PCR pending -PT/OT recommend acute rehab and CM is looking for acute rehab placement Pneumonia -s/p Antibiotic therapy -Pulmonary hygiene -Supplement oxygen as needed -SPO2 monitoring Extensive sinusitis -Noted on CT head -s/p Antibiotic therapy DVT ppx - heparin - Patient Problems (1) CVA (cerebral vascular accident) Current Visit: Yes Status: Acute Qualifiers: CVA mechanism: embolism Laterality of affected vessel: bilateral (2) Hypertension Current Visit: Yes Status: Chronic Qualifiers: Hypertension type: essential hypertension Qualified Code(s): I10 - Essential (primary) hypertension (3) Rhabdomyolysis Current Visit: Yes Status: Acute History Interval history: This is a 59 YO Male with HTN and presented to the emergency department on 09/22 obesity hypoventilation syndrome with complaints of generalized weakness, fatigue, muscle aches, shortness of breath, dry cough over the past 2 weeks with worsening symptoms over the past 4 days with known COVID-19 exposure. The patient was found to have pneumonia, suspected coronavirus infection, transaminitis and rhabdomyolysis. Patient was admitted to the hospitalist service with consults to infectious disease and GI. Neurology and PT/OT consulted. 09/23: Today on examination patient is on room air and states that he has not moved in 4 days and complains of generalized weakness and fatigue. Today infectious disease, GI and PT/OT were consulted. No acute events reported overnight. We will obtain an acute hepatitis panel and abdominal ultrasound to further investigate his transaminitis. COVID-19 PCR pending 09/24: Patient's COVID-19 PCR was negative and he was transferred to the fourth floor. Patient received abdominal ultrasound and MRI brain was obtained due to left facial droop, right upper extremity and left lower extremity weakness which showed a subacute infarct. Neurology was consulted. PT/OT evaluation pending. No acute events reported overnight. 09/25: The time of my examination patient has drift to bilateral lower ext remities with slight left-sided facial droop. No acute events reported overnight. Neurology has ordered for additional testing. 09/26: CTA of the head and neck showed no occlusion or significant stenosis. MRI of the spine revealed shallow disc protrusion at L2-L3 disc level laterally bilaterally but no other acute findings. Thoracic MRI negative. Continue PT/OT/ST. Neurology recommends VALDEZ. Cardiology consulted. ID recommends continuing ceftriaxone and azithromycin to complete 5 days. 09/27: Await VALDEZ by cardiology Monday to assess for cardioembolic source. Continue PT/OT/ST. Neurology following. Complete antibiotics for sinusitis/pneumonia. Physical therapy recommends rolling walker. Await final PT assessment for discharge planning/placement. 09/28: Awaiting PT/OT final recommendations, patient had his VALDEZ today which showed no cardioembolic source. Patient still has right upper extremity and left lower extremity weakness and pain with movement. Recommended DME ordered. 09/29: Patient still has right upper extremity and left lower extremity weakness and pain with movement. CM notes noted for awaiting SNF placement. No acute events reported overnight. 09/30: Patient complained of left knee pain and a CXR was obtained which showed no acute abnormality. Repeat COVID-19 test was ordered this morning for possible placement. No acute events reported overnight. Patient has increased strength 3/5 to affected upper and lower extremity. 10/01: His weakness is improving and per PT/OT recommendations CM is looking for acute rehab placement. Patient is medically clear for discharge. 10/02: Seen in conjunction with physical therapy this morning. Patient has remarkably improved in terms of weakness. Patient states that his muscles are cramping and is requesting for muscle relaxant. No acute events reported overnight. 10/03: Had Temp >101F. Ordered blood cultures, UA, chest xray. Monitor vital signs. Labs ordered. 10/04. No further febrile episodes. Awaiting placement. Has no complaints Hospitalist Physical - Physical exam Narrative exam: VITAL SIGNS: Reviewed. GENERAL: Awake HEAD: No signs of head trauma. EYES: Pupils are equal. Extraocular motions intact. MOUTH: Oropharynx is normal. NECK: No adenopathy, no JVD. CHEST: Chest with diminished breath sounds bilaterally. No wheezes, rales, or rhonchi. CARDIAC: normal S1 and S2, without murmurs, gallops, or rubs. ABDOMEN: Soft, non tender and non distended. No rebound or guarding, and no masses palpated. Bowel Sounds normal. MUSCULOSKELETAL: No edema NEUROLOGIC EXAM: Alert and oriented x3. No focal neurologic deficits SKIN: No obvious lesions - Constitutional Vitals: Temp Pulse Resp BP Pulse Ox 97.7 F 90 17 114/65 96 10/06/20 04:33 10/06/20 04:33 10/06/20 04:33 10/06/20 04:33 10/06/20 04:33 HEART Score - HEART Score Troponin: Troponin T 0.060 ng/mL (0.00-0.029) H 09/22/20 16:10 Results - Labs CBC & Chem 7: 10/04/20 11:16 10/04/20 11:16 Labs: Laboratory Last Values WBC 12.4 K/mm3 (4.5-11.0) H 10/04/20 11:16 RBC 3.19 M/mm3 (3.65-5.03) L 10/04/20 11:16 Hgb 10.0 gm/dl (11.8-15.2) L 10/04/20 11:16 Hct 28.4 % (35.5-45.6) L 10/04/20 11:16 MCV 89 fl (84-94) 10/04/20 11:16 MCH 31 pg (28-32) 10/04/20 11:16 MCHC 35 % (32-34) H 10/04/20 11:16 RDW 13.9 % (13.2-15.2) 10/04/20 11:16 Plt Count 493 K/mm3 (140-440) H 10/04/20 11:16 Lymph % (Auto) 9.7 % (13.4-35.0) L 10/04/20 11:16 [place] % (Auto) 11.0 % (0.0-7.3) H 10/04/20 11:16 Eos % (Auto) 0.8 % (0.0-4.3) 10/04/20 11:16 Baso % (Auto) 0.7 % (0.0-1.8) 10/04/20 11:16 Lymph # (Auto) 1.2 K/mm3 (1.2-5.4) 10/04/20 11:16 [place] # (Auto) 1.4 K/mm3 (0.0-0.8) H 10/04/20 11:16 Eos # (Auto) 0.1 K/mm3 (0.0-0.4) 10/04/20 11:16 Baso # (Auto) 0.1 K/mm3 (0.0-0.1) 10/04/20 11:16 Seg Neutrophils % 77.8 % (40.0-70.0) H 10/04/20 11:16 Seg Neutrophils # 9.6 K/mm3 (1.8-7.7) H 10/04/20 11:16 PT 15.8 Sec. (12.2-14.9) H 09/25/20 04:58 INR 1.28 (0.87-1.13) H 09/25/20 04:58 D-Dimer 1258.68 ng/mlDDU (0-234) H 09/24/20 06:07 Sodium 136 mmol/L (137-145) L 10/04/20 11:16 Potassium 3.8 mmol/L (3.6-5.0) 10/04/20 11:16 Chloride 100.0 mmol/L (98-107) 10/04/20 11:16 Carbon Dioxide 27 mmol/L (22-30) 10/04/20 11:16 Anion Gap 13 mmol/L 10/04/20 11:16 BUN 14 mg/dL (9-20) 10/04/20 11:16 Creatinine 0.7 mg/dL (0.8-1.3) L 10/04/20 11:16 Estimated GFR > 60 ml/min 10/04/20 11:16 BUN/Creatinine Ratio 20 % 10/04/20 11:16 Glucose 128 mg/dL (75-100) H 10/04/20 11:16 POC Glucose 80 mg/dL (70-105) 10/06/20 08:15 Hemoglobin A1c 6.6 % (4-6) H 09/24/20 16:47 Calcium 8.3 mg/dL (8.4-10.2) L 10/04/20 11:16 Magnesium 2.80 mg/dL (1.7-2.3) H 09/22/20 16:10 Ferritin 1686.0 ng/mL (30.0-300.0) H 09/24/20 06:07 Total Bilirubin 0.50 mg/dL (0.1-1.2) 10/04/20 11:16 Direct Bilirubin 0.2 mg/dL (0-0.2) 09/25/20 04:58 Indirect Bilirubin 0.3 mg/dL 09/25/20 04:58 AST 40 units/L (5-40) 10/04/20 11:16 ALT 86 units/L (7-56) H 10/04/20 11:16 Alkaline Phosphatase 146 units/L (35-129) H 10/04/20 11:16 Lactate Dehydrogenase 303 units/L (91-180) H 09/24/20 06:07 Total Creatine Kinase 365 units/L (55-170) H 09/24/20 06:07 Troponin T 0.060 ng/mL (0.00-0.029) H 09/22/20 16:10 C-Reactive Protein 7.20 mg/dL (0.00-1.30) H 09/24/20 06:07 NT-Pro-B Natriuret Pep 822.4 pg/mL (0-900) 09/22/20 16:10 Total Protein 6.6 g/dL (6.3-8.2) 10/04/20 11:16 Albumin 2.7 g/dL (3.9-5) L 10/04/20 11:16 Albumin/Globulin Ratio 0.7 % 10/04/20 11:16 Triglycerides 179 mg/dL (2-149) H 09/22/20 16:10 Cholesterol 182 mg/dL (50-199) 09/22/20 16:10 LDL Cholesterol Direct 110 mg/dL (50-130) 09/22/20 16:10 HDL Cholesterol 26 mg/dL (40-59) L 09/22/20 16:10 Cholesterol/HDL Ratio 7.00 % 09/22/20 16:10 Lipase 37 units/L (13-60) 09/22/20 16:10 Procalcitonin < 0.05 ng/mL (<0.15) 10/03/20 08:16 TSH 1.620 mlU/mL (0.270-4.200) 09/22/20 16:10 Free T4 1.09 ng/dL (0.76-1.46) 09/22/20 16:10 Urine Color Yellow (Yellow) 10/03/20 11:45 Urine Turbidity Clear (Clear) 10/03/20 11:45 Urine pH 6.0 (5.0-7.0) 10/03/20 11:45 Ur Specific [place] 1.017 (1.003-1.030) 10/03/20 11:45 Urine Protein <15 mg/dl mg/dL (Negative) 10/03/20 11:45 Urine Glucose (UA) Neg mg/dL (Negative) 10/03/20 11:45 Urine Ketones Neg mg/dL (Negative) 10/03/20 11:45 Urine Blood Sm (Negative) 10/03/20 11:45 Urine Nitrite Neg (Negative) 10/03/20 11:45 Urine Bilirubin Neg (Negative) 10/03/20 11:45 Urine Urobilinogen < 2.0 mg/dL (<2.0) 10/03/20 11:45 Ur Leukocyte Esterase Neg (Negative) 10/03/20 11:45 Urine WBC (Auto) < 1.0 /HPF (0.0-6.0) 10/03/20 11:45 Urine RBC (Auto) 7.0 /HPF (0.0-6.0) 10/03/20 11:45 U Epithel Cells (Auto) < 1.0 /HPF (0-13.0) 09/22/20 Unknown Urine Mucus Few /HPF 10/03/20 11:45 Salicylates < 0.3 mg/dL (2.8-20.0) L 09/22/20 16:10 Acetaminophen 5.0 ug/mL (10.0-30.0) L 09/22/20 16:10 Coronavirus (PCR) Negative (Negative) 10/01/20 07:21 Hepatitis A IgM Ab Non-reactive (NonReactive) 09/23/20 14:28 Hep Bs Antigen Non-reactive (Negative) 09/23/20 14:28 Hep B Core IgM Ab Non-reactive (NonReactive) 09/23/20 14:28 Hepatitis C Antibody Non-reactive (NonReactive) 09/23/20 14:28 Microbiology: Microbiology 10/03/20 08:16 Peripheral/Venous Blood Culture - Preliminary NO GROWTH AFTER 48 HOURS 10/03/20 08:16 Peripheral/Venous Blood Culture - Preliminary NO GROWTH AFTER 48 HOURS [place]/IV: Voiding Method Urinal Active Medications - Current Medications Current Medications: Generic Name Dose Route Start Last Admin Trade Name Freq PRN Reason Stop Dose Admin Acetaminophen 650 mg 09/22/20 18:24 10/04/20 21:46 Acetaminophen 325 Mg Tab PO 650 mg Q4H PRN Administration Pain MILD(1-3)/Fever >100.5/PEREYRA Aspirin 325 mg 09/25/20 10:00 10/05/20 10:04 Aspirin 325 Mg Tab PO 325 mg QDAY MILTON Administration Colchicine 0.6 mg 09/23/20 10:00 10/05/20 10:04 Colchicine 0.6 Mg Tab PO 0.6 mg DAILY MILTON Administration Cyclobenzaprine HCl 5 mg 10/02/20 12:30 10/05/20 21:54 Cyclobenzaprine 10 Mg Tab PO 5 mg Q8H PRN Administration Muscle Spasm Dextrose 50 ml 09/24/20 15:31 Dextrose 50% In Water (25gm) 50 Ml Syringe IV Q30MIN PRN Hypoglycemia Protocol Enoxaparin Sodium 40 mg 09/23/20 22:00 10/05/20 21:53 Enoxaparin 40 Mg/0.4 Ml Inj SUB-Q 40 mg QDAY@2200 MILTON Administration Protocol Hydralazine HCl 10 mg 09/23/20 14:23 Hydralazine 20 Mg/1 Ml Inj IV Q4HR PRN Hypertension Insulin Human Lispro 0 unit 09/24/20 16:30 10/06/20 08:13 Insulin Lispro 100 Unit/Ml SUB-Q Not Given ACHS MILTON Protocol Metoprolol Tartrate 50 mg 10/04/20 10:00 10/05/20 21:53 Metoprolol Tartrate 50 Mg Tab PO 50 mg BID MILTON Administration Ondansetron HCl 4 mg 09/22/20 18:24 Ondansetron 4 Mg/2 Ml Inj IV Q8H PRN Nausea And Vomiting Oxycodone HCl 5 mg 09/30/20 12:00 10/01/20 21:11 Oxycodone 5 Mg Tab PO 5 mg Q8H PRN Administration Pain, Moderate (4-6) Sodium Chloride 10 ml 09/22/20 22:00 10/05/20 21:55 Sodium Chloride 0.9% 10 Ml Flush Syringe IV 10 ml BID MILTON Administration Sodium Chloride 10 ml 09/22/20 18:24 Sodium Chloride 0.9% 10 Ml Flush Syringe IV PRN PRN LINE FLUSH Tramadol HCl 50 mg 09/24/20 05:19 10/05/20 20:40 Tramadol 50 Mg Tab PO 50 mg Q6H PRN Administration Pain, Moderate (4-6) Nutrition/Malnutrition Assess - Dietary Evaluation Nutrition/Malnutrition Findings: Nutrition Notes Start: 09/23/20 11:00 Freq: Status: Active Protocol: Document 09/24/20 10:20 CW (Rec: 09/24/20 10:30 CW [id number]) Nutrition Notes Initial or Follow up Brief Note Current Diagnosis Acute Kidney Injury,Diabetes, Hypertension Other Pertinent Diagnosis Obesity Hypoventilation Syndrome, pneu, COVID, Rhabdomyolysis Current Diet Cardiac/Consistent CHO Labs/Tests BUN 26 Cr 0.7 Ca 8.3 Pertinent Medications Vitamin D3 Zinc Sulfate Height 5 ft 3 in Weight 86.183 kg [place] Body Weight (kg) 56.36 BMI 33.6 Weight Status Obese Subjective/Other Information F/U for weight and intakes. Intakes remain adeqaute 50 - 75% of meals which meets at least 75% of kcal and protein needs. Weight has remained stable. Renal related labs are improving. Adarsh score of 21 with intact skin. Pt did not answer phone x2. No reports of N/V/D/C. Diet being well tolerated Percent of energy/protein needs met: 78%/80% Skin Integrity/Comment [place] Score 21 Minimum of two criteria No Fluid Accumulation Mild (non-severe) Is patient on ventilator? No Is Patient Ambulatory and/or Out of Bed Yes REE-([place]-St. Jeor-ambulatory/OOB) [ 2036.048 [id number]] Kcal/Kg value to use for calculation 18 Approximate Energy Requirements Using 1551 kcal/Kg Calculation Used for Recommendations Kcal/kg Additional Notes PRO needs: 69-103g (0.8-1.2 g/ kg for JINA) Fluid needs: 1 mL/kcal or per MD Nutrition Intervention Change Diet Order: Continue Cardiac Consistent CHO Goal #1 Meet at least 75% of estimated energy and protein needs. Anticipated Discharge Needs: Cardiac/Consistent CHO Revisit per MD consult or patient Sign Off request: Additional Comments S/O Adequate PO intakes, Adarsh Score of 21
--- NOTE | 2020-10-06 09:21 | Progress Note ---
Assessment and Plan Assessment and plan: Acute/subacute infarct -POA -09/22 CT head shows at least 3 small deep infarctions in the greater ganglioc apsular distribution, recommend MRI brain, extensive mucosal disease in the right sinus, anterior and mid ethmoid air cells on the right and in the right and left frontal sinuses. -09/23 MRI brain shows subacute infarctions involving the right meyer radiata -09/24 MRA head without contrast shows irregularity of the intracranial vessels at the left MCA trifurcation with no significant stenosis involving the distal internal carotid arteries -09/25 CTA h/n w/wo contrast shows groundglass opacities with peripheral subpleural predilection, no occlusion or significant stenosis of the carotid or vertebral arteries, no occlusion or significant stenosis of the major intracranial vasculature -09/24 TTE shows global left ventricular systolic function at the lower limits of normal, estimate ejection fraction 55%, mild concentric LVH, mild AR, mild MR, trace TR and no patent foramen ovale demonstrated by agitated saline contrast -09/28 VALDEZ shows normal LV size and function, no thrombus or vegetation, negative bubble study, mild MR. No apparent cardiac source of emboli noted. -Neurology consulted, appreciate recommendations -Aspirin and statin therapy -PT/OT consulted, appreciate recommendations -Maintain euthermia and euglycemia -Seizure/aspiration/fall precautions -Neurology recommends long-term cardiac monitoring -f/u with neurologist and sheet pile driver operator (Dr. Gramajo within 2-3 weeks of dischar [place] ([phone])) Paraparesis with pain -Presented with rhabdomyolysis and a 3 to 4-day history of decreased movement per patient due to pain -Patient has a history of gout -09/24 x-ray of left lower extremity reports no acute fracture process -09/25 MRI T-spine shows no focal disc herniation, spinal canal stenosis or nerve root compression with normal thoracic spinal cord -09/25 L spine shows normal distal spinal cord, no enhancing intradural lesion, shallow disc protrusion at L2/L3 disc level like bilaterally more towards the left side, left neural foramina narrowed -09/30 L knee xray shows no acute process, osteoarthritis -PT/OT consulted, appreciate recommendations Elevated D-dimer -Presented with a D-dimer of 1568 -09/22 bilateral lower extremity Doppler ultrasound shows no evidence of DVT/SVT Rhabdomyolysis, improving -Presented with a creatinine kinase of 1354 -S/p 3 L normal saline in the emergency department -Trend creatinine -PT/OT consulted -Patient states that he has not moved for 4 days prior to presentation Transaminitis, improving -LFTs of presentation: AST 107, ALT 167, alk phos 161 -Trend LFTs -GI consulted, appreciate recommendations -09/23 abdominal ultrasound shows hepatomegaly with hepatic steatosis, multiple hyper echoic areas within the gallbladder could represent multiple polyps versus nonmobile gallstones, bilateral renal cysts - Per GI: -supportive care. -avoid hepatotoxins. -will sign off. patient to follow up with GI outpatient for hepatic kimberly atosis. Thrombocytosis -Presented with a platelet count of 633 -Trend CBC Hypertension -Resume home antihypertensive regimen and titrate as needed -Blood pressure monitoring per protocol -As needed IV hydralazine for SBP greater than 160 DVT prophylaxis -SCDs to bilateral lower extremities while in bed -Heparin subcu Discharge planning issues -Case management is attempting SNF placement -09/30 COVID 19 PCR pending -PT/OT recommend acute rehab and CM is looking for acute rehab placement. Aw aiting insurance authorization Pneumonia -s/p Antibiotic therapy -Pulmonary hygiene -Supplement oxygen as needed -SPO2 monitoring Extensive sinusitis -Noted on CT head -s/p Antibiotic therapy Supraventricular tachycardia Now rate controlled-sinus rhythm in the 70s. Continue metoprolol and Cardizem Follow-up with cardiology in the office in 1 to 2 weeks. DVT ppx - heparin - Patient Problems (1) CVA (cerebral vascular accident) Current Visit: Yes Status: Acute Qualifiers: CVA mechanism: embolism Laterality of affected vessel: bilateral (2) Hypertension Current Visit: Yes Status: Chronic Qualifiers: Hypertension type: essential hypertension Qualified Code(s): I10 - Essential (primary) hypertension (3) Rhabdomyolysis Current Visit: Yes Status: Acute History Interval history: This is a 59 YO Male with HTN and presented to the emergency department on 09/22 obesity hypoventilation syndrome with complaints of generalized weakness, fatigue, muscle aches, shortness of breath, dry cough over the past 2 weeks with worsening symptoms over the past 4 days with known COVID-19 exposure. The patient was found to have pneumonia, suspected coronavirus infection, transaminitis and rhabdomyolysis. Patient was admitted to the hospitalist service with consults to infectious disease and GI. Neurology and PT/OT consulted. 2/17: Today on examination patient is on room air and states that he has not moved in 4 days and complains of generalized weakness and fatigue. Today infectious disease, GI and PT/OT were consulted. No acute events reported overnight. We will obtain an acute hepatitis panel and abdominal ultrasound to further investigate his transaminitis. COVID-19 PCR pending 09/24: Patient's COVID-19 PCR was negative and he was transferred to the fourth floor. Patient received abdominal ultrasound and MRI brain was obtained due to left facial droop, right upper extremity and left lower extremity weakness which showed a subacute infarct. Neurology was consulted. PT/OT evaluation pending. No acute events reported overnight. 09/25: The time of my examination patient has drift to bilateral lower ext remities with slight left-sided facial droop. No acute events reported overnight. Neurology has ordered for additional testing. 09/26: CTA of the head and neck showed no occlusion or significant stenosis. MRI of the spine revealed shallow disc protrusion at L2-L3 disc level laterally bilaterally but no other acute findings. Thoracic MRI negative. Continue PT/OT/ST. Neurology recommends VALDEZ. Cardiology consulted. ID recommends continuing ceftriaxone and azithromycin to complete 5 days. 09/27: Await VALDEZ by cardiology Monday to assess for cardioembolic source. Continue PT/OT/ST. Neurology following. Complete antibiotics for sinusitis/pneumonia. Physical therapy recommends rolling walker. Await final PT assessment for discharge planning/placement. 09/28: Awaiting PT/OT final recommendations, patient had his VALDEZ today which showed no cardioembolic source. Patient still has right upper extremity and left lower extremity weakness and pain with movement. Recommended DME ordered. 09/29: Patient still has right upper extremity and left lower extremity weakness and pain with movement. CM notes noted for awaiting SNF placement. No acute events reported overnight. 09/30: Patient complained of left knee pain and a CXR was obtained which showed no acute abnormality. Repeat COVID-19 test was ordered this morning for possible placement. No acute events reported overnight. Patient has increased strength 3/5 to affected upper and lower extremity. 10/01: His weakness is improving and per PT/OT recommendations CM is looking for acute rehab placement. Patient is medically clear for discharge. 10/02: Seen in conjunction with physical therapy this morning. Patient has remarkably improved in terms of weakness. Patient states that his muscles are cramping and is requesting for muscle relaxant. No acute events reported overnight. 10/03: Had Temp >101F. Ordered blood cultures, UA, chest xray. Monitor vital signs. Labs ordered. 10/04. No further febrile episodes. Awaiting placement. Has no complaints 10/05. Still waiting placement-insurance authorization. Has no complaints today. Vitals remained stable 10/06. Still awaiting insurance authorization. Had a burst of SVT even on metoprolol 50 mg twice daily. Medication switched to metoprolol XL 50 mg. Added Cardizem. Patient to follow-up with sheet pile driver operator in the office in 1 to 2 weeks. Hospitalist Physical - Physical exam Narrative exam: VITAL SIGNS: Reviewed. GENERAL: Awake HEAD: No signs of head trauma. EYES: Pupils are equal. Extraocular motions intact. MOUTH: Oropharynx is normal. NECK: No adenopathy, no JVD. CHEST: Chest with diminished breath sounds bilaterally. No wheezes, rales, or rhonchi. CARDIAC: normal S1 and S2, without murmurs, gallops, or rubs. ABDOMEN: Soft, non tender and non distended. No rebound or guarding, and no masses palpated. Bowel Sounds normal. MUSCULOSKELETAL: No edema NEUROLOGIC EXAM: Alert and oriented x3. No focal neurologic deficits SKIN: No obvious lesions - Constitutional Vitals: Temp Pulse Resp BP Pulse Ox 97.7 F 90 17 114/65 96 10/06/20 04:33 10/06/20 04:33 10/06/20 04:33 10/06/20 04:33 10/06/20 04:33 HEART Score - HEART Score Troponin: Troponin T 0.060 ng/mL (0.00-0.029) H 09/22/20 16:10 Results - Labs CBC & Chem 7: 10/04/20 11:16 10/04/20 11:16 Labs: Laboratory Last Values WBC 12.4 K/mm3 (4.5-11.0) H 10/04/20 11:16 RBC 3.19 M/mm3 (3.65-5.03) L 10/04/20 11:16 Hgb 10.0 gm/dl (11.8-15.2) L 10/04/20 11:16 Hct 28.4 % (35.5-45.6) L 10/04/20 11:16 MCV 89 fl (84-94) 10/04/20 11:16 MCH 31 pg (28-32) 10/04/20 11:16 MCHC 35 % (32-34) H 10/04/20 11:16 RDW 13.9 % (13.2-15.2) 10/04/20 11:16 Plt Count 493 K/mm3 (140-440) H 10/04/20 11:16 Lymph % (Auto) 9.7 % (13.4-35.0) L 10/04/20 11:16 [place] % (Auto) 11.0 % (0.0-7.3) H 10/04/20 11:16 Eos % (Auto) 0.8 % (0.0-4.3) 10/04/20 11:16 Baso % (Auto) 0.7 % (0.0-1.8) 10/04/20 11:16 Lymph # (Auto) 1.2 K/mm3 (1.2-5.4) 10/04/20 11:16 [place] # (Auto) 1.4 K/mm3 (0.0-0.8) H 10/04/20 11:16 Eos # (Auto) 0.1 K/mm3 (0.0-0.4) 10/04/20 11:16 Baso # (Auto) 0.1 K/mm3 (0.0-0.1) 10/04/20 11:16 Seg Neutrophils % 77.8 % (40.0-70.0) H 10/04/20 11:16 Seg Neutrophils # 9.6 K/mm3 (1.8-7.7) H 10/04/20 11:16 PT 15.8 Sec. (12.2-14.9) H 09/25/20 04:58 INR 1.28 (0.87-1.13) H 09/25/20 04:58 D-Dimer 1258.68 ng/mlDDU (0-234) H 09/24/20 06:07 Sodium 136 mmol/L (137-145) L 10/04/20 11:16 Potassium 3.8 mmol/L (3.6-5.0) 10/04/20 11:16 Chloride 100.0 mmol/L (98-107) 10/04/20 11:16 Carbon Dioxide 27 mmol/L (22-30) 10/04/20 11:16 Anion Gap 13 mmol/L 10/04/20 11:16 BUN 14 mg/dL (9-20) 10/04/20 11:16 Creatinine 0.7 mg/dL (0.8-1.3) L 10/04/20 11:16 Estimated GFR > 60 ml/min 10/04/20 11:16 BUN/Creatinine Ratio 20 % 10/04/20 11:16 Glucose 128 mg/dL (75-100) H 10/04/20 11:16 POC Glucose 80 mg/dL (70-105) 10/06/20 08:15 Hemoglobin A1c 6.6 % (4-6) H 09/24/20 16:47 Calcium 8.3 mg/dL (8.4-10.2) L 10/04/20 11:16 Magnesium 2.80 mg/dL (1.7-2.3) H 09/22/20 16:10 Ferritin 1686.0 ng/mL (30.0-300.0) H 09/24/20 06:07 Total Bilirubin 0.50 mg/dL (0.1-1.2) 10/04/20 11:16 Direct Bilirubin 0.2 mg/dL (0-0.2) 09/25/20 04:58 Indirect Bilirubin 0.3 mg/dL 09/25/20 04:58 AST 40 units/L (5-40) 10/04/20 11:16 ALT 86 units/L (7-56) H 10/04/20 11:16 Alkaline Phosphatase 146 units/L (35-129) H 10/04/20 11:16 Lactate Dehydrogenase 303 units/L (91-180) H 09/24/20 06:07 Total Creatine Kinase 365 units/L (55-170) H 09/24/20 06:07 Troponin T 0.060 ng/mL (0.00-0.029) H 09/22/20 16:10 C-Reactive Protein 7.20 mg/dL (0.00-1.30) H 09/24/20 06:07 NT-Pro-B Natriuret Pep 822.4 pg/mL (0-900) 09/22/20 16:10 Total Protein 6.6 g/dL (6.3-8.2) 10/04/20 11:16 Albumin 2.7 g/dL (3.9-5) L 10/04/20 11:16 Albumin/Globulin Ratio 0.7 % 10/04/20 11:16 Triglycerides 179 mg/dL (2-149) H 09/22/20 16:10 Cholesterol 182 mg/dL (50-199) 09/22/20 16:10 LDL Cholesterol Direct 110 mg/dL (50-130) 09/22/20 16:10 HDL Cholesterol 26 mg/dL (40-59) L 09/22/20 16:10 Cholesterol/HDL Ratio 7.00 % 09/22/20 16:10 Lipase 37 units/L (13-60) 09/22/20 16:10 Procalcitonin < 0.05 ng/mL (<0.15) 10/03/20 08:16 TSH 1.620 mlU/mL (0.270-4.200) 09/22/20 16:10 Free T4 1.09 ng/dL (0.76-1.46) 09/22/20 16:10 Urine Color Yellow (Yellow) 10/03/20 11:45 Urine Turbidity Clear (Clear) 10/03/20 11:45 Urine pH 6.0 (5.0-7.0) 10/03/20 11:45 Ur Specific [place] 1.017 (1.003-1.030) 10/03/20 11:45 Urine Protein <15 mg/dl mg/dL (Negative) 10/03/20 11:45 Urine Glucose (UA) Neg mg/dL (Negative) 10/03/20 11:45 Urine Ketones Neg mg/dL (Negative) 10/03/20 11:45 Urine Blood Sm (Negative) 10/03/20 11:45 Urine Nitrite Neg (Negative) 10/03/20 11:45 Urine Bilirubin Neg (Negative) 10/03/20 11:45 Urine Urobilinogen < 2.0 mg/dL (<2.0) 10/03/20 11:45 Ur Leukocyte Esterase Neg (Negative) 10/03/20 11:45 Urine WBC (Auto) < 1.0 /HPF (0.0-6.0) 10/03/20 11:45 Urine RBC (Auto) 7.0 /HPF (0.0-6.0) 10/03/20 11:45 U Epithel Cells (Auto) < 1.0 /HPF (0-13.0) 09/22/20 Unknown Urine Mucus Few /HPF 10/03/20 11:45 Salicylates < 0.3 mg/dL (2.8-20.0) L 09/22/20 16:10 Acetaminophen 5.0 ug/mL (10.0-30.0) L 09/22/20 16:10 Coronavirus (PCR) Negative (Negative) 10/01/20 07:21 Hepatitis A IgM Ab Non-reactive (NonReactive) 09/23/20 14:28 Hep Bs Antigen Non-reactive (Negative) 09/23/20 14:28 Hep B Core IgM Ab Non-reactive (NonReactive) 09/23/20 14:28 Hepatitis C Antibody Non-reactive (NonReactive) 09/23/20 14:28 Microbiology: Microbiology 10/03/20 08:16 Peripheral/Venous Blood Culture - Preliminary NO GROWTH AFTER 48 HOURS 10/03/20 08:16 Peripheral/Venous Blood Culture - Preliminary NO GROWTH AFTER 48 HOURS [place]/IV: Voiding Method Urinal Active Medications - Current Medications Current Medications: Generic Name Dose Route Start Last Admin Trade Name Freq PRN Reason Stop Dose Admin Acetaminophen 650 mg 09/22/20 18:24 10/04/20 21:46 Acetaminophen 325 Mg Tab PO 650 mg Q4H PRN Administration Pain MILD(1-3)/Fever >100.5/PEREYRA Aspirin 325 mg 09/25/20 10:00 10/05/20 10:04 Aspirin 325 Mg Tab PO 325 mg QDAY MILTON Administration Colchicine 0.6 mg 09/23/20 10:00 10/05/20 10:04 Colchicine 0.6 Mg Tab PO 0.6 mg DAILY MILTON Administration Cyclobenzaprine HCl 5 mg 10/02/20 12:30 10/05/20 21:54 Cyclobenzaprine 10 Mg Tab PO 5 mg Q8H PRN Administration Muscle Spasm Dextrose 50 ml 09/24/20 15:31 Dextrose 50% In Water (25gm) 50 Ml Syringe IV Q30MIN PRN Hypoglycemia Protocol Enoxaparin Sodium 40 mg 09/23/20 22:00 10/05/20 21:53 Enoxaparin 40 Mg/0.4 Ml Inj SUB-Q 40 mg QDAY@2200 MILTON Administration Protocol Hydralazine HCl 10 mg 09/23/20 14:23 Hydralazine 20 Mg/1 Ml Inj IV Q4HR PRN Hypertension Insulin Human Lispro 0 unit 09/24/20 16:30 10/06/20 08:13 Insulin Lispro 100 Unit/Ml SUB-Q Not Given ACHS [facility] Protocol Metoprolol Tartrate 50 mg 10/04/20 10:00 10/05/20 21:53 Metoprolol Tartrate 50 Mg Tab PO 50 mg BID MILTON Administration Ondansetron HCl 4 mg 09/22/20 18:24 Ondansetron 4 Mg/2 Ml Inj IV Q8H PRN Nausea And Vomiting Oxycodone HCl 5 mg 09/30/20 12:00 10/01/20 21:11 Oxycodone 5 Mg Tab PO 5 mg Q8H PRN Administration Pain, Moderate (4-6) Sodium Chloride 10 ml 09/22/20 22:00 10/05/20 21:55 Sodium Chloride 0.9% 10 Ml Flush Syringe IV 10 ml BID MILTON Administration Sodium Chloride 10 ml 09/22/20 18:24 Sodium Chloride 0.9% 10 Ml Flush Syringe IV PRN PRN LINE FLUSH Tramadol HCl 50 mg 09/24/20 05:19 10/05/20 20:40 Tramadol 50 Mg Tab PO 50 mg Q6H PRN Administration Pain, Moderate (4-6) Nutrition/Malnutrition Assess - Dietary Evaluation Nutrition/Malnutrition Findings: Nutrition Notes Start: 09/23/20 11:00 Freq: Status: Active Protocol: Document 09/24/20 10:20 CW (Rec: 09/24/20 10:30 CW [id number]) Nutrition Notes Initial or Follow up Brief Note Current Diagnosis Acute Kidney Injury,Diabetes, Hypertension Other Pertinent Diagnosis Obesity Hypoventilation Syndrome, pneu, COVID, Rhabdomyolysis Current Diet Cardiac/Consistent CHO Labs/Tests BUN 26 Cr 0.7 Ca 8.3 Pertinent Medications Vitamin D3 Zinc Sulfate Height 5 ft 3 in Weight 86.183 kg [place] Body Weight (kg) 56.36 BMI 33.6 Weight Status Obese Subjective/Other Information F/U for weight and intakes. Intakes remain adeqaute 50 - 75% of meals which meets at least 75% of kcal and protein needs. Weight has remained stable. Renal related labs are improving. Adarsh score of 21 with intact skin. Pt did not answer phone x2. No reports of N/V/D/C. Diet being well tolerated Percent of energy/protein needs met: 78%/80% Skin Integrity/Comment Beaden Score 21 Minimum of two criteria No Fluid Accumulation Mild (non-severe) Is patient on ventilator? No Is Patient Ambulatory and/or Out of Bed Yes REE-([place]-St. Jeor-ambulatory/OOB) [ 2036.048 [id number]] Kcal/Kg value to use for calculation 18 Approximate Energy Requirements Using 1551 kcal/Kg Calculation Used for Recommendations Kcal/kg Additional Notes PRO needs: 69-103g (0.8-1.2 g/ kg for JINA) Fluid needs: 1 mL/kcal or per MD Nutrition Intervention Change Diet Order: Continue Cardiac Consistent CHO Goal #1 Meet at least 75% of estimated energy and protein needs. Anticipated Discharge Needs: Cardiac/Consistent CHO Revisit per MD consult or patient Sign Off request: Additional Comments S/O Adequate PO intakes, Adarsh Score of 21
[2020-10-06] MEDS: ASPIRIN 325 MG TAB PO SCH (10:33)
[2020-10-06] MEDS: COLCHICINE 0.6 MG TAB PO SCH (10:33)
[2020-10-06] MEDS: METOPROLOL TARTRATE 50 MG TAB PO SCH (10:33)
[2020-10-06] MEDS: oxyCODONE 5 MG TAB PO PRN (23:20)
[2020-10-06] MEDS: METOPROLOL SUCCINATE XL 50 MG TAB PO SCH (23:21)
[2020-10-06] MEDS: predniSONE 20 MG TAB PO SCH (23:21)
[2020-10-06] MEDS: ENOXAPARIN 40 MG/0.4 ML INJ SUB-Q SCH (23:22)
[2020-10-07] MEDS: dilTIAZem 30 MG TAB PO SCH ×2 (00:15→07:07)
[2020-10-07] MEDS: INSULIN LISPRO 100 UNIT/ML SUB-Q SCH (08:30)
[2020-10-07] MEDS: METOPROLOL SUCCINATE XL 50 MG TAB PO SCH (09:30)
[2020-10-07] MEDS: ASPIRIN 325 MG TAB PO SCH (09:31)
[2020-10-07] MEDS: COLCHICINE 0.6 MG TAB PO SCH (09:31)
[2020-10-07] MEDS: predniSONE 20 MG TAB PO SCH (09:31)
[2020-10-07 11:53] VITALS: BP 114/59
== END 2020-10-07 11:56 | DRG 64 ==
LOC: ED 14:27 → 3A 18:24 → 4A 09-23 18:47
PROVIDERS: ADMIT Internal Medicine; ATTEND Internal Medicine
DX: I63.9 Cerebral infarction, unspecified (principal); J18.9 Pneumonia, unspecified organism; N17.9 Acute kidney failure, unspecified; M62.82 Rhabdomyolysis; E66.2 Morbid (severe) obesity with alveolar hypoventilation; G82.20 Paraplegia, unspecified; I10 Essential (primary) hypertension; R74.01 Elevation of levels of liver transaminase levels; E86.0 Dehydration; Z68.27 Body mass index [BMI] 27.0-27.9, adult; D69.6 Thrombocytopenia, unspecified; R79.1 Abnormal coagulation profile; J32.9 Chronic sinusitis, unspecified; E11.9 Type 2 diabetes mellitus without complications; Z20.822 Contact with and (suspected) exposure to COVID-19; R29.708 NIHSS score 8
CPT/HCPCS: 36415; 70450; 70496; 70498; 70544; 70551; 71045; 71046; 72157; 72158; 76700; 80048; 80053; 80061; 80074; 80076; 80320; 81001; 82550; 82728; 82947; 82962; 83036; 83615; 83690; 83735; 83880; 84145; 84439; 84443; 84484; 85025; 85027; 85379; 85610; 86140; 87040; 87086; 93005; 93306; 93312; 93320; 93325; 93970; 96365; G0378; A9575; G0480; J0456; J0696; J1644; J1650; J1815; J1885; J2704; J2920; J7030; J7040; J7512; Q9967; U0003